=== PATIENT | male | born 1955 | race Caucasian/White ===

== ENCOUNTER 2019-05-10 12:55 | Inpatient (IN) | payer MEDICARE, OTHER ==
[2019-05-10] VITALS (39 sets, daily range): BP systolic 71–159; BP diastolic 37–136; PULSE 84–121; RESP 12–48; Ht 170.2 cm; Wt 70.9 kg
[~2019-05-10] VITALS: Ht 170.2 cm; Wt 70.9 kg
[2019-05-10] MEDS ORDERED: DEXTROSE 5%-0.45% NACL 1,000 ML IV SCH (14:12)
[2019-05-10] MEDS ORDERED: LIDOCAINE 1% (MPF) 5 ML VIAL SC ONE (14:30)
[2019-05-10] MEDS ORDERED: MAGNESIUM HYDROXIDE 30ML CUP PO PRN (14:30)
[2019-05-10] MEDS ORDERED: ACETAMINOPHEN 650MG/20.3ML CUP PO PRN (14:30)
[2019-05-10] MEDS ORDERED: ALBUTEROL 0.083% (NEB) 2.5 MG/3 ML AMP NEB PRN (14:30)
[2019-05-10] MEDS ORDERED: VANCOMYCIN IV PER PHARMACY XX SCH (14:30)
[2019-05-10] MEDS ORDERED: ONDANSETRON 4 MG INJ IV PRN (14:30)
[2019-05-10] MEDS ORDERED: LORAZEPAM 2 MG INJ IV PRN (14:30)
[2019-05-10] MEDS ORDERED: ACETAMINOPHEN 650 MG SUPP PR PRN (14:30)
[2019-05-10] MEDS ORDERED: DOCUSATE SODIUM 100 MG CAP PO PRN (14:30)
[2019-05-10] MEDS: NORepinephrine 8MG/250 ML (PMX 250 ML IV SCH (14:40)
[2019-05-10] MEDS ORDERED: NORepinephrine 8MG/250 ML (PMX 250 ML ONE (14:55)
--- NOTE | 2019-05-10 15:09 | CONS ---
Assessment/Plan Assessment/Plan Assessment/Plan (Daily) 1. acute kidney injury oN CKD III due to ATN From septic shock + Prerenal azotemia 2. Hypernatremia due to Free water deficiti 3. septich shock due to PNA 4. PNA concerned about HCAP 5. H/o HTN 6. Thrombocytopenia 7. h/o anoxic brain injury 8. Acute on Chronic systolic heart failure, EF 40% on ECHO Plan: seen in iCU< pt just came to ICU Hold off on diuretics for now due ot low BP and hypotension pt received only 250 cc Bolus due to CHF, will give albumin 25% 100ml Q 8 hr x 3 Continue iVF D5W at 60 cchr Uric acid, BNP in AM CXR in AM Thanks for consultation, I will conitnue to follow up Consultation Date/Type/Reason Admit Date/Time May 10, 2019 at 13:20 Date of Consultation: May 10, 2019 Type of Consult NEPHROLOGY Reason for Consultation Hypernatremia, acute kidney injury Requesting Provider: NIXON MILLER MD Date/Time of Note DATE: 05/10/19 TIME: 15:08 Hx of Present Illness 63 yo M with PMH Diabetes, hypertension, paroxysmal atrial fibrillation, sy stolic congestive heart failure with AICD in place, and CAD with mechanical aortic valve 2002, and anoxic brain injury was transferred to ICU from [place] due to hypotension and respiratory distress. He was found with SBP in the 70s this am and given 250cc fluid bolus given history of CHF. He was started on BIPAP given respiratory distress and weaned off prior to admission to ICU. .pt get admitted for septic shock to ICU due to PNA, on levophed, Required BIPAP On admisison he was noted to have Na 152, BUN/Cr 88/1.64- Renal has been consulted for hypernatremia, acute kidney injury. Subjective hx not possible: pt non-verbal, other (due to respiratory distress on BIPAP) Past Medical History Medical History: other (Diabetes, hypertension, paroxysmal atrial fibrillation, systolic congestive heart failure with AICD in place, and CAD with mechanical aortic valve 2002, and anoxic brain injury) Medications Current Medications Ondansetron HCl (Zofran Inj) 4 mg Q6H PRN IV NAUSEA AND/OR VOMITING; Start 05/10/19 at 14:30 Albuterol (Proventil 0.083% (Neb)) 2.5 mg Q4H RESP THERAPY NEB ; Start 05/10/19 at 17:00 Albuterol (Proventil 0.083% (Neb)) 2.5 mg Q2H RESP THERAPY PRN NEB SHORTNESS OF BREATH; Start 05/10/19 at 14:30 Acetaminophen (Tylenol Liquid) 650 mg Q6H PRN PO PAIN LEVEL 1-3 OR FEVER; Start 05/10/19 at 14:30 Acetaminophen (Tylenol Supp) 650 mg Q4H PRN HI PAIN LEVEL 1-3 OR FEVER; Start 05/10/19 at 14:30 Lorazepam (Ativan) 1 mg Q2H PRN IV ANXIETY; Start 05/10/19 at 14:30 Docusate Sodium (Colace) 100 mg Q12H PRN PO CONSTIPATION; Start 05/10/19 at 14:30 Magnesium Hydroxide (Milk Of Mag) 30 ml DAILY PRN PO CONSTIPATION; Start 05/10/19 at 14:30 Famotidine (Pepcid Iv) 20 mg Q24H IV ; Start 05/10/19 at 21:00 Vancomycin HCl (Vanco Iv Per Pharmacy) VANCOMYCIN PER PHARMACY PER PROTOCOL XX ; Start 05/10/19 at 14:30; Status UNV Meropenem/Sodium Chloride 50 ml @ 100 mls/hr Q12 IVPB ; Start 05/10/19 at 14:30 Citalopram Hydrobromide (Celexa) 40 mg DAILY PO ; Start 05/11/19 at 09:00 Digoxin (Digoxin) 125 mcg QHS IV ; Start 05/10/19 at 21:00 Insulin Aspart (Novolog Insulin Pen) NOVOLOG *MILD* ALGORI... Q4 SC ; Start 05/10/19 at 17:00 Miconazole Nitrate (Miconazole 2% Cr) 1 applic BID TOP ; Start 05/10/19 at 21:00 Midodrine (Proamatine) 5 mg TID@09,13,17 GTB ; Start 05/10/19 at 17:00 Quetiapine Fumarate (Seroquel) 25 mg BID PO ; Start 05/10/19 at 21:00 Dextrose 1,000 ml @ 60 mls/hr [id number] IV ; Start 05/10/19 at 15:00 Allergies: Coded Allergies: No Known Allergy (Unverified , 05/10/19) Past Surgical History Past Surgical Hx: other (aortic valve surgery ) Family History Significant Family History: no pertinent family hx Social History Alcohol Use: none Drug Use: none Exam/Review of Systems Exam Vitals Vital Signs Date Temp Pulse Resp B/P (MAP) Pulse Ox O2 O2 Flow FiO2 Time Delivery Rate 05/10/19 107 13:30 Exam General: awake, alert, on BIPAP HEENT: HANDY, BIPAP mask Neck: Supple , no JVD, no LAD Lungs: Diminished with coarse breath sounds. no wheezing appreciated Heart: Normal S1-S2, regular rate, irregular rhythm. no murmur appreciated Abdomen: Soft , nontender, nondistended BS+ Extremities: moving all extremities, no cyanosis, clubbing or edema Neurologic: non focal Results Result Diagram: 05/10/19 1440 Results 24hrs Laboratory Tests Test 05/10/19 14:32 05/10/19 14:40 Blood Gas Specimen Source Blood arterial Arterial Blood Date Drawn 05/10/2019 2:40:52 PM Arterial Blood pH (Temp corrected) 7.533 H Arterial Blood pCO2 (Temp correct) 27.6 L Arterial Blood pO2 (Temp corrected) 96.9 Arterial Blood HCO3 22.7 Arterial Blood Base Excess 0.3 Arterial Blood Oxygen Saturation 96.7 Barber Test ACCEPTAB Arterial Blood Gas Puncture Site Right Radial Arterial Blood Carboxyhemoglobin 0.8 Arterial Blood Methemoglobin 0.3 Blood Gas A-a O2 Differential 99.0 H Oxyhemoglobin Percent 95.6 Blood Gas Temperature 37.0 Blood Gas Modality NASAL CANNULA FiO2 32.0 Blood Gas Notified Whom TM Blood Gas Notified Time 05/10/2019 2:48:22 PM White Blood Count 11.0 #H Red Blood Count 2.43 L Hemoglobin 6.9 *L Hematocrit 23.0 L Mean Corpuscular Volume 94.7 Mean Corpuscular Hemoglobin 28.4 L Mean Corpuscular Hemoglobin Concent 30.0 L Red Cell Distribution Width 21.6 H Platelet Count 40 L Mean Platelet Volume Immature Granulocytes % 0.600 H Neutrophils % Lymphocytes % Monocytes % Eosinophils % Basophils % Nucleated Red Blood Cells % 0.4 H Immature Granulocytes # 0.070 H Neutrophils # Lymphocytes # Monocytes # Eosinophils # Basophils # Nucleated Red Blood Cells # Medications Medication Current Medications Ondansetron HCl (Zofran Inj) 4 mg Q6H PRN IV NAUSEA AND/OR VOMITING; Start 05/10/19 at 14:30 Albuterol (Proventil 0.083% (Neb)) 2.5 mg Q4H RESP THERAPY NEB ; Start 05/10/19 at 17:00 Albuterol (Proventil 0.083% (Neb)) 2.5 mg Q2H RESP THERAPY PRN NEB SHORTNESS OF BREATH; Start 05/10/19 at 14:30 Acetaminophen (Tylenol Liquid) 650 mg Q6H PRN PO PAIN LEVEL 1-3 OR FEVER; Start 05/10/19 at 14:30 Acetaminophen (Tylenol Supp) 650 mg Q4H PRN HI PAIN LEVEL 1-3 OR FEVER; Start 05/10/19 at 14:30 Lorazepam (Ativan) 1 mg Q2H PRN IV ANXIETY; Start 05/10/19 at 14:30 Docusate Sodium (Colace) 100 mg Q12H PRN PO CONSTIPATION; Start 05/10/19 at 14:30 Magnesium Hydroxide (Milk Of Mag) 30 ml DAILY PRN PO CONSTIPATION; Start 05/10/19 at 14:30 Famotidine (Pepcid Iv) 20 mg Q24H IV ; Start 05/10/19 at 21:00 Vancomycin HCl (Vanco Iv Per Pharmacy) VANCOMYCIN PER PHARMACY PER PROTOCOL XX ; Start 05/10/19 at 14:30; Status UNV Meropenem/Sodium Chloride 50 ml @ 100 mls/hr Q12 IVPB ; Start 05/10/19 at 14:30 Citalopram Hydrobromide (Celexa) 40 mg DAILY PO ; Start 05/11/19 at 09:00 Digoxin (Digoxin) 125 mcg QHS IV ; Start 05/10/19 at 21:00 Insulin Aspart (Novolog Insulin Pen) NOVOLOG *MILD* ALGORI... Q4 SC ; Start 05/10/19 at 17:00 Miconazole Nitrate (Miconazole 2% Cr) 1 applic BID TOP ; Start 05/10/19 at 21:00 Midodrine (Proamatine) 5 mg TID@09,13,17 GTB ; Start 05/10/19 at 17:00 Quetiapine Fumarate (Seroquel) 25 mg BID PO ; Start 05/10/19 at 21:00 Dextrose 1,000 ml @ 60 mls/hr [id number] IV ; Start 05/10/19 at 15:00 NEIDA RAMIREZ MD May 10, 2019 15:09
[2019-05-10] MEDS: DEXTROSE 5% 1,000 ML IV SCH (15:19)
[2019-05-10] MEDS: MEROPENEM 1 GM/50ML(PMX) 50 ML IVPB SCH ×2 (15:23→20:14)
--- NOTE | 2019-05-10 15:23 | HP ---
Date/Time of Note Date/Time of Note DATE: 05/10/19 TIME: 14:46 Assessment/Plan VTE Prophylaxis SCD applied (from Nsg): Yes Pharmacological prophylaxis: NA/contraindicated Pharm contraindication: thrombocytopenia Assessment/Plan Assessment/Plan 1. Septic shock, secondary to pneumonia - Patient started on pressor support after no response to fluid boluses - Goal MAP <65 - Broad spectrum antibiotics on board. ID consulted for antibiotic management - will continue gentle fluids in setting of CHF - lactic acid 3.0 this am and will repeat/trend 2. Acute respiratory failure, improving - weaned off BIPAP - will check ABG and repeat CXR in am - doing well on NC and maintaining 100% saturations. will wean as tolerated 3. Pneumonia, HCAP vs aspiration - seen on CXR this am - continue Neb tx - IV antibiotics on board. If no improvement will add steroids - ID consulted 4. WONG on CKD - Nephrology consulted for further recommendations - most likely secondary to ATN from septic shock and cardiorenal 5. Hypernatremia - currently on DW5 - will monitor na levels - Nephrology consulted for fluid management 6. Anemia - hgb 6.9. - Will order 1 unit PRBC - no manuel bleeding appreciated but will check FOBT given patient is on coumadin - Will hold for now 7. Diabetes Mellitus - A1c ordered - ISS and accuchecks 8. Atrial fibrillation - rate controlled - holding anticoagulation in setting of anemia and thrombocytopenia 9. Thrombocytopenia - will hold Warfarin - most likely secondary to sepsis - if worsens, will consult hematology 10. HTN - holding home meds in setting of hypotension 11. Acute on chronic systolic heart failure - will hold diuretics given low BP and resume when stable - ECHO noted with EF 40% 12. Anoxic encephalopathy - Per , capable of ADLs prior to admission with only some residual memory issues 13. Diet - Speech eval ordered 14. DVT ppx - SCD - hold Warfarin for now 15. Disposition - Admit to ICU for close monitoring and treatment of septic shock with pressor support. HPI/ROS Admit Date/Time Admit Date/Time May 10, 2019 at 13:20 Hx of Present Illness 63 yo M with PMH Diabetes, hypertension, paroxysmal atrial fibrillation, systolic congestive heart failure with AICD in place, and CAD with mechanical aortic valve 2002, and anoxic brain injury was transferred to ICU from [place] due to hypotension and respiratory distress. He was found with SBP in the 70s this am and given 250cc fluid bolus given history of CHF. He was started on BIPAP given respiratory distress and weaned off prior to admission to ICU. CXR was taken and showed pneumonia with improvement in pulmonary edema. Patient's at bedside proving history. Per , he was admitted to [facility] on 04/15/19 due to shortness of breath. He was treated for acute on chronic heart failure as well as atrial fibrillation with RVR. Patient was experiencing vomiting episodes and condition worsened, requiring transfer to ICU with intubation. Patient also underwent bronchoscopy and per , was doing well post intubation. He was treated for aspiration pneumonia and transferred to [place] for continued care. Of note, patient had AICD placed 6 years ago and per had a cardiac arrest with anoxic brain injury. Patient is capable of performing all ADLS and only has residual short term memory loss. ROS All 12 systems reviewed and pertinent positives as per HPI. All others negative. Constitutional: disoriented; No chills, No nausea Eyes: No discharge ENT: No congestion Respiratory: cough, shortness of breath; No sputum, No wheezing Cardiovascular: No chest pain, No lightheadedness, No palpitations Gastrointestinal: No pain, No diarrhea, No nausea, No vomiting Genitourinary: no complaints Musculoskeletal: no complaints Skin: No erythema, No rash Neurologic: confusion; No focal-weakness, No headache, No syncope Endocrine: no complaints Lymphatic: no complaints Immunologic: no complaints PMH/Family/Social Past Medical History Medical History: congestive heart failure, coronary artery disease, diabetes, high cholesterol, hypertension, renal disease, other (anoxic brain injury) Medications Current Medications Ondansetron HCl (Zofran Inj) 4 mg Q6H PRN IV NAUSEA AND/OR VOMITING; Start 05/10/19 at 14:30 Albuterol (Proventil 0.083% (Neb)) 2.5 mg Q4H RESP THERAPY NEB ; Start 05/10/19 at 17:00 Albuterol (Proventil 0.083% (Neb)) 2.5 mg Q2H RESP THERAPY PRN NEB SHORTNESS OF BREATH; Start 05/10/19 at 14:30 Acetaminophen (Tylenol Liquid) 650 mg Q6H PRN PO PAIN LEVEL 1-3 OR FEVER; Start 05/10/19 at 14:30 Acetaminophen (Tylenol Supp) 650 mg Q4H PRN MT PAIN LEVEL 1-3 OR FEVER; Start 05/10/19 at 14:30 Lorazepam (Ativan) 1 mg Q2H PRN IV ANXIETY; Start 05/10/19 at 14:30 Docusate Sodium (Colace) 100 mg Q12H PRN PO CONSTIPATION; Start 05/10/19 at 14:30 Magnesium Hydroxide (Milk Of Mag) 30 ml DAILY PRN PO CONSTIPATION; Start 05/10/19 at 14:30 Famotidine (Pepcid Iv) 20 mg Q12 IV ; Start 05/10/19 at 21:00; Status UNV Vancomycin HCl (Vanco Iv Per Pharmacy) VANCOMYCIN PER PHARMACY PER PROTOCOL XX ; Start 05/10/19 at 14:30; Status UNV Meropenem/Sodium Chloride 50 ml @ 100 mls/hr Q12 IVPB ; Start 05/10/19 at 14:30; Status UNV Citalopram Hydrobromide (Celexa) 40 mg DAILY PO ; Start 05/11/19 at 09:00 Digoxin (Digoxin) 125 mcg QHS IV ; Start 05/10/19 at 21:00 Miscellaneous Information (* Miscellaneous Pharmacy Order) Discontinue current oral sulfonylur... ONCE ONCE XX ; Start 05/10/19 at 15:00; Stop 05/10/19 at 15:01 Miscellaneous Information (* Miscellaneous Pharmacy Order) HYPOGLYCEMIA PROTOCOL w... ONCE ONCE XX ; Start 05/10/19 at 15:00; Stop 05/10/19 at 15:01 Insulin Aspart (Novolog Insulin Pen) NOVOLOG *MILD* ALGORI... Q4 SC ; Start 05/10/19 at 17:00 Miscellaneous Information (* Miscellaneous Pharmacy Order) Discontinue all previ... ONCE ONCE XX ; Start 05/10/19 at 15:00; Stop 05/10/19 at 15:01 Miconazole Nitrate (Miconazole 2% Cr) 1 applic BID TOP ; Start 05/10/19 at 21:00 Midodrine (Proamatine) 5 mg TID@09,13,17 GTB ; Start 05/10/19 at 17:00 Quetiapine Fumarate (Seroquel) 25 mg BID PO ; Start 05/10/19 at 21:00 Dextrose 1,000 ml @ 60 mls/hr [id number] IV ; Start 05/10/19 at 15:00 Coded Allergies: No Known Allergy (Unverified , 05/03/19) Past Surgical History Past Surgical Hx: other (AICD 2012, mechanical AV 2002) Family History Significant Family History: no pertinent family hx Social History Alcohol Use: none Smoking Status: Never smoker Drug Use: none Exam/Review of Systems Vital Signs Vitals Vital Signs Date Temp Pulse Resp B/P (MAP) Pulse Ox O2 O2 Flow FiO2 Time Delivery Rate 05/10/19 107 13:30 Exam Exam General: Patient is a pleasant male, moving around in bed and smiling. not responding to questions. no acute distress HEENT: Atraumatic, normocephalic. The pupils are equal, round and reactive. Extraocular motor are intact Neck: Supple with full range of motion. No rigidity or meningismus Chest: Nontender Lungs: Diminished with coarse breath sounds. no wheezing appreciated Heart: Normal S1-S2, regular rate, irregular rhythm. no murmur appreciated Abdomen: Soft , nontender, nondistended , bowel sounds are present. No guarding no rebound tenderness , No masses or organomegaly. No costovertebral temporal angle mass Extremities: moving all extremities, no cyanosis, clubbing or edema Neurologic: Cranial nerves II through XII are intact, motor and sensory are intact, Additional Comments Home medications reviewed PROCEDURE: XR Chest CLINICAL INDICATION: RESP FAIL . TECHNIQUE: Frontal view of the chest COMPARISON: DR GARCIA 05/05/2019 FINDINGS: The patient is rotated to the right. Stable left cardiac pacemaker / ICD. The cardiomediastinal silhouette remains enlarged. Median sternotomy wires are noted. Interval increased density of the consolidation in the mid to upper right lung. Slight decrease in opacities in the left lung. interval decreased size of small right pleural effusion. No radiographic evidence of significant pneumothorax. Osseous structures are unchanged. IMPRESSION: Interval increase in consolidation in the mid to upper right lung concerning for pneumonia. Slight decrease in interstitial opacities of the left lung suggestive of decr eased pulmonary edema. Interval decrease in small right pleural effusion. RPTAT: AATT Rao t Hayes, Physician Date Time Electronically viewed and signed by Rao Hayes, Physician on 05/10/2019 11:24 NIXON MILLER MD May 10, 2019 15:23
[2019-05-10] MEDS ORDERED: VANCOMYCIN HCL 1.5 GM in SOD CHLORIDE 0.9% 250 ML IVPB SCH (16:00)
[2019-05-10] MEDS: ALBUTEROL 0.083% (NEB) 2.5 MG/3 ML AMP NEB SCH ×2 (16:10→21:38)
[2019-05-10] MEDS ORDERED: PHENYLephrine 20MG IN 250 ML 250 ML ONE (16:28)
[2019-05-10] MEDS: MIDODRINE 5 MG TAB GTB SCH (17:00)
--- NOTE | 2019-05-10 17:47 | CONS ---
DATE OF ADMISSION: 05/10/2019 DATE OF CONSULTATION: 05/10/2019 TYPE OF CONSULT: Infectious disease. REASON FOR CONSULTATION: Antibiotic management. HISTORY OF PRESENT ILLNESS: Yue Villa is a 63-year-old unfortunate male who was transferred fr [facility] to the [facility] ICU with sepsis and possible aspiration pneumonia. His past problems include: 1. Adult-onset diabetes mellitus. 2. Hypertension. 3. Paroxysmal atrial fibrillation. 4. Systolic congestive heart failure. 5. AICD in place. 6. Coronary artery disease with a diesel mechanic helper aortic valve in 2002. 7. Anoxic brain injury. The patient was transferred from ICU from [place] with hypotension and respi ratory distress. He had a blood pressure in the 70s. He was given 250 mL of bolus of fluid, was sta rted on BiPAP given the respiratory distress and weaned off prior to admission to ICU. Chest x-ray w as taken and showed pneumonia with improvement in pulmonary edema. According to his , he was adm itted to [facility] [place] on 04/15/2019 with shortness of breath and treated for acute on chronic h eart failure as well as atrial fibrillation with rapid ventricular response. He was experiencing vom iting episodes and condition worsened requiring transfer to the ICU with intubation. The patient als o underwent bronchoscopy and per his was doing well post intubation. He was treated for aspirat ion pneumonia, transferred to [place] for continued care. Of note, patient had AICD placed 6 years ag o and per had a cardiac arrest with anoxic brain injury. He is capable of all of his ADLs and o nly has residual short-term memory loss. PAST MEDICAL HISTORY: Essentially as outlined. FAMILY HISTORY: Noncontributory. SOCIAL HISTORY: He does not smoke, drink, or abuse drugs. ALLERGIES: NONE TO PENICILLIN, SULFA, OR FOODS. MEDICATIONS: Per chart. REVIEW OF SYSTEMS: As per HPI. PHYSICAL EXAMINATION: GENERAL: The patient is lying in bed. His is by his bedside. He does not respond to questions . SKIN: Without generalized rash. HEENT: Within normal limits. NECK: Supple. LYMPH NODES: None palpable. CHEST: Decreased breath sounds at the bases. HEART: Without murmur or gallop. ABDOMEN: Soft, nontender, nondistended without organosplenomegaly or masses. EXTREMITIES: Without cyanosis, clubbing, or edema. RECTAL AND GENITAL: Deferred. NEUROLOGICAL: No focal neurological abnormalities. IMAGING: Chest x-ray shows left cardiac pacemaker, AICD. He has cardiomegaly, median sternotomy wir es are noted. Interval increased density of the consolidation in the mid to upper right lung, slight decrease in opacities in the left lung, interval decreased size of a small right pleural effusion, n o gradient radiographic evidence of significant pneumothorax, interval increase in consolidation conc erning for pneumonia, slight decrease in interstitial opacities suggestive of decreased pulmonary harjinder ma, interval decrease in right pleural effusion. IMPRESSION AND PLAN: The patient was begun on vancomycin and meropenem. Blood cultures have been or dered. Urine and respiratory cultures ordered. MRSA screen ordered. We will continue to observe on vancomycin and meropenem. I will dictate my findings to the hospitalist and to Dr. Frankie Tijerina in renal consultation. Dictated By: JONY BALDWIN MD, JD/NTS Conf#: [id number] DID#: [id number] CC: FLORINDA GONZALEZ MD;*End*
[2019-05-10] MEDS ORDERED: PHENTOLAMINE 5 MG INJ IV ONE (18:00)
[2019-05-10] MEDS ORDERED: PHENTOLAMINE 5 MG INJ SC ONE (18:00)
[2019-05-10] MEDS: INSULIN ASPART [NOVOLOG] 3 ML PEN SC SCH ×2 (18:40→20:19)
[2019-05-10] MEDS: MICONAZOLE 2% 30 GM CR TOP SCH (20:14)
[2019-05-10] MEDS: FAMOTIDINE 20 MG INJ IV SCH (20:14)
[2019-05-10] MEDS: DIGOXIN 500 MCG INJ IV SCH (20:14)
[2019-05-10] MEDS: QUETIAPINE 25 MG TAB PO SCH (20:15)
[2019-05-11] VITALS (86 sets, daily range): BP systolic 49–121; BP diastolic 28–93; PULSE 81–109; RESP 16–49
[2019-05-11] MEDS: ALBUTEROL 0.083% (NEB) 2.5 MG/3 ML AMP NEB SCH ×6 (01:21→20:08)
[2019-05-11] MEDS: INSULIN ASPART [NOVOLOG] 3 ML PEN SC SCH ×6 (01:37→20:19)
[2019-05-11] MEDS: DEXTROSE 5% 1,000 ML IV SCH ×2 (07:05→21:19)
[2019-05-11] MEDS: ALBUMIN HUMAN 25% 100 ML IV SCH ×3 (07:05→18:34)
--- NOTE | 2019-05-11 07:34 | CONS ---
Consultation Date/Type/Reason Admit Date/Time May 10, 2019 at 13:20 Initial Consult Date 05/10/19 Type of Consult NEPHROLOGY Requesting Provider: NIXON MILLER MD Date/Time of Note DATE: 05/11/19 TIME: 07:34 Exam/Review of Systems Exam Vitals Vital Signs Date Temp Pulse Resp B/P (MAP) Pulse Ox O2 O2 Flow FiO2 Time Delivery Rate 05/11/19 97 33 99/55 (70) 93 Nasal 3.0 07:00 Cannula 05/11/19 05:15 05/11/19 99.1 04:00 Intake and Output 05/10/19 05/10/19 05/11/19 1515:00 23:00 07:00 IntakeIntake Total 0 ml 1364.166 ml 840 ml OutputOutput Total 480 ml 645 ml 405 ml BalanceBalance -480 ml 719.166 ml 435 ml Results Result Diagram: 05/11/19 0449 05/11/19 0436 Results 24hrs Laboratory Tests Test 05/10/19 14:32 05/10/19 14:40 05/10/19 15:51 05/10/19 18:17 Blood Gas Blood arterial Specimen Source Arterial Blood 05/10/2019 2:40:5 Date Drawn 2 PM Arterial Blood pH 7.533 H (Temp corrected) Arterial Blood 27.6 L pCO2 (Temp correct) Arterial Blood 96.9 pO2 (Temp corrected) Arterial Blood 22.7 HCO3 Arterial Blood 0.3 Base Excess Arterial Blood 96.7 Oxygen Saturation Barber Test ACCEPTAB Arterial Blood Right Radial Gas Puncture Site Arterial 0.8 Blood Carboxyhemo globin Arterial Blood 0.3 Methemoglobin Blood Gas A-a O2 99.0 H Differential Oxyhemoglobin 95.6 Percent Blood Gas 37.0 Temperature Blood Gas NASAL CANNULA Modality FiO2 32.0 Blood Gas TM Notified Whom Blood Gas 05/10/2019 2:48:2 Notified Time 2 PM White Blood Count 11.0 #H Red Blood Count 2.43 L Hemoglobin 6.9 *L Hematocrit 23.0 L Mean Corpuscular 94.7 Volume Mean Corpuscular 28.4 L Hemoglobin Mean Corpuscular 30.0 L Hemoglobin Concen t Red Cell 21.6 H Distribution Width Platelet Count 40 L Mean Platelet Volume Immature 0.600 H Granulocytes % Neutrophils % Segmented 93 H Neutrophils % (Manual) Band Neutrophils 4 % (Manual) Lymphocytes % Lymphocytes % 3 L (Manual) Monocytes % Eosinophils % Basophils % Nucleated Red 0.4 H Blood Cells % Immature 0.070 H Granulocytes # Neutrophils # Neutrophils # 10.3 H (Manual) Band Neutrophils 0.4 # Lymphocytes 0.3 L (Manual) Lymphocytes # Monocytes # Eosinophils # Basophils # Nucleated Red Blood Cells # Platelet Estimate NORMAL Polychromasia 2+ Poikilocytosis 1+ Anisocytosis 1+ Macrocytosis 1+ Ovalocytes 2+ Sodium Level 152 H Potassium Level 4.1 Chloride Level 121 H Carbon Dioxide 24 Level Anion Gap 7 Blood Urea 88 H Nitrogen Creatinine 1.64 H Est Glomerular 42 L Filtrat Rate mL/min Glucose Level 178 Hemoglobin A1c 6.0 H Calcium Level 7.5 L Magnesium Level 2.8 H Iron Level < 10 L Total Iron 191 L Binding Capacity Percent Iron Saturation Total Bilirubin 1.7 H Direct Bilirubin 0.00 Indirect 1.7 H Bilirubin Aspartate Amino 29 Transf (AST/SGOT) Alanine 58 Aminotransferase (ALT/SGPT) Alkaline 43 Phosphatase Total Protein 5.4 L Albumin 2.4 L Globulin 3.00 Albumin/Globulin 0.80 Ratio Bedside Glucose 213 218 Test 05/10/19 18:38 05/10/19 20:18 05/11/19 00:51 05/11/19 01:33 Lactic Acid Level 3.0 *H 1.7 Bedside Glucose 184 142 Test 05/11/19 04:22 05/11/19 04:36 05/11/19 04:49 05/11/19 04:50 Bedside Glucose 127 Prothrombin Time 27.0 H Prothrombin Time 2.1 Ratio INR International 2.49 Normalized Ratio Sodium Level 151 H Potassium Level 4.5 Chloride Level 118 H Carbon Dioxide 25 Level Anion Gap 8 Blood Urea 94 H Nitrogen Creatinine 1.70 H Est Glomerular 41 L Filtrat Rate mL/min Glucose Level 132 # Calcium Level 7.4 L Magnesium Level 2.7 H Total Bilirubin 2.1 H Direct Bilirubin 0.00 Indirect 2.1 H Bilirubin Aspartate Amino 33 Transf (AST/SGOT) Alanine 55 Aminotransferase (ALT/SGPT) Alkaline 40 L Phosphatase Total Protein 5.4 L Albumin 2.5 L Globulin 2.90 Albumin/Globulin 0.86 Ratio White Blood Count 15.8 #H Red Blood Count 2.82 L Hemoglobin 8.2 L Hematocrit 26.8 L Mean Corpuscular 95.0 Volume Mean Corpuscular 29.1 Hemoglobin Mean Corpuscular 30.6 L Hemoglobin Concen t Red Cell 20.1 H Distribution Width Platelet Count 35 L Mean Platelet 11.9 H Volume Immature 0.700 H Granulocytes % Neutrophils % Lymphocytes % Monocytes % Eosinophils % Basophils % Nucleated Red 1.0 H Blood Cells % Immature 0.110 H Granulocytes # Neutrophils # Lymphocytes # Monocytes # Eosinophils # Basophils # Nucleated Red Blood Cells # Lactic Acid Level 1.9 Test 05/11/19 04:53 Lab Scanned BLOOD TRANSFUSIO Report N Medications Medication Current Medications Ondansetron HCl (Zofran Inj) 4 mg Q6H PRN IV NAUSEA AND/OR VOMITING; Start 05/10/19 at 14:30 Albuterol (Proventil 0.083% (Neb)) 2.5 mg Q4H RESP THERAPY NEB Last administered on 05/11/19at 06:39; Admin Dose 2.5 MG; Start 05/10/19 at 17:00 Albuterol (Proventil 0.083% (Neb)) 2.5 mg Q2H RESP THERAPY PRN NEB SHORTNESS OF BREATH; Start 05/10/19 at 14:30 Acetaminophen (Tylenol Liquid) 650 mg Q6H PRN PO PAIN LEVEL 1-3 OR FEVER; Start 05/10/19 at 14:30 Acetaminophen (Tylenol Supp) 650 mg Q4H PRN [place] PAIN LEVEL 1-3 OR FEVER; Start 05/10/19 at 14:30 Lorazepam (Ativan) 1 mg Q2H PRN IV ANXIETY; Start 05/10/19 at 14:30 Docusate Sodium (Colace) 100 mg Q12H PRN PO CONSTIPATION; Start 05/10/19 at 14:30 Magnesium Hydroxide (Milk Of Mag) 30 ml DAILY PRN PO CONSTIPATION; Start 05/10/19 at 14:30 Famotidine (Pepcid Iv) 20 mg Q24H IV Last administered on 05/10/19at 20:14; Admin Dose 20 MG; Start 05/10/19 at 21:00 Vancomycin HCl (Vanco Iv Per Pharmacy) VANCOMYCIN PER PHARMACY PER PROTOCOL XX ; Start 05/10/19 at 14:30 Meropenem/Sodium Chloride 50 ml @ 100 mls/hr Q12 IVPB Last administered on 05/10/19at 20:14; Admin Dose 100 MLS/HR; Start 05/10/19 at 14:30 Citalopram Hydrobromide (Celexa) 40 mg DAILY PO ; Start 05/11/19 at 09:00 Digoxin (Digoxin) 125 mcg QHS IV Last administered on 05/10/19at 20:14; Admin Dose 125 MCG; Start 05/10/19 at 21:00 Insulin Aspart (Novolog Insulin Pen) NOVOLOG *MILD* ALGORI... Q4 SC Last administered on 05/11/19at 01:37; Admin Dose 1 UNIT; Start 05/10/19 at 17:00 Miconazole Nitrate (Miconazole 2% Cr) 1 applic BID TOP Last administered on 05/10/19at 20:14; Admin Dose 1 APPLIC; Start 05/10/19 at 21:00 Midodrine (Proamatine) 5 mg TID@09,13,17 GTB ; Start 05/10/19 at 17:00 Quetiapine Fumarate (Seroquel) 25 mg BID PO ; Start 05/10/19 at 21:00 Dextrose 1,000 ml @ 60 mls/hr [id number] IV Last administered on 05/11/19at 07:05; Admin Dose 60 MLS/HR; Start 05/10/19 at 15:00 Vancomycin HCl 250 ml @ 125 mls/hr Q24H IVPB ; Start 05/11/19 at 16:00 Norepinephrine 250 ml @ 1.875 mls/ hr TITRATE IV Last administered on 05/10/19at 14:40; Admin Dose 1.875 MLS/HR; Start 05/10/19 at 16:30 Phenylephrine HCl 20 mg/Dextrose 250 ml @ 75 mls/hr PER PROTOCOL IV Last administered on 05/11/19at 04:32; Admin Dose 60 MLS/HR; Start 05/10/19 at 17:00 IV Flush (NS 10 ml) 10 ml PRN PRN IV FLUSH LINE; Start 05/10/19 at 19:00 Albumin Human 100 ml @ 100 mls/hr Q8H IV Last administered on 05/11/19 07:05; Admin Dose 100 MLS/HR; Start 05/11/19 at 07:00; Stop 05/11/19 at 23:59 NEIDA RAMIREZ MD May 11, 2019 07:34
[2019-05-11] MEDS: MEROPENEM 1 GM/50ML(PMX) 50 ML IVPB SCH ×2 (08:27→20:12)
--- NOTE | 2019-05-11 08:47 | CONS ---
Assessment/Plan Assessment/Plan Hospital Course (Demo Recall) 1. Septic shock 2. Intermittent ventricular tachycardia: Status post ICD placement 3. Congestive heart failure chronic secondary systolic and probably diastolic heart failure as well as valvular heart disease 4. Valvular heart disease status post mechanical aortic valve replacement and with severe mitral regurgitation 5. Severe cardiomyopathy ejection fracture 35% at the top of severe MR 6. Pulmonary hypertension 7. Encephalopathy and anoxic brain injury 8. Pneumonia most likely aspiration pneumonia 9. Acute renal failure 10. Hypernatremia 11. Respiratory failure hypoxemia 12. Diabetes 13. History of hypertension currently hypotensive and in shock 14. Reported history of endocarditis in the past 15. Severe anemia 16. Severe thrombocytopenia Recommendations: We will continue with a Lon-Synephrine drip to support the blood pressure. IV digoxin will be continued for now. We will check the digoxin level tomorrow morning and adjusted as needed. Patient is currently n.p.o. and unable to tolerate p.o. medications. Antibiotic management as per internal medicine and infectious disease consultation Aspiration precaution will be continued Coumadin to be resumed once patient able to tolerate p.o. medication. At this point INR is therapeutic and he has been having worsening thrombocytopenia. We will hold off on it for now and adjusted daily Diabetic management as per internal medicine. External management and hyponatremia management as per nephrology consultants. Patient has been followed up by Dr. Alcantara/Murray trotter at [place]. ID consultation has been requested already. Currently on multiple antibiotics. I will check a procalcitonin level tomorrow. Thyroid function test will be checked again tomorrow. Continue with ICU care More than 45 minutes of critical care time was for management treatment is critically ill patient excluding any procedures. Thank you for his referral. We will continue to follow along with you FLORINDA GONZALEZ MD [facility] Consultation Date/Type/Reason Admit Date/Time May 10, 2019 at 13:20 Date of Consultation: May 11, 2019 Type of Consult Cardiology Reason for Consultation Shock, ventricular tachycardia, atrial fibrillation, status post aortic valve replacement Requesting Provider: NIXON MILLER MD Date/Time of Note DATE: 05/11/19 TIME: 08:34 Hx of Present Illness Interventional cardiology consultation note/critical care note Chief complaint: Respiratory failure, hypotension Reason for consult: Shock, ventricular tachycardia, atrial fibrillation, status post aortic valve replacement History of present illness: Thank you for this referral. History was obtained from extensive review of the old chart discussion multiple physicians and staff discussion with the family. Patient himself is not able to provide any history to me. This is an unfortunate 63-year-old gentleman multiple complicated medical history who was transferred from [facility] to ICU because of increasing respiratory failure and hypotension and shock. Patient was admitted to [facility] for respiratory care. Multiple comorbidities including history of mechanical aortic valve replacement and encephalopathy and anoxic brain injury. Over the previous 2 days he was noted to be deteriorating more. His platelet has been dropping. He was also in respiratory distress yesterday and required to be placed on BiPAP. However he is Taking his BiPAP off. Was also hypotension. At which time it was decided to transfer the patient to ICU. Patient has remained hypotensive and has been placed on Lon-Synephrine drip. Heart rate overall is under fair control now with a combination of digoxin IV as well as Lon-Synephrine drip. He has remained in atrial fibrillation however has had multiple episodes of nonsustained V. tach. Patient also has a defibrillator which did not require to shock. Patient himself is altered and confused and is unable to provide any history to me. His chest x-ray has shown right-sided large infiltrate consistent with pneumonia and likely aspiration pneumonia. Patient has been placed on antibiotic in ICU Allergies: No known drug allergies Medications were reviewed as per medical reconciliation sheet Family history: No reported history of early coronary artery disease Social history: No active smoker. Unclear if the patient was an ex-smoker or not at this point Past medical history: Congestive heart failure, diabetes, hypertension, history of mechanical aortic valve replacement, status post ICD, history of cardiac arrest and anoxic brain injury according to the family when the ICD was placed a few years ago. History of chronic atrial fibrillation and mechanical aortic valve on Coumadin. History of recent sepsis and shock. Review of system: Patient denies all others except for above-mentioned Past Medical History Medications Current Medications Ondansetron HCl (Zofran Inj) 4 mg Q6H PRN IV NAUSEA AND/OR VOMITING; Start 05/10/19 at 14:30 Albuterol (Proventil 0.083% (Neb)) 2.5 mg Q4H RESP THERAPY NEB Last administer ed on 05/11/19at 06:39; Admin Dose 2.5 MG; Start 05/10/19 at 17:00 Albuterol (Proventil 0.083% (Neb)) 2.5 mg Q2H RESP THERAPY PRN NEB SHORTNESS OF BREATH; Start 05/10/19 at 14:30 Acetaminophen (Tylenol Liquid) 650 mg Q6H PRN PO PAIN LEVEL 1-3 OR FEVER; Start 05/10/19 at 14:30 Acetaminophen (Tylenol Supp) 650 mg Q4H PRN [place] PAIN LEVEL 1-3 OR FEVER; Start 05/10/19 at 14:30 Lorazepam (Ativan) 1 mg Q2H PRN IV ANXIETY; Start 05/10/19 at 14:30 Docusate Sodium (Colace) 100 mg Q12H PRN PO CONSTIPATION; Start 05/10/19 at 14:30 Magnesium Hydroxide (Milk Of Mag) 30 ml DAILY PRN PO CONSTIPATION; Start 05/10/19 at 14:30 Famotidine (Pepcid Iv) 20 mg Q24H IV Last administered on 05/10/19at 20:14; Admin Dose 20 MG; Start 05/10/19 at 21:00 Vancomycin HCl (Vanco Iv Per Pharmacy) VANCOMYCIN PER PHARMACY PER PROTOCOL XX ; Start 05/10/19 at 14:30 Meropenem/Sodium Chloride 50 ml @ 100 mls/hr Q12 IVPB Last administered on 05/10/19at 20:14; Admin Dose 100 MLS/HR; Start 05/10/19 at 14:30 Citalopram Hydrobromide (Celexa) 40 mg DAILY PO ; Start 05/11/19 at 09:00 Digoxin (Digoxin) 125 mcg QHS IV Last administered on 05/10/19at 20:14; Admin Dose 125 MCG; Start 05/10/19 at 21:00 Insulin Aspart (Novolog Insulin Pen) NOVOLOG *MILD* ALGORI... Q4 SC Last administered on 05/11/19at 01:37; Admin Dose 1 UNIT; Start 05/10/19 at 17:00 Miconazole Nitrate (Miconazole 2% Cr) 1 applic BID TOP Last administered on 05/10/19at 20:14; Admin Dose 1 APPLIC; Start 05/10/19 at 21:00 Midodrine (Proamatine) 5 mg TID@09,13,17 GTB ; Start 05/10/19 at 17:00 Quetiapine Fumarate (Seroquel) 25 mg BID PO ; Start 05/10/19 at 21:00 Dextrose 1,000 ml @ 60 mls/hr [id number] IV Last administered on 05/11/19at 07:05; Admin Dose 60 MLS/HR; Start 05/10/19 at 15:00 Vancomycin HCl 250 ml @ 125 mls/hr Q24H IVPB ; Start 05/11/19 at 16:00 Norepinephrine 250 ml @ 1.875 mls/ hr TITRATE IV Last administered on 05/10/19at 14:40; Admin Dose 1.875 MLS/HR; Start 05/10/19 at 16:30 Phenylephrine HCl 20 mg/Dextrose 250 ml @ 75 mls/hr PER PROTOCOL IV Last administered on 05/11/19at 07:52; Admin Dose 90 MLS/HR; Start 05/10/19 at 17:00 IV Flush (NS 10 ml) 10 ml PRN PRN IV FLUSH LINE; Start 05/10/19 at 19:00 Albumin Human 100 ml @ 100 mls/hr Q8H IV Last administered on 05/11/19at 07:05; Admin Dose 100 MLS/HR; Start 05/11/19 at 07:00; Stop 05/11/19 at 23:59 Allergies: Coded Allergies: No Known Allergy (Unverified , 05/10/19) Past Surgical History Past Surgical Hx: other (aortic valve surgery ) Social History Alcohol Use: none Smoking Status: Never smoker Drug Use: none Exam/Review of Systems Vital Signs Vitals Vital Signs Date Temp Pulse Resp B/P (MAP) Pulse Ox O2 O2 Flow FiO2 Time Delivery Rate 05/11/19 97 33 99/55 (70) 93 Nasal 3.0 07:00 Cannula 05/11/19 27 05:15 05/11/19 99.1 04:00 Intake and Output 05/10/19 05/10/19 05/11/19 1515:00 23:00 07:00 IntakeIntake Total 0 ml 1364.166 ml 975 ml OutputOutput Total 480 ml 645 ml 405 ml BalanceBalance -480 ml 719.166 ml 570 ml Exam Exam General: Elderly gentleman appears to be agitated and confused HEENT: NC/AT. pupils are equal. round. NECK: . no stridor. CV: Irregularly irregular. Mechanical click heard.. PULM: + Diffuse right-sided rhonchi. GI: SOFT, NT, ND, no rebound or guarding Extremity: trace B/L LE edema. no clubbing. neuro: awake but does not answer question. Psych: Agitated rectal: deferred : normal Review of the old chart showed echocardiogram done 05/03/2019 which was personally reviewed as shown: There is severe enlargement of left atrium. There is severe enlargement of right atrium. Mild enlargement of right ventricle. Severe right ventricular hypokinesis. Linear artifact in right ventricle suggestive of catheter, pacer lead, or ICD lead. Moderate concentric left ventricular hypertrophy. Mild enlargement of left ventricle cavity. Moderate global left ventricular systolic dysfunction. Ejection fraction is visually estimated at 35 %. Tissue Doppler/Mitral Doppler indices are indeterminate in this study due to the presence of mitral stenosis. Mild mitral leaflet calcification. Mild mitral annular calcification. Severe mitral valve regurgitation. The regurgitation jet is eccentrically directed which may underestimate the severity of mitral regurgitation. Mild to moderate mitral stenosis. Mitral valve Max Velocity 1.78 m/sec. MaxPG 13.00 mmHg. MeanPG 6.00 mmHg. Normal appearance of the tricuspid valve. The estimated Peak RVSP is 74 mmHg. There is moderate tricuspid regurgitation. Aortic Valve Mechanical Prosthesis. Gradients normal for valve type and size. Aortic valve Max velocity 1.58 m/sec. Max PG 9.96 mmHg. Mean PG 5.00 mmHg. Mild to moderate aortic valve regurgitation. The regurgitation jet is eccentrically directed. Normal pericardium with no significant pericardial effusion. Left pleural effusion seen. Normal size with poor respiratory collapse consistent with elevated right atrial pressure. Chest x-ray done 05/10/2019 which was personally reviewed as well shows: Interval increase in consolidation in the mid to upper right lung concerning for pneumonia. Slight decrease in interstitial opacities of the left lung suggestive of decreased pulmonary edema. Interval decrease in small right pleural effusion. Labs Result Diagram: 05/11/19 0449 05/11/19 0436 Results 24hrs Laboratory Tests Test 05/10/19 14:32 05/10/19 14:40 05/10/19 15:51 05/10/19 18:17 Blood Gas Blood arterial Specimen Source Arterial Blood 05/10/2019 2:40:5 Date Drawn 2 PM Arterial Blood pH 7.533 H (Temp corrected) Arterial Blood 27.6 L pCO2 (Temp correct) Arterial Blood 96.9 pO2 (Temp corrected) Arterial Blood 22.7 HCO3 Arterial Blood 0.3 Base Excess Arterial Blood 96.7 Oxygen Saturation Barber Test ACCEPTAB Arterial Blood Right Radial Gas Puncture Site Arterial 0.8 Blood Carboxyhemo globin Arterial Blood 0.3 Methemoglobin Blood Gas A-a O2 99.0 H Differential Oxyhemoglobin 95.6 Percent Blood Gas 37.0 Temperature Blood Gas NASAL CANNULA Modality FiO2 32.0 Blood Gas TM Notified Whom Blood Gas 05/10/2019 2:48:2 Notified Time 2 PM White Blood Count 11.0 #H Red Blood Count 2.43 L Hemoglobin 6.9 *L Hematocrit 23.0 L Mean Corpuscular 94.7 Volume Mean Corpuscular 28.4 L Hemoglobin Mean Corpuscular 30.0 L Hemoglobin Concen t Red Cell 21.6 H Distribution Width Platelet Count 40 L Mean Platelet Volume Immature 0.600 H Granulocytes % Neutrophils % Segmented 93 H Neutrophils % (Manual) Band Neutrophils 4 % (Manual) Lymphocytes % Lymphocytes % 3 L (Manual) Monocytes % Eosinophils % Basophils % Nucleated Red 0.4 H Blood Cells % Immature 0.070 H Granulocytes # Neutrophils # Neutrophils # 10.3 H (Manual) Band Neutrophils 0.4 # Lymphocytes 0.3 L (Manual) Lymphocytes # Monocytes # Eosinophils # Basophils # Nucleated Red Blood Cells # Platelet Estimate NORMAL Polychromasia 2+ Poikilocytosis 1+ Anisocytosis 1+ Macrocytosis 1+ Ovalocytes 2+ Sodium Level 152 H Potassium Level 4.1 Chloride Level 121 H Carbon Dioxide 24 Level Anion Gap 7 Blood Urea 88 H Nitrogen Creatinine 1.64 H Est Glomerular 42 L Filtrat Rate mL/min Glucose Level 178 Hemoglobin A1c 6.0 H Calcium Level 7.5 L Magnesium Level 2.8 H Iron Level < 10 L Total Iron 191 L Binding Capacity Percent Iron Saturation Total Bilirubin 1.7 H Direct Bilirubin 0.00 Indirect 1.7 H Bilirubin Aspartate Amino 29 Transf (AST/SGOT) Alanine 58 Aminotransferase (ALT/SGPT) Alkaline 43 Phosphatase Total Protein 5.4 L Albumin 2.4 L Globulin 3.00 Albumin/Globulin 0.80 Ratio Bedside Glucose 213 218 Test 05/10/19 18:38 05/10/19 20:18 05/11/19 00:51 05/11/19 01:33 Lactic Acid Level 3.0 *H 1.7 Bedside Glucose 184 142 Test 05/11/19 04:22 05/11/19 04:36 05/11/19 04:49 05/11/19 04:50 Bedside Glucose 127 Prothrombin Time 27.0 H Prothrombin Time 2.1 Ratio INR International 2.49 Normalized Ratio Sodium Level 151 H Potassium Level 4.5 Chloride Level 118 H Carbon Dioxide 25 Level Anion Gap 8 Blood Urea 94 H Nitrogen Creatinine 1.70 H Est Glomerular 41 L Filtrat Rate mL/min Glucose Level 132 # Calcium Level 7.4 L Magnesium Level 2.7 H Total Bilirubin 2.1 H Direct Bilirubin 0.00 Indirect 2.1 H Bilirubin Aspartate Amino 33 Transf (AST/SGOT) Alanine 55 Aminotransferase (ALT/SGPT) Alkaline 40 L Phosphatase Total Protein 5.4 L Albumin 2.5 L Globulin 2.90 Albumin/Globulin 0.86 Ratio White Blood Count 15.8 #H Red Blood Count 2.82 L Hemoglobin 8.2 L Hematocrit 26.8 L Mean Corpuscular 95.0 Volume Mean Corpuscular 29.1 Hemoglobin Mean Corpuscular 30.6 L Hemoglobin Concen t Red Cell 20.1 H Distribution Width Platelet Count 35 L Mean Platelet 11.9 H Volume Immature 0.700 H Granulocytes % Neutrophils % Lymphocytes % Monocytes % Eosinophils % Basophils % Nucleated Red 1.0 H Blood Cells % Immature 0.110 H Granulocytes # Neutrophils # Lymphocytes # Monocytes # Eosinophils # Basophils # Nucleated Red Blood Cells # Lactic Acid Level 1.9 Test 05/11/19 04:53 05/11/19 08:29 Lab Scanned BLOOD TRANSFUSIO Report N Bedside Glucose 149 Medications Medications Current Medications Ondansetron HCl (Zofran Inj) 4 mg Q6H PRN IV NAUSEA AND/OR VOMITING; Start 05/10/19 at 14:30 Albuterol (Proventil 0.083% (Neb)) 2.5 mg Q4H RESP THERAPY NEB Last administered on 05/11/19at 06:39; Admin Dose 2.5 MG; Start 05/10/19 at 17:00 Albuterol (Proventil 0.083% (Neb)) 2.5 mg Q2H RESP THERAPY PRN NEB SHORTNESS OF BREATH; Start 05/10/19 at 14:30 Acetaminophen (Tylenol Liquid) 650 mg Q6H PRN PO PAIN LEVEL 1-3 OR FEVER; Start 05/10/19 at 14:30 Acetaminophen (Tylenol Supp) 650 mg Q4H PRN [place] PAIN LEVEL 1-3 OR FEVER; Start 05/10/19 at 14:30 Lorazepam (Ativan) 1 mg Q2H PRN IV ANXIETY; Start 05/10/19 at 14:30 Docusate Sodium (Colace) 100 mg Q12H PRN PO CONSTIPATION; Start 05/10/19 at 14:30 Magnesium Hydroxide (Milk Of Mag) 30 ml DAILY PRN PO CONSTIPATION; Start 05/10/19 at 14:30 Famotidine (Pepcid Iv) 20 mg Q24H IV Last administered on 05/10/19at 20:14; Admin Dose 20 MG; Start 05/10/19 at 21:00 Vancomycin HCl (Vanco Iv Per Pharmacy) VANCOMYCIN PER PHARMACY PER PROTOCOL XX ; Start 05/10/19 at 14:30 Meropenem/Sodium Chloride 50 ml @ 100 mls/hr Q12 IVPB Last administered on 05/10/19at 20:14; Admin Dose 100 MLS/HR; Start 05/10/19 at 14:30 Citalopram Hydrobromide (Celexa) 40 mg DAILY PO ; Start 05/11/19 at 09:00 Digoxin (Digoxin) 125 mcg QHS IV Last administered on 05/10/19at 20:14; Admin Dose 125 MCG; Start 05/10/19 at 21:00 Insulin Aspart (Novolog Insulin Pen) NOVOLOG *MILD* ALGORI... Q4 SC Last administered on 05/11/19at 01:37; Admin Dose 1 UNIT; Start 05/10/19 at 17:00 Miconazole Nitrate (Miconazole 2% Cr) 1 applic BID TOP Last administered on 05/10/19at 20:14; Admin Dose 1 APPLIC; Start 05/10/19 at 21:00 Midodrine (Proamatine) 5 mg TID@09,13,17 GTB ; Start 05/10/19 at 17:00 Quetiapine Fumarate (Seroquel) 25 mg BID PO ; Start 05/10/19 at 21:00 Dextrose 1,000 ml @ 60 mls/hr [id number] IV Last administered on 05/11/19at 07:05; Admin Dose 60 MLS/HR; Start 05/10/19 at 15:00 Vancomycin HCl 250 ml @ 125 mls/hr Q24H IVPB ; Start 05/11/19 at 16:00 Norepinephrine 250 ml @ 1.875 mls/ hr TITRATE IV Last administered on 05/10/19at 14:40; Admin Dose 1.875 MLS/HR; Start 05/10/19 at 16:30 Phenylephrine HCl 20 mg/Dextrose 250 ml @ 75 mls/hr PER PROTOCOL IV Last administered on 05/11/19at 07:52; Admin Dose 90 MLS/HR; Start 05/10/19 at 17:00 IV Flush (NS 10 ml) 10 ml PRN PRN IV FLUSH LINE; Start 05/10/19 at 19:00 Albumin Human 100 ml @ 100 mls/hr Q8H IV Last administered on 05/11/19at 07:05; Admin Dose 100 MLS/HR; Start 05/11/19 at 07:00; Stop 05/11/19 at 23:59 FLORINDA GONZALEZ MD May 11, 2019 08:46
[2019-05-11] MEDS: CITALOPRAM 20 MG TAB PO SCH (09:00)
[2019-05-11] MEDS: MIDODRINE 5 MG TAB GTB SCH ×3 (09:00→15:50)
[2019-05-11] MEDS: QUETIAPINE 25 MG TAB PO SCH ×2 (09:00→20:03)
[2019-05-11] MEDS: ALBUMIN HUMAN 25% 50 ML IV SCH ×3 (10:28→20:11)
[2019-05-11] MEDS: MICONAZOLE 2% 30 GM CR TOP SCH ×2 (10:29→21:44)
--- NOTE | 2019-05-11 12:36 | PN ---
Date/Time of Note Date/Time of Note DATE: 05/11/19 TIME: 12:28 Assessment/Plan VTE Prophylaxis Risk score (from Ns)>0 risk: 8 SCD applied (from Ns): Yes Pharmacological prophylaxis: NA/contraindicated Pharm contraindication: anticoag not tolerated Lines/Catheters IV Catheter Type (from Nrsg): PICC Line Central line still needed: Yes Urinary Cath still in place: Yes Reason Cath still needed: urinary retention Assessment/Plan Assessment/Plan 1. Septic shock, secondary to pneumonia - will wean off pressor support as able with goal MAP >65 - Continue on IV antibiotics - lactic acid normalized 2. Acute respiratory failure, improving - stable on NC - secondary to PNA 3. Pneumonia, HCAP vs aspiration - CXR this am noted with multilobar PNA R lung - continue Neb tx - IV antibiotics on board - ID consultation appreciated 4. WONG on CKD - Nephrology consultation appreciated and will continue on IVF and started on albumin - most likely secondary to ATN from septic shock and cardiorenal 5. Hypernatremia - currently on DW5 - will monitor Na levels - Nephrology consulted for fluid management 6. Anemia - FOBT + and GI consulted for evaluation once stable . - hgb improved after 1 unit pRBC 7. Diabetes Mellitus - A1c noted - ISS and accuchecks 8. Atrial fibrillation - rate controlled - holding anticoagulation in setting of anemia and thrombocytopenia 9. Thrombocytopenia - will hold Warfarin - most likely secondary to sepsis - if worsens, will consult hematology 10. HTN - holding home meds in setting of hypotension 11. Acute on chronic systolic heart failure - will hold diuretics given low BP and resume when stable - ECHO noted with EF 40% 12. Anoxic encephalopathy 13. Disposition - Continue monitoring in ICU given need for pressor support - If condition continues to decline will need to discuss goals of care with family >35 minutes of critical care time spent with patient Result Diagram: 05/11/19 0449 05/11/19 0436 Results 24hrs Laboratory Tests Test 05/10/19 14:32 05/10/19 14:40 05/10/19 15:51 05/10/19 18:17 Blood Gas Blood arterial Specimen Source Arterial Blood 05/10/2019 2:40: Date Drawn 52 PM Arterial Blood 7.533 H pH (Temp corrected ) Arterial Blood 27.6 L pCO2 (Temp correct) Arterial Blood 96.9 pO2 (Temp corrected ) Arterial Blood 22.7 HCO3 Arterial Blood 0.3 Base Excess Arterial Blood 96.7 Oxygen Saturati on Barber Test ACCEPTAB Arterial Blood Right Radial Gas Puncture Site Arterial 0.8 Blood Carboxyhe moglobin Arterial Blood 0.3 Methemoglobin Blood Gas A-a 99.0 H O2 Differential Oxyhemoglobin 95.6 Percent Blood Gas 37.0 Temperature Blood Gas NASAL CANNULA Modality FiO2 32.0 Blood Gas TM Notified Whom Blood Gas 05/10/2019 2:48: Notified Time 22 PM White Blood 11.0 #H Count Red Blood Count 2.43 L Hemoglobin 6.9 *L Hematocrit 23.0 L Mean 94.7 Corpuscular Volume Mean 28.4 L Corpuscular Hemoglobin Mean 30.0 L Corpuscular Hemoglobin Conc ent Red Cell 21.6 H Distribution Width Platelet Count 40 L Mean Platelet Volume Immature 0.600 H Granulocytes % Neutrophils % Segmented 93 H Neutrophils % (Manual) Band 4 Neutrophils % (Manual) Lymphocytes % Lymphocytes % 3 L (Manual) Monocytes % Eosinophils % Basophils % Nucleated Red 0.4 H Blood Cells % Immature 0.070 H Granulocytes # Neutrophils # Neutrophils # 10.3 H (Manual) Band 0.4 Neutrophils # Lymphocytes 0.3 L (Manual) Lymphocytes # Monocytes # Eosinophils # Basophils # Nucleated Red Blood Cells # Platelet NORMAL Estimate Polychromasia 2+ Poikilocytosis 1+ Anisocytosis 1+ Macrocytosis 1+ Ovalocytes 2+ Sodium Level 152 H Potassium Level 4.1 Chloride Level 121 H Carbon Dioxide 24 Level Anion Gap 7 Blood Urea 88 H Nitrogen Creatinine 1.64 H Est Glomerular 42 L Filtrat Rate mL/min Glucose Level 178 Hemoglobin A1c 6.0 H Calcium Level 7.5 L Magnesium Level 2.8 H Iron Level < 10 L Total Iron 191 L Binding Capacity Percent Iron Saturation Total Bilirubin 1.7 H Direct 0.00 Bilirubin Indirect 1.7 H Bilirubin Aspartate Amino 29 Transf (AST/SGO T) Alanine 58 Aminotransferas e (ALT/SGPT) Alkaline 43 Phosphatase Total Protein 5.4 L Albumin 2.4 L Globulin 3.00 Albumin/Globuli 0.80 n Ratio Bedside Glucose 213 218 Test 05/10/19 18:38 05/10/19 20:18 05/11/19 00:51 05/11/19 01:33 Lactic Acid 3.0 *H 1.7 Level Bedside Glucose 184 142 Test 05/11/19 04:22 05/11/19 04:30 05/11/19 04:36 05/11/19 04:49 Bedside Glucose 127 Procalcitonin 2.23 H Prothrombin 27.0 H Time Prothrombin 2.1 Time Ratio INR 2.49 International Normalized Rati o Sodium Level 151 H Potassium Level 4.5 Chloride Level 118 H Carbon Dioxide 25 Level Anion Gap 8 Blood Urea 94 H Nitrogen Creatinine 1.70 H Est Glomerular 41 L Filtrat Rate mL/min Glucose Level 132 # Calcium Level 7.4 L Magnesium Level 2.7 H Total Bilirubin 2.1 H Direct 0.00 Bilirubin Indirect 2.1 H Bilirubin Aspartate Amino 33 Transf (AST/SGO T) Alanine 55 Aminotransferas e (ALT/SGPT) Alkaline 40 L Phosphatase Total Protein 5.4 L Albumin 2.5 L Globulin 2.90 Albumin/Globuli 0.86 n Ratio White Blood 15.8 #H Count Red Blood Count 2.82 L Hemoglobin 8.2 L Hematocrit 26.8 L Mean 95.0 Corpuscular Volume Mean 29.1 Corpuscular Hemoglobin Mean 30.6 L Corpuscular Hemoglobin Conc ent Red Cell 20.1 H Distribution Width Platelet Count 35 L Mean Platelet 11.9 H Volume Immature 0.700 H Granulocytes % Neutrophils % Segmented 65 Neutrophils % (Manual) Band 28 H Neutrophils % (Manual) Lymphocytes % Lymphocytes % 2 L (Manual) Reactive 1 H Lymphocytes % (Manual) Monocytes % Monocytes % 4 (Manual) Eosinophils % Basophils % Nucleated Red 3 H Blood Cells % Immature 0.110 H Granulocytes # Neutrophils # Neutrophils # 11.0 H (Manual) Band 4.4 H Neutrophils # Lymphocytes 0.3 L (Manual) Lymphocytes # Reactive 0.1 H Lymphocytes # Monocytes # Monocytes # 0.6 (Manual) Eosinophils # Basophils # Nucleated Red Blood Cells # Platelet SIG DECREASED Estimate Giant Platelets 1 H Polychromasia 3+ Poikilocytosis 3+ Anisocytosis 2+ Microcytosis 1+ Test 05/11/19 04:50 05/11/19 04:53 05/11/19 08:29 Lactic Acid 1.9 Level Lab Scanned BLOOD TRANSFUSI Report ON Bedside Glucose 149 Subjective 24 Hr Interval Summary Free Text/Dictation Patient has been more confused and per nursing has been biting people. Discussed with Dr. Doherty that patients baseline is different than what the explained. Still requiring pressor support. Exam/Review of Systems Exam Vitals Vital Signs Date Temp Pulse Resp B/P (MAP) Pulse Ox O2 O2 Flow FiO2 Time Delivery Rate 05/11/19 89 22 98 21 09:51 05/11/19 84/59 (67) 08:45 05/11/19 Nasal 3.0 07:00 Cannula 05/11/19 99.1 04:00 Intake and Output 05/10/19 05/10/19 05/11/19 1515:00 23:00 07:00 IntakeIntake Total 0 ml 1364.166 ml 975 ml OutputOutput Total 480 ml 645 ml 405 ml BalanceBalance -480 ml 719.166 ml 570 ml Exam General: confused and restless Neck: Supple Chest: Nontender Lungs: Diminished with coarse breath sounds. no wheezing appreciated Heart: Normal S1-S2, regular rate, irregular rhythm. no murmur appreciated Abdomen: Soft , nontender, nondistended , bowel sounds are present. No guarding no rebound tenderness Extremities: moving all extremities, no cyanosis, clubbing or edema Neurologic: Cranial nerves II through XII are intact, motor and sensory are intact, Results Results 24hrs Laboratory Tests Test 05/10/19 14:32 05/10/19 14:40 05/10/19 15:51 05/10/19 18:17 Blood Gas Blood arterial Specimen Source Arterial Blood 05/10/2019 2:40: Date Drawn 52 PM Arterial Blood 7.533 H pH (Temp corrected ) Arterial Blood 27.6 L pCO2 (Temp correct) Arterial Blood 96.9 pO2 (Temp corrected ) Arterial Blood 22.7 HCO3 Arterial Blood 0.3 Base Excess Arterial Blood 96.7 Oxygen Saturati on Barber Test ACCEPTAB Arterial Blood Right Radial Gas Puncture Site Arterial 0.8 Blood Carboxyhe moglobin Arterial Blood 0.3 Methemoglobin Blood Gas A-a 99.0 H O2 Differential Oxyhemoglobin 95.6 Percent Blood Gas 37.0 Temperature Blood Gas NASAL CANNULA Modality FiO2 32.0 Blood Gas TM Notified Whom Blood Gas 05/10/2019 2:48: Notified Time 22 PM White Blood 11.0 #H Count Red Blood Count 2.43 L Hemoglobin 6.9 *L Hematocrit 23.0 L Mean 94.7 Corpuscular Volume Mean 28.4 L Corpuscular Hemoglobin Mean 30.0 L Corpuscular Hemoglobin Conc ent Red Cell 21.6 H Distribution Width Platelet Count 40 L Mean Platelet Volume Immature 0.600 H Granulocytes % Neutrophils % Segmented 93 H Neutrophils % (Manual) Band 4 Neutrophils % (Manual) Lymphocytes % Lymphocytes % 3 L (Manual) Monocytes % Eosinophils % Basophils % Nucleated Red 0.4 H Blood Cells % Immature 0.070 H Granulocytes # Neutrophils # Neutrophils # 10.3 H (Manual) Band 0.4 Neutrophils # Lymphocytes 0.3 L (Manual) Lymphocytes # Monocytes # Eosinophils # Basophils # Nucleated Red Blood Cells # Platelet NORMAL Estimate Polychromasia 2+ Poikilocytosis 1+ Anisocytosis 1+ Macrocytosis 1+ Ovalocytes 2+ Sodium Level 152 H Potassium Level 4.1 Chloride Level 121 H Carbon Dioxide 24 Level Anion Gap 7 Blood Urea 88 H Nitrogen Creatinine 1.64 H Est Glomerular 42 L Filtrat Rate mL/min Glucose Level 178 Hemoglobin A1c 6.0 H Calcium Level 7.5 L Magnesium Level 2.8 H Iron Level < 10 L Total Iron 191 L Binding Capacity Percent Iron Saturation Total Bilirubin 1.7 H Direct 0.00 Bilirubin Indirect 1.7 H Bilirubin Aspartate Amino 29 Transf (AST/SGO T) Alanine 58 Aminotransferas e (ALT/SGPT) Alkaline 43 Phosphatase Total Protein 5.4 L Albumin 2.4 L Globulin 3.00 Albumin/Globuli 0.80 n Ratio Bedside Glucose 213 218 Test 05/10/19 18:38 05/10/19 20:18 05/11/19 00:51 05/11/19 01:33 Lactic Acid 3.0 *H 1.7 Level Bedside Glucose 184 142 Test 05/11/19 04:22 05/11/19 04:30 05/11/19 04:36 05/11/19 04:49 Bedside Glucose 127 Procalcitonin 2.23 H Prothrombin 27.0 H Time Prothrombin 2.1 Time Ratio INR 2.49 International Normalized Rati o Sodium Level 151 H Potassium Level 4.5 Chloride Level 118 H Carbon Dioxide 25 Level Anion Gap 8 Blood Urea 94 H Nitrogen Creatinine 1.70 H Est Glomerular 41 L Filtrat Rate mL/min Glucose Level 132 # Calcium Level 7.4 L Magnesium Level 2.7 H Total Bilirubin 2.1 H Direct 0.00 Bilirubin Indirect 2.1 H Bilirubin Aspartate Amino 33 Transf (AST/SGO T) Alanine 55 Aminotransferas e (ALT/SGPT) Alkaline 40 L Phosphatase Total Protein 5.4 L Albumin 2.5 L Globulin 2.90 Albumin/Globuli 0.86 n Ratio White Blood 15.8 #H Count Red Blood Count 2.82 L Hemoglobin 8.2 L Hematocrit 26.8 L Mean 95.0 Corpuscular Volume Mean 29.1 Corpuscular Hemoglobin Mean 30.6 L Corpuscular Hemoglobin Conc ent Red Cell 20.1 H Distribution Width Platelet Count 35 L Mean Platelet 11.9 H Volume Immature 0.700 H Granulocytes % Neutrophils % Segmented 65 Neutrophils % (Manual) Band 28 H Neutrophils % (Manual) Lymphocytes % Lymphocytes % 2 L (Manual) Reactive 1 H Lymphocytes % (Manual) Monocytes % Monocytes % 4 (Manual) Eosinophils % Basophils % Nucleated Red 3 H Blood Cells % Immature 0.110 H Granulocytes # Neutrophils # Neutrophils # 11.0 H (Manual) Band 4.4 H Neutrophils # Lymphocytes 0.3 L (Manual) Lymphocytes # Reactive 0.1 H Lymphocytes # Monocytes # Monocytes # 0.6 (Manual) Eosinophils # Basophils # Nucleated Red Blood Cells # Platelet SIG DECREASED Estimate Giant Platelets 1 H Polychromasia 3+ Poikilocytosis 3+ Anisocytosis 2+ Microcytosis 1+ Test 05/11/19 04:50 05/11/19 04:53 05/11/19 08:29 Lactic Acid 1.9 Level Lab Scanned BLOOD TRANSFUSI Report ON Bedside Glucose 149 Medications Medication Current Medications Ondansetron HCl (Zofran Inj) 4 mg Q6H PRN IV NAUSEA AND/OR VOMITING; Start 05/10/19 at 14:30 Albuterol (Proventil 0.083% (Neb)) 2.5 mg Q4H RESP THERAPY NEB Last administered on 05/11/19at 09:51; Admin Dose 2.5 MG; Start 05/10/19 at 17:00 Albuterol (Proventil 0.083% (Neb)) 2.5 mg Q2H RESP THERAPY PRN NEB SHORTNESS OF BREATH; Start 05/10/19 at 14:30 Acetaminophen (Tylenol Liquid) 650 mg Q6H PRN PO PAIN LEVEL 1-3 OR FEVER; Start 05/10/19 at 14:30 Acetaminophen (Tylenol Supp) 650 mg Q4H PRN ND PAIN LEVEL 1-3 OR FEVER; Start 05/10/19 at 14:30 Lorazepam (Ativan) 1 mg Q2H PRN IV ANXIETY; Start 05/10/19 at 14:30 Docusate Sodium (Colace) 100 mg Q12H PRN PO CONSTIPATION; Start 05/10/19 at 14:30 Magnesium Hydroxide (Milk Of Mag) 30 ml DAILY PRN PO CONSTIPATION; Start 05/10/19 at 14:30 Famotidine (Pepcid Iv) 20 mg Q24H IV Last administered on 05/10/19at 20:14; Admin Dose 20 MG; Start 05/10/19 at 21:00 Vancomycin HCl (Vanco Iv Per Pharmacy) VANCOMYCIN PER PHARMACY PER PROTOCOL XX ; Start 05/10/19 at 14:30 Meropenem/Sodium Chloride 50 ml @ 100 mls/hr Q12 IVPB Last administered on 05/11/19at 08:27; Admin Dose 100 MLS/HR; Start 05/10/19 at 14:30 Citalopram Hydrobromide (Celexa) 40 mg DAILY PO ; Start 05/11/19 at 09:00 Digoxin (Digoxin) 125 mcg QHS IV Last administered on 05/10/19at 20:14; Admin Dose 125 MCG; Start 05/10/19 at 21:00 Insulin Aspart (Novolog Insulin Pen) NOVOLOG *MILD* ALGORI... Q4 SC Last administered on 05/11/19at 08:35; Admin Dose 1 UNIT; Start 05/10/19 at 17:00 Miconazole Nitrate (Miconazole 2% Cr) 1 applic BID TOP Last administered on 05/11/19at 10:29; Admin Dose 1 APPLIC; Start 05/10/19 at 21:00 Midodrine (Proamatine) 5 mg TID@09,13,17 GTB ; Start 05/10/19 at 17:00 Quetiapine Fumarate (Seroquel) 25 mg BID PO ; Start 05/10/19 at 21:00 Dextrose 1,000 ml @ 75 mls/hr [id number] IV Last administered on 05/11/19at 07:05; Admin Dose 60 MLS/HR; Start 05/10/19 at 15:00 Vancomycin HCl 250 ml @ 125 mls/hr Q24H IVPB ; Start 05/11/19 at 16:00 Norepinephrine 250 ml @ 1.875 mls/ hr TITRATE IV Last administered on 05/10/19at 14:40; Admin Dose 1.875 MLS/HR; Start 05/10/19 at 16:30 Phenylephrine HCl 20 mg/Dextrose 250 ml @ 75 mls/hr PER PROTOCOL IV Last administered on 05/11/19at 10:27; Admin Dose 112.5 MLS/HR; Start 05/10/19 at 17:00 IV Flush (NS 10 ml) 10 ml PRN PRN IV FLUSH LINE; Start 05/10/19 at 19:00 Albumin Human 100 ml @ 100 mls/hr Q8H IV Last administered on 05/11/19at 07:05; Admin Dose 100 MLS/HR; Start 05/11/19 at 07:00; Stop 05/11/19 at 23:59 Albumin Human 50 ml @ 100 mls/hr Q8H IV Last administered on 05/11/19at 10:28; Admin Dose 100 MLS/HR; Start 05/11/19 at 09:30; Stop 05/12/19 at 09:59 NIXON MILLER MD May 11, 2019 12:36
--- NOTE | 2019-05-11 13:28 | PN ---
DATE: 05/11/2019 SUBJECTIVE: The patient remains critically ill on pressor support. Urinary output has been marginal . The patient remains confused, altered. No other events noted. OBJECTIVE: VITAL SIGNS: Blood pressure is 84/59, respiration 41, pulse 88, temperature 98.6. HEENT: Head is normocephalic. NECK: Supple. HEART: Tachycardic. LUNGS: Show diminished breath sounds at the base. ABDOMEN: Soft, nontender to palpation without rebound or guarding. EXTREMITIES: Negative for clubbing, cyanosis. Positive edema. DERMATOLOGIC: No rashes. MUSCULOSKELETAL: No joint effusions. NEUROLOGIC: Limited exam, but no obvious focal deficits. MEDICATIONS: Patient medications have been reviewed. LABORATORY DATA: Has been reviewed. IMAGING STUDIES: Have been reviewed. ASSESSMENT AND PLAN: This is a 63-year-old male who presents with: 1. Nonoliguric acute kidney injury on top of chronic kidney disease stage IIIB/IV with previous base line creatinines around 1.5 to 2.0 mg/dL. Etiology of current acute kidney injury is secondary to he modynamics. Possible septic acute kidney injury. Plan at this point check a UA with microanalysis, check urine electrolytes. We will check renal ultrasound to evaluate renal parenchyma. We would con tinue current medical management. Continue pressor support, maintain MAP of 65. Continue IV antibio tics, continue volume expansion with IV albumin, normal saline. Monitor closely. 2. Hyponatremia, etiology is likely secondary to insensible losses and decreased free water intake. Will continue hypertonic fluids, monitor sodium levels closely. 3. Anemia. Continue to monitor hemoglobin and hematocrit levels, transfuse PRBC as needed. Will gi ve Epogen as needed. Check of the patient's iron panel was reviewed. 4. Mineral bone disorder, monitor calcium and phosphorus level. 5. Lactic acidosis secondary to septic shock. Continue to monitor and trend. 6. Mixed acid base disorder. The patient has a respiratory alkalosis and metabolic alkalosis. Will continue to monitor. 7. Septic shock, etiology is likely due to pneumonia. Continue current antibiotic regimen. Continu e pressor support. 8. Acute hypoxemic respiratory failure secondary to pneumonia. Continue BiPAP. 9. Diabetes. Continue current insulin regimen. 10. Atrial fibrillation. Continue medical management. 11. History of hypertension. 12. Thrombocytopenia. Continue to monitor. 13. History of heart failure. The patient's ejection fraction is 20%. Monitor closely on IV fluids . Thank you, Dr. Ellsworth, for this interesting consult. It will be a pleasure to followup patient with you throughout the hospital course. Dictated By: KENIA ESTES/NTS Conf#: [id number] DID#: [id number] CC: FLORINDA GONZALEZ MD;*EndCC*
--- NOTE | 2019-05-11 13:59 | CONS ---
Assessment/Plan Assessment/Plan Assessment/Plan (Daily) Patient is on Levophed drip on and off restless and currently sleeping, comfortable on nasal cannula. No fevers. WBC 15.8 H&H 8.10 26.8 platelets 35 BUN 94 creatinine 1.7 Microbiology: Blood cultures growing gram-negative rods Chest x-ray yesterday revealed dense consolidation of the right lung suspicious for multilobar pneumonia Indwelling: Patino AICD, PICC line Antimicrobials: Vancomycin, meropenem Physical examination: Chronically ill-appearing elderly man who is in no distress. Head atraumatic normocephalic neck is supple chest rise symmetrical breath sounds diminished bases heart: S1-S2 abdomen soft bowel sounds present extremities with trace edema Assessment: 1. Sepsis with shock 2. Acute hypoxemic respiratory failure 3. Gram-negative bacteremia 3. Healthcare associated pneumonia possibly aspirated 4. Anemia 5. Thrombocytopenia 6. Diabetes 7. Atrial fibrillation Plan: Continue Levophed drip, continue antibiotics, follow final cultures, pulmonary cardiology recommendations Consultation Date/Type/Reason Admit Date/Time May 10, 2019 at 13:20 Initial Consult Date 05/11/19 Type of Consult id Requesting Provider: NIXON MILLER MD Date/Time of Note DATE: 05/11/19 TIME: 13:59 Exam/Review of Systems Exam Vitals Vital Signs Date Temp Pulse Resp B/P (MAP) Pulse Ox O2 O2 Flow FiO2 Time Delivery Rate 05/11/19 92 18 94/53 (67) Room Air 12:30 05/11/19 95 12:15 05/11/19 98.0 12:00 05/11/19 21 09:51 05/11/19 3.0 07:00 Intake and Output 05/10/19 05/10/19 05/11/19 1515:00 23:00 07:00 IntakeIntake Total 0 ml 1364.166 ml 975 ml OutputOutput Total 480 ml 645 ml 405 ml BalanceBalance -480 ml 719.166 ml 570 ml Results Result Diagram: 05/11/19 0449 05/11/19 0436 Results 24hrs Laboratory Tests Test 05/10/19 14:32 05/10/19 14:40 05/10/19 15:51 05/10/19 18:17 Blood Gas Blood arterial Specimen Source Arterial Blood 05/10/2019 2:40: Date Drawn 52 PM Arterial Blood 7.533 H pH (Temp corrected ) Arterial Blood 27.6 L pCO2 (Temp correct) Arterial Blood 96.9 pO2 (Temp corrected ) Arterial Blood 22.7 HCO3 Arterial Blood 0.3 Base Excess Arterial Blood 96.7 Oxygen Saturati on Barber Test ACCEPTAB Arterial Blood Right Radial Gas Puncture Site Arterial 0.8 Blood Carboxyhe moglobin Arterial Blood 0.3 Methemoglobin Blood Gas A-a 99.0 H O2 Differential Oxyhemoglobin 95.6 Percent Blood Gas 37.0 Temperature Blood Gas NASAL CANNULA Modality FiO2 32.0 Blood Gas TM Notified Whom Blood Gas 05/10/2019 2:48: Notified Time 22 PM White Blood 11.0 #H Count Red Blood Count 2.43 L Hemoglobin 6.9 *L Hematocrit 23.0 L Mean 94.7 Corpuscular Volume Mean 28.4 L Corpuscular Hemoglobin Mean 30.0 L Corpuscular Hemoglobin Conc ent Red Cell 21.6 H Distribution Width Platelet Count 40 L Mean Platelet Volume Immature 0.600 H Granulocytes % Neutrophils % Segmented 93 H Neutrophils % (Manual) Band 4 Neutrophils % (Manual) Lymphocytes % Lymphocytes % 3 L (Manual) Monocytes % Eosinophils % Basophils % Nucleated Red 0.4 H Blood Cells % Immature 0.070 H Granulocytes # Neutrophils # Neutrophils # 10.3 H (Manual) Band 0.4 Neutrophils # Lymphocytes 0.3 L (Manual) Lymphocytes # Monocytes # Eosinophils # Basophils # Nucleated Red Blood Cells # Platelet NORMAL Estimate Polychromasia 2+ Poikilocytosis 1+ Anisocytosis 1+ Macrocytosis 1+ Ovalocytes 2+ Sodium Level 152 H Potassium Level 4.1 Chloride Level 121 H Carbon Dioxide 24 Level Anion Gap 7 Blood Urea 88 H Nitrogen Creatinine 1.64 H Est Glomerular 42 L Filtrat Rate mL/min Glucose Level 178 Hemoglobin A1c 6.0 H Calcium Level 7.5 L Magnesium Level 2.8 H Iron Level < 10 L Total Iron 191 L Binding Capacity Percent Iron Saturation Total Bilirubin 1.7 H Direct 0.00 Bilirubin Indirect 1.7 H Bilirubin Aspartate Amino 29 Transf (AST/SGO T) Alanine 58 Aminotransferas e (ALT/SGPT) Alkaline 43 Phosphatase Total Protein 5.4 L Albumin 2.4 L Globulin 3.00 Albumin/Globuli 0.80 n Ratio Bedside Glucose 213 218 Test 05/10/19 18:38 05/10/19 20:18 05/11/19 00:51 05/11/19 01:33 Lactic Acid 3.0 *H 1.7 Level Bedside Glucose 184 142 Test 05/11/19 04:22 05/11/19 04:30 05/11/19 04:36 05/11/19 04:49 Bedside Glucose 127 Procalcitonin 2.23 H Prothrombin 27.0 H Time Prothrombin 2.1 Time Ratio INR 2.49 International Normalized Rati o Sodium Level 151 H Potassium Level 4.5 Chloride Level 118 H Carbon Dioxide 25 Level Anion Gap 8 Blood Urea 94 H Nitrogen Creatinine 1.70 H Est Glomerular 41 L Filtrat Rate mL/min Glucose Level 132 # Calcium Level 7.4 L Magnesium Level 2.7 H Total Bilirubin 2.1 H Direct 0.00 Bilirubin Indirect 2.1 H Bilirubin Aspartate Amino 33 Transf (AST/SGO T) Alanine 55 Aminotransferas e (ALT/SGPT) Alkaline 40 L Phosphatase Total Protein 5.4 L Albumin 2.5 L Globulin 2.90 Albumin/Globuli 0.86 n Ratio White Blood 15.8 #H Count Red Blood Count 2.82 L Hemoglobin 8.2 L Hematocrit 26.8 L Mean 95.0 Corpuscular Volume Mean 29.1 Corpuscular Hemoglobin Mean 30.6 L Corpuscular Hemoglobin Conc ent Red Cell 20.1 H Distribution Width Platelet Count 35 L Mean Platelet 11.9 H Volume Immature 0.700 H Granulocytes % Neutrophils % Segmented 65 Neutrophils % (Manual) Band 28 H Neutrophils % (Manual) Lymphocytes % Lymphocytes % 2 L (Manual) Reactive 1 H Lymphocytes % (Manual) Monocytes % Monocytes % 4 (Manual) Eosinophils % Basophils % Nucleated Red 3 H Blood Cells % Immature 0.110 H Granulocytes # Neutrophils # Neutrophils # 11.0 H (Manual) Band 4.4 H Neutrophils # Lymphocytes 0.3 L (Manual) Lymphocytes # Reactive 0.1 H Lymphocytes # Monocytes # Monocytes # 0.6 (Manual) Eosinophils # Basophils # Nucleated Red Blood Cells # Platelet SIG DECREASED Estimate Giant Platelets 1 H Polychromasia 3+ Poikilocytosis 3+ Anisocytosis 2+ Microcytosis 1+ Test 05/11/19 04:50 05/11/19 04:53 05/11/19 08:29 05/11/19 12:57 Lactic Acid 1.9 Level Lab Scanned BLOOD TRANSFUSI Report ON Bedside Glucose 149 168 Medications Medication Current Medications Ondansetron HCl (Zofran Inj) 4 mg Q6H PRN IV NAUSEA AND/OR VOMITING; Start 05/10/19 at 14:30 Albuterol (Proventil 0.083% (Neb)) 2.5 mg Q4H RESP THERAPY NEB Last administered on 05/11/19at 09:51; Admin Dose 2.5 MG; Start 05/10/19 at 17:00 Albuterol (Proventil 0.083% (Neb)) 2.5 mg Q2H RESP THERAPY PRN NEB SHORTNESS OF BREATH; Start 05/10/19 at 14:30 Acetaminophen (Tylenol Liquid) 650 mg Q6H PRN PO PAIN LEVEL 1-3 OR FEVER; Start 05/10/19 at 14:30 Acetaminophen (Tylenol Supp) 650 mg Q4H PRN [place] PAIN LEVEL 1-3 OR FEVER; Start 05/10/19 at 14:30 Lorazepam (Ativan) 1 mg Q2H PRN IV ANXIETY; Start 05/10/19 at 14:30 Docusate Sodium (Colace) 100 mg Q12H PRN PO CONSTIPATION; Start 05/10/19 at 14:30 Magnesium Hydroxide (Milk Of Mag) 30 ml DAILY PRN PO CONSTIPATION; Start 05/10/19 at 14:30 Famotidine (Pepcid Iv) 20 mg Q24H IV Last administered on 05/10/19at 20:14; Admin Dose 20 MG; Start 05/10/19 at 21:00 Vancomycin HCl (Vanco Iv Per Pharmacy) VANCOMYCIN PER PHARMACY PER PROTOCOL XX ; Start 05/10/19 at 14:30 Meropenem/Sodium Chloride 50 ml @ 100 mls/hr Q12 IVPB Last administered on 05/11/19at 08:27; Admin Dose 100 MLS/HR; Start 05/10/19 at 14:30 Citalopram Hydrobromide (Celexa) 40 mg DAILY PO ; Start 05/11/19 at 09:00 Digoxin (Digoxin) 125 mcg QHS IV Last administered on 05/10/19at 20:14; Admin Dose 125 MCG; Start 05/10/19 at 21:00 Insulin Aspart (Novolog Insulin Pen) NOVOLOG *MILD* ALGORI... Q4 SC Last administered on 05/11/19at 12:59; Admin Dose 1 UNIT; Start 05/10/19 at 17:00 Miconazole Nitrate (Miconazole 2% Cr) 1 applic BID TOP Last administered on 05/11/19at 10:29; Admin Dose 1 APPLIC; Start 05/10/19 at 21:00 Midodrine (Proamatine) 5 mg TID@09,13,17 GTB ; Start 05/10/19 at 17:00 Quetiapine Fumarate (Seroquel) 25 mg BID PO ; Start 05/10/19 at 21:00 Dextrose 1,000 ml @ 75 mls/hr [id number] IV Last administered on 05/11/19at 07:05; Admin Dose 60 MLS/HR; Start 05/10/19 at 15:00 Vancomycin HCl 250 ml @ 125 mls/hr Q24H IVPB ; Start 05/11/19 at 16:00 Norepinephrine 250 ml @ 1.875 mls/ hr TITRATE IV Last administered on at 14:40; Admin Dose 1.875 MLS/HR; Start 05/10/19 at 16:30 Phenylephrine HCl 20 mg/Dextrose 250 ml @ 75 mls/hr PER PROTOCOL IV Last administered on 05/11/19at 12:57; Admin Dose 112.5 MLS/HR; Start 05/10/19 at 17:00 IV Flush (NS 10 ml) 10 ml PRN PRN IV FLUSH LINE; Start 05/10/19 at 19:00 Albumin Human 100 ml @ 100 mls/hr Q8H IV Last administered on 05/11/19at 07:05; Admin Dose 100 MLS/HR; Start 05/11/19 at 07:00; Stop 05/11/19 at 23:59 Albumin Human 50 ml @ 100 mls/hr Q8H IV Last administered on 05/11/19at 10:28; Admin Dose 100 MLS/HR; Start 05/11/19 at 09:30; Stop 05/12/19 at 09:59 JOLENE ELIZABETH NP May 11, 2019 13:59
--- NOTE | 2019-05-11 14:15 | CONS ---
DATE OF ADMISSION: 05/10/2019 DATE OF CONSULTATION: REASON FOR CONSULTATION: Shortness of breath, pneumonia. Thank you, Dr. Ellsworth, for this consultation. 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 Prior to that, he has aortic mechanical aortic valve. He was transferred to [place] for continuing care and there he has been experiencing worsening shortness of breath, orthopnea, PND. Yesterday fo und to have an extensive right-sided infiltrate with possible evidence of aspiration. The patient tr ansferred to intensive care unit for further monitoring and placed on vasopressor support via PICC li ne. He has history of prior intubation and bronchoscopy in the past. PAST MEDICAL HISTORY: As above. MEDICATIONS: Per chart. ALLERGIES: NONE. SOCIAL HISTORY: He is a nonsmoker, no alcohol, no history of drug use. FAMILY HISTORY: Noncontributory. REVIEW OF SYSTEMS: A 12-point review of systems is currently unable to perform. PHYSICAL EXAMINATION: GENERAL: A chronically ill-appearing gentleman who appears comfortable at rest, no acute distress. VITAL SIGNS: Currently afebrile, pulse is 88, blood pressure 84/59, O2 saturation 96% on nasal cannu la. NECK: Supple. No JVD or lymphadenopathy. CARDIAC: S1, S2, no added sounds or murmurs. CHEST: Diminished air entry bilaterally. ABDOMEN: Soft, nontender. No guarding or rebound. EXTREMITIES: No cyanosis, clubbing, edema. NEUROLOGIC: Generalized weakness. LABORATORY DATA: White count 15.8, hemoglobin 8.2, platelets of 35. BUN 94, creatinine 1.7. INR wa s 2.49. ABG: pH 7.53, pCO2 of 27, PaO2 of 96. Chest x-ray shows extensive right-sided infiltrates. IMPRESSION AND PLAN: 1. Hypoxemic respiratory failure, likely secondary to aspiration pneumonia. 2. Septic shock secondary to above. 3. Thrombocytopenia, possibly secondary to underlying sepsis. 4. Encephalopathy, toxic metabolic with prior history of CVA. 5. History of mechanical aortic valve. 6. History of AICD placement with cardiopulmonary arrest. The patient will require: 1. Continued vasopressor support. 2. Broad-spectrum antibiotics. 3. Aspiration precautions. Speech therapy recommendations. 4. Anticoagulation as tolerated. 5. Consider hematology/oncology evaluation for thrombocytopenia. 6. DVT and GI prophylaxis. Overall prognosis is guarded. Dictated By: KAYLAN MIN MD SV/MELISSA Conf#: [id number] DID#: [id number] CC: FLORINDA GONZALEZ MD;*EndCC*
[2019-05-11] MEDS: NORepinephrine 8MG/250 ML (PMX 250 ML IV SCH (15:37)
[2019-05-11] MEDS: VANCOMYCIN 1 GM 250 ML IVPB SCH (15:41)
[2019-05-11] MEDS ORDERED: SOD CHLORIDE 0.9% 500 ML IV ONE ×2 (16:00→18:00)
[2019-05-11] MEDS: PHENYLephrine 80 MG in DEXTROSE 5% 242 ML IV SCH ×2 (16:22→20:30)
--- NOTE | 2019-05-11 16:35 | CONS ---
Assessment/Plan Assessment/Plan Assessment/Plan (Daily) Assessment: Septic shock -currently on pressors Pneumonia Anemia Positive occult blood test Diabetes mellitus Congestive heart failure AICD Plan: Monitor for signs of overt GI bleeding Continue IV Pepcid No endoscopic interventions at this time Monitor H&H Transfuse for hemoglobin less than 7.5 Patient seen in collaboration Dr. Freedman Consultation Date/Type/Reason Admit Date/Time May 10, 2019 at 13:20 Date of Consultation: May 11, 2019 Type of Consult GI Reason for Consultation Anemia/positive occult blood in the stool Date/Time of Note DATE: 05/11/19 TIME: 16:26 Hx of Present Illness This is a 63-year-old male with a history of CHF status post AICD placement, coronary artery disease, hypertension, diabetes mellitus, and A. fib who was admitted for pneumonia and sepsis. GI was consulted for anemia with a hemoglobin dropping to 6.9. Fecal occult blood test was positive. There is no evidence of overt GI bleeding. Patient is thrombocytopenic. There is no evidence of nausea, vomiting, fever, diarrhea, hematochezia or melena. The plan is to continue supportive treatment. No endoscopic interventions at this time. Continue supportive treatment, monitor H&H and transfuse for hemoglobin less than 7.5. Gastrointestinal: no complaints (See HPI) Past Medical History Medical History: congestive heart failure, diabetes, hypertension, other (Diabetes, hypertension, paroxysmal atrial fibrillation, systolic congestive heart failure with AICD in place, and CAD with mechanical aortic valve 2002, and anoxic brain injury) Medications Current Medications Ondansetron HCl (Zofran Inj) 4 mg Q6H PRN IV NAUSEA AND/OR VOMITING; Start 05/10/19 at 14:30 Albuterol (Proventil 0.083% (Neb)) 2.5 mg Q4H RESP THERAPY NEB Last administered on 05/11/19at 14:11; Admin Dose 2.5 MG; Start 05/10/19 at 17:00 Albuterol (Proventil 0.083% (Neb)) 2.5 mg Q2H RESP THERAPY PRN NEB SHORTNESS OF BREATH; Start 05/10/19 at 14:30 Acetaminophen (Tylenol Liquid) 650 mg Q6H PRN PO PAIN LEVEL 1-3 OR FEVER; Start 05/10/19 at 14:30 Acetaminophen (Tylenol Supp) 650 mg Q4H PRN [place] PAIN LEVEL 1-3 OR FEVER; Start 05/10/19 at 14:30 Lorazepam (Ativan) 1 mg Q2H PRN IV ANXIETY; Start 05/10/19 at 14:30 Docusate Sodium (Colace) 100 mg Q12H PRN PO CONSTIPATION; Start 05/10/19 at 14:30 Magnesium Hydroxide (Milk Of Mag) 30 ml DAILY PRN PO CONSTIPATION; Start 05/10/19 at 14:30 Famotidine (Pepcid Iv) 20 mg Q24H IV Last administered on 05/10/19at 20:14; Admin Dose 20 MG; Start 05/10/19 at 21:00 Vancomycin HCl (Vanco Iv Per Pharmacy) VANCOMYCIN PER PHARMACY PER PROTOCOL XX ; Start 05/10/19 at 14:30 Meropenem/Sodium Chloride 50 ml @ 100 mls/hr Q12 IVPB Last administered on 05/11/19at 08:27; Admin Dose 100 MLS/HR; Start 05/10/19 at 14:30 Citalopram Hydrobromide (Celexa) 40 mg DAILY PO ; Start 05/11/19 at 09:00 Digoxin (Digoxin) 125 mcg QHS IV Last administered on 05/10/19at 20:14; Admin Dose 125 MCG; Start 05/10/19 at 21:00 Insulin Aspart (Novolog Insulin Pen) NOVOLOG *MILD* ALGORI... Q4 SC Last administered on 05/11/19at 12:59; Admin Dose 1 UNIT; Start 05/10/19 at 17:00 Miconazole Nitrate (Miconazole 2% Cr) 1 applic BID TOP Last administered on at 10:29; Admin Dose 1 APPLIC; Start 05/10/19 at 21:00 Midodrine (Proamatine) 5 mg TID@09,13,17 GTB ; Start 05/10/19 at 17:00 Quetiapine Fumarate (Seroquel) 25 mg BID PO ; Start 05/10/19 at 21:00 Dextrose 1,000 ml @ 75 mls/hr [id number] IV Last administered on 05/11/19at 07:05; Admin Dose 60 MLS/HR; Start 05/10/19 at 15:00 Vancomycin HCl 250 ml @ 125 mls/hr Q24H IVPB Last administered on 05/11/19at 15:41; Admin Dose 125 MLS/HR; Start 05/11/19 at 16:00 Norepinephrine 250 ml @ 1.875 mls/ hr TITRATE IV Last administered on 05/11/19at 15:37; Admin Dose 1.875 MLS/HR; Start 05/10/19 at 16:30 IV Flush (NS 10 ml) 10 ml PRN PRN IV FLUSH LINE; Start 05/10/19 at 19:00 Albumin Human 100 ml @ 100 mls/hr Q8H IV Last administered on 05/11/19at 15:36; Admin Dose 100 MLS/HR; Start 05/11/19 at 07:00; Stop 05/11/19 at 23:59 Albumin Human 50 ml @ 100 mls/hr Q8H IV Last administered on 05/11/19at 10:28; Admin Dose 100 MLS/HR; Start 05/11/19 at 09:30; Stop 05/12/19 at 09:59 Phenylephrine HCl 80 mg/Dextrose 250 ml @ 18.75 mls/ hr TITRATE IV Last administered on 05/11/19at 16:22; Admin Dose 56.25 MLS/HR; Start 05/11/19 at 15:30 Sodium Chloride 500 ml @ 500 mls/hr Q1H ONCE IV Last administered on 05/11/19at 15:50; Admin Dose 500 MLS/HR; Start 05/11/19 at 16:00; Stop 05/11/19 at 16:59 Sodium Chloride 500 ml @ 500 mls/hr Q1H ONCE IV ; Start 05/11/19 at 18:00; Stop 05/11/19 at 18:59 Allergies: Coded Allergies: No Known Allergy (Unverified , 05/10/19) Past Surgical History Past Surgical Hx: other (aortic valve surgery ) Social History Alcohol Use: none Smoking Status: Never smoker Drug Use: none Exam/Review of Systems Exam Vitals Vital Signs Date Temp Pulse Resp B/P (MAP) Pulse Ox O2 O2 Flow FiO2 Time Delivery Rate 05/11/19 88 22 98 21 14:11 05/11/19 94/53 (67) Room Air 12:30 05/11/19 98.0 12:00 05/11/19 3.0 07:00 Intake and Output 05/10/19 05/10/19 05/11/19 1515:00 23:00 07:00 IntakeIntake Total 0 ml 1364.166 ml 975 ml OutputOutput Total 480 ml 645 ml 405 ml BalanceBalance -480 ml 719.166 ml 570 ml Exam PHYSICAL EXAMINATION: GENERAL: Well developed, well nourished, alert & confused, nonverbal, in no acute distress SKIN: No lesions, pallor, multiple areas of ecchymosis, no stigmata chronic li janet disease, no evidence of bleeding diathesis LYMPHATIC: No palpable lymphadenopathy. HEAD: Normocephalic, atraumatic, no tenderness. EYES: Pupils equal reactive to light and accommodation, full extraocular movements, sclera clear, non-icteric, no discharge. EARS/NOSE AND THROAT: Ears normal, nose normal, oropharynx normal, oral membranes well hydrated without lesions. NECK: Supple, no masses, thyroid normal, JVP within normal limits, carotids normal without bruits. CHEST: Inspection within normal limits. CARDIOVASCULAR: Heart: Regular rate and rhythm, no murmurs, gallops or rubs. Peripheral pulses present within normal limits, no cyanosis, clubbing or edemas. No pulsatile abdominal mass RESPIRATORY: Lungs clear to auscultation and percussion, no wheezing, no rubs GASTROINTESTINAL AND LIVER: Abdomen: Soft, questionable tenderness -patient screams with any stimuli, non-distended, no hernias, no masses, no organomegaly, no ascites, no guarding, no rebound tenderness, normoactive bowel sounds. Rectal: Deferred. GENITOURINARY: [Male genitalia within normal limits. Patino in place EXTREMITIES: No cyanosis, clubbing or edema. Results Result Diagram: 05/11/19 0449 05/11/19 0436 Results 24hrs Laboratory Tests Test 05/10/19 18:17 05/10/19 18:38 05/10/19 20:18 05/11/19 00:51 Bedside Glucose 218 184 Lactic Acid 3.0 *H 1.7 Level Test 05/11/19 01:33 05/11/19 04:22 05/11/19 04:30 05/11/19 04:36 Bedside Glucose 142 127 Procalcitonin 2.23 H Prothrombin Time 27.0 H Prothrombin Time 2.1 Ratio INR 2.49 International Normalized Ratio Sodium Level 151 H Potassium Level 4.5 Chloride Level 118 H Carbon Dioxide 25 Level Anion Gap 8 Blood Urea 94 H Nitrogen Creatinine 1.70 H Est Glomerular 41 L Filtrat Rate mL/min Glucose Level 132 # Calcium Level 7.4 L Magnesium Level 2.7 H Total Bilirubin 2.1 H Direct Bilirubin 0.00 Indirect 2.1 H Bilirubin Aspartate Amino 33 Transf (AST/SGOT ) Alanine 55 Aminotransferase (ALT/SGPT) Alkaline 40 L Phosphatase Total Protein 5.4 L Albumin 2.5 L Globulin 2.90 Albumin/Globulin 0.86 Ratio Test 05/11/19 04:49 05/11/19 04:50 05/11/19 04:53 05/11/19 08:29 White Blood 15.8 #H Count Red Blood Count 2.82 L Hemoglobin 8.2 L Hematocrit 26.8 L Mean Corpuscular 95.0 Volume Mean Corpuscular 29.1 Hemoglobin Mean Corpuscular 30.6 L Hemoglobin Annemarie nt Red Cell 20.1 H Distribution Width Platelet Count 35 L Mean Platelet 11.9 H Volume Immature 0.700 H Granulocytes % Neutrophils % Segmented 65 Neutrophils % (Manual) Band Neutrophils 28 H % (Manual) Lymphocytes % Lymphocytes % 2 L (Manual) Reactive 1 H Lymphocytes % (Manual) Monocytes % Monocytes % 4 (Manual) Eosinophils % Basophils % Nucleated Red 3 H Blood Cells % Immature 0.110 H Granulocytes # Neutrophils # Neutrophils # 11.0 H (Manual) Band Neutrophils 4.4 H # Lymphocytes 0.3 L (Manual) Lymphocytes # Reactive 0.1 H Lymphocytes # Monocytes # Monocytes # 0.6 (Manual) Eosinophils # Basophils # Nucleated Red Blood Cells # Platelet SIG DECREASED Estimate Giant Platelets 1 H Polychromasia 3+ Poikilocytosis 3+ Anisocytosis 2+ Microcytosis 1+ Lactic Acid 1.9 Level Lab Scanned BLOOD TRANSFUSI Report ON Bedside Glucose 149 Test 05/11/19 11:30 05/11/19 12:57 Stool Occult POSITIVE Blood Bedside Glucose 168 Medications Medication Current Medications Ondansetron HCl (Zofran Inj) 4 mg Q6H PRN IV NAUSEA AND/OR VOMITING; Start 05/10/19 at 14:30 Albuterol (Proventil 0.083% (Neb)) 2.5 mg Q4H RESP THERAPY NEB Last administered on 05/11/19at 14:11; Admin Dose 2.5 MG; Start 05/10/19 at 17:00 Albuterol (Proventil 0.083% (Neb)) 2.5 mg Q2H RESP THERAPY PRN NEB SHORTNESS OF BREATH; Start 05/10/19 at 14:30 Acetaminophen (Tylenol Liquid) 650 mg Q6H PRN PO PAIN LEVEL 1-3 OR FEVER; Start 05/10/19 at 14:30 Acetaminophen (Tylenol Supp) 650 mg Q4H PRN [place] PAIN LEVEL 1-3 OR FEVER; Start 05/10/19 at 14:30 Lorazepam (Ativan) 1 mg Q2H PRN IV ANXIETY; Start 05/10/19 at 14:30 Docusate Sodium (Colace) 100 mg Q12H PRN PO CONSTIPATION; Start 05/10/19 at 14:30 Magnesium Hydroxide (Milk Of Mag) 30 ml DAILY PRN PO CONSTIPATION; Start 05/10/19 at 14:30 Famotidine (Pepcid Iv) 20 mg Q24H IV Last administered on 05/10/19at 20:14; Admin Dose 20 MG; Start 05/10/19 at 21:00 Vancomycin HCl (Vanco Iv Per Pharmacy) VANCOMYCIN PER PHARMACY PER PROTOCOL XX ; Start 05/10/19 at 14:30 Meropenem/Sodium Chloride 50 ml @ 100 mls/hr Q12 IVPB Last administered on 05/11/19at 08:27; Admin Dose 100 MLS/HR; Start 05/10/19 at 14:30 Citalopram Hydrobromide (Celexa) 40 mg DAILY PO ; Start 05/11/19 at 09:00 Digoxin (Digoxin) 125 mcg QHS IV Last administered on 05/10/19at 20:14; Admin Dose 125 MCG; Start 05/10/19 at 21:00 Insulin Aspart (Novolog Insulin Pen) NOVOLOG *MILD* ALGORI... Q4 SC Last admini stered on 05/11/19at 12:59; Admin Dose 1 UNIT; Start 05/10/19 at 17:00 Miconazole Nitrate (Miconazole 2% Cr) 1 applic BID TOP Last administered on 05/11/19at 10:29; Admin Dose 1 APPLIC; Start 05/10/19 at 21:00 Midodrine (Proamatine) 5 mg TID@09,13,17 GTB ; Start 05/10/19 at 17:00 Quetiapine Fumarate (Seroquel) 25 mg BID PO ; Start 05/10/19 at 21:00 Dextrose 1,000 ml @ 75 mls/hr [id number] IV Last administered on 05/11/19at 07:05; Admin Dose 60 MLS/HR; Start 05/10/19 at 15:00 Vancomycin HCl 250 ml @ 125 mls/hr Q24H IVPB Last administered on 05/11/19at 15:41; Admin Dose 125 MLS/HR; Start 05/11/19 at 16:00 Norepinephrine 250 ml @ 1.875 mls/ hr TITRATE IV Last administered on 05/11/19at 15:37; Admin Dose 1.875 MLS/HR; Start 05/10/19 at 16:30 IV Flush (NS 10 ml) 10 ml PRN PRN IV FLUSH LINE; Start 05/10/19 at 19:00 Albumin Human 100 ml @ 100 mls/hr Q8H IV Last administered on 05/11/19at 15:36; Admin Dose 100 MLS/HR; Start 05/11/19 at 07:00; Stop 05/11/19 at 23:59 Albumin Human 50 ml @ 100 mls/hr Q8H IV Last administered on 05/11/19at 10:28; Admin Dose 100 MLS/HR; Start 05/11/19 at 09:30; Stop 05/12/19 at 09:59 Phenylephrine HCl 80 mg/Dextrose 250 ml @ 18.75 mls/ hr TITRATE IV Last ad ministered on 05/11/19at 16:22; Admin Dose 56.25 MLS/HR; Start 05/11/19 at 15:30 Sodium Chloride 500 ml @ 500 mls/hr Q1H ONCE IV Last administered on 05/11/19at 15:50; Admin Dose 500 MLS/HR; Start 05/11/19 at 16:00; Stop 05/11/19 at 16:59 Sodium Chloride 500 ml @ 500 mls/hr Q1H ONCE IV ; Start 05/11/19 at 18:00; Stop 05/11/19 at 18:59 JENNIFER SEGURA NP May 11, 2019 16:35
[2019-05-11] MEDS: DIGOXIN 500 MCG INJ IV SCH (20:12)
[2019-05-11] MEDS: FAMOTIDINE 20 MG INJ IV SCH (20:12)
[2019-05-11] MEDS: HALOPERIDOL 5 MG INJ IM PRN (22:02)
[2019-05-12] VITALS (95 sets, daily range): BP systolic 62–136; BP diastolic 23–112; PULSE 82–117; RESP 17–48
[2019-05-12] MEDS: INSULIN ASPART [NOVOLOG] 3 ML PEN SC SCH ×6 (01:00→21:00)
[2019-05-12] MEDS: ALBUTEROL 0.083% (NEB) 2.5 MG/3 ML AMP NEB SCH ×6 (01:14→21:03)
[2019-05-12] MEDS: PHENYLephrine 80 MG in DEXTROSE 5% 242 ML IV SCH ×4 (01:34→14:40)
[2019-05-12] MEDS: ALBUMIN HUMAN 25% 50 ML IV SCH ×2 (01:45→09:38)
[2019-05-12] MEDS: NORepinephrine 8MG/250 ML (PMX 250 ML IV SCH ×2 (03:57→20:19)
--- NOTE | 2019-05-12 08:10 | PN ---
DATE: 05/12/2019 SUBJECTIVE: The patient remains critically ill on pressor support, on IV fluids. The patient remain s confused, agitated. The patient is pending platelet transfusion. No other events noted. OBJECTIVE: VITAL SIGNS: Blood pressure 77/58, respirations 21, pulse 94, temperature 98.6. HEENT: Head is normocephalic. NECK: Supple. HEART: Regular rate. LUNGS: Show diminished breath sounds at the base. ABDOMEN: Soft, nontender to palpation without rebound or guarding. EXTREMITIES: Negative for clubbing, cyanosis, no edema. DERMATOLOGIC: No rashes. MUSCULOSKELETAL: No joint effusion. NEUROLOGIC: No change in exam. MEDICATIONS: Reviewed. LABORATORY DATA: Has been reviewed. IMAGING STUDIES: Have been reviewed. ASSESSMENT AND PLAN: 1. Nonoliguric acute kidney injury on top of chronic kidney disease stage IIIB/IV with previous base line creatinine of 1.5 to 2.0 mg/dL. Etiology of current acute kidney injury is secondary to hemodyn amics, septic acute kidney injury. Plan at this point is to continue current treatment plan. Contin ue IV fluids, antibiotic therapy and pressor support to maintain MAP of 65. We will continue renally dose all meds, avoid nephrotoxins. We will follow up a urinalysis. We will also check a renal ultr asound to evaluate renal parenchyma. Otherwise, continue to monitor closely. 2. Hypernatremia. Etiology is likely due to insensible losses, decreased free water intake. Contin ue hypertonic fluid and monitor sodium levels closely. 3. Anemia. Monitor hemoglobin and hematocrit levels, transfuse PRBCs as needed. We will give Epoge n as needed. 4. Mineral bone disorder, monitor calcium and phosphate levels. 5. Lactic acidosis secondary to septic shock. Continue to monitor. 6. Mixed acid base disorder. The patient was respiratory alkalosis, metabolic alkalosis. Continue to monitor. 7. Septic shock, likely secondary to pneumonia. Continue current medical management. Continue supp ort, IV fluids, antibiotic therapy. 8. Acute hypoxic respiratory failure secondary to pneumonia. Continue supplemental oxygen. Continu e antibiotic therapy. 9. Diabetes. Continue current insulin regimen. 10. Atrial fibrillation. Continue medical management. 11. Thrombocytopenia. The patient is pending platelet transfusion. 12. History of heart failure, ejection fraction approximately 40%. Monitor closely on IV fluids. Dictated By: KENIA ESTES/MELISSA Conf#: [id number] DID#: [id number]
[2019-05-12] MEDS: CITALOPRAM 20 MG TAB PO SCH (09:00)
[2019-05-12] MEDS: MIDODRINE 5 MG TAB GTB SCH ×3 (09:00→17:00)
[2019-05-12] MEDS: QUETIAPINE 25 MG TAB PO SCH ×2 (09:00→20:13)
--- NOTE | 2019-05-12 09:19 | CONS ---
Consult Date/Type/Reason Admit Date/Time May 10, 2019 at 13:20 Initial Consult Date 05/11/19 Type of Consult Pulmonary Requesting Provider: NIXON MILLER MD Date/Time of Note DATE: 05/12/19 TIME: 09:17 Subjective Remains confused and agitated. Still has moderate hypoxia requiring 2 vasopressors. CODE STATUS changed to DNR. Pending platelets and packed red b lood cells. INR remains elevated. Objective Vital Signs Date Temp Pulse Resp B/P (MAP) Pulse Ox O2 O2 Flow FiO2 Time Delivery Rate 05/12/19 32 95 28 08:20 05/12/19 93 08:00 05/12/19 77/58 (64) 06:30 05/12/19 99.0 04:00 05/11/19 Room Air 20:00 05/11/19 3.0 07:00 Intake and Output 05/11/19 05/11/19 05/12/19 1515:00 23:00 07:00 IntakeIntake Total 1345.0 ml 1661.875 ml 1031.250 ml OutputOutput Total 200 ml 375 ml 430 ml BalanceBalance 1145.0 ml 1286.875 ml 601.250 ml Exam PHYSICAL EXAMINATION: GENERAL: A chronically ill-appearing gentleman who appears comfortable at rest, no acute distress. VITAL SIGNS: NECK: Supple. No JVD or lymphadenopathy. CARDIAC: S1, S2, no added sounds or murmurs. CHEST: Diminished air entry bilaterally. ABDOMEN: Soft, nontender. No guarding or rebound. EXTREMITIES: No cyanosis, clubbing, edema. NEUROLOGIC: Generalized weakness. Vent Setting Fraction of Inspired Oxygen pe: 28 Results/Medications Result Diagram: 05/12/19 0535 05/12/19 0605 Results 24 hrs Laboratory Tests Test 05/11/19 11:30 05/11/19 12:57 05/11/19 18:35 05/11/19 20:07 Stool Occult Blood POSITIVE Bedside Glucose 168 153 127 Test 05/12/19 01:41 05/12/19 04:15 05/12/19 05:35 05/12/19 06:05 Bedside Glucose 114 Phosphorus Level 3.2 Thyroid Stimulating 0.128 L Hormone (TSH) Free Thyroxine 1.80 Digoxin Level 1.2 White Blood Count 16.9 H Red Blood Count 2.51 L Hemoglobin 7.4 L Hematocrit 23.4 L Mean Corpuscular 93.2 Volume Mean Corpuscular 29.5 Hemoglobin Mean Corpuscular 31.6 L Hemoglobin Concent Red Cell 19.8 H Distribution Width Platelet Count 29 *L Mean Platelet Volume Immature 1.000 H Granulocytes % Neutrophils % 91.9 H Lymphocytes % 3.5 L Monocytes % 3.5 Eosinophils % 0.0 Basophils % 0.1 Nucleated Red Blood 2.8 H Cells % Immature 0.170 H Granulocytes # Neutrophils # 15.6 H Lymphocytes # 0.6 L Monocytes # 0.6 Eosinophils # 0.0 Basophils # 0.0 Nucleated Red Blood 0.5 H Cells # Prothrombin Time 37.7 #H Prothrombin Time 2.9 Ratio INR International 3.83 Normalized Ratio Sodium Level 145 H Potassium Level 4.3 Chloride Level 112 H Carbon Dioxide Level 17 L Anion Gap 16 #H Blood Urea Nitrogen 80 H Creatinine 1.57 H Est Glomerular 45 L Filtrat Rate mL/min Glucose Level 124 Calcium Level 7.4 L Magnesium Level 2.6 H Total Bilirubin 3.8 H Direct Bilirubin 0.70 #H Indirect Bilirubin 3.1 H Aspartate Amino 27 Transf (AST/SGOT) Alanine 41 Aminotransferase (AL T/SGPT) Alkaline Phosphatase 39 L Total Protein 5.7 L Albumin 3.2 L Globulin 2.50 Albumin/Globulin 1.28 Ratio Test 05/12/19 06:09 Bedside Glucose 122 Medications Current Medications Ondansetron HCl (Zofran Inj) 4 mg Q6H PRN IV NAUSEA AND/OR VOMITING; Start 05/10/19 at 14:30 Albuterol (Proventil 0.083% (Neb)) 2.5 mg Q4H RESP THERAPY NEB Last admin istered on 05/12/19at 09:04; Admin Dose 2.5 MG; Start 05/10/19 at 17:00 Albuterol (Proventil 0.083% (Neb)) 2.5 mg Q2H RESP THERAPY PRN NEB SHORTNESS OF BREATH; Start 05/10/19 at 14:30 Acetaminophen (Tylenol Liquid) 650 mg Q6H PRN PO PAIN LEVEL 1-3 OR FEVER; Start 05/10/19 at 14:30 Acetaminophen (Tylenol Supp) 650 mg Q4H PRN [place] PAIN LEVEL 1-3 OR FEVER; Start 05/10/19 at 14:30 Lorazepam (Ativan) 1 mg Q2H PRN IV ANXIETY; Start 05/10/19 at 14:30 Docusate Sodium (Colace) 100 mg Q12H PRN PO CONSTIPATION; Start 05/10/19 at 14:30 Magnesium Hydroxide (Milk Of Mag) 30 ml DAILY PRN PO CONSTIPATION; Start 05/10/19 at 14:30 Famotidine (Pepcid Iv) 20 mg Q24H IV Last administered on 05/11/19at 20:12; Admin Dose 20 MG; Start 05/10/19 at 21:00 Vancomycin HCl (Vanco Iv Per Pharmacy) VANCOMYCIN PER PHARMACY PER PROTOCOL XX ; Start 05/10/19 at 14:30 Meropenem/Sodium Chloride 50 ml @ 100 mls/hr Q12 IVPB Last administered on 05/11/19at 20:12; Admin Dose 100 MLS/HR; Start 05/10/19 at 14:30 Citalopram Hydrobromide (Celexa) 40 mg DAILY PO ; Start 05/11/19 at 09:00 Digoxin (Digoxin) 125 mcg QHS IV Last administered on 05/11/19at 20:12; Admin Dose 125 MCG; Start 05/10/19 at 21:00 Insulin Aspart (Novolog Insulin Pen) NOVOLOG *MILD* ALGORI... Q4 SC Last administered on 05/11/19at 18:38; Admin Dose 1 UNIT; Start 05/10/19 at 17:00 Miconazole Nitrate (Miconazole 2% Cr) 1 applic BID TOP Last administered on 05/11/19at 21:44; Admin Dose 1 APPLIC; Start 05/10/19 at 21:00 Midodrine (Proamatine) 5 mg TID@09,13,17 GTB ; Start 05/10/19 at 17:00 Quetiapine Fumarate (Seroquel) 25 mg BID PO ; Start 05/10/19 at 21:00 Dextrose 1,000 ml @ 75 mls/hr [id number] IV Last administered on 05/11/19at 21:19; Admin Dose 75 MLS/HR; Start 05/10/19 at 15:00 Vancomycin HCl 250 ml @ 125 mls/hr Q24H IVPB Last administered on 05/11/19at 15:41; Admin Dose 125 MLS/HR; Start 05/11/19 at 16:00 Norepinephrine 250 ml @ 1.875 mls/ hr TITRATE IV Last administered on 05/12/19at 03:57; Admin Dose 9.375 MLS/HR; Start 05/10/19 at 16:30 IV Flush (NS 10 ml) 10 ml PRN PRN IV FLUSH LINE; Start 05/10/19 at 19:00 Albumin Human 50 ml @ 100 mls/hr Q8H IV Last administered on 05/12/19at 01:45; Admin Dose 100 MLS/HR; Start 05/11/19 at 09:30; Stop 05/12/19 at 09:59 Phenylephrine HCl 80 mg/Dextrose 250 ml @ 18.75 mls/ hr TITRATE IV Last administered on 05/12/19at 05:49; Admin Dose 56.25 MLS/HR; Start 05/11/19 at 15:30 Haloperidol (Haldol) 2 mg Q4H PRN IM agitation Last administered on 05/11/19at 22:02; Admin Dose 2 MG; Start 05/11/19 at 19:30 Assessment/Plan Hospital Course (Demo Recall) IMPRESSION AND PLAN: 1. Hypoxemic respiratory failure, likely secondary to aspiration pneumonia. Dense right sided pneumonia. 2. Septic shock secondary to above. 3. Thrombocytopenia, possibly secondary to underlying sepsis. 4. Encephalopathy, toxic metabolic with prior history of CVA. 5. History of mechanical aortic valve. 6. History of AICD placement with cardiopulmonary arrest. Plan 1. Continued vasopressor support. Check random cortisol 2. Broad-spectrum antibiotics. 3. Aspiration precautions. Speech therapy recommendations. 4. Anticoagulation as tolerated. Consider vitamin K given elevated INR and low platelets and significant bleeding risk. 5. Consider hematology/oncology evaluation for thrombocytopenia. 6. DVT and GI prophylaxis. Critical care time 40 minutes. KAYLAN MIN MD, [facility] May 12, 2019 09:19
[2019-05-12] MEDS: MICONAZOLE 2% 30 GM CR TOP SCH ×2 (09:42→20:13)
[2019-05-12] MEDS: MEROPENEM 1 GM/50ML(PMX) 50 ML IVPB SCH ×2 (09:44→20:13)
[2019-05-12] MEDS: DEXTROSE 5% 1,000 ML IV SCH ×2 (10:39→20:13)
[2019-05-12] MEDS ORDERED: ACETAMINOPHEN 1000MG/100ML IV 100 ML IVPB PRN (11:30)
[2019-05-12] MEDS ORDERED: PHYTONADIONE 10 MG in DEXTROSE 5% 50 ML IVPB ONE (12:00)
--- NOTE | 2019-05-12 13:37 | CONS ---
Assessment/Plan Assessment/Plan Hospital Course (Demo Recall) No acute events. Patient remains on Levophed drip no fevers overnight, he is getting blood transfusion. T-max this morning 100.3. WBC 16.9 H&H 7.4 and 23.4 platelets 29 neutrophils 91.9 BUN 80 creatinine 1.57 Microbiology: Blood cultures growing gram-negative rods urine culture negative MRSA swab negative Chest x-ray yesterday revealed dense consolidation of the right lung suspicious for multilobar pneumonia Indwelling: Patino AICD, PICC line Antimicrobials: Vancomycin, meropenem Physical examination: Chronically ill-appearing elderly man who is in no distress. Head atraumatic normocephalic neck is supple chest rise symmetrical breath sounds diminished bases heart: S1-S2 abdomen soft bowel sounds present extremities with trace edema Assessment: 1. Sepsis with shock 2. Acute hypoxemic respiratory failure 3. Gram-negative bacteremia 3. Healthcare associated pneumonia possibly aspirated 4. Anemia 5. Thrombocytopenia 6. Diabetes 7. Atrial fibrillation Plan: Clinically unchanged, continue antibiotics, follow final cultures, pulmonary cardiology recommendations, bld products prn Consultation Date/Type/Reason Admit Date/Time May 10, 2019 at 13:20 Initial Consult Date 05/11/19 Type of Consult id Requesting Provider: NIXON MILLER MD Date/Time of Note DATE: 05/12/19 TIME: 13:36 Exam/Review of Systems Exam Vitals Vital Signs Date Temp Pulse Resp B/P (MAP) Pulse Ox O2 O2 Flow FiO2 Time Delivery Rate 05/12/19 88 36 89/60 (70) 98 Nasal 2.0 13:00 Cannula 05/12/19 98.7 12:39 05/12/19 28 08:20 Intake and Output 05/11/19 05/11/19 05/12/19 1515:00 23:00 07:00 IntakeIntake Total 1345.0 ml 1661.875 ml 1171.875 ml OutputOutput Total 200 ml 375 ml 430 ml BalanceBalance 1145.0 ml 1286.875 ml 741.875 ml Results Result Diagram: 05/12/19 0535 05/12/19 0605 Results 24hrs Laboratory Tests Test 05/11/19 18:35 05/11/19 20:07 05/12/19 01:41 05/12/19 04:15 Bedside Glucose 153 127 114 Phosphorus Level 3.2 Thyroid Stimulating 0.128 L Hormone (TSH) Free Thyroxine 1.80 Digoxin Level 1.2 Test 05/12/19 05:35 05/12/19 06:05 05/12/19 06:09 05/12/19 09:56 White Blood Count 16.9 H Red Blood Count 2.51 L Hemoglobin 7.4 L Hematocrit 23.4 L Mean Corpuscular 93.2 Volume Mean Corpuscular 29.5 Hemoglobin Mean Corpuscular 31.6 L Hemoglobin Concent Red Cell 19.8 H Distribution Width Platelet Count 29 *L Mean Platelet Volume Immature 1.000 H Granulocytes % Neutrophils % 91.9 H Lymphocytes % 3.5 L Monocytes % 3.5 Eosinophils % 0.0 Basophils % 0.1 Nucleated Red Blood 2.8 H Cells % Immature 0.170 H Granulocytes # Neutrophils # 15.6 H Lymphocytes # 0.6 L Monocytes # 0.6 Eosinophils # 0.0 Basophils # 0.0 Nucleated Red Blood 0.5 H Cells # Prothrombin Time 37.7 #H Prothrombin Time 2.9 Ratio INR International 3.83 Normalized Ratio Sodium Level 145 H Potassium Level 4.3 Chloride Level 112 H Carbon Dioxide Level 17 L Anion Gap 16 #H Blood Urea Nitrogen 80 H Creatinine 1.57 H Est Glomerular 45 L Filtrat Rate mL/min Glucose Level 124 Calcium Level 7.4 L Magnesium Level 2.6 H Total Bilirubin 3.8 H Direct Bilirubin 0.70 #H Indirect Bilirubin 3.1 H Aspartate Amino 27 Transf (AST/SGOT) Alanine 41 Aminotransferase (AL T/SGPT) Alkaline Phosphatase 39 L Total Protein 5.7 L Albumin 3.2 L Globulin 2.50 Albumin/Globulin 1.28 Ratio Bedside Glucose 122 126 Medications Medication Current Medications Ondansetron HCl (Zofran Inj) 4 mg Q6H PRN IV NAUSEA AND/OR VOMITING; Start 05/10/19 at 14:30 Albuterol (Proventil 0.083% (Neb)) 2.5 mg Q4H RESP THERAPY NEB Last administe red on 05/12/19at 09:04; Admin Dose 2.5 MG; Start 05/10/19 at 17:00 Albuterol (Proventil 0.083% (Neb)) 2.5 mg Q2H RESP THERAPY PRN NEB SHORTNESS OF BREATH; Start 05/10/19 at 14:30 Acetaminophen (Tylenol Liquid) 650 mg Q6H PRN PO PAIN LEVEL 1-3 OR FEVER; Start 05/10/19 at 14:30 Acetaminophen (Tylenol Supp) 650 mg Q4H PRN [place] PAIN LEVEL 1-3 OR FEVER; Start 05/10/19 at 14:30 Lorazepam (Ativan) 1 mg Q2H PRN IV ANXIETY; Start 05/10/19 at 14:30 Docusate Sodium (Colace) 100 mg Q12H PRN PO CONSTIPATION; Start 05/10/19 at 14:30 Magnesium Hydroxide (Milk Of Mag) 30 ml DAILY PRN PO CONSTIPATION; Start 05/10/19 at 14:30 Famotidine (Pepcid Iv) 20 mg Q24H IV Last administered on 05/11/19at 20:12; Admi n Dose 20 MG; Start 05/10/19 at 21:00 Vancomycin HCl (Vanco Iv Per Pharmacy) VANCOMYCIN PER PHARMACY PER PROTOCOL XX ; Start 05/10/19 at 14:30 Meropenem/Sodium Chloride 50 ml @ 100 mls/hr Q12 IVPB Last administered on 05/12/19at 09:44; Admin Dose 100 MLS/HR; Start 05/10/19 at 14:30 Citalopram Hydrobromide (Celexa) 40 mg DAILY PO ; Start 05/11/19 at 09:00 Digoxin (Digoxin) 125 mcg QHS IV Last administered on 05/11/19at 20:12; Admin Dose 125 MCG; Start 05/10/19 at 21:00 Insulin Aspart (Novolog Insulin Pen) NOVOLOG *MILD* ALGORI... Q4 SC Last administered on 05/11/19at 18:38; Admin Dose 1 UNIT; Start 05/10/19 at 17:00 Miconazole Nitrate (Miconazole 2% Cr) 1 applic BID TOP Last administered on 05/12/19at 09:42; Admin Dose 1 APPLIC; Start 05/10/19 at 21:00 Midodrine (Proamatine) 5 mg TID@09,13,17 GTB ; Start 05/10/19 at 17:00 Quetiapine Fumarate (Seroquel) 25 mg BID PO ; Start 05/10/19 at 21:00 Dextrose 1,000 ml @ 75 mls/hr [id number] IV Last administered on 05/11/19at 21:19; Admin Dose 75 MLS/HR; Start 05/10/19 at 15:00 Vancomycin HCl 250 ml @ 125 mls/hr Q24H IVPB Last administered on 05/11/19at 15:41; Admin Dose 125 MLS/HR; Start 05/11/19 at 16:00 Norepinephrine 250 ml @ 1.875 mls/ hr TITRATE IV Last administered on 05/12/19at 03:57; Admin Dose 9.375 MLS/HR; Start 05/10/19 at 16:30 IV Flush (NS 10 ml) 10 ml PRN PRN IV FLUSH LINE; Start 05/10/19 at 19:00 Phenylephrine HCl 80 mg/Dextrose 250 ml @ 18.75 mls/ hr TITRATE IV Last administered on 05/12/19at 10:29; Admin Dose 18.75 MLS/HR; Start 05/11/19 at 15:30 Haloperidol (Haldol) 2 mg Q4H PRN IM agitation Last administered on 05/11/19at 22:02; Admin Dose 2 MG; Start 05/11/19 at 19:30 Acetaminophen 100 ml @ 400 mls/hr Q6H PRN IVPB fever Last administered on 05/12/19at 11:44; Admin Dose 400 MLS/HR; Start 05/12/19 at 11:30; Stop 05/13/19 at 11:29 Miscellaneous Information (*Rx Drug Level Order Reminder*) VANCOMYCIN TROUGH AT 1500 1500 ONCE XX ; Start 05/13/19 at 15:00; Stop 05/13/19 at 15:01 JOLENE ELIZABETH NP May 12, 2019 13:37
--- NOTE | 2019-05-12 14:21 | CONS ---
Consult Date/Type/Reason Admit Date/Time May 10, 2019 at 13:20 Initial Consult Date 05/11/19 Type of Consultation: cv Requesting Provider: NIXON MILLER MD Date/Time of Note DATE: 05/12/19 TIME: 14:16 Subjective Interventional cardiology follow-up progress note/critical care note Subjective: Discussed with the staff. Telemetry was reviewed. Patient made atrial fibrillation with short episode of nonsustained V. tach no ICD discharge noted Patient nonverbal does not answer questions. He continues to be hypotensive in shock requiring a Lon-Synephrine drip as well as Levophed drip His hypoxemia appears to be improving and requires less oxygen Discussed with his extensively and multiple questions answered General: Elderly gentleman appears to be agitated and confused HEENT: NC/AT. pupils are equal. round. NECK: . no stridor. CV: Irregularly irregular. Mechanical click heard.. PULM: + Diffuse right-sided rhonchi. GI: SOFT, NT, ND, no rebound or guarding Extremity: trace B/L LE edema. no clubbing. neuro: awake but does not answer question. Psych: Agitated rectal: deferred : normal Review of the old chart showed echocardiogram done 05/03/2019 which was personally reviewed as shown: There is severe enlargement of left atrium. There is severe enlargement of right atrium. Mild enlargement of right ventricle. Severe right ventricular hypokinesis. Linear artifact in right ventricle suggestive of catheter, pacer lead, or ICD lead. Moderate concentric left ventricular hypertrophy. Mild enlargement of left robe tricle cavity. Moderate global left ventricular systolic dysfunction. Ejection fraction is visually estimated at 35 %. Tissue Doppler/Mitral Doppler indices are indeterminate in this study due to the presence of mitral stenosis. Mild mitral leaflet calcification. Mild mitral annular calcification. Severe mitral valve regurgitation. The regurgitation jet is eccentrically directed which may underestimate the severity of mitral regurgitation. Mild to moderate mitral stenosis. Mitral valve Max Velocity 1.78 m/sec. MaxPG 13.00 mmHg. MeanPG 6.00 mmHg. Normal appearance of the tricuspid valve. The estimated Peak RVSP is 74 mmHg. There is moderate tricuspid regurgitation. Aortic Valve Mechanical Prosthesis. Gradients normal for valve type and size. Aortic valve Max velocity 1.58 m/sec. Max PG 9.96 mmHg. Mean PG 5.00 mmHg. Mild to moderate aortic valve regurgitation. The regurgitation jet is eccentrically directed. Normal pericardium with no significant pericardial effusion. Left pleural effusion seen. Normal size with poor respiratory collapse consistent with elevated right atrial pressure. Chest x-ray done 05/10/2019 which was personally reviewed as well shows: Interval increase in consolidation in the mid to upper right lung concerning for pneumonia. Slight decrease in interstitial opacities of the left lung suggestive of decreased pulmonary edema. Interval decrease in small right pleural effusion. General: Elderly gentleman appears to be agitated and confused HEENT: NC/AT. pupils are equal. round. NECK: . no stridor. CV: Irregularly irregular. Mechanical click heard.. PULM: + Diffuse right-sided rhonchi. GI: SOFT, NT, ND, no rebound or guarding Extremity: trace B/L LE edema. no clubbing. neuro: awake but does not answer question. Psych: Agitated rectal: deferred : normal Review of the old chart showed echocardiogram done 05/03/2019 which was personally reviewed as shown: There is severe enlargement of left atrium. There is severe enlargement of right atrium. Mild enlargement of right ventricle. Severe right ventricular hypokinesis. Linear artifact in right ventricle suggestive of catheter, pacer lead, or ICD lead. Moderate concentric left ventricular hypertrophy. Mild enlargement of left ventricle cavity. Moderate global left ventricular systolic dysfunction. Ejection fraction is visually estimated at 35 %. Tissue Doppler/Mitral Doppler indices are indeterminate in this study due to the presence of mitral stenosis. Mild mitral leaflet calcification. Mild mitral annular calcification. Severe mitral valve regurgitation. The regurgitation jet is eccentrically directed which may underestimate the severity of mitral regurgitation. Mild to moderate mitral stenosis. Mitral valve Max Velocity 1.78 m/sec. MaxPG 13.00 mmHg. MeanPG 6.00 mmHg. Normal appearance of the tricuspid valve. The estimated Peak RVSP is 74 mmHg. There is moderate tricuspid regurgitation. Aortic Valve Mechanical Prosthesis. Gradients normal for valve type and size. Aortic valve Max velocity 1.58 m/sec. Max PG 9.96 mmHg. Mean PG 5.00 mmHg. Mild to moderate aortic valve regurgitation. The regurgitation jet is eccentrically directed. Normal pericardium with no significant pericardial effusion. Left pleural effusion seen. Normal size with poor respiratory collapse consistent with elevated right atrial pressure. Chest x-ray done 05/10/2019 which was personally reviewed as well shows: Interval increase in consolidation in the mid to upper right lung concerning for pneumonia. Slight decrease in interstitial opacities of the left lung suggestive of decreased pulmonary edema. Interval decrease in small right pleural effusion. Objective Vitals Vital Signs Date Temp Pulse Resp B/P (MAP) Pulse Ox O2 O2 Flow FiO2 Time Delivery Rate 05/12/19 88 36 89/60 (70) 98 Nasal 2.0 13:00 Cannula 05/12/19 98.7 12:39 05/12/19 28 08:20 Intake and Output 05/11/19 05/11/19 05/12/19 1515:00 23:00 07:00 IntakeIntake Total 1345.0 ml 1661.875 ml 1171.875 ml OutputOutput Total 200 ml 375 ml 430 ml BalanceBalance 1145.0 ml 1286.875 ml 741.875 ml Results/Medications Result Diagram: 05/12/19 0535 05/12/19 0605 Results 24 hrs Laboratory Tests Test 05/11/19 18:35 05/11/19 20:07 05/12/19 01:41 05/12/19 04:15 Bedside Glucose 153 127 114 Phosphorus Level 3.2 Thyroid Stimulating 0.128 L Hormone (TSH) Free Thyroxine 1.80 Digoxin Level 1.2 Test 05/12/19 05:35 05/12/19 06:05 05/12/19 06:09 05/12/19 09:56 White Blood Count 16.9 H Red Blood Count 2.51 L Hemoglobin 7.4 L Hematocrit 23.4 L Mean Corpuscular 93.2 Volume Mean Corpuscular 29.5 Hemoglobin Mean Corpuscular 31.6 L Hemoglobin Concent Red Cell 19.8 H Distribution Width Platelet Count 29 *L Mean Platelet Volume Immature 1.000 H Granulocytes % Neutrophils % 91.9 H Lymphocytes % 3.5 L Monocytes % 3.5 Eosinophils % 0.0 Basophils % 0.1 Nucleated Red Blood 2.8 H Cells % Immature 0.170 H Granulocytes # Neutrophils # 15.6 H Lymphocytes # 0.6 L Monocytes # 0.6 Eosinophils # 0.0 Basophils # 0.0 Nucleated Red Blood 0.5 H Cells # Prothrombin Time 37.7 #H Prothrombin Time 2.9 Ratio INR International 3.83 Normalized Ratio Sodium Level 145 H Potassium Level 4.3 Chloride Level 112 H Carbon Dioxide Level 17 L Anion Gap 16 #H Blood Urea Nitrogen 80 H Creatinine 1.57 H Est Glomerular 45 L Filtrat Rate mL/min Glucose Level 124 Calcium Level 7.4 L Magnesium Level 2.6 H Total Bilirubin 3.8 H Direct Bilirubin 0.70 #H Indirect Bilirubin 3.1 H Aspartate Amino 27 Transf (AST/SGOT) Alanine 41 Aminotransferase (AL T/SGPT) Alkaline Phosphatase 39 L Total Protein 5.7 L Albumin 3.2 L Globulin 2.50 Albumin/Globulin 1.28 Ratio Bedside Glucose 122 126 Medications Current Medications Ondansetron HCl (Zofran Inj) 4 mg Q6H PRN IV NAUSEA AND/OR VOMITING; Start 05/10/19 at 14:30 Albuterol (Proventil 0.083% (Neb)) 2.5 mg Q4H RESP THERAPY NEB Last administered on 05/12/19at 09:04; Admin Dose 2.5 MG; Start 05/10/19 at 17:00 Albuterol (Proventil 0.083% (Neb)) 2.5 mg Q2H RESP THERAPY PRN NEB SHORTNESS OF BREATH; Start 05/10/19 at 14:30 Acetaminophen (Tylenol Liquid) 650 mg Q6H PRN PO PAIN LEVEL 1-3 OR FEVER; Sta rt 05/10/19 at 14:30 Acetaminophen (Tylenol Supp) 650 mg Q4H PRN PA PAIN LEVEL 1-3 OR FEVER; Start 05/10/19 at 14:30 Lorazepam (Ativan) 1 mg Q2H PRN IV ANXIETY; Start 05/10/19 at 14:30 Docusate Sodium (Colace) 100 mg Q12H PRN PO CONSTIPATION; Start 05/10/19 at 14:30 Magnesium Hydroxide (Milk Of Mag) 30 ml DAILY PRN PO CONSTIPATION; Start 05/10/19 at 14:30 Famotidine (Pepcid Iv) 20 mg Q24H IV Last administered on 05/11/19at 20:12; Admin Dose 20 MG; Start 05/10/19 at 21:00 Vancomycin HCl (Vanco Iv Per Pharmacy) VANCOMYCIN PER PHARMACY PER PROTOCOL XX ; Start 05/10/19 at 14:30 Meropenem/Sodium Chloride 50 ml @ 100 mls/hr Q12 IVPB Last administered on 05/12/19at 09:44; Admin Dose 100 MLS/HR; Start 05/10/19 at 14:30 Citalopram Hydrobromide (Celexa) 40 mg DAILY PO ; Start 05/11/19 at 09:00 Insulin Aspart (Novolog Insulin Pen) NOVOLOG *MILD* ALGORI... Q4 SC Last administered on 05/11/19at 18:38; Admin Dose 1 UNIT; Start 05/10/19 at 17:00 Miconazole Nitrate (Miconazole 2% Cr) 1 applic BID TOP Last administered on 05/12/19 09:42; Admin Dose 1 APPLIC; Start 05/10/19 at 21:00 Midodrine (Proamatine) 5 mg TID@09,13,17 GTB ; Start 05/10/19 at 17:00 Quetiapine Fumarate (Seroquel) 25 mg BID PO ; Start 05/10/19 at 21:00 Dextrose 1,000 ml @ 75 mls/hr [id number] IV Last administered on 05/11/19at 21:19; Admin Dose 75 MLS/HR; Start 05/10/19 at 15:00 Vancomycin HCl 250 ml @ 125 mls/hr Q24H IVPB Last administered on 05/11/19at 15:41; Admin Dose 125 MLS/HR; Start 05/11/19 at 16:00 Norepinephrine 250 ml @ 1.875 mls/ hr TITRATE IV Last administered on 05/12/19 03:57; Admin Dose 9.375 MLS/HR; Start 05/10/19 at 16:30 IV Flush (NS 10 ml) 10 ml PRN PRN IV FLUSH LINE; Start 05/10/19 at 19:00 Phenylephrine HCl 80 mg/Dextrose 250 ml @ 18.75 mls/ hr TITRATE IV Last administered on 05/12/19at 10:29; Admin Dose 18.75 MLS/HR; Start 05/11/19 at 15:30 Haloperidol (Haldol) 2 mg Q4H PRN IM agitation Last administered on 05/11/19 22:02; Admin Dose 2 MG; Start 05/11/19 at 19:30 Acetaminophen 100 ml @ 400 mls/hr Q6H PRN IVPB fever Last administered on 05/12/19at 11:44; Admin Dose 400 MLS/HR; Start 05/12/19 at 11:30; Stop 05/13/19 at 11:29 Miscellaneous Information (*Rx Drug Level Order Reminder*) VANCOMYCIN TROUGH AT 1500 1500 ONCE XX ; Start 05/13/19 at 15:00; Stop 05/13/19 at 15:01 Assessment/Plan Hospital Course (Demo Recall) 1. Septic shock/gram-negative lambert bacteremia 2. hx of ventricular tachycardia: Status post ICD placement 3. Congestive heart failure chronic secondary systolic and probably diastolic heart failure as well as valvular heart disease 4. Valvular heart disease status post mechanical aortic valve replacement and with severe mitral regurgitation 5. Severe cardiomyopathy ejection fracture 35% at the top of severe MR 6. Pulmonary hypertension 7. Encephalopathy and anoxic brain injury 8. Pneumonia most likely aspiration pneumonia 9. Acute renal failure 10. Hypernatremia 11. Respiratory failure hypoxemia 12. Diabetes 13. History of hypertension currently hypotensive and in shock 14. Reported history of endocarditis in the past 15. Severe anemia 16. Severe thrombocytopenia Recommendations: We will continue with a Lon-Synephrine drip to support the blood pressure. levophed drip was added as well IV digoxin will be discontinued for now to avoid dig toxicity. Patient is currently n.p.o. and unable to tolerate p.o. medications. Antibiotic management as per internal medicine and infectious disease co nsultation Aspiration precaution will be continued Coumadin to be resumed once patient able to tolerate p.o. medication. At this point INR is therapeutic and he has been having worsening thrombocytopenia. We will hold off on it for now and adjusted daily Diabetic management as per internal medicine. External management and hyponatremia management as per nephrology consultants. Patient has been followed up by Dr. Alcantara/Murray trotter at [place]. ID consultation has been requested already. Currently on multiple antibiotics. Thyroid function test will be checked again tomorrow. code DNR now Continue with ICU care More than 35 minutes of critical care time was for management treatment is critically ill patient excluding any procedures. Thank you for his referral. We will continue to follow along with you FLORINDA GONZALEZ MD [facility] FLORINDA GONZALEZ MD May 12, 2019 14:21
--- NOTE | 2019-05-12 15:44 | PN ---
Date/Time of Note Date/Time of Note DATE: 05/12/19 TIME: 15:37 Assessment/Plan VTE Prophylaxis Risk score (from Ns)>0 risk: 10 SCD applied (from Ns): Yes Pharmacological prophylaxis: NA/contraindicated Pharm contraindication: thrombocytopenia Lines/Catheters IV Catheter Type (from Nrsg): PICC Line Central line still needed: Yes Urinary Cath still in place: Yes Reason Cath still needed: urinary retention Assessment/Plan Assessment/Plan 1. Septic shock, secondary to pneumonia and bacteremia - continue to require 2 pressors to maintain goal MAP >65 - continue IV antibiotics 2. Acute respiratory failure secondary to pneumonia - continue neb tx and monitoring saturations. tolerating NC 3. Pneumonia, aspiration - Pulm on board and appreciate recommendations - will start on steroids and continue on nebs and current antibiotics - ID consulted and appreciate recommendations 4. WONG on CKD - slight improvement this am - Nephrology consultation appreciated - most likely secondary to ATN from septic shock and cardiorenal 5. Hypernatremia- improving - currently on DW5 - will monitor Na levels - Nephrology on board and continue fluids 6. Anemia - GI on board and appreciate consultation - 1 unit PRBC ordered this am - holding coumadin 7. Diabetes Mellitus - A1c noted - ISS and accuchecks 8. Atrial fibrillation - rate controlled - holding anticoagulation in setting of anemia and thrombocytopenia 9. Thrombocytopenia - 1 unit of platelets ordered - will give Vit K given elevated INR - hold warfarin 10. HTN - holding home meds in setting of hypotension 11. Acute on chronic systolic heart failure - will hold diuretics given low BP and resume when stable - ECHO noted with EF 40% 12. Anoxic encephalopathy 13. Disposition - Continue monitoring in ICU given need for pressor support . - Patient now DNR/DNI following discussion with - will add steroids give diffuse PNA on R >35 minutes of critical care time spent with patient Result Diagram: 05/12/19 0535 05/12/19 0605 Results 24hrs Laboratory Tests Test 05/11/19 18:35 05/11/19 20:07 05/12/19 01:41 05/12/19 04:15 Bedside Glucose 153 127 114 Phosphorus Level 3.2 Thyroid Stimulating 0.128 L Hormone (TSH) Free Thyroxine 1.80 Digoxin Level 1.2 Test 05/12/19 05:35 05/12/19 06:05 05/12/19 06:09 05/12/19 09:56 White Blood Count 16.9 H Red Blood Count 2.51 L Hemoglobin 7.4 L Hematocrit 23.4 L Mean Corpuscular 93.2 Volume Mean Corpuscular 29.5 Hemoglobin Mean Corpuscular 31.6 L Hemoglobin Concent Red Cell 19.8 H Distribution Width Platelet Count 29 *L Mean Platelet Volume Immature 1.000 H Granulocytes % Neutrophils % 91.9 H Lymphocytes % 3.5 L Monocytes % 3.5 Eosinophils % 0.0 Basophils % 0.1 Nucleated Red Blood 2.8 H Cells % Immature 0.170 H Granulocytes # Neutrophils # 15.6 H Lymphocytes # 0.6 L Monocytes # 0.6 Eosinophils # 0.0 Basophils # 0.0 Nucleated Red Blood 0.5 H Cells # Prothrombin Time 37.7 #H Prothrombin Time 2.9 Ratio INR International 3.83 Normalized Ratio Sodium Level 145 H Potassium Level 4.3 Chloride Level 112 H Carbon Dioxide Level 17 L Anion Gap 16 #H Blood Urea Nitrogen 80 H Creatinine 1.57 H Est Glomerular 45 L Filtrat Rate mL/min Glucose Level 124 Calcium Level 7.4 L Magnesium Level 2.6 H Total Bilirubin 3.8 H Direct Bilirubin 0.70 #H Indirect Bilirubin 3.1 H Aspartate Amino 27 Transf (AST/SGOT) Alanine 41 Aminotransferase (AL T/SGPT) Alkaline Phosphatase 39 L Total Protein 5.7 L Albumin 3.2 L Globulin 2.50 Albumin/Globulin 1.28 Ratio Bedside Glucose 122 126 Test 05/12/19 14:13 Bedside Glucose 143 Subjective 24 Hr Interval Summary Free Text/Dictation Patient still has moments of agitation and continues to favor his right side while sleeping. Continues on 2 pressors. Exam/Review of Systems Exam Vitals Vital Signs Date Temp Pulse Resp B/P (MAP) Pulse Ox O2 O2 Flow FiO2 Time Delivery Rate 05/12/19 96 38 107/62 97 Nasal 2.0 15:00 (77) Cannula 05/12/19 28 14:50 05/12/19 98.7 12:39 Intake and Output 05/11/19 05/11/19 05/12/19 1515:00 23:00 07:00 IntakeIntake Total 1345.0 ml 1661.875 ml 1171.875 ml OutputOutput Total 200 ml 375 ml 430 ml BalanceBalance 1145.0 ml 1286.875 ml 741.875 ml Exam General: confused and restless. screaming when moved Neck: Supple Chest: Nontender Lungs: Diminished with coarse breath sounds right side. no wheezing appreciated Heart: Normal S1-S2, regular rate, irregular rhythm. no murmur appreciated Abdomen: Soft , nontender, nondistended , bowel sounds are present. No guarding no rebound tenderness Extremities: moving all extremities, no cyanosis, clubbing or edema Results Results 24hrs Laboratory Tests Test 05/11/19 18:35 05/11/19 20:07 05/12/19 01:41 05/12/19 04:15 Bedside Glucose 153 127 114 Phosphorus Level 3.2 Thyroid Stimulating 0.128 L Hormone (TSH) Free Thyroxine 1.80 Digoxin Level 1.2 Test 05/12/19 05:35 05/12/19 06:05 05/12/19 06:09 05/12/19 09:56 White Blood Count 16.9 H Red Blood Count 2.51 L Hemoglobin 7.4 L Hematocrit 23.4 L Mean Corpuscular 93.2 Volume Mean Corpuscular 29.5 Hemoglobin Mean Corpuscular 31.6 L Hemoglobin Concent Red Cell 19.8 H Distribution Width Platelet Count 29 *L Mean Platelet Volume Immature 1.000 H Granulocytes % Neutrophils % 91.9 H Lymphocytes % 3.5 L Monocytes % 3.5 Eosinophils % 0.0 Basophils % 0.1 Nucleated Red Blood 2.8 H Cells % Immature 0.170 H Granulocytes # Neutrophils # 15.6 H Lymphocytes # 0.6 L Monocytes # 0.6 Eosinophils # 0.0 Basophils # 0.0 Nucleated Red Blood 0.5 H Cells # Prothrombin Time 37.7 #H Prothrombin Time 2.9 Ratio INR International 3.83 Normalized Ratio Sodium Level 145 H Potassium Level 4.3 Chloride Level 112 H Carbon Dioxide Level 17 L Anion Gap 16 #H Blood Urea Nitrogen 80 H Creatinine 1.57 H Est Glomerular 45 L Filtrat Rate mL/min Glucose Level 124 Calcium Level 7.4 L Magnesium Level 2.6 H Total Bilirubin 3.8 H Direct Bilirubin 0.70 #H Indirect Bilirubin 3.1 H Aspartate Amino 27 Transf (AST/SGOT) Alanine 41 Aminotransferase (AL T/SGPT) Alkaline Phosphatase 39 L Total Protein 5.7 L Albumin 3.2 L Globulin 2.50 Albumin/Globulin 1.28 Ratio Bedside Glucose 122 126 Test 05/12/19 14:13 Bedside Glucose 143 Medications Medication Current Medications Ondansetron HCl (Zofran Inj) 4 mg Q6H PRN IV NAUSEA AND/OR VOMITING; Start 05/10/19 at 14:30 Albuterol (Proventil 0.083% (Neb)) 2.5 mg Q4H RESP THERAPY NEB Last administered on 05/12/19at 14:50; Admin Dose 2.5 MG; Start 05/10/19 at 17:00 Albuterol (Proventil 0.083% (Neb)) 2.5 mg Q2H RESP THERAPY PRN NEB SHORTNESS OF BREATH; Start 05/10/19 at 14:30 Acetaminophen (Tylenol Liquid) 650 mg Q6H PRN PO PAIN LEVEL 1-3 OR FEVER; Start 05/10/19 at 14:30 Acetaminophen (Tylenol Supp) 650 mg Q4H PRN CA PAIN LEVEL 1-3 OR FEVER; Start 05/10/19 at 14:30 Lorazepam (Ativan) 1 mg Q2H PRN IV ANXIETY; Start 05/10/19 at 14:30 Docusate Sodium (Colace) 100 mg Q12H PRN PO CONSTIPATION; Start 05/10/19 at 14:30 Magnesium Hydroxide (Milk Of Mag) 30 ml DAILY PRN PO CONSTIPATION; Start 05/10/19 at 14:30 Famotidine (Pepcid Iv) 20 mg Q24H IV Last administered on 05/11/19at 20:12; Admin Dose 20 MG; Start 05/10/19 at 21:00 Vancomycin HCl (Vanco Iv Per Pharmacy) VANCOMYCIN PER PHARMACY PER PROTOCOL XX ; Start 05/10/19 at 14:30 Meropenem/Sodium Chloride 50 ml @ 100 mls/hr Q12 IVPB Last administered on 05/12/19at 09:44; Admin Dose 100 MLS/HR; Start 05/10/19 at 14:30 Citalopram Hydrobromide (Celexa) 40 mg DAILY PO ; Start 05/11/19 at 09:00 Insulin Aspart (Novolog Insulin Pen) NOVOLOG *MILD* ALGORI... Q4 SC Last administered on 05/12/19at 14:18; Admin Dose 1 UNIT; Start 05/10/19 at 17:00 Miconazole Nitrate (Miconazole 2% Cr) 1 applic BID TOP Last administered on 05/12/19 09:42; Admin Dose 1 APPLIC; Start 05/10/19 at 21:00 Midodrine (Proamatine) 5 mg TID@09,13,17 GTB ; Start 05/10/19 at 17:00 Quetiapine Fumarate (Seroquel) 25 mg BID PO ; Start 05/10/19 at 21:00 Dextrose 1,000 ml @ 75 mls/hr [id number] IV Last administered on 05/11/19at 21:19; Admin Dose 75 MLS/HR; Start 05/10/19 at 15:00 Vancomycin HCl 250 ml @ 125 mls/hr Q24H IVPB Last administered on 05/11/19at 15:41; Admin Dose 125 MLS/HR; Start 05/11/19 at 16:00 Norepinephrine 250 ml @ 1.875 mls/ hr TITRATE IV Last administered on 05/12/19 03:57; Admin Dose 9.375 MLS/HR; Start 05/10/19 at 16:30 IV Flush (NS 10 ml) 10 ml PRN PRN IV FLUSH LINE; Start 05/10/19 at 19:00 Phenylephrine HCl 80 mg/Dextrose 250 ml @ 18.75 mls/ hr TITRATE IV Last administered on 05/12/19at 14:40; Admin Dose 56.25 MLS/HR; Start 05/11/19 at 15:30 Haloperidol (Haldol) 2 mg Q4H PRN IM agitation Last administered on 05/11/19at 22:02; Admin Dose 2 MG; Start 05/11/19 at 19:30 Acetaminophen 100 ml @ 400 mls/hr Q6H PRN IVPB fever Last administered on 05/12/19at 11:44; Admin Dose 400 MLS/HR; Start 05/12/19 at 11:30; Stop 05/13/19 at 11:29 Miscellaneous Information (*Rx Drug Level Order Reminder*) VANCOMYCIN TROUGH AT 1500 1500 ONCE XX ; Start 05/13/19 at 15:00; Stop 05/13/19 at 15:01 NIXON MILLER MD May 12, 2019 15:44
--- NOTE | 2019-05-12 16:26 | PN ---
Date/Time of Note Date/Time of Note DATE: 05/12/19 TIME: 16:21 Assessment/Plan VTE Prophylaxis Risk score (from Ns)>0 risk: 10 SCD applied (from Ns): Yes SCD contraindicated: low risk/ambulating Pharmacological prophylaxis: NA/contraindicated Pharm contraindication: bleeding Lines/Catheters IV C[facility] Type [facility]from [facility] PICC Line Central line still needed: Yes Urinary Cath still in place: Yes Reason Cath still needed: skin wounds contaminated by urine Assessment/Plan Assessment/Plan Assessment: Septic shock -currently on multiple pressors Pneumonia Anemia Positive occult blood test Diabetes mellitus Congestive heart failure AICD Plan: Monitor for signs of overt GI bleeding, so far Hgb stable after transfusion Continue IV Pepcid No endoscopic interventions at this time Monitor H&H Transfuse for hemoglobin less than 7.5 Patient seen in collaboration Dr. Freedman Subjective: Patient is resting in bed, discussion with family and RN regarding patient status. Continues to be on multiple pressors. No evidence of overt GI bleeding and H/H relatively stable status post PRBC transfusion yesterday. Critically ill and not stable for any endoscopic procedures at this time. Will continue to follow. PHYSICAL EXAMINATION: GENERAL: Well developed, well nourished, alert & confused, nonverbal, in no acute distress SKIN: No lesions, pallor, multiple areas of ecchymosis, no stigmata chronic l iver disease, no evidence of bleeding diathesis LYMPHATIC: No palpable lymphadenopathy. HEAD: Normocephalic, atraumatic, no tenderness. EYES: Pupils equal reactive to light and accommodation, full extraocular movements, sclera clear, non-icteric, no discharge. EARS/NOSE AND THROAT: Ears normal, nose normal, oropharynx normal, oral membranes well hydrated without lesions. NECK: Supple, no masses, thyroid normal, JVP within normal limits, carotids normal without bruits. CHEST: Inspection within normal limits. CARDIOVASCULAR: Heart: Regular rate and rhythm, no murmurs, gallops or rubs. Peripheral pulses present within normal limits, no cyanosis, clubbing or edemas. No pulsatile abdominal mass RESPIRATORY: Lungs clear to auscultation and percussion, no wheezing, no rubs GASTROINTESTINAL AND LIVER: Abdomen: Soft, questionable tenderness -patient screams with any stimuli, non-distended, no hernias, no masses, no organomegaly, no ascites, no guarding, no rebound tenderness, normoactive bowel sounds. Rectal: Deferred. GENITOURINARY: [Male genitalia within normal limits. Patino in place EXTREMITIES: No cyanosis, clubbing or edema. Result Diagram: 05/12/19 0535 05/12/19 0605 Results 24hrs Laboratory Tests Test 05/11/19 18:35 05/11/19 20:07 05/12/19 01:41 05/12/19 04:15 Bedside Glucose 153 127 114 Phosphorus Level 3.2 Thyroid Stimulating 0.128 L Hormone (TSH) Free Thyroxine 1.80 Digoxin Level 1.2 Test 05/12/19 05:35 05/12/19 06:05 05/12/19 06:09 05/12/19 09:56 White Blood Count 16.9 H Red Blood Count 2.51 L Hemoglobin 7.4 L Hematocrit 23.4 L Mean Corpuscular 93.2 Volume Mean Corpuscular 29.5 Hemoglobin Mean Corpuscular 31.6 L Hemoglobin Concent Red Cell 19.8 H Distribution Width Platelet Count 29 *L Mean Platelet Volume Immature 1.000 H Granulocytes % Neutrophils % 91.9 H Lymphocytes % 3.5 L Monocytes % 3.5 Eosinophils % 0.0 Basophils % 0.1 Nucleated Red Blood 2.8 H Cells % Immature 0.170 H Granulocytes # Neutrophils # 15.6 H Lymphocytes # 0.6 L Monocytes # 0.6 Eosinophils # 0.0 Basophils # 0.0 Nucleated Red Blood 0.5 H Cells # Prothrombin Time 37.7 #H Prothrombin Time 2.9 Ratio INR International 3.83 Normalized Ratio Sodium Level 145 H Potassium Level 4.3 Chloride Level 112 H Carbon Dioxide Level 17 L Anion Gap 16 #H Blood Urea Nitrogen 80 H Creatinine 1.57 H Est Glomerular 45 L Filtrat Rate mL/min Glucose Level 124 Calcium Level 7.4 L Magnesium Level 2.6 H Total Bilirubin 3.8 H Direct Bilirubin 0.70 #H Indirect Bilirubin 3.1 H Aspartate Amino 27 Transf (AST/SGOT) Alanine 41 Aminotransferase (AL T/SGPT) Alkaline Phosphatase 39 L Total Protein 5.7 L Albumin 3.2 L Globulin 2.50 Albumin/Globulin 1.28 Ratio Bedside Glucose 122 126 Test 05/12/19 14:13 Bedside Glucose 143 CC: ERIN FREEDMAN MD ; Subjective 24 Hr Interval Summary Subjective hx not possible: pt critical status Exam/Review of Systems Exam Vitals Vital Signs Date Temp Pulse Resp B/P (MAP) Pulse Ox O2 O2 Flow FiO2 Time Delivery Rate 05/12/19 96 38 107/62 97 Nasal 2.0 15:00 (77) Cannula 05/12/19 28 14:50 05/12/19 98.7 12:39 Intake and Output 05/11/19 05/11/19 05/12/19 1414:59 22:59 06:59 IntakeIntake Total 1292.5 ml 1699.375 ml 1181.250 ml OutputOutput Total 250 ml 375 ml 430 ml BalanceBalance 1042.5 ml 1324.375 ml 751.250 ml Results Results 24hrs Laboratory Tests Test 05/11/19 18:35 05/11/19 20:07 05/12/19 01:41 05/12/19 04:15 Bedside Glucose 153 127 114 Phosphorus Level 3.2 Thyroid Stimulating 0.128 L Hormone (TSH) Free Thyroxine 1.80 Digoxin Level 1.2 Test 05/12/19 05:35 05/12/19 06:05 05/12/19 06:09 05/12/19 09:56 White Blood Count 16.9 H Red Blood Count 2.51 L Hemoglobin 7.4 L Hematocrit 23.4 L Mean Corpuscular 93.2 Volume Mean Corpuscular 29.5 Hemoglobin Mean Corpuscular 31.6 L Hemoglobin Concent Red Cell 19.8 H Distribution Width Platelet Count 29 *L Mean Platelet Volume Immature 1.000 H Granulocytes % Neutrophils % 91.9 H Lymphocytes % 3.5 L Monocytes % 3.5 Eosinophils % 0.0 Basophils % 0.1 Nucleated Red Blood 2.8 H Cells % Immature 0.170 H Granulocytes # Neutrophils # 15.6 H Lymphocytes # 0.6 L Monocytes # 0.6 Eosinophils # 0.0 Basophils # 0.0 Nucleated Red Blood 0.5 H Cells # Prothrombin Time 37.7 #H Prothrombin Time 2.9 Ratio INR International 3.83 Normalized Ratio Sodium Level 145 H Potassium Level 4.3 Chloride Level 112 H Carbon Dioxide Level 17 L Anion Gap 16 #H Blood Urea Nitrogen 80 H Creatinine 1.57 H Est Glomerular 45 L Filtrat Rate mL/min Glucose Level 124 Calcium Level 7.4 L Magnesium Level 2.6 H Total Bilirubin 3.8 H Direct Bilirubin 0.70 #H Indirect Bilirubin 3.1 H Aspartate Amino 27 Transf (AST/SGOT) Alanine 41 Aminotransferase (AL T/SGPT) Alkaline Phosphatase 39 L Total Protein 5.7 L Albumin 3.2 L Globulin 2.50 Albumin/Globulin 1.28 Ratio Bedside Glucose 122 126 Test 05/12/19 14:13 Bedside Glucose 143 Medications Medication Current Medications Ondansetron HCl (Zofran Inj) 4 mg Q6H PRN IV NAUSEA AND/OR VOMITING; Start 05/10/19 at 14:30 Albuterol (Proventil 0.083% (Neb)) 2.5 mg Q4H RESP THERAPY NEB Last administered on 05/12/19at 14:50; Admin Dose 2.5 MG; Start 05/10/19 at 17:00 Albuterol (Proventil 0.083% (Neb)) 2.5 mg Q2H RESP THERAPY PRN NEB SHORTNESS OF BREATH; Start 05/10/19 at 14:30 Acetaminophen (Tylenol Liquid) 650 mg Q6H PRN PO PAIN LEVEL 1-3 OR FEVER; Start 05/10/19 at 14:30 Acetaminophen (Tylenol Supp) 650 mg Q4H PRN [place] PAIN LEVEL 1-3 OR FEVER; Start 05/10/19 at 14:30 Lorazepam (Ativan) 1 mg Q2H PRN IV ANXIETY; Start 05/10/19 at 14:30 Docusate Sodium (Colace) 100 mg Q12H PRN PO CONSTIPATION; Start 05/10/19 at 14:30 Magnesium Hydroxide (Milk Of Mag) 30 ml DAILY PRN PO CONSTIPATION; Start 05/10/19 at 14:30 Famotidine (Pepcid Iv) 20 mg Q24H IV Last administered on 05/11/19at 20:12; Admin Dose 20 MG; Start 05/10/19 at 21:00 Vancomycin HCl (Vanco Iv Per Pharmacy) VANCOMYCIN PER PHARMACY PER PROTOCOL XX ; Start 05/10/19 at 14:30 Meropenem/Sodium Chloride 50 ml @ 100 mls/hr Q12 IVPB Last administered on 05/12/19at 09:44; Admin Dose 100 MLS/HR; Start 05/10/19 at 14:30 Citalopram Hydrobromide (Celexa) 40 mg DAILY PO ; Start 05/11/19 at 09:00 Insulin Aspart (Novolog Insulin Pen) NOVOLOG *MILD* ALGORI... Q4 SC Last administered on 05/12/19 14:18; Admin Dose 1 UNIT; Start 05/10/19 at 17:00 Miconazole Nitrate (Miconazole 2% Cr) 1 applic BID TOP Last administered on 05/12/19at 09:42; Admin Dose 1 APPLIC; Start 05/10/19 at 21:00 Midodrine (Proamatine) 5 mg TID@09,13,17 GTB ; Start 05/10/19 at 17:00 Quetiapine Fumarate (Seroquel) 25 mg BID PO ; Start 05/10/19 at 21:00 Dextrose 1,000 ml @ 75 mls/hr [id number] IV Last administered on 05/11/19at 21:19; Admin Dose 75 MLS/HR; Start 05/10/19 at 15:00 Vancomycin HCl 250 ml @ 125 mls/hr Q24H IVPB Last administered on 05/11/19at 15:41; Admin Dose 125 MLS/HR; Start 05/11/19 at 16:00 Norepinephrine 250 ml @ 1.875 mls/ hr TITRATE IV Last administered on 05/12/19 03:57; Admin Dose 9.375 MLS/HR; Start 05/10/19 at 16:30 IV Flush (NS 10 ml) 10 ml PRN PRN IV FLUSH LINE; Start 05/10/19 at 19:00 Phenylephrine HCl 80 mg/Dextrose 250 ml @ 18.75 mls/ hr TITRATE IV Last administered on 05/12/19at 14:40; Admin Dose 56.25 MLS/HR; Start 05/11/19 at 15 :30 Haloperidol (Haldol) 2 mg Q4H PRN IM agitation Last administered on 05/11/19at 22:02; Admin Dose 2 MG; Start 05/11/19 at 19:30 Acetaminophen 100 ml @ 400 mls/hr Q6H PRN IVPB fever Last administered on 05/12/19at 11:44; Admin Dose 400 MLS/HR; Start 05/12/19 at 11:30; Stop 05/13/19 at 11:29 Miscellaneous Information (*Rx Drug Level Order Reminder*) VANCOMYCIN TROUGH AT 1500 1500 ONCE XX ; Start 05/13/19 at 15:00; Stop 05/13/19 at 15:01 CORTEZ SALGUERO [employer] May 12, 2019 16:26
[2019-05-12] MEDS: VANCOMYCIN 1 GM 250 ML IVPB SCH (16:59)
[2019-05-12] MEDS: FAMOTIDINE 20 MG INJ IV SCH (20:13)
[2019-05-13] VITALS (90 sets, daily range): BP systolic 60–189; BP diastolic 38–156; PULSE 77–106; RESP 11–47
[2019-05-13] MEDS: ALBUTEROL 0.083% (NEB) 2.5 MG/3 ML AMP NEB SCH ×6 (01:36→20:42)
[2019-05-13] MEDS: PHENYLephrine 80 MG in DEXTROSE 5% 242 ML IV SCH ×6 (01:51→23:58)
[2019-05-13] MEDS: INSULIN ASPART [NOVOLOG] 3 ML PEN SC SCH ×6 (01:52→20:40)
[2019-05-13] MEDS: MEROPENEM 1 GM/50ML(PMX) 50 ML IVPB SCH ×2 (08:20→20:31)
[2019-05-13] MEDS: DEXTROSE 5%-0.9% NACL 1,000 ML IV SCH ×2 (08:22→20:38)
[2019-05-13] MEDS: MICONAZOLE 2% 30 GM CR TOP SCH ×2 (08:31→20:31)
[2019-05-13] MEDS: MIDODRINE 5 MG TAB GTB SCH ×3 (08:31→17:00)
[2019-05-13] MEDS: CITALOPRAM 20 MG TAB PO SCH (08:31)
[2019-05-13] MEDS: QUETIAPINE 25 MG TAB PO SCH ×2 (08:36→20:26)
[2019-05-13] MEDS: NORepinephrine 8MG/250 ML (PMX 250 ML IV SCH (09:49)
--- NOTE | 2019-05-13 09:55 | PN ---
Date/Time of Note Date/Time of Note DATE: 05/13/19 TIME: 09:46 Assessment/Plan VTE Prophylaxis Risk score (from Ns)>0 risk: 12 SCD applied (from Ns): Yes Pharmacological prophylaxis: NA/contraindicated Pharm contraindication: bleeding Lines/Catheters IV Catheter Type (from Nrsg): PICC Line Central line still needed: Yes Urinary Cath still in place: Yes Reason Cath still needed: urinary retention Assessment/Plan Assessment/Plan 1. Septic shock, secondary to pneumonia and bacteremia - Will wean off pressors as tolerated. - continue IV antibiotics 2. Acute respiratory failure secondary to pneumonia - CXR this am show no change - Speech on board for evaluation of aspiration risk - continue neb tx and monitoring saturations. tolerating NC 3. Pneumonia, aspiration - Pulm on board and appreciate recommendations - continue on steroids and antibiotics - ID consulted and appreciate recommendations 4. WONG on CKD- improving - Cr continues to trend down - Nephrology consultation appreciated - most likely secondary to ATN from septic shock and cardiorenal 5. Hypernatremia- resolved - IVF changed - Nephrology on board and assisting with fluid management 6. Anemia - GI consultation appreciated - hgb stable follow 1PRBC yesterday. Has received 2 units during hospitalization - holding coumadin 7. K. Pneumonia ESBL Bacteremia - ID on board and appreciate recommendations - Repeat blood cx performed yesterday - Currently on Meropenem. D/c Vanc 8. Atrial fibrillation - rate controlled - holding anticoagulation in setting of anemia and thrombocytopenia 9. Thrombocytopenia - stable - s/p 1 unit of plt on 05/12 - hold warfarin 10. HTN - holding home meds in setting of hypotension 11. Acute on chronic systolic heart failure - will hold diuretics given low BP and resume when stable - ECHO noted with EF 40% 12. Chronic Anoxic encephalopathy 13. Diabetes Mellitus - A1c noted - ISS and accuchecks 14. Disposition - Continue monitoring in ICU and wean off pressors as tolerated. Continue treatment for ESBL bacteremia and aspiration PNA >40 minutes of critical care time spent with patient Result Diagram: 05/13/19 0440 05/13/19 0440 Results 24hrs Laboratory Tests Test 05/12/19 09:56 05/12/19 14:13 05/12/19 15:10 05/12/19 17:19 Bedside Glucose 126 143 153 Urine Color LORIE Urine Clarity CLOUDY A Urine pH 5.0 Urine Specific 1.017 [place] Urine Ketones NEGATIVE Urine Nitrite NEGATIVE Urine Bilirubin NEGATIVE Urine 1+ H Urobilinogen Urine Leukocyte TRACE A Esterase Urine Microscopic 20 H RBC Urine Microscopic 10 H WBC Urine Bacteria FEW A Urine Hyaline FEW A Casts Urine Granular FEW A Casts Urine Mucus FEW A Urine Hemoglobin 2+ H Urine Random 69.92 Creatinine Urine Random < 13 L Sodium Urine Glucose NEGATIVE Urine Total 1+ H Protein Test 05/12/19 22:17 05/13/19 01:14 05/13/19 04:40 05/13/19 06:06 Bedside Glucose 204 202 187 White Blood Count 16.9 H Red Blood Count 2.97 L Hemoglobin 8.7 L Hematocrit 26.3 L Mean Corpuscular 88.6 Volume Mean Corpuscular 29.3 Hemoglobin Mean Corpuscular 33.1 Hemoglobin Concen t Red Cell 20.4 H Distribution Width Platelet Count 40 #L Mean Platelet Volume Immature 1.000 H Granulocytes % Neutrophils % 91.0 H Lymphocytes % 4.2 L Monocytes % 3.6 Eosinophils % 0.0 Basophils % 0.2 Nucleated Red 2.6 H Blood Cells % Immature 0.170 H Granulocytes # Neutrophils # 15.4 H Lymphocytes # 0.7 L Monocytes # 0.6 Eosinophils # 0.0 Basophils # 0.0 Nucleated Red 0.4 H Blood Cells # Prothrombin Time 25.2 #H Prothrombin Time 2.0 Ratio INR International 2.28 Normalized Ratio Sodium Level 142 Potassium Level 4.1 Chloride Level 111 H Carbon Dioxide 20 L Level Anion Gap 11 Blood Urea 70 H Nitrogen Creatinine 1.33 H Est Glomerular 54 L Filtrat Rate mL/min Glucose Level 191 Calcium Level 7.3 L Phosphorus Level 3.2 Magnesium Level 2.5 Total Bilirubin 5.8 #H Direct Bilirubin 1.40 #H Indirect 4.4 H Bilirubin Aspartate Amino 27 Transf (AST/SGOT) Alanine 38 Aminotransferase (ALT/SGPT) Alkaline 49 Phosphatase Total Protein 5.2 L Albumin 2.7 L Globulin 2.50 Albumin/Globulin 1.08 Ratio Random Cortisol 95.2 Test 05/13/19 07:00 05/13/19 08:31 Blood Gas Blood arterial Specimen Source Arterial Blood 05/13/2019 8:20:0 Date Drawn 2 AM Arterial Blood pH 7.509 H (Temp corrected) Arterial Blood 21.5 L pCO2 (Temp correct) Arterial Blood 60.0 L pO2 (Temp corrected) Arterial Blood 16.7 L HCO3 Arterial Blood -4.8 L Base Excess Arterial Blood 91.0 L Oxygen Saturation Barber Test ACCEPTAB Arterial Blood Right Radial Gas Puncture Site Arterial 1.0 Blood Carboxyhemo globin Arterial Blood 0.2 Methemoglobin Blood Gas A-a O2 64.0 H Differential Oxyhemoglobin 89.9 L Percent Blood Gas 37.0 Temperature Blood Gas ROOM AIR Modality FiO2 21.0 Blood Gas DT Notified Whom Blood Gas 05/13/2019 8:40:1 Notified Time 9 AM Bedside Glucose 156 Subjective 24 Hr Interval Summary Free Text/Dictation Patient still remains confused and on pressor support. No acute overnight events. Exam/Review of Systems Exam Vitals Vital Signs Date Temp Pulse Resp B/P (MAP) Pulse Ox O2 O2 Flow FiO2 Time Delivery Rate 05/13/19 99 08:00 05/13/19 40 97/79 (85) 100 06:45 05/13/19 21 04:03 05/13/19 98.9 04:00 05/13/19 3.0 01:56 05/13/19 Nasal 01:56 Cannula Intake and Output 05/12/19 05/12/19 05/13/19 1515:00 23:00 07:00 IntakeIntake Total 776.255 ml 1201.875 ml 1010.625 ml OutputOutput Total 515 ml 480 ml 845 ml BalanceBalance 261.255 ml 721.875 ml 165.625 ml Exam General: confused. making noises sporadically, tachypneic Neck: Supple Chest: Nontender Lungs: Diminished with coarse breath sounds right side. no wheezing appreciated Heart: Normal S1-S2, regular rate, irregular rhythm. no murmur appreciated Abdomen: Soft , nontender, nondistended , bowel sounds are present. No guarding no rebound tenderness Extremities: moving all extremities, no cyanosis, clubbing or edema Results Results 24hrs Laboratory Tests Test 05/12/19 09:56 05/12/19 14:13 05/12/19 15:10 05/12/19 17:19 Bedside Glucose 126 143 153 Urine Color LORIE Urine Clarity CLOUDY A Urine pH 5.0 Urine Specific 1.017 [place] Urine Ketones NEGATIVE Urine Nitrite NEGATIVE Urine Bilirubin NEGATIVE Urine 1+ H Urobilinogen Urine Leukocyte TRACE A Esterase Urine Microscopic 20 H RBC Urine Microscopic 10 H WBC Urine Bacteria FEW A Urine Hyaline FEW A Casts Urine Granular FEW A Casts Urine Mucus FEW A Urine Hemoglobin 2+ H Urine Random 69.92 Creatinine Urine Random < 13 L Sodium Urine Glucose NEGATIVE Urine Total 1+ H Protein Test 05/12/19 22:17 05/13/19 01:14 05/13/19 04:40 05/13/19 06:06 Bedside Glucose 204 202 187 White Blood Count 16.9 H Red Blood Count 2.97 L Hemoglobin 8.7 L Hematocrit 26.3 L Mean Corpuscular 88.6 Volume Mean Corpuscular 29.3 Hemoglobin Mean Corpuscular 33.1 Hemoglobin Concen t Red Cell 20.4 H Distribution Width Platelet Count 40 #L Mean Platelet Volume Immature 1.000 H Granulocytes % Neutrophils % 91.0 H Lymphocytes % 4.2 L Monocytes % 3.6 Eosinophils % 0.0 Basophils % 0.2 Nucleated Red 2.6 H Blood Cells % Immature 0.170 H Granulocytes # Neutrophils # 15.4 H Lymphocytes # 0.7 L Monocytes # 0.6 Eosinophils # 0.0 Basophils # 0.0 Nucleated Red 0.4 H Blood Cells # Prothrombin Time 25.2 #H Prothrombin Time 2.0 Ratio INR International 2.28 Normalized Ratio Sodium Level 142 Potassium Level 4.1 Chloride Level 111 H Carbon Dioxide 20 L Level Anion Gap 11 Blood Urea 70 H Nitrogen Creatinine 1.33 H Est Glomerular 54 L Filtrat Rate mL/min Glucose Level 191 Calcium Level 7.3 L Phosphorus Level 3.2 Magnesium Level 2.5 Total Bilirubin 5.8 #H Direct Bilirubin 1.40 #H Indirect 4.4 H Bilirubin Aspartate Amino 27 Transf (AST/SGOT) Alanine 38 Aminotransferase (ALT/SGPT) Alkaline 49 Phosphatase Total Protein 5.2 L Albumin 2.7 L Globulin 2.50 Albumin/Globulin 1.08 Ratio Random Cortisol 95.2 Test 05/13/19 07:00 05/13/19 08:31 Blood Gas Blood arterial Specimen Source Arterial Blood 05/13/2019 8:20:0 Date Drawn 2 AM Arterial Blood pH 7.509 H (Temp corrected) Arterial Blood 21.5 L pCO2 (Temp correct) Arterial Blood 60.0 L pO2 (Temp corrected) Arterial Blood 16.7 L HCO3 Arterial Blood -4.8 L Base Excess Arterial Blood 91.0 L Oxygen Saturation Barber Test ACCEPTAB Arterial Blood Right Radial Gas Puncture Site Arterial 1.0 Blood Carboxyhemo globin Arterial Blood 0.2 Methemoglobin Blood Gas A-a O2 64.0 H Differential Oxyhemoglobin 89.9 L Percent Blood Gas 37.0 Temperature Blood Gas ROOM AIR Modality FiO2 21.0 Blood Gas DT Notified Whom Blood Gas 05/13/2019 8:40:1 Notified Time 9 AM Bedside Glucose 156 Medications Medication Current Medications Ondansetron HCl (Zofran Inj) 4 mg Q6H PRN IV NAUSEA AND/OR VOMITING; Start 05/10/19 at 14:30 Albuterol (Proventil 0.083% (Neb)) 2.5 mg Q4H RESP THERAPY NEB Last administered on 05/13/19at 04:03; Admin Dose 2.5 MG; Start 05/10/19 at 17:00 Albuterol (Proventil 0.083% (Neb)) 2.5 mg Q2H RESP THERAPY PRN NEB SHORTNESS OF BREATH; Start 05/10/19 at 14:30 Acetaminophen (Tylenol Liquid) 650 mg Q6H PRN PO PAIN LEVEL 1-3 OR FEVER; Start 05/10/19 at 14:30 Acetaminophen (Tylenol Supp) 650 mg Q4H PRN [place] PAIN LEVEL 1-3 OR FEVER; Start 05/10/19 at 14:30 Lorazepam (Ativan) 1 mg Q2H PRN IV ANXIETY; Start 05/10/19 at 14:30 Docusate Sodium (Colace) 100 mg Q12H PRN PO CONSTIPATION; Start 05/10/19 at 14:30 Magnesium Hydroxide (Milk Of Mag) 30 ml DAILY PRN PO CONSTIPATION; Start 05/10/19 at 14:30 Famotidine (Pepcid Iv) 20 mg Q24H IV Last administered on 05/12/19at 20:13; Admin Dose 20 MG; Start 05/10/19 at 21:00 Vancomycin HCl (Vanco Iv Per Pharmacy) VANCOMYCIN PER PHARMACY PER PROTOCOL XX ; Start 05/10/19 at 14:30 Meropenem/Sodium Chloride 50 ml @ 100 mls/hr Q12 IVPB Last administered on 05/13/19at 08:20; Admin Dose 100 MLS/HR; Start 05/10/19 at 14:30 Citalopram Hydrobromide (Celexa) 40 mg DAILY PO ; Start 05/11/19 at 09:00 Insulin Aspart (Novolog Insulin Pen) NOVOLOG *MILD* ALGORI... Q4 SC Last administered on 05/13/19 08:35; Admin Dose 1 UNIT; Start 05/10/19 at 17:00 Miconazole Nitrate (Miconazole 2% Cr) 1 applic BID TOP Last administered on 05/13/19 08:31; Admin Dose 1 APPLIC; Start 05/10/19 at 21:00 Midodrine (Proamatine) 5 mg TID@09,13,17 GTB ; Start 05/10/19 at 17:00 Quetiapine Fumarate (Seroquel) 25 mg BID PO ; Start 05/10/19 at 21:00 Vancomycin HCl 250 ml @ 125 mls/hr Q24H IVPB Last administered on 05/12/19at 16:59; Admin Dose 125 MLS/HR; Start 05/11/19 at 16:00 Norepinephrine 250 ml @ 1.875 mls/ hr TITRATE IV Last administered on 05/12/19at 20:19; Admin Dose 22.5 MLS/HR; Start 05/10/19 at 16:30 IV Flush (NS 10 ml) 10 ml PRN PRN IV FLUSH LINE; Start 05/10/19 at 19:00 Phenylephrine HCl 80 mg/Dextrose 250 ml @ 18.75 mls/ hr TITRATE IV Last administered on 05/13/19 05:46; Admin Dose 56.25 MLS/HR; Start 05/11/19 at 15:30 Haloperidol (Haldol) 2 mg Q4H PRN IM agitation Last administered on 05/11/19at 22:02; Admin Dose 2 MG; Start 05/11/19 at 19:30 Acetaminophen 100 ml @ 400 mls/hr Q6H PRN IVPB fever Last administered on 05/12/19at 11:44; Admin Dose 400 MLS/HR; Start 05/12/19 at 11:30; Stop 05/13/19 at 11:29 Miscellaneous Information (*Rx Drug Level Order Reminder*) VANCOMYCIN TROUGH AT 1500 1500 ONCE XX ; Start 05/13/19 at 15:00; Stop 05/13/19 at 15:01 Dextrose/Sodium Chloride 1,000 ml @ 75 mls/hr [id number] IV Last administered on 05/13/19 08:22; Admin Dose 75 MLS/HR; Start 05/13/19 at 08:00 NIXON MILLER MD May 13, 2019 09:54
--- NOTE | 2019-05-13 10:12 | CONS ---
Consult Date/Type/Reason Admit Date/Time May 10, 2019 at 13:20 Initial Consult Date 05/11/19 Type of Consult Pulmonary Requesting Provider: NIXON MILLER MD Date/Time of Note DATE: 05/13/19 TIME: 10:12 Subjective No significant changes to remains vasopressor dependent. Chest x-ray shows progressive right-sided infiltrate. Objective Vital Signs Date Temp Pulse Resp B/P (MAP) Pulse Ox O2 O2 Flow FiO2 Time Delivery Rate 05/13/19 99 08:00 05/13/19 40 97/79 (85) 100 06:45 05/13/19 21 04:03 05/13/19 98.9 04:00 05/13/19 3.0 01:56 05/13/19 Nasal 01:56 Cannula Intake and Output 05/12/19 05/12/19 05/13/19 1515:00 23:00 07:00 IntakeIntake Total 776.255 ml 1201.875 ml 1010.625 ml OutputOutput Total 515 ml 480 ml 845 ml BalanceBalance 261.255 ml 721.875 ml 165.625 ml Exam PHYSICAL EXAMINATION: GENERAL: A chronically ill-appearing gentleman who appears comfortable at rest, no acute distress. VITAL SIGNS: NECK: Supple. No JVD or lymphadenopathy. CARDIAC: S1, S2, no added sounds or murmurs. CHEST: Diminished air entry bilaterally. ABDOMEN: Soft, nontender. No guarding or rebound. EXTREMITIES: No cyanosis, clubbing, edema. NEUROLOGIC: Generalized weakness. Vent Setting Fraction of Inspired Oxygen pe: 21 Results/Medications Result Diagram: 05/13/19 0440 05/13/19 0440 Results 24 hrs Laboratory Tests Test 05/12/19 14:13 05/12/19 15:10 05/12/19 17:19 05/12/19 22:17 Bedside Glucose 143 153 204 Urine Color LORIE Urine Clarity CLOUDY A Urine pH 5.0 Urine Specific 1.017 [place] Urine Ketones NEGATIVE Urine Nitrite NEGATIVE Urine Bilirubin NEGATIVE Urine 1+ H Urobilinogen Urine Leukocyte TRACE A Esterase Urine Microscopic 20 H RBC Urine Microscopic 10 H WBC Urine Bacteria FEW A Urine Hyaline FEW A Casts Urine Granular FEW A Casts Urine Mucus FEW A Urine Hemoglobin 2+ H Urine Random 69.92 Creatinine Urine Random < 13 L Sodium Urine Glucose NEGATIVE Urine Total 1+ H Protein Test 05/13/19 01:14 05/13/19 04:40 05/13/19 06:06 05/13/19 07:00 Bedside Glucose 202 187 White Blood Count 16.9 H Red Blood Count 2.97 L Hemoglobin 8.7 L Hematocrit 26.3 L Mean Corpuscular 88.6 Volume Mean Corpuscular 29.3 Hemoglobin Mean Corpuscular 33.1 Hemoglobin Concen t Red Cell 20.4 H Distribution Width Platelet Count 40 #L Mean Platelet Volume Immature 1.000 H Granulocytes % Neutrophils % 91.0 H Lymphocytes % 4.2 L Monocytes % 3.6 Eosinophils % 0.0 Basophils % 0.2 Nucleated Red 2.6 H Blood Cells % Immature 0.170 H Granulocytes # Neutrophils # 15.4 H Lymphocytes # 0.7 L Monocytes # 0.6 Eosinophils # 0.0 Basophils # 0.0 Nucleated Red 0.4 H Blood Cells # Prothrombin Time 25.2 #H Prothrombin Time 2.0 Ratio INR International 2.28 Normalized Ratio Sodium Level 142 Potassium Level 4.1 Chloride Level 111 H Carbon Dioxide 20 L Level Anion Gap 11 Blood Urea 70 H Nitrogen Creatinine 1.33 H Est Glomerular 54 L Filtrat Rate mL/min Glucose Level 191 Calcium Level 7.3 L Phosphorus Level 3.2 Magnesium Level 2.5 Total Bilirubin 5.8 #H Direct Bilirubin 1.40 #H Indirect 4.4 H Bilirubin Aspartate Amino 27 Transf (AST/SGOT) Alanine 38 Aminotransferase (ALT/SGPT) Alkaline 49 Phosphatase Total Protein 5.2 L Albumin 2.7 L Globulin 2.50 Albumin/Globulin 1.08 Ratio Random Cortisol 95.2 Blood Gas Blood arterial Specimen Source Arterial Blood 05/13/2019 8:20:0 Date Drawn 2 AM Arterial Blood pH 7.509 H (Temp corrected) Arterial Blood 21.5 L pCO2 (Temp correct) Arterial Blood 60.0 L pO2 (Temp corrected) Arterial Blood 16.7 L HCO3 Arterial Blood -4.8 L Base Excess Arterial Blood 91.0 L Oxygen Saturation Barber Test ACCEPTAB Arterial Blood Right Radial Gas Puncture Site Arterial 1.0 Blood Carboxyhemo globin Arterial Blood 0.2 Methemoglobin Blood Gas A-a O2 64.0 H Differential Oxyhemoglobin 89.9 L Percent Blood Gas 37.0 Temperature Blood Gas ROOM AIR Modality FiO2 21.0 Blood Gas DT Notified Whom Blood Gas 05/13/2019 8:40:1 Notified Time 9 AM Test 6/30/19 08:31 Bedside Glucose 156 Medications Current Medications Ondansetron HCl (Zofran Inj) 4 mg Q6H PRN IV NAUSEA AND/OR VOMITING; Start 05/10/19 at 14:30 Albuterol (Proventil 0.083% (Neb)) 2.5 mg Q4H RESP THERAPY NEB Last administered on 05/13/19at 04:03; Admin Dose 2.5 MG; Start 05/10/19 at 17:00 Albuterol (Proventil 0.083% (Neb)) 2.5 mg Q2H RESP THERAPY PRN NEB SHORTNESS OF BREATH; Start 05/10/19 at 14:30 Acetaminophen (Tylenol Liquid) 650 mg Q6H PRN PO PAIN LEVEL 1-3 OR FEVER; Start 05/10/19 at 14:30 Acetaminophen (Tylenol Supp) 650 mg Q4H PRN [place] PAIN LEVEL 1-3 OR FEVER; Start 05/10/19 at 14:30 Lorazepam (Ativan) 1 mg Q2H PRN IV ANXIETY; Start 05/10/19 at 14:30 Docusate Sodium (Colace) 100 mg Q12H PRN PO CONSTIPATION; Start 05/10/19 at 14:30 Magnesium Hydroxide (Milk Of Mag) 30 ml DAILY PRN PO CONSTIPATION; Start 05/10/19 at 14:30 Famotidine (Pepcid Iv) 20 mg Q24H IV Last administered on 05/12/19at 20:13; Admin Dose 20 MG; Start 05/10/19 at 21:00 Meropenem/Sodium Chloride 50 ml @ 100 mls/hr Q12 IVPB Last administered on 05/13/19at 08:20; Admin Dose 100 MLS/HR; Start 05/10/19 at 14:30 Citalopram Hydrobromide (Celexa) 40 mg DAILY PO ; Start 05/11/19 at 09:00 Insulin Aspart (Novolog Insulin Pen) NOVOLOG *MILD* ALGORI... Q4 SC Last administered on 05/13/19at 08:35; Admin Dose 1 UNIT; Start 05/10/19 at 17:00 Miconazole Nitrate (Miconazole 2% Cr) 1 applic BID TOP Last administered on 05/13/19at 08:31; Admin Dose 1 APPLIC; Start 05/10/19 at 21:00 Midodrine (Proamatine) 5 mg TID@09,13,17 GTB ; Start 05/10/19 at 17:00 Quetiapine Fumarate (Seroquel) 25 mg BID PO ; Start 05/10/19 at 21:00 Norepinephrine 250 ml @ 1.875 mls/ hr TITRATE IV Last administered on 05/13/19at 09:49; Admin Dose 7.5 MLS/HR; Start 05/10/19 at 16:30 IV Flush (NS 10 ml) 10 ml PRN PRN IV FLUSH LINE; Start 05/10/19 at 19:00 Phenylephrine HCl 80 mg/Dextrose 250 ml @ 18.75 mls/ hr TITRATE IV Last administered on 05/13/19at 09:53; Admin Dose 18.75 MLS/HR; Start 05/11/19 at 15:30 Haloperidol (Haldol) 2 mg Q4H PRN IM agitation Last administered on 05/11/19at 22:02; Admin Dose 2 MG; Start 05/11/19 at 19:30 Acetaminophen 100 ml @ 400 mls/hr Q6H PRN IVPB fever Last administered on 05/12/19at 11:44; Admin Dose 400 MLS/HR; Start 05/12/19 at 11:30; Stop 05/13/19 at 11:29 Dextrose/Sodium Chloride 1,000 ml @ 75 mls/hr [id number] IV Last administered on 05/13/19at 08:22; Admin Dose 75 MLS/HR; Start 05/13/19 at 08:00 Assessment/Plan Hospital Course (Demo Recall) IMPRESSION AND PLAN: 1. Hypoxemic respiratory failure, likely secondary to aspiration pneumonia. Dense right sided pneumonia. 2. Septic shock secondary to above. 3. Thrombocytopenia, possibly secondary to underlying sepsis. 4. Encephalopathy, toxic metabolic with prior history of CVA. 5. History of mechanical aortic valve. 6. History of AICD placement with cardiopulmonary arrest. Plan 1. Continued vasopressor support. Check random cortisol 2. Broad-spectrum antibiotics. 3. Aspiration precautions. Speech therapy recommendations. 4. Anticoagulation as tolerated. Consider vitamin K given elevated INR and low platelets and significant bleeding risk. 5. Consider hematology/oncology evaluation for thrombocytopenia. 6. DVT and GI prophylaxis. Critical care time 40 minutes. Palliative care consult regarding goals of care. KAYLAN MIN MD, [facility] May 13, 2019 10:12
--- NOTE | 2019-05-13 10:19 | PN ---
DATE: 05/13/2019 SUBJECTIVE: The patient remains critically ill, remains on pressor support, IV fluids. No other acu te events noted. No hemoptysis, hematemesis or hematochezia. OBJECTIVE: VITAL SIGNS: Blood pressure is 97/79, respirations 40, pulse 93, temperature 98.6. HEENT: Head is normocephalic. NECK: Supple. HEART: Regular rate. LUNGS: Show diminished breath sounds at the base. ABDOMEN: Soft, nontender to palpation without rebound or guarding. EXTREMITIES: Negative for clubbing, cyanosis. Trace edema. DERMATOLOGIC: No rashes. MUSCULOSKELETAL: No joint effusion. NEUROLOGIC: No change in exam. MEDICATIONS: Reviewed. LABORATORY DATA: Reviewed. IMAGING STUDIES: Reviewed. Chest x-ray, renal ultrasound was reviewed. ASSESSMENT AND PLAN: 1. Nonoliguric acute kidney injury on top of chronic kidney disease stage IIIB/IV with previous base line creatinine of 1.5 to 2.0 mg/dL. Etiology of acute kidney injury is secondary to hemodynamics, s eptic acute kidney injury. The patient's renal function has slowly been improving with IV fluids, pr essor support, antibiotic therapy. At this point, continue current treatment plan, continue supporti ve care, renally dose all medications. 2. Hypernatremia. Etiology is secondary to insensible losses, decreased free water intake. Sodium levels are improved. Continue to monitor. 3. Anemia. Monitor hemoglobin and hematocrit levels. We will give Epogen as needed, transfuse as n eeded. 4. Mineral bone disorder. Monitor calcium and phosphorus levels. 5. Lactic acidosis secondary to septic shock. Continue to trend. 6. Mixed acid base disorder. The patient's ABG was reviewed. We will continue to monitor. 7. Septic shock secondary to pneumonia. Continue medical management. Continue antibiotics, pressor support. We will adjust IV fluids. 8. Acute hypoxemic respiratory failure secondary to pneumonia. Continue supplemental oxygen. 9. Diabetes. Continue current insulin regimen. 10. Thrombocytopenia. The patient is status post platelet transfusion. 11. History of heart failure. Monitor closely on IV fluids. Please note I spent over 30 minutes of critical care time with this patient. Dictated By: KENIA ESTES/MELISSA Conf#: [id number] DID#: [id number] CC: NIXON MILLER MD; FLORINDA GONZALEZ MD; JONY BALDWIN MD;*[facility]*
--- NOTE | 2019-05-13 12:01 | CONS ---
Consult Date/Type/Reason Admit Date/Time May 10, 2019 at 13:20 Initial Consult Date 05/11/19 Type of Consultation: cv Requesting Provider: NIXON MILLER MD Date/Time of Note DATE: 05/13/19 TIME: 12:00 Subjective Interventional cardiology follow-up progress note/ Subjective: Discussed with the staff. Telemetry was reviewed. Patient made atrial fibrillation with short episode of nonsustained V. tach no ICD discharge noted Patient nonverbal does not answer questions. He continues to be hypotensive in shock requiring a Lon-Synephrine drip as well as Levophed drip His hypoxemia appears to be improving and requires less oxygen O: General: Elderly gentleman appears to be agitated and confused HEENT: NC/AT. pupils are equal. round. NECK: . no stridor. CV: Irregularly irregular. Mechanical click heard.. PULM: + Diffuse right-sided rhonchi. GI: SOFT, NT, ND, no rebound or guarding Extremity: trace B/L LE edema. no clubbing. neuro: awake but does not answer question. Psych: Agitated rectal: deferred : normal Review of the old chart showed echocardiogram done 05/03/2019 which was personally reviewed as shown: There is severe enlargement of left atrium. There is severe enlargement of right atrium. Mild enlargement of right ventricle. Severe right ventricular hypokinesis. Linear artifact in right ventricle suggestive of catheter, pacer lead, or ICD lead. Moderate concentric left ventricular hypertrophy. Mild enlargement of left ventricle cavity. Moderate global left ventricular systolic dysfunction. Ejection fraction is visually estimated at 35 %. Tissue Doppler/Mitral Doppler indices are indeterminate in this study due to the presence of mitral stenosis. Mild mitral leaflet calcification. Mild mitral annular calcification. Severe mitral valve regurgitation. The regurgitation jet is eccentrically directed which may underestimate the severity of mitral regurgitation. Mild to moderate mitral stenosis. Mitral valve Max Velocity 1.78 m/sec. MaxPG 13.00 mmHg. MeanPG 6.00 mmHg. Normal appearance of the tricuspid valve. The estimated Peak RVSP is 74 mmHg. There is moderate tricuspid regurgitation. Aortic Valve Mechanical Prosthesis. Gradients normal for valve type and size. Aortic valve Max velocity 1.58 m/sec. Max PG 9.96 mmHg. Mean PG 5.00 mmHg. Mild to moderate aortic valve regurgitation. The regurgitation jet is eccentrically directed. Normal pericardium with no significant pericardial effusion. Left pleural effusion seen. Normal size with poor respiratory collapse consistent with elevated right atrial pressure. Chest x-ray done 05/10/2019 which was personally reviewed as well shows: Interval increase in consolidation in the mid to upper right lung concerning for pneumonia. Slight decrease in interstitial opacities of the left lung suggestive of decreased pulmonary edema. Interval decrease in small right pleural effusion. General: Elderly gentleman appears to be agitated and confused HEENT: NC/AT. pupils are equal. round. NECK: . no stridor. CV: Irregularly irregular. Mechanical click heard.. PULM: + Diffuse right-sided rhonchi. GI: SOFT, NT, ND, no rebound or guarding Extremity: trace B/L LE edema. no clubbing. neuro: awake but does not answer question. Psych: Agitated rectal: deferred : normal Review of the old chart showed echocardiogram done 05/03/2019 which was personally reviewed as shown: There is severe enlargement of left atrium. There is severe enlargement of right atrium. Mild enlargement of right ventricle. Severe right ventricular hypokinesis. Linear artifact in right ventricle suggestive of catheter, pacer lead, or ICD lead. Moderate concentric left ventricular hypertrophy. Mild enlargement of left ventricle cavity. Moderate global left ventricular systolic dysfunction. Ejection fraction is visually estimated at 35 %. Tissue Doppler/Mitral Doppler indices are indeterminate in this study due to the presence of mitral stenosis. Mild mitral leaflet calcification. Mild mitral annular calcification. Severe mitral valve regurgitation. The regurgitation jet is eccentrically directed which may underestimate the severity of mitral regurgitation. Mild to moderate mitral stenosis. Mitral valve Max Velocity 1.78 m/sec. MaxPG 13.00 mmHg. MeanPG 6.00 mmHg. Normal appearance of the tricuspid valve. The estimated Peak RVSP is 74 mmHg. There is moderate tricuspid regurgitation. Aortic Valve Mechanical Prosthesis. Gradients normal for valve type and size. Aortic valve Max velocity 1.58 m/sec. Max PG 9.96 mmHg. Mean PG 5.00 mmHg. Mild to moderate aortic valve regurgitation. The regurgitation jet is eccentrically directed. Normal pericardium with no significant pericardial effusion. Left pleural effusion seen. Normal size with poor respiratory collapse consistent with elevated right atrial pressure. Chest x-ray done 05/10/2019 which was personally reviewed as well shows: Interval increase in consolidation in the mid to upper right lung concerning for pneumonia. Slight decrease in interstitial opacities of the left lung suggestive of decreased pulmonary edema. Interval decrease in small right pleural effusion. Objective Vitals Vital Signs Date Temp Pulse Resp B/P (MAP) Pulse Ox O2 O2 Flow FiO2 Time Delivery Rate 05/13/19 100 41 101/60 92 Room Air 10:00 (74) 05/13/19 98.8 08:00 05/13/19 21 04:03 05/13/19 3.0 01:56 Intake and Output 05/12/19 05/12/19 05/13/19 1515:00 23:00 07:00 IntakeIntake Total 776.255 ml 1201.875 ml 1077.875 ml OutputOutput Total 515 ml 480 ml 845 ml BalanceBalance 261.255 ml 721.875 ml 232.875 ml Results/Medications Result Diagram: 05/13/19 0440 05/13/19 0440 Results 24 hrs Laboratory Tests Test 05/12/19 14:13 05/12/19 15:10 05/12/19 17:19 05/12/19 22:17 Bedside Glucose 143 153 204 Urine Color LORIE Urine Clarity CLOUDY A Urine pH 5.0 Urine Specific 1.017 [place] Urine Ketones NEGATIVE Urine Nitrite NEGATIVE Urine Bilirubin NEGATIVE Urine 1+ H Urobilinogen Urine Leukocyte TRACE A Esterase Urine Microscopic 20 H RBC Urine Microscopic 10 H WBC Urine Bacteria FEW A Urine Hyaline FEW A Casts Urine Granular FEW A Casts Urine Mucus FEW A Urine Hemoglobin 2+ H Urine Random 69.92 Creatinine Urine Random < 13 L Sodium Urine Glucose NEGATIVE Urine Total 1+ H Protein Test 05/13/19 01:14 05/13/19 04:40 05/13/19 06:06 05/13/19 07:00 Bedside Glucose 202 187 White Blood Count 16.9 H Red Blood Count 2.97 L Hemoglobin 8.7 L Hematocrit 26.3 L Mean Corpuscular 88.6 Volume Mean Corpuscular 29.3 Hemoglobin Mean Corpuscular 33.1 Hemoglobin Concen t Red Cell 20.4 H Distribution Width Platelet Count 40 #L Mean Platelet Volume Immature 1.000 H Granulocytes % Neutrophils % 91.0 H Lymphocytes % 4.2 L Monocytes % 3.6 Eosinophils % 0.0 Basophils % 0.2 Nucleated Red 2.6 H Blood Cells % Immature 0.170 H Granulocytes # Neutrophils # 15.4 H Lymphocytes # 0.7 L Monocytes # 0.6 Eosinophils # 0.0 Basophils # 0.0 Nucleated Red 0.4 H Blood Cells # Prothrombin Time 25.2 #H Prothrombin Time 2.0 Ratio INR International 2.28 Normalized Ratio Sodium Level 142 Potassium Level 4.1 Chloride Level 111 H Carbon Dioxide 20 L Level Anion Gap 11 Blood Urea 70 H Nitrogen Creatinine 1.33 H Est Glomerular 54 L Filtrat Rate mL/min Glucose Level 191 Calcium Level 7.3 L Phosphorus Level 3.2 Magnesium Level 2.5 Total Bilirubin 5.8 #H Direct Bilirubin 1.40 #H Indirect 4.4 H Bilirubin Aspartate Amino 27 Transf (AST/SGOT) Alanine 38 Aminotransferase (ALT/SGPT) Alkaline 49 Phosphatase Total Protein 5.2 L Albumin 2.7 L Globulin 2.50 Albumin/Globulin 1.08 Ratio Random Cortisol 95.2 Blood Gas Blood arterial Specimen Source Arterial Blood 05/13/2019 8:20:0 Date Drawn 2 AM Arterial Blood pH 7.509 H (Temp corrected) Arterial Blood 21.5 L pCO2 (Temp correct) Arterial Blood 60.0 L pO2 (Temp corrected) Arterial Blood 16.7 L HCO3 Arterial Blood -4.8 L Base Excess Arterial Blood 91.0 L Oxygen Saturation Barber Test ACCEPTAB Arterial Blood Right Radial Gas Puncture Site Arterial 1.0 Blood Carboxyhemo globin Arterial Blood 0.2 Methemoglobin Blood Gas A-a O2 64.0 H Differential Oxyhemoglobin 89.9 L Percent Blood Gas 37.0 Temperature Blood Gas ROOM AIR Modality FiO2 21.0 Blood Gas DT Notified Whom Blood Gas 05/13/2019 8:40:1 Notified Time 9 AM Test 05/13/19 08:31 Bedside Glucose 156 Medications Current Medications Ondansetron HCl (Zofran Inj) 4 mg Q6H PRN IV NAUSEA AND/OR VOMITING; Start 05/10/19 at 14:30 Albuterol (Proventil 0.083% (Neb)) 2.5 mg Q4H RESP THERAPY NEB Last administered on 05/13/19at 04:03; Admin Dose 2.5 MG; Start 05/10/19 at 17:00 Albuterol (Proventil 0.083% (Neb)) 2.5 mg Q2H RESP THERAPY PRN NEB SHORTNESS OF BREATH; Start 05/10/19 at 14:30 Acetaminophen (Tylenol Liquid) 650 mg Q6H PRN PO PAIN LEVEL 1-3 OR FEVER; Start 05/10/19 at 14:30 Acetaminophen (Tylenol Supp) 650 mg Q4H PRN [place] PAIN LEVEL 1-3 OR FEVER; Start 05/10/19 at 14:30 Lorazepam (Ativan) 1 mg Q2H PRN IV ANXIETY; Start 05/10/19 at 14:30 Docusate Sodium (Colace) 100 mg Q12H PRN PO CONSTIPATION; Start 05/10/19 at 1 4:30 Magnesium Hydroxide (Milk Of Mag) 30 ml DAILY PRN PO CONSTIPATION; Start 05/10/19 at 14:30 Famotidine (Pepcid Iv) 20 mg Q24H IV Last administered on 05/12/19at 20:13; Admin Dose 20 MG; Start 05/10/19 at 21:00 Meropenem/Sodium Chloride 50 ml @ 100 mls/hr Q12 IVPB Last administered on 05/13/19at 08:20; Admin Dose 100 MLS/HR; Start 05/10/19 at 14:30 Citalopram Hydrobromide (Celexa) 40 mg DAILY PO ; Start 05/11/19 at 09:00 Insulin Aspart (Novolog Insulin Pen) NOVOLOG *MILD* ALGORI... Q4 SC Last administered on 05/13/19at 08:35; Admin Dose 1 UNIT; Start 05/10/19 at 17:00 Miconazole Nitrate (Miconazole 2% Cr) 1 applic BID TOP Last administered on 05/13/19at 08:31; Admin Dose 1 APPLIC; Start 05/10/19 at 21:00 Midodrine (Proamatine) 5 mg TID@09,13,17 GTB ; Start 05/10/19 at 17:00 Quetiapine Fumarate (Seroquel) 25 mg BID PO ; Start 05/10/19 at 21:00 Norepinephrine 250 ml @ 1.875 mls/ hr TITRATE IV Last administered on 05/13/19at 09:49; Admin Dose 7.5 MLS/HR; Start 05/10/19 at 16:30 IV Flush (NS 10 ml) 10 ml PRN PRN IV FLUSH LINE; Start 05/10/19 at 19:00 Phenylephrine HCl 80 mg/Dextrose 250 ml @ 18.75 mls/ hr TITRATE IV Last administered on 6/30/19at 09:53; Admin Dose 18.75 MLS/HR; Start 05/11/19 at 15:30 Haloperidol (Haldol) 2 mg Q4H PRN IM agitation Last administered on 05/11/19 22:02; Admin Dose 2 MG; Start 05/11/19 at 19:30 Dextrose/Sodium Chloride 1,000 ml @ 75 mls/hr [id number] IV Last administered on 05/13/19 08:22; Admin Dose 75 MLS/HR; Start 05/13/19 at 08:00 Assessment/Plan Hospital Course (Demo Recall) 1. Septic shock/ESBL K pneumonia bacteremia 2. hx of ventricular tachycardia: Status post ICD placement 3. Congestive heart failure chronic secondary systolic and probably diastolic heart failure as well as valvular heart disease 4. Valvular heart disease status post mechanical aortic valve replacement and with severe mitral regurgitation 5. Severe cardiomyopathy ejection fracture 35% at the top of severe MR 6. Pulmonary hypertension 7. Encephalopathy and anoxic brain injury 8. Pneumonia most likely aspiration pneumonia 9. Acute renal failure 10. Hypernatremia 11. Respiratory failure hypoxemia 12. Diabetes 13. History of hypertension currently hypotensive and in shock 14. Reported history of endocarditis in the past 15. Severe anemia 16. Severe thrombocytopenia Recommendations: We will continue with a Lon-Synephrine drip to support the blood pressure. levophed drip was added as well IV digoxin will be discontinued for now to avoid dig toxicity. Patient is currently n.p.o. and unable to tolerate p.o. medications. Antibiotic management as per internal medicine and infectious disease consultat ion Aspiration precaution will be continued Coumadin to be resumed once patient able to tolerate p.o. medication. At this point INR is therapeutic and he has been having worsening thrombocytopenia. We will hold off on it for now and adjusted daily Diabetic management as per internal medicine. External management and hyponatremia management as per nephrology consultants. Patient has been followed up by Dr. Alcantara/Murray trotter at [place]. ID consultation has been requested already. Currently on multiple antibiotics. abx as per ID rec Thyroid function test will be checked again tomorrow. code DNR now Continue with ICU care Thank you for his referral. We will continue to follow along with you FLORINDA GONZALEZ MD [facility] FLORINDA GONZALEZ MD May 13, 2019 12:01
--- NOTE | 2019-05-13 14:09 | CONS ---
Assessment/Plan Assessment/Plan Hospital Course (Demo Recall) Remains on pressors minimally communicative confused in no distress comfortable on room air WBC 16.9 platelets 40 BUN 70 creatinine 1.33 microbiology blood culture growing Klebsiella ESBL susceptible to meropenem and amikacin Chest x-ray this morning revealed no change ultrasound of the abdomen showed liver cirrhosis with small to moderate amount of ascites no evidence of hydronephrosis Indwelling: Patino AICD, PICC line Antimicrobials: Vancomycin, meropenem Physical examination: Chronically ill-appearing elderly man who is in no distress. Head atraumatic normocephalic neck is supple chest rise symmetrical breath sounds diminished bases heart: S1-S2 abdomen soft bowel sounds present extremities with trace edema Assessment: 1. Sepsis with shock 2. Acute hypoxemic respiratory failure 3. Gram-negative bacteremia 3. Healthcare associated pneumonia possibly aspirated 4. Anemia 5. Thrombocytopenia 6. Diabetes 7. Atrial fibrillation 8. Liver cirrhosis with ascites, rule out SBP Plan: Clinically unchanged, continue antibiotics, repeat blood cultures, consider diagnostic paracentesis Consultation Date/Type/Reason Admit Date/Time May 10, 2019 at 13:20 Initial Consult Date 05/11/19 Type of Consult id Requesting Provider: NIXON MILLER MD Date/Time of Note DATE: 05/13/19 TIME: 14:08 Exam/Review of Systems Exam Vitals Vital Signs Date Temp Pulse Resp B/P (MAP) Pulse Ox O2 O2 Flow FiO2 Time Delivery Rate 05/13/19 84 12:00 05/13/19 41 101/60 92 Room Air 10:00 (74) 05/13/19 98.8 08:00 05/13/19 21 04:03 05/13/19 3.0 01:56 Intake and Output 05/12/19 05/12/19 05/13/19 1515:00 23:00 07:00 IntakeIntake Total 776.255 ml 1201.875 ml 1077.875 ml OutputOutput Total 515 ml 480 ml 845 ml BalanceBalance 261.255 ml 721.875 ml 232.875 ml Results Result Diagram: 05/13/19 0440 05/13/19 0440 Results 24hrs Laboratory Tests Test 05/12/19 14:13 05/12/19 15:10 05/12/19 17:19 05/12/19 22:17 Bedside Glucose 143 153 204 Urine Color LORIE Urine Clarity CLOUDY A Urine pH 5.0 Urine Specific 1.017 Crum Urine Ketones NEGATIVE Urine Nitrite NEGATIVE Urine Bilirubin NEGATIVE Urine 1+ H Urobilinogen Urine Leukocyte TRACE A Esterase Urine Microscopic 20 H RBC Urine Microscopic 10 H WBC Urine Bacteria FEW A Urine Hyaline FEW A Casts Urine Granular FEW A Casts Urine Mucus FEW A Urine Hemoglobin 2+ H Urine Random 69.92 Creatinine Urine Random < 13 L Sodium Urine Glucose NEGATIVE Urine Total 1+ H Protein Test 05/13/19 01:14 05/13/19 04:40 05/13/19 06:06 05/13/19 07:00 Bedside Glucose 202 187 White Blood Count 16.9 H Red Blood Count 2.97 L Hemoglobin 8.7 L Hematocrit 26.3 L Mean Corpuscular 88.6 Volume Mean Corpuscular 29.3 Hemoglobin Mean Corpuscular 33.1 Hemoglobin Concen t Red Cell 20.4 H Distribution Width Platelet Count 40 #L Mean Platelet Volume Immature 1.000 H Granulocytes % Neutrophils % 91.0 H Lymphocytes % 4.2 L Monocytes % 3.6 Eosinophils % 0.0 Basophils % 0.2 Nucleated Red 2.6 H Blood Cells % Immature 0.170 H Granulocytes # Neutrophils # 15.4 H Lymphocytes # 0.7 L Monocytes # 0.6 Eosinophils # 0.0 Basophils # 0.0 Nucleated Red 0.4 H Blood Cells # Prothrombin Time 25.2 #H Prothrombin Time 2.0 Ratio INR International 2.28 Normalized Ratio Sodium Level 142 Potassium Level 4.1 Chloride Level 111 H Carbon Dioxide 20 L Level Anion Gap 11 Blood Urea 70 H Nitrogen Creatinine 1.33 H Est Glomerular 54 L Filtrat Rate mL/min Glucose Level 191 Calcium Level 7.3 L Phosphorus Level 3.2 Magnesium Level 2.5 Total Bilirubin 5.8 #H Direct Bilirubin 1.40 #H Indirect 4.4 H Bilirubin Aspartate Amino 27 Transf (AST/SGOT) Alanine 38 Aminotransferase (ALT/SGPT) Alkaline 49 Phosphatase Total Protein 5.2 L Albumin 2.7 L Globulin 2.50 Albumin/Globulin 1.08 Ratio Random Cortisol 95.2 Blood Gas Blood arterial Specimen Source Arterial Blood 05/13/2019 8:20:0 Date Drawn 2 AM Arterial Blood pH 7.509 H (Temp corrected) Arterial Blood 21.5 L pCO2 (Temp correct) Arterial Blood 60.0 L pO2 (Temp corrected) Arterial Blood 16.7 L HCO3 Arterial Blood -4.8 L Base Excess Arterial Blood 91.0 L Oxygen Saturation Barber Test ACCEPTAB Arterial Blood Right Radial Gas Puncture Site Arterial 1.0 Blood Carboxyhemo globin Arterial Blood 0.2 Methemoglobin Blood Gas A-a O2 64.0 H Differential Oxyhemoglobin 89.9 L Percent Blood Gas 37.0 Temperature Blood Gas ROOM AIR Modality FiO2 21.0 Blood Gas DT Notified Whom Blood Gas 05/13/2019 8:40:1 Notified Time 9 AM Test 05/13/19 08:31 05/13/19 13:15 Bedside Glucose 156 151 Medications Medication Current Medications Ondansetron HCl (Zofran Inj) 4 mg Q6H PRN IV NAUSEA AND/OR VOMITING; Start 05/10/19 at 14:30 Albuterol (Proventil 0.083% (Neb)) 2.5 mg Q4H RESP THERAPY NEB Last administered on 05/13/19at 04:03; Admin Dose 2.5 MG; Start 05/10/19 at 17:00 Albuterol (Proventil 0.083% (Neb)) 2.5 mg Q2H RESP THERAPY PRN NEB SHORTNESS OF BREATH; Start 05/10/19 at 14:30 Acetaminophen (Tylenol Liquid) 650 mg Q6H PRN PO PAIN LEVEL 1-3 OR FEVER; Start 05/10/19 at 14:30 Acetaminophen (Tylenol Supp) 650 mg Q4H PRN [place] PAIN LEVEL 1-3 OR FEVER; Start 05/10/19 at 14:30 Lorazepam (Ativan) 1 mg Q2H PRN IV ANXIETY; Start 05/10/19 at 14:30 Docusate Sodium (Colace) 100 mg Q12H PRN PO CONSTIPATION; Start 05/10/19 at 14:30 Magnesium Hydroxide (Milk Of Mag) 30 ml DAILY PRN PO CONSTIPATION; Start 05/10/19 at 14:30 Famotidine (Pepcid Iv) 20 mg Q24H IV Last administered on 05/12/19at 20:13; Admin Dose 20 MG; Start 05/10/19 at 21:00 Meropenem/Sodium Chloride 50 ml @ 100 mls/hr Q12 IVPB Last administered on 05/13/19at 08:20; Admin Dose 100 MLS/HR; Start 05/10/19 at 14:30 Citalopram Hydrobromide (Celexa) 40 mg DAILY PO ; Start 05/11/19 at 09:00 Insulin Aspart (Novolog Insulin Pen) NOVOLOG *MILD* ALGORI... Q4 SC Last administered on 05/13/19 13:18; Admin Dose 1 UNIT; Start 05/10/19 at 17:00 Miconazole Nitrate (Miconazole 2% Cr) 1 applic BID TOP Last administered on 05/13/19 08:31; Admin Dose 1 APPLIC; Start 05/10/19 at 21:00 Midodrine (Proamatine) 5 mg TID@09,13,17 GTB ; Start 05/10/19 at 17:00 Quetiapine Fumarate (Seroquel) 25 mg BID PO ; Start 05/10/19 at 21:00 Norepinephrine 250 ml @ 1.875 mls/ hr TITRATE IV Last administered on 05/13/19 09:49; Admin Dose 7.5 MLS/HR; Start 05/10/19 at 16:30 IV Flush (NS 10 ml) 10 ml PRN PRN IV FLUSH LINE; Start 05/10/19 at 19:00 Phenylephrine HCl 80 mg/Dextrose 250 ml @ 18.75 mls/ hr TITRATE IV Last administered on 05/13/19 09:53; Admin Dose 18.75 MLS/HR; Start 05/11/19 at 15:30 Haloperidol (Haldol) 2 mg Q4H PRN IM agitation Last administered on 05/11/19 22:02; Admin Dose 2 MG; Start 05/11/19 at 19:30 Dextrose/Sodium Chloride 1,000 ml @ 75 mls/hr [id number] IV Last administered on 05/13/19 08:22; Admin Dose 75 MLS/HR; Start 05/13/19 at 08:00 JOLENE ELIZABETH NP May 13, 2019 14:09
--- NOTE | 2019-05-13 16:06 | PN ---
Date/Time of Note Date/Time of Note DATE: 05/13/19 TIME: 16:01 Assessment/Plan VTE Prophylaxis Risk score (from Ns)>0 risk: 9 SCD applied (from [facility] [place] [facility]): Yes Pharmacological prophylaxis: NA/contraindicated Pharm contraindication: bleeding Lines/Catheters IV C[facility]ter Type (from [facility] PICC Line Central line still needed: Yes Urinary Cath still in place: Yes Reason Cath still needed: urinary retention Assessment/Plan Assessment/Plan Assessment: Septic shock -currently on multiple pressors Pneumonia Anemia Positive occult blood test Diabetes mellitus Congestive heart failure AICD Cholelithiasis Hyperbilirubinemia Plan: Monitor LFT's Monitor for signs of overt GI bleeding, so far Hgb stable, did not require transfusion today Continue IV Pepcid No endoscopic interventions at this time Monitor H&H Transfuse for hemoglobin less than 7.5 Patient seen in collaboration Dr. Freedman Subjective: Patient is resting in bed, appears comfortable. Continues to be on multiple pressors. No evidence of overt GI bleeding and yesterday. Critically ill and not stable for any endoscopic procedures at this time. Will continue to follow. PHYSICAL EXAMINATION: GENERAL: Well developed, well nourished, alert & confused, nonverbal, in no acute distress SKIN: No lesions, pallor, multiple areas of ecchymosis, no stigmata chronic li janet disease, no evidence of bleeding diathesis LYMPHATIC: No palpable lymphadenopathy. HEAD: Normocephalic, atraumatic, no tenderness. EYES: Pupils equal reactive to light and accommodation, full extraocular movements, sclera clear, non-icteric, no discharge. EARS/NOSE AND THROAT: Ears normal, nose normal, oropharynx normal, oral membranes well hydrated without lesions. NECK: Supple, no masses, thyroid normal, JVP within normal limits, carotids normal without bruits. CHEST: Inspection within normal limits. CARDIOVASCULAR: Heart: Regular rate and rhythm, no murmurs, gallops or rubs. Peripheral pulses present within normal limits, no cyanosis, clubbing or edemas. No pulsatile abdominal mass RESPIRATORY: Lungs clear to auscultation and percussion, no wheezing, no rubs GASTROINTESTINAL AND LIVER: Abdomen: Soft, questionable tenderness -patient screams with any stimuli, non-distended, no hernias, no masses, no organomegaly, no ascites, no guarding, no rebound tenderness, normoactive bowel sounds. Rectal: Deferred. GENITOURINARY: Patino in place EXTREMITIES: No cyanosis, clubbing or edema. Result Diagram: 05/13/19 0440 05/13/19 0440 Results 24hrs Laboratory Tests Test 05/12/19 17:19 05/12/19 22:17 05/13/19 01:14 05/13/19 04:40 Bedside Glucose 153 204 202 White Blood Count 16.9 H Red Blood Count 2.97 L Hemoglobin 8.7 L Hematocrit 26.3 L Mean Corpuscular 88.6 Volume Mean Corpuscular 29.3 Hemoglobin Mean Corpuscular 33.1 Hemoglobin Concen t Red Cell 20.4 H Distribution Width Platelet Count 40 #L Mean Platelet Volume Immature 1.000 H Granulocytes % Neutrophils % 91.0 H Lymphocytes % 4.2 L Monocytes % 3.6 Eosinophils % 0.0 Basophils % 0.2 Nucleated Red 2.6 H Blood Cells % Immature 0.170 H Granulocytes # Neutrophils # 15.4 H Lymphocytes # 0.7 L Monocytes # 0.6 Eosinophils # 0.0 Basophils # 0.0 Nucleated Red 0.4 H Blood Cells # Prothrombin Time 25.2 #H Prothrombin Time 2.0 Ratio INR International 2.28 Normalized Ratio Sodium Level 142 Potassium Level 4.1 Chloride Level 111 H Carbon Dioxide 20 L Level Anion Gap 11 Blood Urea 70 H Nitrogen Creatinine 1.33 H Est Glomerular 54 L Filtrat Rate mL/min Glucose Level 191 Calcium Level 7.3 L Phosphorus Level 3.2 Magnesium Level 2.5 Total Bilirubin 5.8 #H Direct Bilirubin 1.40 #H Indirect 4.4 H Bilirubin Aspartate Amino 27 Transf (AST/SGOT) Alanine 38 Aminotransferase (ALT/SGPT) Alkaline 49 Phosphatase Total Protein 5.2 L Albumin 2.7 L Globulin 2.50 Albumin/Globulin 1.08 Ratio Random Cortisol 95.2 Test 05/13/19 06:06 05/13/19 07:00 05/13/19 08:31 05/13/19 13:15 Bedside Glucose 187 156 151 Blood Gas Blood arterial Specimen Source Arterial Blood 05/13/2019 8:20:0 Date Drawn 2 AM Arterial Blood pH 7.509 H (Temp corrected) Arterial Blood 21.5 L pCO2 (Temp correct) Arterial Blood 60.0 L pO2 (Temp corrected) Arterial Blood 16.7 L HCO3 Arterial Blood -4.8 L Base Excess Arterial Blood 91.0 L Oxygen Saturation Barber Test ACCEPTAB Arterial Blood Right Radial Gas Puncture Site Arterial 1.0 Blood Carboxyhemo globin Arterial Blood 0.2 Methemoglobin Blood Gas A-a O2 64.0 H Differential Oxyhemoglobin 89.9 L Percent Blood Gas 37.0 Temperature Blood Gas ROOM AIR Modality FiO2 21.0 Blood Gas DT Notified Whom Blood Gas 05/13/2019 8:40:1 Notified Time 9 AM CC: ERIN FREEDMAN MD ; Exam/Review of Systems Exam Vitals Vital Signs Date Temp Pulse Resp B/P (MAP) Pulse Ox O2 O2 Flow FiO2 Time Delivery Rate 05/13/19 80 22 96 21 14:49 05/13/19 101/60 Room Air 10:00 (74) 05/13/19 98.8 08:00 05/13/19 3.0 01:56 Intake and Output 05/12/19 05/12/19 05/13/19 1515:00 23:00 07:00 IntakeIntake Total 776.255 ml 1201.875 ml 1077.875 ml OutputOutput Total 515 ml 480 ml 845 ml BalanceBalance 261.255 ml 721.875 ml 232.875 ml Results Results 24hrs Laboratory Tests Test 05/12/19 17:19 05/12/19 22:17 05/13/19 01:14 05/13/19 04:40 Bedside Glucose 153 204 202 White Blood Count 16.9 H Red Blood Count 2.97 L Hemoglobin 8.7 L Hematocrit 26.3 L Mean Corpuscular 88.6 Volume Mean Corpuscular 29.3 Hemoglobin Mean Corpuscular 33.1 Hemoglobin Concen t Red Cell 20.4 H Distribution Width Platelet Count 40 #L Mean Platelet Volume Immature 1.000 H Granulocytes % Neutrophils % 91.0 H Lymphocytes % 4.2 L Monocytes % 3.6 Eosinophils % 0.0 Basophils % 0.2 Nucleated Red 2.6 H Blood Cells % Immature 0.170 H Granulocytes # Neutrophils # 15.4 H Lymphocytes # 0.7 L Monocytes # 0.6 Eosinophils # 0.0 Basophils # 0.0 Nucleated Red 0.4 H Blood Cells # Prothrombin Time 25.2 #H Prothrombin Time 2.0 Ratio INR International 2.28 Normalized Ratio Sodium Level 142 Potassium Level 4.1 Chloride Level 111 H Carbon Dioxide 20 L Level Anion Gap 11 Blood Urea 70 H Nitrogen Creatinine 1.33 H Est Glomerular 54 L Filtrat Rate mL/min Glucose Level 191 Calcium Level 7.3 L Phosphorus Level 3.2 Magnesium Level 2.5 Total Bilirubin 5.8 #H Direct Bilirubin 1.40 #H Indirect 4.4 H Bilirubin Aspartate Amino 27 Transf (AST/SGOT) Alanine 38 Aminotransferase (ALT/SGPT) Alkaline 49 Phosphatase Total Protein 5.2 L Albumin 2.7 L Globulin 2.50 Albumin/Globulin 1.08 Ratio Random Cortisol 95.2 Test 05/13/19 06:06 05/13/19 07:00 05/13/19 08:31 05/13/19 13:15 Bedside Glucose 187 156 151 Blood Gas Blood arterial Specimen Source Arterial Blood 05/13/2019 8:20:0 Date Drawn 2 AM Arterial Blood pH 7.509 H (Temp corrected) Arterial Blood 21.5 L pCO2 (Temp correct) Arterial Blood 60.0 L pO2 (Temp corrected) Arterial Blood 16.7 L HCO3 Arterial Blood -4.8 L Base Excess Arterial Blood 91.0 L Oxygen Saturation Barber Test ACCEPTAB Arterial Blood Right Radial Gas Puncture Site Arterial 1.0 Blood Carboxyhemo globin Arterial Blood 0.2 Methemoglobin Blood Gas A-a O2 64.0 H Differential Oxyhemoglobin 89.9 L Percent Blood Gas 37.0 Temperature Blood Gas ROOM AIR Modality FiO2 21.0 Blood Gas DT Notified Whom Blood Gas 05/13/2019 8:40:1 Notified Time 9 AM Medications Medication Current Medications Ondansetron HCl (Zofran Inj) 4 mg Q6H PRN IV NAUSEA AND/OR VOMITING; Start 05/10/19 at 14:30 Albuterol (Proventil 0.083% (Neb)) 2.5 mg Q4H RESP THERAPY NEB Last admi nistered on 05/13/19at 14:48; Admin Dose 2.5 MG; Start 05/10/19 at 17:00 Albuterol (Proventil 0.083% (Neb)) 2.5 mg Q2H RESP THERAPY PRN NEB SHORTNESS OF BREATH; Start 05/10/19 at 14:30 Acetaminophen (Tylenol Liquid) 650 mg Q6H PRN PO PAIN LEVEL 1-3 OR FEVER; Start 05/10/19 at 14:30 Acetaminophen (Tylenol Supp) 650 mg Q4H PRN [place] PAIN LEVEL 1-3 OR FEVER; Start 05/10/19 at 14:30 Lorazepam (Ativan) 1 mg Q2H PRN IV ANXIETY; Start 05/10/19 at 14:30 Docusate Sodium (Colace) 100 mg Q12H PRN PO CONSTIPATION; Start 05/10/19 at 14:30 Magnesium Hydroxide (Milk Of Mag) 30 ml DAILY PRN PO CONSTIPATION; Start 05/10/19 at 14:30 Famotidine (Pepcid Iv) 20 mg Q24H IV Last administered on 05/12/19at 20:13; Admin Dose 20 MG; Start 05/10/19 at 21:00 Meropenem/Sodium Chloride 50 ml @ 100 mls/hr Q12 IVPB Last administered on 05/13/19 08:20; Admin Dose 100 MLS/HR; Start 05/10/19 at 14:30 Citalopram Hydrobromide (Celexa) 40 mg DAILY PO ; Start 05/11/19 at 09:00 Insulin Aspart (Novolog Insulin Pen) NOVOLOG *MILD* ALGORI... Q4 SC Last administered on 05/13/19at 13:18; Admin Dose 1 UNIT; Start 05/10/19 at 17:00 Miconazole Nitrate (Miconazole 2% Cr) 1 applic BID TOP Last administered on 05/13/19at 08:31; Admin Dose 1 APPLIC; Start 05/10/19 at 21:00 Midodrine (Proamatine) 5 mg TID@09,13,17 GTB ; Start 05/10/19 at 17:00 Quetiapine Fumarate (Seroquel) 25 mg BID PO ; Start 05/10/19 at 21:00 Norepinephrine 250 ml @ 1.875 mls/ hr TITRATE IV Last administered on 05/13/19 09:49; Admin Dose 7.5 MLS/HR; Start 05/10/19 at 16:30 IV Flush (NS 10 ml) 10 ml PRN PRN IV FLUSH LINE; Start 05/10/19 at 19:00 Phenylephrine HCl 80 mg/Dextrose 250 ml @ 18.75 mls/ hr TITRATE IV Last administered on 05/13/19at 14:09; Admin Dose 56.25 MLS/HR; Start 05/11/19 at 15:30 Haloperidol (Haldol) 2 mg Q4H PRN IM agitation Last administered on 05/11/19at 22:02; Admin Dose 2 MG; Start 05/11/19 at 19:30 Dextrose/Sodium Chloride 1,000 ml @ 75 mls/hr [id number] IV Last administered on 05/13/19at 08:22; Admin Dose 75 MLS/HR; Start 05/13/19 at 08:00 CORTEZ SALGUERO NP May 13, 2019 16:06
[2019-05-13] MEDS: FAMOTIDINE 20 MG INJ IV SCH (20:31)
[2019-05-14] VITALS (91 sets, daily range): BP systolic 69–134; BP diastolic 43–106; PULSE 73–180; RESP 10–47
[2019-05-14] MEDS: ALBUTEROL 0.083% (NEB) 2.5 MG/3 ML AMP NEB SCH ×6 (00:42→20:50)
[2019-05-14] MEDS: INSULIN ASPART [NOVOLOG] 3 ML PEN SC SCH ×6 (01:10→21:00)
[2019-05-14] MEDS: PHENYLephrine 80 MG in DEXTROSE 5% 242 ML IV SCH ×4 (04:24→22:15)
--- NOTE | 2019-05-14 08:09 | PN ---
DATE: 05/14/2019 SUBJECTIVE: The patient is critically ill on pressor support. The patient is being weaned off press ors. The patient remains confused. Pending platelet transfusion this morning. No gross evidence of bleeding. OBJECTIVE: VITAL SIGNS: Blood pressure 97/68, respirations 28, pulse 80, temperature is 100.6. HEENT: Head is normocephalic. NECK: Supple. HEART: Regular rate. LUNGS: Show diminished breath sounds at the base. ABDOMEN: Soft, nontender to palpation without rebound or guarding. EXTREMITIES: Negative for clubbing, cyanosis. Trace edema. DERMATOLOGIC: No rashes. MUSCULOSKELETAL: No joint effusion. NEUROLOGIC: No change in exam. MEDICATIONS: Have been reviewed. LABORATORY DATA: Has been reviewed. IMAGING STUDIES: Have been reviewed. ASSESSMENT AND PLAN: 1. Nonoliguric acute kidney injury on top of chronic kidney disease stage IIIB/IV. Previous baselin e creatinine of 1.5 to 2.0 mg/dL. Etiology of acute kidney injury is secondary to sepsis, hemodynami cs. The patient's renal function has been fluctuating but slowly improving. We will continue curren t treatment plan. Continue pressor support and IV fluids, antibiotic therapy. Continue supportive c are, renally dose all meds, avoid nephrotoxins. 2. Hyponatremia, etiology secondary insensible losses, decreased free water intake. Sodium levels h ave slowly improved. Continue to monitor closely. 3. Anemia. Continue to monitor hemoglobin and hematocrit levels, transfuse PRBCs as needed. The pa tient is noted to be markedly iron deficient, we will start the patient on IV Ferrlecit. 4. Lactic acidosis secondary to septic shock. Continue to monitor and trend. 5. Septic shock secondary to pneumonia. Continue medical management. Continue to wean off pressor support, continue antibiotic therapy, continue IV fluids. 6. Acute hypoxemic respiratory failure, pneumonia. Continue supplemental oxygen. 7. Diabetes. Continue current insulin regimen. 8. Thrombocytopenia, likely due to underlying cirrhosis. Patient pending platelet transfusion. 9. History of heart failure. Monitor closely on IV fluids. 10. Acute encephalopathy. Etiology is toxic metabolic. Check an ammonia level to rule out componen t of hepatic encephalopathy. 11. Cirrhosis. Abdominal ultrasound shows evidence of cirrhosis with moderate ascites. We will con tinue to monitor. Dictated By: KENIA ESTES/NTS Conf#: [id number] DID#: [id number] CC: FLORINDA GONZALEZ MD;*[facility]*
[2019-05-14] MEDS: MIDODRINE 5 MG TAB GTB SCH ×3 (08:10→16:31)
[2019-05-14] MEDS: QUETIAPINE 25 MG TAB PO SCH ×2 (08:10→21:00)
[2019-05-14] MEDS: CITALOPRAM 20 MG TAB PO SCH (08:10)
[2019-05-14] MEDS: DEXTROSE 5%-0.9% NACL 1,000 ML IV SCH (08:15)
[2019-05-14] MEDS: MEROPENEM 1 GM/50ML(PMX) 50 ML IVPB SCH ×2 (08:16→22:39)
[2019-05-14] MEDS: MICONAZOLE 2% 30 GM CR TOP SCH ×2 (08:17→21:00)
--- NOTE | 2019-05-14 09:25 | CONS ---
Consult Date/Type/Reason Admit Date/Time May 10, 2019 at 13:20 Initial Consult Date 05/11/19 Type of Consult Pulmonary Requesting Provider: NIXON MILLER MD Date/Time of Note DATE: 05/14/19 TIME: 09:22 Subjective Continue supplemental O2 no p.o. intake. Dense right lower lobe pneumonia with persistent septic shock requiring vasopressors. Abdominal ultrasound shows ongoing cirrhosis. Status post platelet transfusion. Objective Vital Signs Date Temp Pulse Resp B/P (MAP) Pulse Ox O2 O2 Flow FiO2 Time Delivery Rate 05/14/19 80 29 69/53 (58) 100 Nasal 2.0 09:00 Cannula 05/14/19 99.2 07:00 05/13/19 21 17:16 Intake and Output 05/13/19 05/13/19 05/14/19 1515:00 23:00 07:00 IntakeIntake Total 1096.725 ml 940.61 ml 909.36 ml OutputOutput Total 450 ml 530 ml 1245 ml BalanceBalance 646.725 ml 410.61 ml -335.64 ml Exam PHYSICAL EXAMINATION: GENERAL: A chronically ill-appearing gentleman who appears comfortable at rest, no acute distress. VITAL SIGNS: NECK: Supple. No JVD or lymphadenopathy. CARDIAC: S1, S2, no added sounds or murmurs. CHEST: Diminished air entry bilaterally. ABDOMEN: Soft, nontender. No guarding or rebound. EXTREMITIES: No cyanosis, clubbing, edema. NEUROLOGIC: Generalized weakness. Vent Setting Fraction of Inspired Oxygen pe: 21 Results/Medications Result Diagram: 05/14/19 0603 05/14/19 0644 Results 24 hrs Laboratory Tests Test 05/13/19 13:15 05/13/19 17:45 05/13/19 20:32 05/14/19 01:06 Bedside Glucose 151 161 155 151 Test 05/14/19 04:00 05/14/19 04:17 05/14/19 06:03 05/14/19 06:44 White Blood Count 10.4 # 11.4 H Red Blood Count 2.41 L 2.86 L Hemoglobin 6.9 #*L 8.2 L Hematocrit 21.5 L 25.5 L Mean Corpuscular 89.2 89.2 Volume Mean Corpuscular 28.6 L 28.7 L Hemoglobin Mean Corpuscular 32.1 32.2 Hemoglobin Concent Red Cell Distribution 20.7 H 20.5 H Width Platelet Count 19 #*L 16 *L Mean Platelet Volume Immature Granulocytes 0.800 H 1.000 H % Neutrophils % 89.4 H 89.0 H Lymphocytes % 4.5 L 4.4 L Monocytes % 5.3 5.5 Eosinophils % 0.0 0.0 Basophils % 0.0 0.1 Nucleated Red Blood 1.8 H 2.0 H Cells % Immature Granulocytes 0.080 H 0.110 H # Neutrophils # 9.3 H 10.2 H Lymphocytes # 0.5 L 0.5 L Monocytes # 0.6 0.6 Eosinophils # 0.0 0.0 Basophils # 0.0 0.0 Nucleated Red Blood 0.2 H 0.2 H Cells # Pathologist YES Review (Hematology) Bedside Glucose 114 Prothrombin Time 19.0 #H Prothrombin Time 1.5 Ratio INR International 1.58 Normalized Ratio Sodium Level 143 Potassium Level 3.3 L Chloride Level 116 H Carbon Dioxide Level 21 Anion Gap 6 Blood Urea Nitrogen 43 #H Creatinine 0.86 Est Glomerular > 60 Filtrat Rate mL/min Glucose Level 112 # Calcium Level 7.3 L Phosphorus Level 2.3 L Magnesium Level 2.3 Test 05/14/19 08:14 Bedside Glucose 127 Medications Current Medications Ondansetron HCl (Zofran Inj) 4 mg Q6H PRN IV NAUSEA AND/OR VOMITING; Start 05/10/19 at 14:30 Albuterol (Proventil 0.083% (Neb)) 2.5 mg Q4H RESP THERAPY NEB Last administered on 05/14/19at 08:34; Admin Dose 2.5 MG; Start 05/10/19 at 17:00 Albuterol (Proventil 0.083% (Neb)) 2.5 mg Q2H RESP THERAPY PRN NEB SHORTNESS OF BREATH; Start 05/10/19 at 14:30 Acetaminophen (Tylenol Liquid) 650 mg Q6H PRN [place] PAIN LEVEL 1-3 OR FEVER; Start 05/10/19 at 14:30 Acetaminophen (Tylenol Supp) 650 mg Q4H PRN [place] PAIN LEVEL 1-3 OR FEVER; Start 05/10/19 at 14:30 Lorazepam (Ativan) 1 mg Q2H PRN IV ANXIETY; Start 05/10/19 at 14:30 Docusate Sodium (Colace) 100 mg Q12H PRN PO CONSTIPATION; Start 05/10/19 at 14:30 Magnesium Hydroxide (Milk Of Mag) 30 ml DAILY PRN PO CONSTIPATION; Start 05/10/19 at 14:30 Famotidine (Pepcid Iv) 20 mg Q24H IV Last administered on 05/13/19at 20:31; Admin Dose 20 MG; Start 05/10/19 at 21:00 Meropenem/Sodium Chloride 50 ml @ 100 mls/hr Q12 IVPB Last administered on 05/14/19at 08:16; Admin Dose 100 MLS/HR; Start 05/10/19 at 14:30 Citalopram Hydrobromide (Celexa) 40 mg DAILY PO ; Start 05/11/19 at 09:00 Insulin Aspart (Novolog Insulin Pen) NOVOLOG *MILD* ALGORI... Q4 SC Last administered on 05/14/19at 01:10; Admin Dose 1 UNIT; Start 05/10/19 at 17:00 Miconazole Nitrate (Miconazole 2% Cr) 1 applic BID TOP Last administered on 05/14/19at 08:17; Admin Dose 1 APPLIC; Start 05/10/19 at 21:00 Midodrine (Proamatine) 5 mg TID@09,13,17 GTB ; Start 05/10/19 at 17:00 Quetiapine Fumarate (Seroquel) 25 mg BID PO ; Start 05/10/19 at 21:00 Norepinephrine 250 ml @ 1.875 mls/ hr TITRATE IV Last administered on 05/13/19at 09:49; Admin Dose 7.5 MLS/HR; Start 05/10/19 at 16:30 IV Flush (NS 10 ml) 10 ml PRN PRN IV FLUSH LINE; Start 05/10/19 at 19:00 Phenylephrine HCl 80 mg/Dextrose 250 ml @ 18.75 mls/ hr TITRATE IV Last administered on 05/14/19at 08:48; Admin Dose 51.56 MLS/HR; Start 05/11/19 at 15:30 Haloperidol (Haldol) 2 mg Q4H PRN IM agitation Last administered on 05/11/19at 22:02; Admin Dose 2 MG; Start 05/11/19 at 19:30 Dextrose/Sodium Chloride 1,000 ml @ 75 mls/hr [id number] IV Last administered on 05/14/19at 08:15; Admin Dose 75 MLS/HR; Start 05/13/19 at 08:00 Ferric Sodium Gluconate Complex 125 mg/Sodium Chloride 110 ml @ 110 mls/hr DAILY@1300 IVPB ; Start 05/14/19 at 13:00; Stop 05/18/19 at 13:59 Potassium Chloride 100 ml @ 50 mls/hr Q2H IVPB ; Start 05/14/19 at 09:30; Stop 05/14/19 at 15:29; Status UNV Assessment/Plan Hospital Course (Demo Recall) IMPRESSION AND PLAN: 1. Hypoxemic respiratory failure, likely secondary to aspiration pneumonia. Dense right sided pneumonia. 2. Septic shock secondary to above. 3. Thrombocytopenia, possibly secondary to underlying sepsis. 4. Encephalopathy, toxic metabolic with prior history of CVA. 5. History of mechanical aortic valve. 6. History of AICD placement with cardiopulmonary arrest. Plan 1. Continued vasopressor support. 2. Broad-spectrum antibiotics. 3. Aspiration precautions. Speech therapy recommendations. 4. Anticoagulation as tolerated. 5. Consider hematology/oncology evaluation for thrombocytopenia. Status post platelet transfusion. 6. DVT and GI prophylaxis. Critical care time 40 minutes. Palliative care consult regarding goals of care. KAYLAN MIN MD, [facility] May 14, 2019 09:25
[2019-05-14] MEDS: POTASSIUM CHLORIDE 100 ML IVPB SCH ×3 (09:40→13:57)
--- NOTE | 2019-05-14 10:09 | PN ---
Date/Time of Note Date/Time of Note DATE: 05/14/19 TIME: 10:09 Objective Vitals Vital Signs Date Temp Pulse Resp B/P (MAP) Pulse Ox O2 O2 Flow FiO2 Time Delivery Rate 05/14/19 80 29 69/53 (58) 100 Nasal 2.0 09:00 Cannula 05/14/19 99.2 07:00 05/13/19 21 17:16 Intake and Output 05/13/19 05/13/19 05/14/19 1414:59 22:59 06:59 IntakeIntake Total 1032.725 ml 996.86 ml 984.36 ml OutputOutput Total 485 ml 520 ml 1305 ml BalanceBalance 547.725 ml 476.86 ml -320.64 ml Results Result Diagram: 05/14/19 0603 05/14/19 0644 Medications Medications Current Medications Ondansetron HCl (Zofran Inj) 4 mg Q6H PRN IV NAUSEA AND/OR VOMITING; Start 05/10/19 at 14:30 Albuterol (Proventil 0.083% (Neb)) 2.5 mg Q4H RESP THERAPY NEB Last administered on 05/14/19at 08:34; Admin Dose 2.5 MG; Start 05/10/19 at 17:00 Albuterol (Proventil 0.083% (Neb)) 2.5 mg Q2H RESP THERAPY PRN NEB SHORTNESS OF BREATH; Start 05/10/19 at 14:30 Acetaminophen (Tylenol Liquid) 650 mg Q6H PRN PO PAIN LEVEL 1-3 OR FEVER; Start 05/10/19 at 14:30 Acetaminophen (Tylenol Supp) 650 mg Q4H PRN [place] PAIN LEVEL 1-3 OR FEVER; Start 05/10/19 at 14:30 Lorazepam (Ativan) 1 mg Q2H PRN IV ANXIETY; Start 05/10/19 at 14:30 Docusate Sodium (Colace) 100 mg Q12H PRN PO CONSTIPATION; Start 05/10/19 at 14:30 Magnesium Hydroxide (Milk Of Mag) 30 ml DAILY PRN PO CONSTIPATION; Start 05/10/19 at 14:30 Famotidine (Pepcid Iv) 20 mg Q24H IV Last administered on 05/13/19at 20:31; Admin Dose 20 MG; Start 05/10/19 at 21:00 Meropenem/Sodium Chloride 50 ml @ 100 mls/hr Q12 IVPB Last administered on 05/14/19at 08:16; Admin Dose 100 MLS/HR; Start 05/10/19 at 14:30 Citalopram Hydrobromide (Celexa) 40 mg DAILY PO ; Start 05/11/19 at 09:00 Insulin Aspart (Novolog Insulin Pen) NOVOLOG *MILD* ALGORI... Q4 SC Last administered on 05/14/19at 01:10; Admin Dose 1 UNIT; Start 05/10/19 at 17:00 Miconazole Nitrate (Miconazole 2% Cr) 1 applic BID TOP Last administered on 05/14/19at 08:17; Admin Dose 1 APPLIC; Start 05/10/19 at 21:00 Midodrine (Proamatine) 5 mg TID@09,13,17 GTB ; Start 05/10/19 at 17:00 Quetiapine Fumarate (Seroquel) 25 mg BID PO ; Start 05/10/19 at 21:00 Norepinephrine 250 ml @ 1.875 mls/ hr TITRATE IV Last administered on 05/13/19at 09:49; Admin Dose 7.5 MLS/HR; Start 05/10/19 at 16:30 IV Flush (NS 10 ml) 10 ml PRN PRN IV FLUSH LINE; Start 05/10/19 at 19:00 Phenylephrine HCl 80 mg/Dextrose 250 ml @ 18.75 mls/ hr TITRATE IV Last admi nistered on 05/14/19at 08:48; Admin Dose 51.56 MLS/HR; Start 05/11/19 at 15:30 Haloperidol (Haldol) 2 mg Q4H PRN IM agitation Last administered on 05/11/19at 22:02; Admin Dose 2 MG; Start 05/11/19 at 19:30 Dextrose/Sodium Chloride 1,000 ml @ 75 mls/hr [id number] IV Last administered on 05/14/19at 08:15; Admin Dose 75 MLS/HR; Start 05/13/19 at 08:00 Ferric Sodium Gluconate Complex 125 mg/Sodium Chloride 110 ml @ 110 mls/hr DAILY@1300 IVPB ; Start 05/14/19 at 13:00; Stop 05/18/19 at 13:59 Potassium Chloride 100 ml @ 50 mls/hr Q2H IVPB Last administered on 05/14/19at 09:40; Admin Dose 50 MLS/HR; Start 05/14/19 at 09:30; Stop 05/14/19 at 15:29 VTE Prophylaxis Risk score (from Ns)>0 risk: 9 SCD applied (from [facility]): Yes SCD contraindication: other Lines/Catheters IV Catheter Type: Sutton in Place: Yes Cont'd sutton catheter reason: terminal illness/intractable pain Assessment/Plan Hospital Course Subjective No acute changes, patient still on pressors, antibiotics, still encephalopathic at baseline Objective Physical exam General: Patient is laying in bed laying down, not responsive except for not purposeful movements and agitation mentation: Patient is occasionally arousable however is not oriented, Head: Normocephalic atraumatic Eyes: EOMI, pupils reactive to light Neck: Supple, nontender, midline Respiratory: Coarse to auscultation bilaterally Cardiovascular: Regular rate, no obvious murmurs Gastrointestinal: non-tender to palpation, bowel sounds heard. Neurological: Moves all extremities spontaneously Skin: No new skin lesions Assessment/Plan 1. Septic shock, secondary to pneumonia and bacteremia - Will wean off pressors as tolerated. - continue IV antibiotics 2. Acute respiratory failure secondary to pneumonia - Speech on board for evaluation of aspiration risk - continue neb tx and monitoring saturations. tolerating NC 3. Pneumonia, aspiration - Pulm on board and appreciate recommendations - continue on steroids and antibiotics - ID consulted and appreciate recommendations 4. WONG on CKD-resolved - Nephrology consultation appreciated - most likely secondary to ATN from septic shock and cardiorenal 5. Hypernatremia- resolved - IVF changed - Nephrology on board and assisting with fluid management 6. Anemia - GI consultation appreciated -Transfuse as needed per GI recommendations - holding coumadin 7. K. Pneumonia ESBL Bacteremia - ID on board and appreciate recommendations - Repeat blood cx performed - Currently on Meropenem. 8. Atrial fibrillation - rate controlled - holding anticoagulation in setting of anemia and thrombocytopenia 9. Thrombocytopenia - stable - s/p 1 unit of plt on 05/12, additional platelet ordered today - hold warfarin 10. HTN - holding home meds in setting of hypotension 11. Acute on chronic systolic heart failure - will hold diuretics given low BP and resume when stable - ECHO noted with EF 40% 12. Chronic Anoxic encephalopathy 13. Diabetes Mellitus - A1c noted - ISS and accuchecks 14. Disposition - Continue monitoring in ICU and wean off pressors as tolerated. Continue treatment for ESBL bacteremia and aspiration PNA -Overall patient has a very poor prognosis given his overall story, palliative care physician on board. >40 minutes of critical care time spent with patient FELICIANO DE LUNA May 14, 2019 10:09
[2019-05-14] MEDS: SOD FERRIC GLUC COMPLX 125 MG in SOD CHLORIDE 0.9% 100 ML IVPB SCH (13:49)
--- NOTE | 2019-05-14 14:01 | CONS ---
Assessment/Plan Assessment/Plan Hospital Course (Demo Recall) No acute events patient remains on Lon-Synephrine drip he is confused in no distress WBC today 11.4 H&H 8.2 and 25.5 platelet count 16 neutrophils 89 Microbiology: Blood culture on admission grew Klebsiella pneumoniae ESBL repeat blood culture growing yeast 1 out of 2 bottles Indwelling: [place] AICD, PICC line Antimicrobials: Vancomycin, meropenem Physical examination: Chronically ill-appearing elderly man who is in no distress. Head atraumatic normocephalic neck is supple chest rise symmetrical breath sounds diminished bases heart: S1-S2 abdomen soft bowel sounds present extremities with trace edema Assessment: 1. Sepsis with shock 2. Acute hypoxemic respiratory failure 3. Gram-negative bacteremia and fungemia ?etiology 3. Healthcare associated pneumonia possibly aspirated 4. Anemia 5. Thrombocytopenia 6. Diabetes 7. Atrial fibrillation 8. Liver cirrhosis with ascites, rule out SBP Plan: Clinically unchanged, remains on pressors, failed swallow evaluation, at [place], continue antibiotics, consider diagnostic paracentesis Consultation Date/Type/Reason Admit Date/Time May 10, 2019 at 13:20 Initial Consult Date 05/11/19 Type of Consult id Requesting Provider: NIXON MILLER MD Date/Time of Note DATE: 05/14/19 TIME: 14:00 Exam/Review of Systems Exam Vitals Vital Signs Date Temp Pulse Resp B/P (MAP) Pulse Ox O2 O2 Flow FiO2 Time Delivery Rate 05/14/19 94 20 99/60 (73) 98 12:30 05/14/19 21 12:15 05/14/19 98.8 Nasal 2.0 12:00 Cannula Intake and Output 05/13/19 05/13/19 05/14/19 1515:00 23:00 07:00 IntakeIntake Total 1096.725 ml 940.61 ml 1035.86 ml OutputOutput Total 450 ml 530 ml 1245 ml BalanceBalance 646.725 ml 410.61 ml -209.14 ml Results Result Diagram: 05/14/19 0603 05/14/19 0644 Results 24hrs Laboratory Tests Test 05/13/19 17:45 05/13/19 20:32 05/14/19 01:06 05/14/19 04:00 Bedside Glucose 161 155 151 White Blood Count 10.4 # Red Blood Count 2.41 L Hemoglobin 6.9 #*L Hematocrit 21.5 L Mean Corpuscular 89.2 Volume Mean Corpuscular 28.6 L Hemoglobin Mean Corpuscular 32.1 Hemoglobin Concent Red Cell 20.7 H Distribution Width Platelet Count 19 #*L Mean Platelet Volume Immature 0.800 H Granulocytes % Neutrophils % 89.4 H Segmented 94 H Neutrophils % (Manual) Band Neutrophils % 3 (Manual) Lymphocytes % 4.5 L Lymphocytes % 3 L (Manual) Monocytes % 5.3 Eosinophils % 0.0 Basophils % 0.0 Nucleated Red Blood 2 H Cells % Immature 0.080 H Granulocytes # Neutrophils # 9.3 H Neutrophils # 9.8 H (Manual) Band Neutrophils # 0.3 Lymphocytes 0.3 L (Manual) Lymphocytes # 0.5 L Monocytes # 0.6 Eosinophils # 0.0 Basophils # 0.0 Nucleated Red Blood 0.2 H Cells # Pathologist YES Review (Hematology) Platelet Estimate SIG DECREASED Polychromasia 2+ Poikilocytosis 3+ Anisocytosis 2+ Macrocytosis 1+ Ovalocytes 1+ Test 05/14/19 04:17 05/14/19 06:03 05/14/19 06:44 05/14/19 08:14 Bedside Glucose 114 127 White Blood Count 11.4 H Red Blood Count 2.86 L Hemoglobin 8.2 L Hematocrit 25.5 L Mean Corpuscular 89.2 Volume Mean Corpuscular 28.7 L Hemoglobin Mean Corpuscular 32.2 Hemoglobin Concent Red Cell 20.5 H Distribution Width Platelet Count 16 *L Mean Platelet Volume Immature 1.000 H Granulocytes % Neutrophils % 89.0 H Lymphocytes % 4.4 L Monocytes % 5.5 Eosinophils % 0.0 Basophils % 0.1 Nucleated Red Blood 2.0 H Cells % Immature 0.110 H Granulocytes # Neutrophils # 10.2 H Lymphocytes # 0.5 L Monocytes # 0.6 Eosinophils # 0.0 Basophils # 0.0 Nucleated Red Blood 0.2 H Cells # Prothrombin Time 19.0 #H Prothrombin Time 1.5 Ratio INR International 1.58 Normalized Ratio Sodium Level 143 Potassium Level 3.3 L Chloride Level 116 H Carbon Dioxide 21 Level Anion Gap 6 Blood Urea Nitrogen 43 #H Creatinine 0.86 Est Glomerular > 60 Filtrat Rate mL/min Glucose Level 112 # Calcium Level 7.3 L Phosphorus Level 2.3 L Magnesium Level 2.3 Test 05/14/19 08:39 05/14/19 13:48 Ammonia < 9 L Bedside Glucose 139 Medications Medication Current Medications Ondansetron HCl (Zofran Inj) 4 mg Q6H PRN IV NAUSEA AND/OR VOMITING; Start 05/10/19 at 14:30 Albuterol (Proventil 0.083% (Neb)) 2.5 mg Q4H RESP THERAPY NEB Last administered on 05/14/19at 12:14; Admin Dose 2.5 MG; Start 05/10/19 at 17:00 Albuterol (Proventil 0.083% (Neb)) 2.5 mg Q2H RESP THERAPY PRN NEB SHORTNESS OF BREATH; Start 05/10/19 at 14:30 Acetaminophen (Tylenol Liquid) 650 mg Q6H PRN PO PAIN LEVEL 1-3 OR FEVER; Start 05/10/19 at 14:30 Acetaminophen (Tylenol Supp) 650 mg Q4H PRN [place] PAIN LEVEL 1-3 OR FEVER; Start 05/10/19 at 14:30 Lorazepam (Ativan) 1 mg Q2H PRN IV ANXIETY; Start 05/10/19 at 14:30 Docusate Sodium (Colace) 100 mg Q12H PRN PO CONSTIPATION; Start 05/10/19 at 14:30 Magnesium Hydroxide (Milk Of Mag) 30 ml DAILY PRN PO CONSTIPATION; Start 05/10/19 at 14:30 Famotidine (Pepcid Iv) 20 mg Q24H IV Last administered on 05/13/19at 20:31; Admin Dose 20 MG; Start 05/10/19 at 21:00 Meropenem/Sodium Chloride 50 ml @ 100 mls/hr Q12 IVPB Last administered on 05/14/19at 08:16; Admin Dose 100 MLS/HR; Start 05/10/19 at 14:30 Citalopram Hydrobromide (Celexa) 40 mg DAILY PO ; Start 05/11/19 at 09:00 Insulin Aspart (Novolog Insulin Pen) NOVOLOG *MILD* ALGORI... Q4 SC Last administered on 05/14/19at 01:10; Admin Dose 1 UNIT; Start 05/10/19 at 17:00 Miconazole Nitrate (Miconazole 2% Cr) 1 applic BID TOP Last administered on 05/14/19at 08:17; Admin Dose 1 APPLIC; Start 05/10/19 at 21:00 Midodrine (Proamatine) 5 mg TID@09,13,17 GTB ; Start 05/10/19 at 17:00 Quetiapine Fumarate (Seroquel) 25 mg BID PO ; Start 05/10/19 at 21:00 Norepinephrine 250 ml @ 1.875 mls/ hr TITRATE IV Last administered on 05/13at 09:49; Admin Dose 7.5 MLS/HR; Start 05/10/19 at 16:30 IV Flush (NS 10 ml) 10 ml PRN PRN IV FLUSH LINE; Start 05/10/19 at 19:00 Phenylephrine HCl 80 mg/Dextrose 250 ml @ 18.75 mls/ hr TITRATE IV Last administered on 05/14/19at 13:58; Admin Dose 32.81 MLS/HR; Start 05/11/19 at 15:30 Haloperidol (Haldol) 2 mg Q4H PRN IM agitation Last administered on 05/11/19at 22:02; Admin Dose 2 MG; Start 05/11/19 at 19:30 Dextrose/Sodium Chloride 1,000 ml @ 75 mls/hr [id number] IV Last administered on 05/14/19at 08:15; Admin Dose 75 MLS/HR; Start 05/13/19 at 08:00 Ferric Sodium Gluconate Complex 125 mg/Sodium Chloride 110 ml @ 110 mls/hr DAILY@1300 IVPB Last administered on 05/14/19at 13:49; Admin Dose 110 MLS/HR; Start 05/14/19 at 13:00; Stop 05/18/19 at 13:59 Potassium Chloride 100 ml @ 50 mls/hr Q2H IVPB Last administered on 05/14/19at 13:57; Admin Dose 50 MLS/HR; Start 05/14/19 at 09:30; Stop 05/14/19 at 15:29 JOLENE ELIZABETH NP May 14, 2019 14:01
--- NOTE | 2019-05-14 14:56 | CONS ---
Consult Date/Type/Reason Admit Date/Time May 10, 2019 at 13:20 Initial Consult Date 05/11/19 Type of Consultation: cv Requesting Provider: NIXON MILLER MD Date/Time of Note DATE: 05/14/19 TIME: 14:54 Subjective Interventional cardiology follow-up progress note/ Subjective: Discussed with the staff. Telemetry was reviewed. Patient made atrial fibrillation with short episode of nonsustained V. tach no ICD discharge noted Patient nonverbal does not answer questions. He continues to be hypotensive in shock requiring a Lon-Synephrine drip BUT OFF Levophed drip His hypoxemia appears to be improving and requires less oxygen D/W physicians O: General: Elderly gentleman appears to be agitated and confused HEENT: NC/AT. pupils are equal. round. NECK: . no stridor. CV: Irregularly irregular. Mechanical click heard.. PULM: + Diffuse right-sided rhonchi. GI: SOFT, NT, ND, no rebound or guarding Extremity: trace B/L LE edema. no clubbing. neuro: awake but does not answer question. Psych: Agitated rectal: deferred : normal Review of the old chart showed echocardiogram done 05/03/2019 which was personally reviewed as shown: There is severe enlargement of left atrium. There is severe enlargement of right atrium. Mild enlargement of right ventricle. Severe right ventricular hypokinesis. Linear artifact in right ventricle suggestive of catheter, pacer lead, or ICD lead. Moderate concentric left ventricular hypertrophy. Mild enlargement of left ventricle cavity. Moderate global left ventricular systolic dysfunction. Ejection fraction is visually estimated at 35 %. Tissue Doppler/Mitral Doppler indices are indeterminate in this study due to the presence of mitral stenosis. Mild mitral leaflet calcification. Mild mitral annular calcification. Severe mitral valve regurgitation. The regurgitation jet is eccentrically directed which may underestimate the severity of mitral regurgitation. Mild to moderate mitral stenosis. Mitral valve Max Velocity 1.78 m/sec. MaxPG 13.00 mmHg. MeanPG 6.00 mmHg. Normal appearance of the tricuspid valve. The estimated Peak RVSP is 74 mmHg. There is moderate tricuspid regurgitation. Aortic Valve Mechanical Prosthesis. Gradients normal for valve type and size. Aortic valve Max velocity 1.58 m/sec. Max PG 9.96 mmHg. Mean PG 5.00 mmHg. Mild to moderate aortic valve regurgitation. The regurgitation jet is eccentrically directed. Normal pericardium with no significant pericardial effusion. Left pleural effusion seen. Normal size with poor respiratory collapse consistent with elevated right atrial pressure. Chest x-ray done 05/10/2019 which was personally reviewed as well shows: Interval increase in consolidation in the mid to upper right lung concerning for pneumonia. Slight decrease in interstitial opacities of the left lung suggestive of decreased pulmonary edema. Interval decrease in small right pleural effusion. General: Elderly gentleman appears to be agitated and confused HEENT: NC/AT. pupils are equal. round. NECK: . no stridor. CV: Irregularly irregular. Mechanical click heard.. PULM: + Diffuse right-sided rhonchi. GI: SOFT, NT, ND, no rebound or guarding Extremity: trace B/L LE edema. no clubbing. neuro: awake but does not answer question. Psych: Agitated rectal: deferred : normal Review of the old chart showed echocardiogram done 05/03/2019 which was personally reviewed as shown: There is severe enlargement of left atrium. There is severe enlargement of right atrium. Mild enlargement of right ventricle. Severe right ventricular hypokinesis. Linear artifact in right ventricle suggestive of catheter, pacer lead, or ICD lead. Moderate concentric left ventricular hypertrophy. Mild enlargement of left v entricle cavity. Moderate global left ventricular systolic dysfunction. Ejection fraction is visually estimated at 35 %. Tissue Doppler/Mitral Doppler indices are indeterminate in this study due to the presence of mitral stenosis. Mild mitral leaflet calcification. Mild mitral annular calcification. Severe mitral valve regurgitation. The regurgitation jet is eccentrically directed which may underestimate the severity of mitral regurgitation. Mild to moderate mitral stenosis. Mitral valve Max Velocity 1.78 m/sec. MaxPG 13.00 mmHg. MeanPG 6.00 mmHg. Normal appearance of the tricuspid valve. The estimated Peak RVSP is 74 mmHg. There is moderate tricuspid regurgitation. Aortic Valve Mechanical Prosthesis. Gradients normal for valve type and size. Aortic valve Max velocity 1.58 m/sec. Max PG 9.96 mmHg. Mean PG 5.00 mmHg. Mild to moderate aortic valve regurgitation. The regurgitation jet is eccentrically directed. Normal pericardium with no significant pericardial effusion. Left pleural effusion seen. Normal size with poor respiratory collapse consistent with elevated right atria l pressure. Chest x-ray done 05/10/2019 which was personally reviewed as well shows: Interval increase in consolidation in the mid to upper right lung concerning for pneumonia. Slight decrease in interstitial opacities of the left lung suggestive of decreased pulmonary edema. Interval decrease in small right pleural effusion. Objective Vitals Vital Signs Date Temp Pulse Resp B/P (MAP) Pulse Ox O2 O2 Flow FiO2 Time Delivery Rate 05/14/19 94 20 99/60 (73) 98 12:30 05/14/19 21 12:15 05/14/19 98.8 Nasal 2.0 12:00 Cannula Intake and Output 05/13/19 05/13/19 05/14/19 1515:00 23:00 07:00 IntakeIntake Total 1096.725 ml 940.61 ml 1035.86 ml OutputOutput Total 450 ml 530 ml 1245 ml BalanceBalance 646.725 ml 410.61 ml -209.14 ml Results/Medications Result Diagram: 05/14/19 0603 05/14/19 0644 Results 24 hrs Laboratory Tests Test 05/13/19 17:45 05/13/19 20:32 05/14/19 01:06 05/14/19 04:00 Bedside Glucose 161 155 151 White Blood Count 10.4 # Red Blood Count 2.41 L Hemoglobin 6.9 #*L Hematocrit 21.5 L Mean Corpuscular 89.2 Volume Mean Corpuscular 28.6 L Hemoglobin Mean Corpuscular 32.1 Hemoglobin Concent Red Cell 20.7 H Distribution Width Platelet Count 19 #*L Mean Platelet Volume Immature 0.800 H Granulocytes % Neutrophils % 89.4 H Segmented 94 H Neutrophils % (Manual) Band Neutrophils % 3 (Manual) Lymphocytes % 4.5 L Lymphocytes % 3 L (Manual) Monocytes % 5.3 Eosinophils % 0.0 Basophils % 0.0 Nucleated Red Blood 2 H Cells % Immature 0.080 H Granulocytes # Neutrophils # 9.3 H Neutrophils # 9.8 H (Manual) Band Neutrophils # 0.3 Lymphocytes 0.3 L (Manual) Lymphocytes # 0.5 L Monocytes # 0.6 Eosinophils # 0.0 Basophils # 0.0 Nucleated Red Blood 0.2 H Cells # Pathologist YES Review (Hematology) Platelet Estimate SIG DECREASED Polychromasia 2+ Poikilocytosis 3+ Anisocytosis 2+ Macrocytosis 1+ Ovalocytes 1+ Test 05/14/19 04:17 05/14/19 06:03 05/14/19 06:44 05/14/19 08:14 Bedside Glucose 114 127 White Blood Count 11.4 H Red Blood Count 2.86 L Hemoglobin 8.2 L Hematocrit 25.5 L Mean Corpuscular 89.2 Volume Mean Corpuscular 28.7 L Hemoglobin Mean Corpuscular 32.2 Hemoglobin Concent Red Cell 20.5 H Distribution Width Platelet Count 16 *L Mean Platelet Volume Immature 1.000 H Granulocytes % Neutrophils % 89.0 H Lymphocytes % 4.4 L Monocytes % 5.5 Eosinophils % 0.0 Basophils % 0.1 Nucleated Red Blood 2.0 H Cells % Immature 0.110 H Granulocytes # Neutrophils # 10.2 H Lymphocytes # 0.5 L Monocytes # 0.6 Eosinophils # 0.0 Basophils # 0.0 Nucleated Red Blood 0.2 H Cells # Prothrombin Time 19.0 #H Prothrombin Time 1.5 Ratio INR International 1.58 Normalized Ratio Sodium Level 143 Potassium Level 3.3 L Chloride Level 116 H Carbon Dioxide 21 Level Anion Gap 6 Blood Urea Nitrogen 43 #H Creatinine 0.86 Est Glomerular > 60 Filtrat Rate mL/min Glucose Level 112 # Calcium Level 7.3 L Phosphorus Level 2.3 L Magnesium Level 2.3 Test 05/14/19 08:39 05/14/19 13:48 Ammonia < 9 L Bedside Glucose 139 Medications Current Medications Ondansetron HCl (Zofran Inj) 4 mg Q6H PRN IV NAUSEA AND/OR VOMITING; Start 05/10/19 at 14:30 Albuterol (Proventil 0.083% (Neb)) 2.5 mg Q4H RESP THERAPY NEB Last administered on 05/14/19at 12:14; Admin Dose 2.5 MG; Start 05/10/19 at 17:00 Albuterol (Proventil 0.083% (Neb)) 2.5 mg Q2H RESP THERAPY PRN NEB SHORTNESS OF BREATH; Start 05/10/19 at 14:30 Acetaminophen (Tylenol Liquid) 650 mg Q6H PRN PO PAIN LEVEL 1-3 OR FEVER; Start 05/10/19 at 14:30 Acetaminophen (Tylenol Supp) 650 mg Q4H PRN [place] PAIN LEVEL 1-3 OR FEVER; Start 05/10/19 at 14:30 Lorazepam (Ativan) 1 mg Q2H PRN IV ANXIETY; Start 05/10/19 at 14:30 Docusate Sodium (Colace) 100 mg Q12H PRN PO CONSTIPATION; Start 05/10/19 at 14:30 Magnesium Hydroxide (Milk Of Mag) 30 ml DAILY PRN PO CONSTIPATION; Start 05/10/19 at 14:30 Famotidine (Pepcid Iv) 20 mg Q24H IV Last administered on 05/13/19at 20:31; Admin Dose 20 MG; Start 05/10/19 at 21:00 Meropenem/Sodium Chloride 50 ml @ 100 mls/hr Q12 IVPB Last administered on 05/14/19at 08:16; Admin Dose 100 MLS/HR; Start 05/10/19 at 14:30 Citalopram Hydrobromide (Celexa) 40 mg DAILY PO ; Start 05/11/19 at 09:00 Insulin Aspart (Novolog Insulin Pen) NOVOLOG *MILD* ALGORI... Q4 SC Last administered on 05/14/19at 01:10; Admin Dose 1 UNIT; Start 05/10/19 at 17:00 Miconazole Nitrate (Miconazole 2% Cr) 1 applic BID TOP Last administered on 05/14/19at 08:17; Admin Dose 1 APPLIC; Start 05/10/19 at 21:00 Midodrine (Proamatine) 5 mg TID@09,13,17 GTB ; Start 05/10/19 at 17:00 Quetiapine Fumarate (Seroquel) 25 mg BID PO ; Start 05/10/19 at 21:00 Norepinephrine 250 ml @ 1.875 mls/ hr TITRATE IV Last administered on 05/13/19at 09:49; Admin Dose 7.5 MLS/HR; Start 05/10/19 at 16:30 IV Flush (NS 10 ml) 10 ml PRN PRN IV FLUSH LINE; Start 05/10/19 at 19:00 Phenylephrine HCl 80 mg/Dextrose 250 ml @ 18.75 mls/ hr TITRATE IV Last administered on 05/14/19at 13:58; Admin Dose 32.81 MLS/HR; Start 05/11/19 at 15:30 Haloperidol (Haldol) 2 mg Q4H PRN IM agitation Last administered on 05/11/19at 22:02; Admin Dose 2 MG; Start 05/11/19 at 19:30 Dextrose/Sodium Chloride 1,000 ml @ 75 mls/hr [id number] IV Last administered on 05/14/19at 08:15; Admin Dose 75 MLS/HR; Start 05/13/19 at 08:00 Ferric Sodium Gluconate Complex 125 mg/Sodium Chloride 110 ml @ 110 mls/hr DAILY@1300 IVPB Last administered on 05/14/19at 13:49; Admin Dose 110 MLS/HR; Start 05/14/19 at 13:00; Stop 05/18/19 at 13:59 Potassium Chloride 100 ml @ 50 mls/hr Q2H IVPB Last administered on 05/14/19at 13:57; Admin Dose 50 MLS/HR; Start 05/14/19 at 09:30; Stop 05/14/19 at 15:29 Caspofungin 50 mg/ Sodium Chloride 250 ml @ 250 mls/hr Q24H IVPB ; Start 05/15/19 at 16:00 Caspofungin 70 mg/ Sodium Chloride 250 ml @ 250 mls/hr ONCE ONCE IVPB ; Start 05/14/19 at 16:00; Stop 05/14/19 at 16:59 Assessment/Plan Hospital Course (Demo Recall) 1. Septic shock/ESBL K pneumonia bacteremia 2. hx of ventricular tachycardia: Status post ICD placement 3. Congestive heart failure chronic secondary systolic and probably diastolic heart failure as well as valvular heart disease 4. Valvular heart disease status post mechanical aortic valve replacement and with severe mitral regurgitation 5. Severe cardiomyopathy ejection fracture 35% at the top of severe MR 6. Pulmonary hypertension 7. Encephalopathy and anoxic brain injury 8. Pneumonia most likely aspiration pneumonia 9. Acute renal failure 10. Hypernatremia 11. Respiratory failure hypoxemia 12. Diabetes 13. History of hypertension currently hypotensive and in shock 14. Reported history of endocarditis in the past 15. Severe anemia 16. Severe thrombocytopenia 17. FUNGEMIA Recommendations: We will continue with a Lon-Synephrine drip to support the blood pressure. levophed drip as needed. IV digoxin will be discontinued for now to avoid dig toxicity. Patient is currently n.p.o. and unable to tolerate p.o. medications. Antibiotic management as per internal medicine and infectious disease consultation Aspiration precaution will be continued Coumadin to be resumed once patient able to tolerate p.o. medication. At this point INR is therapeutic and he has been having worsening thrombocytopenia. We will hold off on it for now and adjusted daily Diabetic management as per internal medicine. External management and hyponatremia management as per nephrology consultants. Patient has been followed up by Dr. Alcantara/Murray rtotter at [place]. ID consultation has been requested already. Currently on multiple antibiotics. abx as per ID rec code [id number] now coumadin 0.5 mg x 1 now if able totake po med Continue with ICU care Thank you for his referral. We will continue to follow along with you FLORINDA GONZALEZ MD [facility] FLORINDA GONZALEZ MD May 14, 2019 14:56
--- NOTE | 2019-05-14 15:26 | PN ---
Date/Time of Note Date/Time of Note DATE: 05/14/19 TIME: 14:58 Assessment/Plan VTE Prophylaxis Risk score (from Ns)>0 risk: 9 SCD applied (from Ns): Yes Pharmacological prophylaxis: other (scds) Lines/Catheters IV Catheter Type (from [facility] Urinary Cath still in place: Yes Reason Cath still needed: other (indicate) (monitor output) Assessment/Plan Hospital Course Assessment/Plan Assessment: Septic shock -Remains in ICU on pressors Pneumonia Liver cirrhosis with a small to moderate amount of ascites. Acute on chronic anemia -Positive occult blood test Thrombocytopenia Hyperbilirubinemia Coagulopathy- improved Diabetes mellitus Congestive heart failure AICD Cholelithiasis Plan: Pt s/p blood transfusion this am- with good response Will continue to monitor for overt signs of GI bleed Continue IV Pepcid No endoscopic interventions at this time- pt would not be able to tolerate prep or procedure- no overt signs of Gi bleed - risks currently out-weight benefits- will maintain close observation. Patient seen in collaboration Dr. Freedman Subjective: Patient remains in ICU, confused hypotensive on one pressor. Drop in Hgb without overt signs of GI bleed X1 brown stool noted. PHYSICAL EXAMINATION: GENERAL: Alert & confused, nonverbal, in no acute distress SKIN: No lesions, pallor, multiple areas of ecchymosis, no stigmata chronic liver disease, no evidence of bleeding diathesis HEAD: Normocephalic, atraumatic, no tenderness. EYES: Pupils equal reactive to light and accommodation, no discharge. EARS/NOSE AND THROAT: Ears normal, nose normal. NECK: Supple, no masses. CHEST: Inspection within normal limits. CARDIOVASCULAR: Heart: Regular rate and rhythm, RESPIRATORY: Coarse lung sounds GASTROINTESTINAL AND LIVER: Abdomen: Soft, questionable tenderness -patient screams with any stimuli, non-distended, no hernias, no masses, no organomegaly, no ascites, no guarding, no rebound tenderness, normoactive bowel sounds. Rectal: Deferred. GENITOURINARY: Patino in place Result Diagram: 05/14/19 0603 05/14/19 0644 Results 24hrs Laboratory Tests Test 05/13/19 17:45 05/13/19 20:32 05/14/19 01:06 05/14/19 04:00 Bedside Glucose 161 155 151 White Blood Count 10.4 # Red Blood Count 2.41 L Hemoglobin 6.9 #*L Hematocrit 21.5 L Mean Corpuscular 89.2 Volume Mean Corpuscular 28.6 L Hemoglobin Mean Corpuscular 32.1 Hemoglobin Concent Red Cell 20.7 H Distribution Width Platelet Count 19 #*L Mean Platelet Volume Immature 0.800 H Granulocytes % Neutrophils % 89.4 H Segmented 94 H Neutrophils % (Manual) Band Neutrophils % 3 (Manual) Lymphocytes % 4.5 L Lymphocytes % 3 L (Manual) Monocytes % 5.3 Eosinophils % 0.0 Basophils % 0.0 Nucleated Red Blood 2 H Cells % Immature 0.080 H Granulocytes # Neutrophils # 9.3 H Neutrophils # 9.8 H (Manual) Band Neutrophils # 0.3 Lymphocytes 0.3 L (Manual) Lymphocytes # 0.5 L Monocytes # 0.6 Eosinophils # 0.0 Basophils # 0.0 Nucleated Red Blood 0.2 H Cells # Pathologist YES Review (Hematology) Platelet Estimate SIG DECREASED Polychromasia 2+ Poikilocytosis 3+ Anisocytosis 2+ Macrocytosis 1+ Ovalocytes 1+ Test 05/14/19 04:17 05/14/19 06:03 05/14/19 06:44 05/14/19 08:14 Bedside Glucose 114 127 White Blood Count 11.4 H Red Blood Count 2.86 L Hemoglobin 8.2 L Hematocrit 25.5 L Mean Corpuscular 89.2 Volume Mean Corpuscular 28.7 L Hemoglobin Mean Corpuscular 32.2 Hemoglobin Concent Red Cell 20.5 H Distribution Width Platelet Count 16 *L Mean Platelet Volume Immature 1.000 H Granulocytes % Neutrophils % 89.0 H Lymphocytes % 4.4 L Monocytes % 5.5 Eosinophils % 0.0 Basophils % 0.1 Nucleated Red Blood 2.0 H Cells % Immature 0.110 H Granulocytes # Neutrophils # 10.2 H Lymphocytes # 0.5 L Monocytes # 0.6 Eosinophils # 0.0 Basophils # 0.0 Nucleated Red Blood 0.2 H Cells # Prothrombin Time 19.0 #H Prothrombin Time 1.5 Ratio INR International 1.58 Normalized Ratio Sodium Level 143 Potassium Level 3.3 L Chloride Level 116 H Carbon Dioxide 21 Level Anion Gap 6 Blood Urea Nitrogen 43 #H Creatinine 0.86 Est Glomerular > 60 Filtrat Rate mL/min Glucose Level 112 # Calcium Level 7.3 L Phosphorus Level 2.3 L Magnesium Level 2.3 Test 05/14/19 08:39 05/14/19 13:48 Ammonia < 9 L Bedside Glucose 139 Exam/Review of Systems Exam Vitals Vital Signs Date Temp Pulse Resp B/P (MAP) Pulse Ox O2 O2 Flow FiO2 Time Delivery Rate 05/14/19 94 20 99/60 (73) 98 12:30 05/14/19 21 12:15 05/14/19 98.8 Nasal 2.0 12:00 Cannula Intake and Output 05/13/19 05/13/19 05/14/19 1515:00 23:00 07:00 IntakeIntake Total 1096.725 ml 940.61 ml 1035.86 ml OutputOutput Total 450 ml 530 ml 1245 ml BalanceBalance 646.725 ml 410.61 ml -209.14 ml Results Results 24hrs Laboratory Tests Test 05/13/19 17:45 05/13/19 20:32 05/14/19 01:06 05/14/19 04:00 Bedside Glucose 161 155 151 White Blood Count 10.4 # Red Blood Count 2.41 L Hemoglobin 6.9 #*L Hematocrit 21.5 L Mean Corpuscular 89.2 Volume Mean Corpuscular 28.6 L Hemoglobin Mean Corpuscular 32.1 Hemoglobin Concent Red Cell 20.7 H Distribution Width Platelet Count 19 #*L Mean Platelet Volume Immature 0.800 H Granulocytes % Neutrophils % 89.4 H Segmented 94 H Neutrophils % (Manual) Band Neutrophils % 3 (Manual) Lymphocytes % 4.5 L Lymphocytes % 3 L (Manual) Monocytes % 5.3 Eosinophils % 0.0 Basophils % 0.0 Nucleated Red Blood 2 H Cells % Immature 0.080 H Granulocytes # Neutrophils # 9.3 H Neutrophils # 9.8 H (Manual) Band Neutrophils # 0.3 Lymphocytes 0.3 L (Manual) Lymphocytes # 0.5 L Monocytes # 0.6 Eosinophils # 0.0 Basophils # 0.0 Nucleated Red Blood 0.2 H Cells # Pathologist YES Review (Hematology) Platelet Estimate SIG DECREASED Polychromasia 2+ Poikilocytosis 3+ Anisocytosis 2+ Macrocytosis 1+ Ovalocytes 1+ Test 05/14/19 04:17 05/14/19 06:03 05/14/19 06:44 05/14/19 08:14 Bedside Glucose 114 127 White Blood Count 11.4 H Red Blood Count 2.86 L Hemoglobin 8.2 L Hematocrit 25.5 L Mean Corpuscular 89.2 Volume Mean Corpuscular 28.7 L Hemoglobin Mean Corpuscular 32.2 Hemoglobin Concent Red Cell 20.5 H Distribution Width Platelet Count 16 *L Mean Platelet Volume Immature 1.000 H Granulocytes % Neutrophils % 89.0 H Lymphocytes % 4.4 L Monocytes % 5.5 Eosinophils % 0.0 Basophils % 0.1 Nucleated Red Blood 2.0 H Cells % Immature 0.110 H Granulocytes # Neutrophils # 10.2 H Lymphocytes # 0.5 L Monocytes # 0.6 Eosinophils # 0.0 Basophils # 0.0 Nucleated Red Blood 0.2 H Cells # Prothrombin Time 19.0 #H Prothrombin Time 1.5 Ratio INR International 1.58 Normalized Ratio Sodium Level 143 Potassium Level 3.3 L Chloride Level 116 H Carbon Dioxide 21 Level Anion Gap 6 Blood Urea Nitrogen 43 #H Creatinine 0.86 Est Glomerular > 60 Filtrat Rate mL/min Glucose Level 112 # Calcium Level 7.3 L Phosphorus Level 2.3 L Magnesium Level 2.3 Test 05/14/19 08:39 05/14/19 13:48 Ammonia < 9 L Bedside Glucose 139 Medications Medication Current Medications Ondansetron HCl (Zofran Inj) 4 mg Q6H PRN IV NAUSEA AND/OR VOMITING; Start 05/10/19 at 14:30 Albuterol (Proventil 0.083% (Neb)) 2.5 mg Q4H RESP THERAPY NEB Last administered on 05/14/19at 12:14; Admin Dose 2.5 MG; Start 05/10/19 at 17:00 Albuterol (Proventil 0.083% (Neb)) 2.5 mg Q2H RESP THERAPY PRN NEB SHORTNESS OF BREATH; Start 05/10/19 at 14:30 Acetaminophen (Tylenol Liquid) 650 mg Q6H PRN PO PAIN LEVEL 1-3 OR FEVER; Start 05/10/19 at 14:30 Acetaminophen (Tylenol Supp) 650 mg Q4H PRN [place] PAIN LEVEL 1-3 OR FEVER; Start 05/10/19 at 14:30 Lorazepam (Ativan) 1 mg Q2H PRN IV ANXIETY; Start 05/10/19 at 14:30 Docusate Sodium (Colace) 100 mg Q12H PRN PO CONSTIPATION; Start 05/10/19 at 14:30 Magnesium Hydroxide (Milk Of Mag) 30 ml DAILY PRN PO CONSTIPATION; Start 05/10/19 at 14:30 Famotidine (Pepcid Iv) 20 mg Q24H IV Last administered on 05/13/19at 20:31; Admin Dose 20 MG; Start 05/10/19 at 21:00 Meropenem/Sodium Chloride 50 ml @ 100 mls/hr Q12 IVPB Last administered on 05/14/19 08:16; Admin Dose 100 MLS/HR; Start 05/10/19 at 14:30 Citalopram Hydrobromide (Celexa) 40 mg DAILY PO ; Start 05/11/19 at 09:00 Insulin Aspart (Novolog Insulin Pen) NOVOLOG *MILD* ALGORI... Q4 SC Last administered on 05/14/19 01:10; Admin Dose 1 UNIT; Start 05/10/19 at 17:00 Miconazole Nitrate (Miconazole 2% Cr) 1 applic BID TOP Last administered on 05/14/19 08:17; Admin Dose 1 APPLIC; Start 05/10/19 at 21:00 Midodrine (Proamatine) 5 mg TID@09,13,17 GTB ; Start 05/10/19 at 17:00 Quetiapine Fumarate (Seroquel) 25 mg BID PO ; Start 05/10/19 at 21:00 Norepinephrine 250 ml @ 1.875 mls/ hr TITRATE IV Last administered on 05/13/19 09:49; Admin Dose 7.5 MLS/HR; Start 05/10/19 at 16:30 IV Flush (NS 10 ml) 10 ml PRN PRN IV FLUSH LINE; Start 05/10/19 at 19:00 Phenylephrine HCl 80 mg/Dextrose 250 ml @ 18.75 mls/ hr TITRATE IV Last administered on 05/14/19 13:58; Admin Dose 32.81 MLS/HR; Start 05/11/19 at 15:30 Haloperidol (Haldol) 2 mg Q4H PRN IM agitation Last administered on 05/11/19 22:02; Admin Dose 2 MG; Start 05/11/19 at 19:30 Dextrose/Sodium Chloride 1,000 ml @ 75 mls/hr [id number] IV Last administered on 7/1/19at 08:15; Admin Dose 75 MLS/HR; Start 05/13/19 at 08:00 Ferric Sodium Gluconate Complex 125 mg/Sodium Chloride 110 ml @ 110 mls/hr DAILY@1300 IVPB Last administered on 05/14/19at 13:49; Admin Dose 110 MLS/HR; Start 05/14/19 at 13:00; Stop 05/18/19 at 13:59 Potassium Chloride 100 ml @ 50 mls/hr Q2H IVPB Last administered on 05/14/19at 13:57; Admin Dose 50 MLS/HR; Start 05/14/19 at 09:30; Stop 05/14/19 at 15:29 Caspofungin 50 mg/ Sodium Chloride 250 ml @ 250 mls/hr Q24H IVPB ; Start 05/15/19 at 16:00 Caspofungin 70 mg/ Sodium Chloride 250 ml @ 250 mls/hr ONCE ONCE IVPB ; Start 05/14/19 at 16:00; Stop 05/14/19 at 16:59 Warfarin Sodium (Coumadin) 0.5 mg NOW ONCE PO ; Start 05/14/19 at 15:00; Stop 05/14/19 at 15:01; Status GAY MARRERO May 14, 2019 15:08
[2019-05-14] MEDS ORDERED: CASPOFUNGIN 70 MG in SOD CHLORIDE 0.9% 250 ML IVPB ONE (16:00)
[2019-05-14] MEDS ORDERED: WARFARIN 1 MG TAB PO ONE (16:30)
[2019-05-14] MEDS: HALOPERIDOL 5 MG INJ IM PRN (22:40)
[2019-05-14] MEDS: FAMOTIDINE 20 MG INJ IV SCH (22:45)
[2019-05-15] VITALS (87 sets, daily range): BP systolic 65–139; BP diastolic 17–103; PULSE 84–133; RESP 7–51
[2019-05-15] MEDS ORDERED: DILTIAZEM 25 MG INJ IV ONE
[2019-05-15] MEDS: DEXTROSE 5%-0.9% NACL 1,000 ML IV SCH (00:31)
[2019-05-15] MEDS: INSULIN ASPART [NOVOLOG] 3 ML PEN SC SCH ×6 (01:00→20:28)
[2019-05-15] MEDS: ALBUTEROL 0.083% (NEB) 2.5 MG/3 ML AMP NEB SCH ×6 (01:08→20:21)
--- NOTE | 2019-05-15 07:18 | CONS ---
Consult Date/Type/Reason Admit Date/Time May 10, 2019 at 13:20 Initial Consult Date 05/11/19 Type of Consultation: cv Requesting Provider: NIXON MILLER MD Date/Time of Note DATE: 05/15/19 TIME: 07:15 Subjective Interventional cardiology follow-up progress note/ Subjective: Discussed with the staff. Telemetry was reviewed. Patient made atrial fibrillation with long episode of nonsustained V. tach no ICD discharge noted Patient nonverbal does not answer questions. He continues to be hypotensive in shock requiring a Lon-Synephrine drip His hypoxemia appears to be improving and requires less oxygen D/W physicians pt is agitated and confused and does not follow commands O: General: Elderly gentleman appears to be agitated and confused HEENT: NC/AT. pupils are equal. round. NECK: . no stridor. CV: Irregularly irregular. Mechanical click heard.. PULM: + Diffuse right-sided rhonchi. GI: SOFT, NT, ND, no rebound or guarding Extremity: trace B/L LE edema. no clubbing. neuro: awake but does not answer question. Psych: Agitated rectal: deferred : normal Review of the old chart showed echocardiogram done 05/03/2019 which was personally reviewed as shown: There is severe enlargement of left atrium. There is severe enlargement of right atrium. Mild enlargement of right ventricle. Severe right ventricular hypokinesis. Li near artifact in right ventricle suggestive of catheter, pacer lead, or ICD lead. Moderate concentric left ventricular hypertrophy. Mild enlargement of left ventricle cavity. Moderate global left ventricular systolic dysfunction. Ejection fraction is visually estimated at 35 %. Tissue Doppler/[place] ral Doppler indices are indeterminate in this study due to the presence of mitral stenosis. Mild mitral leaflet calcification. Mild mitral annular calcification. Severe mitral valve regurgitation. The regurgitation jet is eccentrically directed which may underestimate the severity of mitral regur gitation. Mild to moderate mitral stenosis. Mitral valve Max Velocity 1.78 m/sec. MaxPG 13.00 mmHg. MeanPG 6.00 mmHg. Normal appearance of the tricuspid valve. The estimated Peak RVSP is 74 mmHg. Th ere is moderate tricuspid regurgitation. Aortic Valve Mechanical Prosthesis. Gradients normal for valve type and size. Aortic valve Max velocity 1.58 m/sec. Max PG 9.96 mmHg. Mean PG 5.00 mmHg. Mild to moderate aortic valve regurgitation. The regurgitation jet is eccentrically directed. Normal pericardium with no significant pericardial effusion. Left pleural effusion seen. Normal size with poor respiratory collapse consistent with elevated right atrial pressure. Chest x-ray done 05/10/2019 which was personally reviewed as well shows: Interval increase in consolidation in the mid to upper right lung concerning for pneumonia. Slight decrease in interstitial opacities of the left lung suggestive of decreased pulmonary edema. Interval decrease in small right pleural effusion. General: Elderly gentleman appears to be agitated and confused HEENT: NC/AT. pupils are equal. round. NECK: . no stridor. CV: Irregularly irregular. Mechanical click heard.. PULM: + Diffuse right-sided rhonchi. GI: SOFT, NT, ND, no rebound or guarding Extremity: trace B/L LE edema. no clubbing. neuro: awake but does not answer question. Psych: Agitated rectal: deferred : normal Review of the old chart showed echocardiogram done 05/03/2019 which was personally reviewed as shown: There is severe enlargement of left atrium. There is severe enlargement of right atrium. Mild enlargement of right ventricle. Severe right ventricular hypokinesis. Linear artifact in right ventricle suggestive of catheter, pacer lead, or ICD lead. Moderate concentric left ventricular hypertrophy. Mild enlargement of left ventricle cavity. Moderate global left ventricular systolic dysfunction. Ejection fraction is visually estimated at 35 %. Tissue Doppler/Mitral Doppler indices are indeterminate in this study due to the presence of mitral stenosis. Mild mitral leaflet calcification. Mild mitral annular calcification. Severe mitral valve regurgitation. The regurgitation jet is eccentrically directed which may underestimate the severity of mitral regurgitation. Mild to moderate mitral stenosis. Mitral valve Max Velocity 1.78 m/sec. MaxPG 13.00 mmHg. MeanPG 6.00 mmHg. Normal appearance of the tricuspid valve. The estimated Peak RVSP is 74 mmHg. There is moderate tricuspid regurgitation. Aortic Valve Mechanical Prosthesis. Gradients normal for valve type and size. Aortic valve Max velocity 1.58 m/sec. Max PG 9.96 mmHg. Mean PG 5.00 mmHg. Mild to moderate aortic valve regurgitation. The regurgitation jet is eccentrically directed. Normal pericardium with no significant pericardial effusion. Left pleural effusion seen. Normal size with poor respiratory collapse consistent with elevated right atrial pressure. Chest x-ray done 05/10/2019 which was personally reviewed as well shows: Interval increase in consolidation in the mid to upper right lung concerning for pneumonia. Slight decrease in interstitial opacities of the left lung suggestive of decr eased pulmonary edema. Interval decrease in small right pleural effusion. Objective Vitals Vital Signs Date Temp Pulse Resp B/P (MAP) Pulse Ox O2 O2 Flow FiO2 Time Delivery Rate 05/15/19 103 27 112/76 100 05:15 (88) 05/15/19 6.0 05:06 05/15/19 99.3 04:00 05/15/19 21 01:08 05/14/19 Room Air 20:00 Intake and Output 05/14/19 05/14/19 05/15/19 1515:00 23:00 07:00 IntakeIntake Total 1370.1 ml 732.84 ml 675.00 ml OutputOutput Total 800 ml 210 ml BalanceBalance 570.1 ml 522.84 ml 675.00 ml Results/Medications Result Diagram: 05/15/19 0423 05/15/19 0442 Results 24 hrs Laboratory Tests Test 05/14/19 08:14 05/14/19 08:39 05/14/19 13:48 05/14/19 16:30 Bedside Glucose 127 139 134 Ammonia < 9 L Test 05/14/19 22:35 05/15/19 04:23 05/15/19 04:25 05/15/19 04:42 Bedside Glucose 132 White Blood Count 6.2 # Red Blood Count 2.70 L Hemoglobin 7.7 L Hematocrit 24.5 L Mean Corpuscular 90.7 Volume Mean Corpuscular 28.5 L Hemoglobin Mean Corpuscular 31.4 L Hemoglobin Concent Red Cell 21.1 H Distribution Width Platelet Count 21 #*L Mean Platelet Volume Immature 2.300 H Granulocytes % Neutrophils % 83.4 H Lymphocytes % 7.3 L Monocytes % 6.6 Eosinophils % 0.2 Basophils % 0.2 Nucleated Red Blood 2.8 H Cells % Immature 0.140 H Granulocytes # Neutrophils # 5.2 Lymphocytes # 0.5 L Monocytes # 0.4 Eosinophils # 0.0 Basophils # 0.0 Nucleated Red Blood 0.2 H Cells # Prothrombin Time 18.6 H Prothrombin Time 1.5 Ratio INR International 1.54 Normalized Ratio Total Bilirubin 6.9 H Direct Bilirubin 3.10 #H Indirect Bilirubin 3.8 H Aspartate Amino 30 Transf (AST/SGOT) Alanine 36 Aminotransferase (A LT/SGPT) Alkaline 45 Phosphatase Total Protein 5.0 L Albumin 2.3 L Sodium Level 147 H Potassium Level 3.9 Chloride Level 119 H Carbon Dioxide 21 Level Anion Gap 7 Blood Urea Nitrogen 34 H Creatinine 0.89 Est Glomerular > 60 Filtrat Rate mL/min Glucose Level 130 Calcium Level 7.3 L Phosphorus Level 2.1 L Magnesium Level 2.3 Test 05/15/19 04:55 05/15/19 05:41 Lab Scanned Report BLOOD TRANSFUSION Bedside Glucose 167 Medications Current Medications Ondansetron HCl (Zofran Inj) 4 mg Q6H PRN IV NAUSEA AND/OR VOMITING; Start 05/10/19 at 14:30 Albuterol (Proventil 0.083% (Neb)) 2.5 mg Q4H RESP THERAPY NEB Last administered on 05/15/19at 05:06; Admin Dose 2.5 MG; Start 05/10/19 at 17:00 Albuterol (Proventil 0.083% (Neb)) 2.5 mg Q2H RESP THERAPY PRN NEB SHORTNESS OF BREATH; Start 05/10/19 at 14:30 Acetaminophen (Tylenol Liquid) 650 mg Q6H PRN PO PAIN LEVEL 1-3 OR FEVER; Start 05/10/19 at 14:30 Acetaminophen (Tylenol Supp) 650 mg Q4H PRN MD PAIN LEVEL 1-3 OR FEVER; Start 05/10/19 at 14:30 Lorazepam (Ativan) 1 mg Q2H PRN IV ANXIETY Last administered on 05/14/19at 23:48; Admin Dose 1 MG; Start 05/10/19 at 14:30 Docusate Sodium (Colace) 100 mg Q12H PRN PO CONSTIPATION; Start 05/10/19 at 14:30 Magnesium Hydroxide (Milk Of Mag) 30 ml DAILY PRN PO CONSTIPATION; Start 05/10/19 at 14:30 Famotidine (Pepcid Iv) 20 mg Q24H IV Last administered on 05/14/19at 22:45; Admin Dose 20 MG; Start 05/10/19 at 21:00 Meropenem/Sodium Chloride 50 ml @ 100 mls/hr Q12 IVPB Last administered on 05/14/19at 22:39; Admin Dose 100 MLS/HR; Start 05/10/19 at 14:30 Citalopram Hydrobromide (Celexa) 40 mg DAILY PO ; Start 05/11/19 at 09:00 Insulin Aspart (Novolog Insulin Pen) NOVOLOG *MILD* ALGORI... Q4 SC Last administered on 05/15/19at 05:49; Admin Dose 1 UNIT; Start 05/10/19 at 17:00 Miconazole Nitrate (Miconazole 2% Cr) 1 applic BID TOP Last administered on 05/14/19at 21:00; Admin Dose 1 APPLIC; Start 05/10/19 at 21:00 Midodrine (Proamatine) 5 mg TID@09,13,17 GTB ; Start 05/10/19 at 17:00 Quetiapine Fumarate (Seroquel) 25 mg BID PO ; Start 05/10/19 at 21:00 Norepinephrine 250 ml @ 1.875 mls/ hr TITRATE IV Last administered on 05/13/19at 09:49; Admin Dose 7.5 MLS/HR; Start 05/10/19 at 16:30 IV Flush (NS 10 ml) 10 ml PRN PRN IV FLUSH LINE; Start 05/10/19 at 19:00 Phenylephrine HCl 80 mg/Dextrose 250 ml @ 18.75 mls/ hr TITRATE IV Last administered on 05/14/19at 22:15; Admin Dose 23.44 MLS/HR; Start 05/11/19 at 15:30 Haloperidol (Haldol) 2 mg Q4H PRN IM agitation Last administered on 05/14/19at 22:40; Admin Dose 2 MG; Start 05/11/19 at 19:30 Dextrose/Sodium Chloride 1,000 ml @ 75 mls/hr [id number] IV Last administered on 05/15/19at 00:31; Admin Dose 75 MLS/HR; Start 05/13/19 at 08:00 Ferric Sodium Gluconate Complex 125 mg/Sodium Chloride 110 ml @ 110 mls/hr DAILY@1300 IVPB Last administered on 05/14/19at 13:49; Admin Dose 110 MLS/HR; Start 05/14/19 at 13:00; Stop 05/18/19 at 13:59 Caspofungin 50 mg/ Sodium Chloride 250 ml @ 250 mls/hr Q24H IVPB ; Start 05/15/19 at 16:00 Assessment/Plan Hospital Course (Demo Recall) 1. Septic shock/ESBL K pneumonia bacteremia 2. hx of ventricular tachycardia: Status post ICD placement 3. Congestive heart failure chronic secondary systolic and probably diastolic heart failure as well as valvular heart disease 4. Valvular heart disease status post mechanical aortic valve replacement and with severe mitral regurgitation 5. Severe cardiomyopathy ejection fracture 35% at the top of severe MR 6. Pulmonary hypertension 7. Encephalopathy and anoxic brain injury 8. Pneumonia most likely aspiration pneumonia 9. Acute renal failure 10. Hypernatremia 11. Respiratory failure hypoxemia 12. Diabetes 13. History of hypertension currently hypotensive and in shock 14. Reported history of endocarditis in the past 15. Severe anemia 16. Severe thrombocytopenia 17. FUNGEMIA Recommendations: We will continue with a Lon-Synephrine drip to support the blood pressure. IV dig prn Patient is currently n.p.o. and unable to tolerate p.o. medications,including coumadin unfortunately Antibiotic management as per internal medicine and infectious disease consultation Aspiration precaution will be continued Coumadin to be resumed once patient able to tolerate p.o. medication. At this point INR is subtherapeutic now but will hold off on lovenox dueto severe throm bocytopenia Diabetic management as per internal medicine. abx as per ID rec code DNR now . consider palliative care consult as well. will try to get information on ICD to have it interrogated Continue with ICU care Thank you for his referral. We will continue to follow along with you FLORINDA GONZALEZ MD [facility] FLORINDA GONZALEZ MD May 15, 2019 07:18
[2019-05-15] MEDS: CITALOPRAM 20 MG TAB PO SCH (08:03)
[2019-05-15] MEDS: QUETIAPINE 25 MG TAB PO SCH ×2 (08:04→20:29)
--- NOTE | 2019-05-15 08:24 | PN ---
DATE: 05/15/2019 SUBJECTIVE: The patient remains critically ill, on pressor support. Urinary output has been adequat e. The patient remains tachypneic. No other acute events noted. OBJECTIVE: VITAL SIGNS: Blood pressure is 112/76, respirations 26, pulse 103, temperature 98.6. HEENT: Head is normocephalic. NECK: Supple. HEART: Regular rate. LUNGS: Show diminished breath sounds at the base. ABDOMEN: Soft, nontender to palpation without rebound or guarding. EXTREMITIES: Negative for clubbing, cyanosis. Trace edema. DERMATOLOGIC: No rashes. MUSCULOSKELETAL: No joint effusion. NEUROLOGIC: No change in exam. MEDICATIONS: Reviewed. LABORATORY DATA: Reviewed. IMAGING STUDIES: Reviewed. MICROBIOLOGY: Cultures have been reviewed. ASSESSMENT AND PLAN: 1. Nonoliguric acute kidney injury on top of chronic kidney disease stage IIIB/IV with previous base line creatinine of 1.5 to 2.0 mg/dL. Etiology of acute kidney injury is secondary to acute tubular n ecrosis due to septic acute kidney injury, shock. The patient's urinalysis does show evidence of gra nular casts consistent with tubular injury. The patient's renal function has stabilized. At this po int, continue current pressor support, maintain MAP of 65. Continue IV fluids, antimicrobial, antifu ngal therapy, monitor renal function closely. 2. Hypernatremia. The patient has a free water deficit of approximately 2 liters. We will adjust I V fluids to half NS, monitor sodium levels closely. 3. Anemia. Continue to monitor hemoglobin and hematocrit levels, transfuse PRBCs as needed. 4. Lactic acidosis secondary to septic shock. Continue to monitor and trend. 5. Septic shock secondary to pneumonia, bacteremia and fungemia. Continue broad spectrum antibiotic s, antifungal therapy, continue pressor support, IV fluids. 6. Acute hypoxemic respiratory failure secondary to pneumonia. Continue supplemental oxygen. 7. Diabetes. Continue current insulin regimen. 8. Thrombocytopenia due to underlying cirrhosis. Continue to monitor and transfuse as needed. 9. History of heart failure. Monitor closely on IV fluids. 10. Acute encephalopathy, etiology is toxic metabolic. 11. Cirrhosis. Continue to monitor, continue supportive care. 12. Mineral bone disorder. Continue to monitor calcium and phosphorus levels. Please note I spent over 30 minutes of critical care time with this patient. Dictated By: KENIA ESTES/MELISSA Conf#: [id number] DID#: [id number] CC: JONY BALDWIN MD; FELICIANO DE LUNA MD; FLORINDA GONZALEZ MD;*EndCC*
[2019-05-15] MEDS ORDERED: POTASSIUM PHOSPHATE 20 MEQ in SOD CHLORIDE 0.9% 250 ML IVPB ONE (09:00)
[2019-05-15] MEDS: MIDODRINE 5 MG TAB GTB SCH ×3 (09:00→17:00)
[2019-05-15] MEDS: MICONAZOLE 2% 30 GM CR TOP SCH ×2 (09:13→20:30)
[2019-05-15] MEDS: MEROPENEM 1 GM/50ML(PMX) 50 ML IVPB SCH ×2 (09:14→20:25)
[2019-05-15] MEDS ORDERED: SOD CHLORIDE 0.9% 250 ML IV* ONE (09:25)
--- NOTE | 2019-05-15 09:27 | CONS ---
Consult Date/Type/Reason Admit Date/Time May 10, 2019 at 13:20 Initial Consult Date 05/11/19 Type of Consult Pulmonary Requesting Provider: NIXON MILLER MD Date/Time of Note DATE: 05/15/19 TIME: 09:26 Subjective Patient less alert, breathing more labored. Objective Vital Signs Date Temp Pulse Resp B/P (MAP) Pulse Ox O2 O2 Flow FiO2 Time Delivery Rate 05/15/19 100 4.0 09:01 05/15/19 90 33 36 09:00 05/15/19 80/51 (61) 07:15 05/15/19 99.3 04:00 05/14/19 Room Air 20:00 Intake and Output 05/14/19 05/14/19 05/15/19 1515:00 23:00 07:00 IntakeIntake Total 1370.1 ml 732.84 ml 675.00 ml OutputOutput Total 800 ml 310 ml 245 ml BalanceBalance 570.1 ml 422.84 ml 430.00 ml Exam PHYSICAL EXAMINATION: GENERAL: A chronically ill-appearing gentleman who appears comfortable at rest, VITAL SIGNS: NECK: Supple. No JVD or lymphadenopathy. CARDIAC: S1, S2, no added sounds or murmurs. CHEST: Diminished air entry bilaterally. ABDOMEN: Soft, nontender. No guarding or rebound. EXTREMITIES: No cyanosis, clubbing, edema. NEUROLOGIC: Generalized weakness. Vent Setting Fraction of Inspired Oxygen pe: 36 Results/Medications Result Diagram: 05/15/19 0423 05/15/19 0442 Results 24 hrs Laboratory Tests Test 05/14/19 13:48 05/14/19 16:30 05/14/19 22:35 05/15/19 04:23 Bedside Glucose 139 134 132 White Blood Count 6.2 # Red Blood Count 2.70 L Hemoglobin 7.7 L Hematocrit 24.5 L Mean Corpuscular 90.7 Volume Mean Corpuscular 28.5 L Hemoglobin Mean Corpuscular 31.4 L Hemoglobin Concent Red Cell 21.1 H Distribution Width Platelet Count 21 #*L Mean Platelet Volume Immature 2.300 H Granulocytes % Neutrophils % 83.4 H Lymphocytes % 7.3 L Monocytes % 6.6 Eosinophils % 0.2 Basophils % 0.2 Nucleated Red Blood 2.8 H Cells % Immature 0.140 H Granulocytes # Neutrophils # 5.2 Lymphocytes # 0.5 L Monocytes # 0.4 Eosinophils # 0.0 Basophils # 0.0 Nucleated Red Blood 0.2 H Cells # Test 05/15/19 04:25 05/15/19 04:42 05/15/19 04:55 05/15/19 05:41 Prothrombin Time 18.6 H Prothrombin Time 1.5 Ratio INR International 1.54 Normalized Ratio Total Bilirubin 6.9 H Direct Bilirubin 3.10 #H Indirect Bilirubin 3.8 H Aspartate Amino 30 Transf (AST/SGOT) Alanine 36 Aminotransferase (A LT/SGPT) Alkaline 45 Phosphatase Total Protein 5.0 L Albumin 2.3 L Sodium Level 147 H Potassium Level 3.9 Chloride Level 119 H Carbon Dioxide 21 Level Anion Gap 7 Blood Urea Nitrogen 34 H Creatinine 0.89 Est Glomerular > 60 Filtrat Rate mL/min Glucose Level 130 Calcium Level 7.3 L Phosphorus Level 2.1 L Magnesium Level 2.3 Lab Scanned Report BLOOD TRANSFUSION Bedside Glucose 167 Test 05/15/19 08:58 Bedside Glucose 159 Medications Current Medications Ondansetron HCl (Zofran Inj) 4 mg Q6H PRN IV NAUSEA AND/OR VOMITING; Start 05/10/19 at 14:30 Albuterol (Proventil 0.083% (Neb)) 2.5 mg Q4H RESP THERAPY NEB Last administered on 05/15/19at 08:59; Admin Dose 2.5 MG; Start 05/10/19 at 17:00 Albuterol (Proventil 0.083% (Neb)) 2.5 mg Q2H RESP THERAPY PRN NEB SHORTNESS OF BREATH; Start 05/10/19 at 14:30 Acetaminophen (Tylenol Liquid) 650 mg Q6H PRN PO PAIN LEVEL 1-3 OR FEVER; Start 05/10/19 at 14:30 Acetaminophen (Tylenol Supp) 650 mg Q4H PRN OR PAIN LEVEL 1-3 OR FEVER; Start 05/10/19 at 14:30 Lorazepam (Ativan) 1 mg Q2H PRN IV ANXIETY Last administered on 05/14/19at 23:48; Admin Dose 1 MG; Start 05/10/19 at 14:30 Docusate Sodium (Colace) 100 mg Q12H PRN PO CONSTIPATION; Start 05/10/19 at 14:30 Magnesium Hydroxide (Milk Of Mag) 30 ml DAILY PRN PO CONSTIPATION; Start 05/10/19 at 14:30 Meropenem/Sodium Chloride 50 ml @ 100 mls/hr Q12 IVPB Last administered on 05/15/19 09:14; Admin Dose 100 MLS/HR; Start 05/10/19 at 14:30 Citalopram Hydrobromide (Celexa) 40 mg DAILY PO ; Start 05/11/19 at 09:00 Insulin Aspart (Novolog Insulin Pen) NOVOLOG *MILD* ALGORI... Q4 SC Last ad ministered on 05/15/19 09:16; Admin Dose 1 UNIT; Start 05/10/19 at 17:00 Miconazole Nitrate (Miconazole 2% Cr) 1 applic BID TOP Last administered on 05/15/19 09:13; Admin Dose 1 APPLIC; Start 05/10/19 at 21:00 Midodrine (Proamatine) 5 mg TID@09,13,17 GTB ; Start 05/10/19 at 17:00 Quetiapine Fumarate (Seroquel) 25 mg BID PO ; Start 05/10/19 at 21:00 Norepinephrine 250 ml @ 1.875 mls/ hr TITRATE IV Last administered on 05/13/19 09:49; Admin Dose 7.5 MLS/HR; Start 05/10/19 at 16:30 IV Flush (NS 10 ml) 10 ml PRN PRN IV FLUSH LINE; Start 05/10/19 at 19:00 Phenylephrine HCl 80 mg/Dextrose 250 ml @ 18.75 mls/ hr TITRATE IV Last administered on 05/14/19at 22:15; Admin Dose 23.44 MLS/HR; Start 05/11/19 at 15:30 Haloperidol (Haldol) 2 mg Q4H PRN IM agitation Last administered on 05/14/19at 22:40; Admin Dose 2 MG; Start 05/11/19 at 19:30 Ferric Sodium Gluconate Complex 125 mg/Sodium Chloride 110 ml @ 110 mls/hr DAILY@1300 IVPB Last administered on 05/14/19 13:49; Admin Dose 110 MLS/HR; Start 05/14/19 at 13:00; Stop 05/18/19 at 13:59 Caspofungin 50 mg/ Sodium Chloride 250 ml @ 250 mls/hr Q24H IVPB ; Start 05/15/19 at 16:00 Dextrose/Sodium Chloride 1,000 ml @ 100 mls/hr Q10H IV ; Start 05/15/19 at 08:00 Potassium Phosphate 20 meq/ Sodium Chloride 254.5455 ml @ 63.636 m... ONCE ONCE IVPB Last administered on 05/15/19at 09:18; Admin Dose 63.636 MLS/HR; Start 05/15/19 at 09:00; Stop 05/15/19 at 12:59 Famotidine (Pepcid Iv) 20 mg BID IV ; Start 05/15/19 at 21:00; Status UNV Assessment/Plan Hospital Course (Demo Recall) IMPRESSION AND PLAN: 1. Hypoxemic respiratory failure, likely secondary to aspiration pneumonia. Dense right sided pneumonia. 2. Septic shock secondary to above. 3. Thrombocytopenia, possibly secondary to underlying sepsis. 4. Encephalopathy, toxic metabolic with prior history of CVA. 5. History of mechanical aortic valve. 6. History of AICD placement with cardiopulmonary arrest. Plan 1. Continued vasopressor support. 2. Broad-spectrum antibiotics. 3. Aspiration precautions. Speech therapy recommendations. 4. Anticoagulation as tolerated. 5. Consider hematology/oncology evaluation for thrombocytopenia. Status post platelet transfusion. 6. DVT and GI prophylaxis. Critical care time 40 minutes. Palliative care consult regarding goals of care. Patient appears to be in the terminal phase of his life would recommend transition to inpatient hospice. KAYLAN MIN MD, [facility] May 15, 2019 09:27
[2019-05-15] MEDS ORDERED: PANTOPRAZOLE 40 MG INJ IV SCH (09:30)
[2019-05-15] MEDS: DEXTROSE 5%-0.45% NACL 1,000 ML IV SCH ×2 (09:37→19:37)
--- NOTE | 2019-05-15 11:05 | PN ---
Date/Time of Note Date/Time of Note DATE: 05/15/19 TIME: 10:40 Assessment/Plan VTE Prophylaxis Risk score (from Ns)>0 risk: 11 SCD applied (from Ns): Yes Pharmacological prophylaxis: other (scds) Lines/Catheters IV Catheter Type (from Nrsg): PICC Line Central line still needed: Yes (meds) Urinary Cath still in place: Yes Reason Cath still needed: other (indicate) (monitor output) Assessment/Plan Hospital Course Assessment/Plan Assessment: Septic shock -2/2 to PNA/bacteremia -Remains in ICU on pressors Pneumonia Bacteremia Acute on chronic anemia -Positive occult blood test Liver cirrhosis with a small to moderate amount of ascites. Thrombocytopenia Hyperbilirubinemia- likely 2/2 to hepatocellular disease -US- The common bile duct measures 3 mm in maximal dimension. Coagulopathy- improved Diabetes mellitus Congestive heart failure AICD Cholelithiasis Plan: Continue Pepcid BID No endoscopic interventions at this time- pt would not be able to tolerate prep or procedure- no overt signs of GI bleed - risks currently out-weight benefits- will maintain close observation. Unable to obtain MRCP as patient has a PM- abd US shows CBD WNL- Patient seen in collaboration Dr. Freedman Subjective: Patient remains in ICU, confused does not follow commands currently No overt signs of GI bleed. PHYSICAL EXAMINATION: GENERAL: Alert & confused, nonverbal, in no acute distress SKIN: No lesions, pallor, multiple areas of ecchymosis, no stigmata chronic liver disease, no evidence of bleeding diathesis HEAD: Normocephalic, atraumatic, no tenderness. EYES: Pupils equal reactive to light and accommodation, no discharge. EARS/NOSE AND THROAT: Ears normal, nose normal. NECK: Supple, no masses. CHEST: Inspection within normal limits. CARDIOVASCULAR: Heart: Regular rate and rhythm, RESPIRATORY: Coarse lung sounds GASTROINTESTINAL AND LIVER: Abdomen: Soft, questionable tenderness -patient screams with any stimuli, non-distended, no hernias, no masses, no organomegaly, no ascites, no guarding, no rebound tenderness, normoactive bowel sounds. Rectal: Deferred. GENITOURINARY: Patino in place Result Diagram: 05/15/19 0423 05/15/19 0442 Results 24hrs Laboratory Tests Test 05/14/19 13:48 05/14/19 16:30 05/14/19 22:35 05/15/19 04:23 Bedside Glucose 139 134 132 White Blood Count 6.2 # Red Blood Count 2.70 L Hemoglobin 7.7 L Hematocrit 24.5 L Mean Corpuscular 90.7 Volume Mean Corpuscular 28.5 L Hemoglobin Mean Corpuscular 31.4 L Hemoglobin Concent Red Cell 21.1 H Distribution Width Platelet Count 21 #*L Mean Platelet Volume Immature 2.300 H Granulocytes % Neutrophils % 83.4 H Lymphocytes % 7.3 L Monocytes % 6.6 Eosinophils % 0.2 Basophils % 0.2 Nucleated Red Blood 2.8 H Cells % Immature 0.140 H Granulocytes # Neutrophils # 5.2 Lymphocytes # 0.5 L Monocytes # 0.4 Eosinophils # 0.0 Basophils # 0.0 Nucleated Red Blood 0.2 H Cells # Test 05/15/19 04:25 05/15/19 04:42 05/15/19 04:55 05/15/19 05:41 Prothrombin Time 18.6 H Prothrombin Time 1.5 Ratio INR International 1.54 Normalized Ratio Total Bilirubin 6.9 H Direct Bilirubin 3.10 #H Indirect Bilirubin 3.8 H Aspartate Amino 30 Transf (AST/SGOT) Alanine 36 Aminotransferase (A LT/SGPT) Alkaline 45 Phosphatase Total Protein 5.0 L Albumin 2.3 L Sodium Level 147 H Potassium Level 3.9 Chloride Level 119 H Carbon Dioxide 21 Level Anion Gap 7 Blood Urea Nitrogen 34 H Creatinine 0.89 Est Glomerular > 60 Filtrat Rate mL/min Glucose Level 130 Calcium Level 7.3 L Phosphorus Level 2.1 L Magnesium Level 2.3 Lab Scanned Report BLOOD TRANSFUSION Bedside Glucose 167 Test 05/15/19 08:58 Bedside Glucose 159 Exam/Review of Systems Exam Vitals Vital Signs Date Temp Pulse Resp B/P (MAP) Pulse Ox O2 O2 Flow FiO2 Time Delivery Rate 05/15/19 102 33 91/61 (71) 97 09:45 05/15/19 Nasal 09:30 Cannula 05/15/19 4.0 09:01 05/15/19 36 09:00 05/15/19 98.2 08:00 Intake and Output 05/14/19 05/14/19 05/15/19 1515:00 23:00 07:00 IntakeIntake Total 1370.1 ml 732.84 ml 675.00 ml OutputOutput Total 800 ml 310 ml 245 ml BalanceBalance 570.1 ml 422.84 ml 430.00 ml Results Results 24hrs Laboratory Tests Test 05/14/19 13:48 05/14/19 16:30 05/14/19 22:35 05/15/19 04:23 Bedside Glucose 139 134 132 White Blood Count 6.2 # Red Blood Count 2.70 L Hemoglobin 7.7 L Hematocrit 24.5 L Mean Corpuscular 90.7 Volume Mean Corpuscular 28.5 L Hemoglobin Mean Corpuscular 31.4 L Hemoglobin Concent Red Cell 21.1 H Distribution Width Platelet Count 21 #*L Mean Platelet Volume Immature 2.300 H Granulocytes % Neutrophils % 83.4 H Lymphocytes % 7.3 L Monocytes % 6.6 Eosinophils % 0.2 Basophils % 0.2 Nucleated Red Blood 2.8 H Cells % Immature 0.140 H Granulocytes # Neutrophils # 5.2 Lymphocytes # 0.5 L Monocytes # 0.4 Eosinophils # 0.0 Basophils # 0.0 Nucleated Red Blood 0.2 H Cells # Test 05/15/19 04:25 05/15/19 04:42 05/15/19 04:55 05/15/19 05:41 Prothrombin Time 18.6 H Prothrombin Time 1.5 Ratio INR International 1.54 Normalized Ratio Total Bilirubin 6.9 H Direct Bilirubin 3.10 #H Indirect Bilirubin 3.8 H Aspartate Amino 30 Transf (AST/SGOT) Alanine 36 Aminotransferase (A LT/SGPT) Alkaline 45 Phosphatase Total Protein 5.0 L Albumin 2.3 L Sodium Level 147 H Potassium Level 3.9 Chloride Level 119 H Carbon Dioxide 21 Level Anion Gap 7 Blood Urea Nitrogen 34 H Creatinine 0.89 Est Glomerular > 60 Filtrat Rate mL/min Glucose Level 130 Calcium Level 7.3 L Phosphorus Level 2.1 L Magnesium Level 2.3 Lab Scanned Report BLOOD TRANSFUSION Bedside Glucose 167 Test 05/15/19 08:58 Bedside Glucose 159 Medications Medication Current Medications Ondansetron HCl (Zofran Inj) 4 mg Q6H PRN IV NAUSEA AND/OR VOMITING; Start 05/10/19 at 14:30 Albuterol (Proventil 0.083% (Neb)) 2.5 mg Q4H RESP THERAPY NEB Last administered on 05/15/19at 08:59; Admin Dose 2.5 MG; Start 05/10/19 at 17:00 Albuterol (Proventil 0.083% (Neb)) 2.5 mg Q2H RESP THERAPY PRN NEB SHORTNESS OF BREATH; Start 05/10/19 at 14:30 Acetaminophen (Tylenol Liquid) 650 mg Q6H PRN PO PAIN LEVEL 1-3 OR FEVER; Start 05/10/19 at 14:30 Acetaminophen (Tylenol Supp) 650 mg Q4H PRN [place] PAIN LEVEL 1-3 OR FEVER; Start 05/10/19 at 14:30 Lorazepam (Ativan) 1 mg Q2H PRN IV ANXIETY Last administered on 05/14/19at 23:48; Admin Dose 1 MG; Start 05/10/19 at 14:30 Docusate Sodium (Colace) 100 mg Q12H PRN PO CONSTIPATION; Start 05/10/19 at 14:30 Magnesium Hydroxide (Milk Of Mag) 30 ml DAILY PRN PO CONSTIPATION; Start 05/10/19 at 14:30 Meropenem/Sodium Chloride 50 ml @ 100 mls/hr Q12 IVPB Last administered on 05/15/19at 09:14; Admin Dose 100 MLS/HR; Start 05/10/19 at 14:30 Citalopram Hydrobromide (Celexa) 40 mg DAILY PO ; Start 05/11/19 at 09:00 Insulin Aspart (Novolog Insulin Pen) NOVOLOG *MILD* ALGORI... Q4 SC Last administered on 05/15/19at 09:16; Admin Dose 1 UNIT; Start 05/10/19 at 17:00 Miconazole Nitrate (Miconazole 2% Cr) 1 applic BID TOP Last administered on 05/15/19at 09:13; Admin Dose 1 APPLIC; Start 05/10/19 at 21:00 Midodrine (Proamatine) 5 mg TID@09,13,17 GTB ; Start 05/10/19 at 17:00 Quetiapine Fumarate (Seroquel) 25 mg BID PO ; Start 05/10/19 at 21:00 Norepinephrine 250 ml @ 1.875 mls/ hr TITRATE IV Last administered on at 09:49; Admin Dose 7.5 MLS/HR; Start 05/10/19 at 16:30 IV Flush (NS 10 ml) 10 ml PRN PRN IV FLUSH LINE; Start 05/10/19 at 19:00 Phenylephrine HCl 80 mg/Dextrose 250 ml @ 18.75 mls/ hr TITRATE IV Last administered on 05/14/19at 22:15; Admin Dose 23.44 MLS/HR; Start 05/11/19 at 15:30 Haloperidol (Haldol) 2 mg Q4H PRN IM agitation Last administered on 05/14/19at 22:40; Admin Dose 2 MG; Start 05/11/19 at 19:30 Ferric Sodium Gluconate Complex 125 mg/Sodium Chloride 110 ml @ 110 mls/hr DAILY@1300 IVPB Last administered on 05/14/19at 13:49; Admin Dose 110 MLS/HR; Start 05/14/19 at 13:00; Stop 05/18/19 at 13:59 Caspofungin 50 mg/ Sodium Chloride 250 ml @ 250 mls/hr Q24H IVPB ; Start 05/15/19 at 16:00 Dextrose/Sodium Chloride 1,000 ml @ 100 mls/hr Q10H IV Last administered on 05/15/19at 09:37; Admin Dose 100 MLS/HR; Start 05/15/19 at 08:00 Potassium Phosphate 20 meq/ Sodium Chloride 254.5455 ml @ 63.636 m... ONCE ONCE IVPB Last administered on 05/15/19at 09:18; Admin Dose 63.636 MLS/HR; Start 05/15/19 at 09:00; Stop 05/15/19 at 12:59 Famotidine (Pepcid Iv) 20 mg BID IV ; Start 05/15/19 at 10:00 GAY BUTT May 15, 2019 10:52
[2019-05-15] MEDS: FAMOTIDINE 20 MG INJ IV SCH ×2 (11:16→20:25)
--- NOTE | 2019-05-15 12:46 | CONS ---
Assessment/Plan Assessment/Plan Hospital Course (Demo Recall) Patient is confused and restless is in no distress, afebrile at bedside. WBC 6.2 H&H 7.7 and 24.5 platelets 21 BUN 34 creatinine 0.89 Antimicrobials: Cancidas meropenem Microbiology: Blood culture on admission grew Klebsiella pneumoniae ESBL repeat blood culture growing yeast 1 out of 2 bottles Indwelling: Patino AICD, PICC line Physical examination: Chronically ill-appearing elderly man who is in no distress. Head atraumatic normocephalic neck is supple chest rise symmetrical breath sounds diminished bases heart: S1-S2 abdomen soft bowel sounds present extremities with trace edema Assessment: 1. Sepsis with shock 2. Acute hypoxemic respiratory failure 3. Gram-negative bacteremia and fungemia ?etiology 3. Healthcare associated pneumonia possibly aspirated 4. Anemia 5. Thrombocytopenia 6. Diabetes 7. Atrial fibrillation 8. Liver cirrhosis with ascites, rule out SBP 9. Coronary artery disease, status post AVR Plan: Clinically unchanged, on Lon-Synephrine drip, continue antibiotics, await for final cultures, consider CHRISTIANO Consultation Date/Type/Reason Admit Date/Time May 10, 2019 at 13:20 Initial Consult Date 05/11/19 Type of Consult id Requesting Provider: NIXON MILLER MD Date/Time of Note DATE: 05/15/19 TIME: 12:41 Exam/Review of Systems Exam Vitals Vital Signs Date Temp Pulse Resp B/P (MAP) Pulse Ox O2 O2 Flow FiO2 Time Delivery Rate 05/15/19 107 12:00 05/15/19 33 91/61 (71) 97 09:45 05/15/19 Nasal 09:30 Cannula 05/15/19 4.0 09:01 05/15/19 36 09:00 05/15/19 98.2 08:00 Intake and Output 05/14/19 05/14/19 05/15/19 1515:00 23:00 07:00 IntakeIntake Total 1370.1 ml 732.84 ml 675.00 ml OutputOutput Total 800 ml 310 ml 245 ml BalanceBalance 570.1 ml 422.84 ml 430.00 ml Results Result Diagram: 05/15/19 0423 05/15/19 0442 Results 24hrs Laboratory Tests Test 05/14/19 13:48 05/14/19 16:30 05/14/19 22:35 05/15/19 04:23 Bedside Glucose 139 134 132 White Blood Count 6.2 # Red Blood Count 2.70 L Hemoglobin 7.7 L Hematocrit 24.5 L Mean Corpuscular 90.7 Volume Mean Corpuscular 28.5 L Hemoglobin Mean Corpuscular 31.4 L Hemoglobin Concent Red Cell 21.1 H Distribution Width Platelet Count 21 #*L Mean Platelet Volume Immature 2.300 H Granulocytes % Neutrophils % 83.4 H Lymphocytes % 7.3 L Monocytes % 6.6 Eosinophils % 0.2 Basophils % 0.2 Nucleated Red Blood 2.8 H Cells % Immature 0.140 H Granulocytes # Neutrophils # 5.2 Lymphocytes # 0.5 L Monocytes # 0.4 Eosinophils # 0.0 Basophils # 0.0 Nucleated Red Blood 0.2 H Cells # Test 05/15/19 04:25 05/15/19 04:42 05/15/19 04:55 05/15/19 05:41 Prothrombin Time 18.6 H Prothrombin Time 1.5 Ratio INR International 1.54 Normalized Ratio Total Bilirubin 6.9 H Direct Bilirubin 3.10 #H Indirect Bilirubin 3.8 H Aspartate Amino 30 Transf (AST/SGOT) Alanine 36 Aminotransferase (A LT/SGPT) Alkaline 45 Phosphatase Total Protein 5.0 L Albumin 2.3 L Sodium Level 147 H Potassium Level 3.9 Chloride Level 119 H Carbon Dioxide 21 Level Anion Gap 7 Blood Urea Nitrogen 34 H Creatinine 0.89 Est Glomerular > 60 Filtrat Rate mL/min Glucose Level 130 Calcium Level 7.3 L Phosphorus Level 2.1 L Magnesium Level 2.3 Lab Scanned Report BLOOD TRANSFUSION Bedside Glucose 167 Test 05/15/19 08:58 Bedside Glucose 159 Medications Medication Current Medications Ondansetron HCl (Zofran Inj) 4 mg Q6H PRN IV NAUSEA AND/OR VOMITING; Start 05/10/19 at 14:30 Albuterol (Proventil 0.083% (Neb)) 2.5 mg Q4H RESP THERAPY NEB Last administered on 05/15/19at 08:59; Admin Dose 2.5 MG; Start 05/10/19 at 17:00 Albuterol (Proventil 0.083% (Neb)) 2.5 mg Q2H RESP THERAPY PRN NEB SHORTNESS OF BREATH; Start 05/10/19 at 14:30 Acetaminophen (Tylenol Liquid) 650 mg Q6H PRN PO PAIN LEVEL 1-3 OR FEVER; Start 05/10/19 at 14:30 Acetaminophen (Tylenol Supp) 650 mg Q4H PRN [place] PAIN LEVEL 1-3 OR FEVER; Start 05/10/19 at 14:30 Lorazepam (Ativan) 1 mg Q2H PRN IV ANXIETY Last administered on 05/14/19at 23:48; Admin Dose 1 MG; Start 05/10/19 at 14:30 Docusate Sodium (Colace) 100 mg Q12H PRN PO CONSTIPATION; Start 05/10/19 at 14:30 Magnesium Hydroxide (Milk Of Mag) 30 ml DAILY PRN PO CONSTIPATION; Start 05/10/19 at 14:30 Meropenem/Sodium Chloride 50 ml @ 100 mls/hr Q12 IVPB Last administered on 05/15/19 09:14; Admin Dose 100 MLS/HR; Start 05/10/19 at 14:30 Citalopram Hydrobromide (Celexa) 40 mg DAILY PO ; Start 05/11/19 at 09:00 Insulin Aspart (Novolog Insulin Pen) NOVOLOG *MILD* ALGORI... Q4 SC Last administered on 05/15/19 09:16; Admin Dose 1 UNIT; Start 05/10/19 at 17:00 Miconazole Nitrate (Miconazole 2% Cr) 1 applic BID TOP Last administered on 05/15/19 09:13; Admin Dose 1 APPLIC; Start 05/10/19 at 21:00 Midodrine (Proamatine) 5 mg TID@09,13,17 GTB ; Start 05/10/19 at 17:00 Quetiapine Fumarate (Seroquel) 25 mg BID PO ; Start 05/10/19 at 21:00 Norepinephrine 250 ml @ 1.875 mls/ hr TITRATE IV Last administered on 05/13/19at 09:49; Admin Dose 7.5 MLS/HR; Start 05/10/19 at 16:30 IV Flush (NS 10 ml) 10 ml PRN PRN IV FLUSH LINE; Start 05/10/19 at 19:00 Phenylephrine HCl 80 mg/Dextrose 250 ml @ 18.75 mls/ hr TITRATE IV Last administered on 05/14/19at 22:15; Admin Dose 23.44 MLS/HR; Start 05/11/19 at 15:30 Haloperidol (Haldol) 2 mg Q4H PRN IM agitation Last administered on 05/14/19at 22:40; Admin Dose 2 MG; Start 05/11/19 at 19:30 Ferric Sodium Gluconate Complex 125 mg/Sodium Chloride 110 ml @ 110 mls/hr DAILY@1300 IVPB Last administered on 05/14/19at 13:49; Admin Dose 110 MLS/HR; Start 05/14/19 at 13:00; Stop 05/18/19 at 13:59 Caspofungin 50 mg/ Sodium Chloride 250 ml @ 250 mls/hr Q24H IVPB ; Start 05/15/19 at 16:00 Dextrose/Sodium Chloride 1,000 ml @ 100 mls/hr Q10H IV Last administered on 05/15/19at 09:37; Admin Dose 100 MLS/HR; Start 05/15/19 at 08:00 Potassium Phosphate 20 meq/ Sodium Chloride 254.5455 ml @ 63.636 m... ONCE ONCE IVPB Last administered on 05/15/19at 09:18; Admin Dose 63.636 MLS/HR; Start 05/15/19 at 09:00; Stop 05/15/19 at 12:59 Famotidine (Pepcid Iv) 20 mg BID IV Last administered on 05/15/19at 11:16; Admin Dose 20 MG; Start 05/15/19 at 10:00 JOLENE ELIZABETH NP May 15, 2019 12:46
[2019-05-15] MEDS: SOD FERRIC GLUC COMPLX 125 MG in SOD CHLORIDE 0.9% 100 ML IVPB SCH (13:44)
[2019-05-15] MEDS ORDERED: morphine 2 MG INJ IV STA (14:19)
--- NOTE | 2019-05-15 15:07 | PN ---
Date/Time of Note Date/Time of Note DATE: 05/15/19 TIME: 14:56 Objective Vitals Vital Signs Date Temp Pulse Resp B/P (MAP) Pulse Ox O2 O2 Flow FiO2 Time Delivery Rate 05/15/19 124 44 96 4.0 36 13:51 05/15/19 91/61 (71) 09:45 05/15/19 Nasal 09:30 Cannula 05/15/19 98.2 08:00 Intake and Output 05/14/19 05/14/19 05/15/19 1515:00 23:00 07:00 IntakeIntake Total 1370.1 ml 732.84 ml 675.00 ml OutputOutput Total 800 ml 310 ml 245 ml BalanceBalance 570.1 ml 422.84 ml 430.00 ml Results Result Diagram: 05/15/19 0423 05/15/19 0442 Medications Medications Current Medications Ondansetron HCl (Zofran Inj) 4 mg Q6H PRN IV NAUSEA AND/OR VOMITING; Start 05/10/19 at 14:30 Albuterol (Proventil 0.083% (Neb)) 2.5 mg Q4H RESP THERAPY NEB Last administered on 05/15/19at 13:51; Admin Dose 2.5 MG; Start 05/10/19 at 17:00 Albuterol (Proventil 0.083% (Neb)) 2.5 mg Q2H RESP THERAPY PRN NEB SHORTNESS OF BREATH; Start 05/10/19 at 14:30 Acetaminophen (Tylenol Liquid) 650 mg Q6H PRN PO PAIN LEVEL 1-3 OR FEVER; Start 05/10/19 at 14:30 Acetaminophen (Tylenol Supp) 650 mg Q4H PRN [place] PAIN LEVEL 1-3 OR FEVER; Start 05/10/19 at 14:30 Lorazepam (Ativan) 1 mg Q2H PRN IV ANXIETY Last administered on 05/14/19at 23:48; Admin Dose 1 MG; Start 05/10/19 at 14:30 Docusate Sodium (Colace) 100 mg Q12H PRN PO CONSTIPATION; Start 05/10/19 at 14:30 Magnesium Hydroxide (Milk Of Mag) 30 ml DAILY PRN PO CONSTIPATION; Start 05/10/19 at 14:30 Meropenem/Sodium Chloride 50 ml @ 100 mls/hr Q12 IVPB Last administered on 05/15/19 09:14; Admin Dose 100 MLS/HR; Start 05/10/19 at 14:30 Citalopram Hydrobromide (Celexa) 40 mg DAILY PO ; Start 05/11/19 at 09:00 Insulin Aspart (Novolog Insulin Pen) NOVOLOG *MILD* ALGORI... Q4 SC Last administered on 05/15/19 13:30; Admin Dose 1 UNIT; Start 05/10/19 at 17:00 Miconazole Nitrate (Miconazole 2% Cr) 1 applic BID TOP Last administered on 05/15/19 09:13; Admin Dose 1 APPLIC; Start 05/10/19 at 21:00 Midodrine (Proamatine) 5 mg TID@09,13,17 GTB ; Start 05/10/19 at 17:00 Quetiapine Fumarate (Seroquel) 25 mg BID PO ; Start 05/10/19 at 21:00 Norepinephrine 250 ml @ 1.875 mls/ hr TITRATE IV Last administered on 05/13/19 09:49; Admin Dose 7.5 MLS/HR; Start 05/10/19 at 16:30 IV Flush (NS 10 ml) 10 ml PRN PRN IV FLUSH LINE; Start 05/10/19 at 19:00 Phenylephrine HCl 80 mg/Dextrose 250 ml @ 18.75 mls/ hr TITRATE IV Last administered on 05/14/19 22:15; Admin Dose 23.44 MLS/HR; Start 05/11/19 at 15:30 Haloperidol (Haldol) 2 mg Q4H PRN IM agitation Last administered on 05/14/19 22:40; Admin Dose 2 MG; Start 05/11/19 at 19:30 Ferric Sodium Gluconate Complex 125 mg/Sodium Chloride 110 ml @ 110 mls/hr DAILY@1300 IVPB Last administered on 05/15/19 13:44; Admin Dose 110 MLS/HR; Start 05/14/19 at 13:00; Stop 05/18/19 at 13:59 Caspofungin 50 mg/ Sodium Chloride 250 ml @ 250 mls/hr Q24H IVPB ; Start 05/15/19 at 16:00 Dextrose/Sodium Chloride 1,000 ml @ 100 mls/hr Q10H IV Last administered on 7/2/19at 09:37; Admin Dose 100 MLS/HR; Start 05/15/19 at 08:00 Famotidine (Pepcid Iv) 20 mg BID IV Last administered on 05/15/19at 11:16; Admin Dose 20 MG; Start 05/15/19 at 10:00 VTE Prophylaxis Risk score (from Ns)>0 risk: 11 SCD applied (from Ns): Yes Lines/Catheters IV Catheter Type: Patino in Place: No Assessment/Plan Hospital Course Subjective No acute changes, patient still on pressors, antibiotics, antifungals, still encephalopathic, however patient is now on his back instead of his side. Objective Physical exam General: Patient is laying in bed laying down, not responsive except for not purposeful movements and agitation mentation: Patient is occasionally arousable however is not oriented, Head: Normocephalic atraumatic Eyes: EOMI, pupils reactive to light Neck: Supple, nontender, midline Respiratory: Coarse to auscultation bilaterally Cardiovascular: Regular rate, no obvious murmurs Gastrointestinal: non-tender to palpation, bowel sounds heard. Neurological: Moves all extremities spontaneously Skin: No new skin lesions Assessment/Plan Septic shock, secondary to pneumonia, bacteremia, and fungemia - Will wean off pressors as tolerated. - continue IV antibiotics, iv antifungals Acute respiratory failure secondary to pneumonia - Speech on board for evaluation of aspiration risk - continue neb tx and monitoring saturations. tolerating NC Acute on chronic toxic metabolic encephalopathy -Patient's baseline on admission was not being able to converse however was able to eat if being spoon fed -We will not be able to fully evaluate patient's mental status until bacteremia and fungemia and pneumonia has resolved -monitor closely -Patient extremely agitated at times causing to be tachycardic, tested a low dose of morphine and patient responded well with reduction in heart rate and moaning, patient's understands the risks of using morphine as needed with respiratory depression, patient's accepts these risks and wants patient to be comfortable. Unsustained V. tach -Cardiology on board -AICD interrogation -Monitor closely, cardiology recognitions appreciated Pneumonia, likely aspiration - Pulm on board and appreciate recommendations - continue on steroids and antibiotics - ID consulted and appreciate recommendations WONG on CKD-resolved - Nephrology consultation appreciated - most likely secondary to ATN from septic shock and cardiorenal Hypernatremia - IVF changed - Nephrology on board and assisting with fluid management Anemia - GI consultation appreciated -Transfuse as needed per GI recommendations - holding coumadin K. Pneumonia ESBL Bacteremia - ID on board and appreciate recommendations - Repeat blood cx noted - iv abx Atrial fibrillation - rate controlled - holding anticoagulation in setting of anemia and thrombocytopenia Thrombocytopenia -Persistently low -Patient at high risk of bleed, transfuse platelets as needed - hold warfarin HTN - holding home meds in setting of hypotension Acute on chronic systolic heart failure - will hold diuretics given low BP and resume when stable - ECHO noted with EF 40% Diabetes Mellitus - A1c noted - ISS and accuchecks Disposition - Continue monitoring in ICU and wean off pressors as tolerated. Continue treatment for ESBL bacteremia and aspiration PNA -Overall patient has a very poor prognosis given his overall story, palliative care physician on board. >40 minutes of critical care time spent with patient FELICIANO DE LUNA May 15, 2019 15:06
[2019-05-15] MEDS: CASPOFUNGIN 50 MG in SOD CHLORIDE 0.9% 250 ML IVPB SCH (18:06)
[2019-05-15] MEDS: PHENYLephrine 80 MG in DEXTROSE 5% 242 ML IV SCH (18:39)
[2019-05-16] VITALS (58 sets, daily range): BP systolic 64–127; BP diastolic 33–106; PULSE 70–141; RESP 12–45
[2019-05-16] MEDS: INSULIN ASPART [NOVOLOG] 3 ML PEN SC SCH ×6 (01:00→21:00)
[2019-05-16] MEDS: ALBUTEROL 0.083% (NEB) 2.5 MG/3 ML AMP NEB SCH ×6 (01:04→20:01)
[2019-05-16] MEDS: PHENYLephrine 80 MG in DEXTROSE 5% 242 ML IV SCH ×2 (01:36→14:32)
[2019-05-16] MEDS: DEXTROSE 5%-0.45% NACL 1,000 ML IV SCH ×2 (04:14→17:07)
[2019-05-16] MEDS: morphine 2 MG INJ IV PRN ×3 (04:18→17:14)
--- NOTE | 2019-05-16 08:03 | CONS ---
Consult Date/Type/Reason Admit Date/Time May 10, 2019 at 13:20 Initial Consult Date 05/11/19 Type of Consultation: cv Requesting Provider: NIXON MILLER MD Date/Time of Note DATE: 05/16/19 TIME: 08:00 Subjective Interventional cardiology follow-up progress note/ Subjective: Discussed with the staff. Telemetry was reviewed. Patient remains in atrial fibrillation with episodes of nonsustained V. tach. no ICD discharge noted Patient nonverbal does not answer questions. He continues to be hypotensive in shock requiring a Lon-Synephrine drip His hypoxemia appears to be improving and requires less oxygen D/W physicians pt is agitated and confused and does not follow commands O: General: Elderly gentleman appears to be agitated and confused HEENT: NC/AT. pupils are equal. round. NECK: . no stridor. CV: Irregularly irregular. Mechanical click heard.. PULM: + Diffuse right-sided rhonchi. GI: SOFT, NT, ND, no rebound or guarding Extremity: trace B/L LE edema. no clubbing. neuro: awake but does not answer question. Psych: Agitated rectal: deferred : normal Review of the old chart showed echocardiogram done 05/03/2019 which was per sonally reviewed as shown: There is severe enlargement of left atrium. There is severe enlargement of right atrium. Mild enlargement of right ventricle. Severe right ventricular hypokinesis. Linear artifact in right ventricle suggestive of catheter, pacer lead, or ICD lead. Moderate concentric left ventricular hypertrophy. Mild enlargement of left ventricle cavity. Moderate global left ventricular systolic dysfunction. Ejection fraction is visually estimated at 35 %. Tissue Dopp ler/Mitral Doppler indices are indeterminate in this study due to the presence of mitral stenosis. Mild mitral leaflet calcification. Mild mitral annular calcification. Severe mitral valve regurgitation. The regurgitation jet is eccentrically directed which may underestimate the severity of mitral regurgitation. Mild to moderate mitral stenosis. Mitral valve Max Velocity 1.78 m/sec. MaxPG 13.00 mmHg. MeanPG 6.00 mmHg. Normal appearance of the tricuspid valve. The estimated Peak RVSP is 74 mmHg. There is moderate tricuspid regurgitation. Aortic Valve Mechanical Prosthesis. Gradients normal for valve type and size. Aortic valve Max velocity 1.58 m/sec. Max PG 9.96 mmHg. Mean PG 5.00 mmHg. Mild to moderate aortic valve regurgitation. The regurgitation jet is eccentrically directed. Normal pericardium with no significant pericardial effusion. Left pleural effusion seen. Normal size with poor respiratory collapse consistent with elevated right atrial pressure. Chest x-ray done 05/10/2019 which was personally reviewed as well shows: Interval increase in consolidation in the mid to upper right lung concerning for pneumonia. Slight decrease in interstitial opacities of the left lung suggestive of decreased pulmonary edema. Interval decrease in small right pleural effusion. General: Elderly gentleman appears to be agitated and confused HEENT: NC/AT. pupils are equal. round. NECK: . no stridor. CV: Irregularly irregular. Mechanical click heard.. PULM: + Diffuse right-sided rhonchi. GI: SOFT, NT, ND, no rebound or guarding Extremity: trace B/L LE edema. no clubbing. neuro: awake but does not answer question. Psych: Agitated rectal: deferred : normal Review of the old chart showed echocardiogram done 05/03/2019 which was personally reviewed as shown: There is severe enlargement of left atrium. There is severe enlargement of right atrium. Mild enlargement of right ventricle. Severe right ventricular hypokinesis. Linear artifact in right ventricle suggestive of catheter, pacer lead, or ICD lead. Moderate concentric left ventricular hypertrophy. Mild enlargement of left ventricle cavity. Moderate global left ventricular systolic dysfunction. Ejection fraction is visually estimated at 35 %. Tissue Doppler/Mitral Doppler indices are indeterminate in this study due to the presence of mitral stenosis. Mild mitral leaflet calcification. Mild mitral annular calcification. Severe mitral valve regurgitation. The regurgitation jet is eccentrically directed which may underestimate the severity of mitral regurgitation. Mild to moderate mitral stenosis. Mitral valve Max Velocity 1.78 m/sec. MaxPG 13.00 mmHg. MeanPG 6.00 mmHg. Normal appearance of the tricuspid valve. The estimated Peak RVSP is 74 mmHg. There is moderate tricuspid regurgitation. Aortic Valve Mechanical Prosthesis. Gradients normal for valve type and size. Aortic valve Max velocity 1.58 m/sec. Max PG 9.96 mmHg. Mean PG 5.00 mmHg. Mild to moderate aortic valve regurgitation. The regurgitation jet is eccentrically directed. Normal pericardium with no significant pericardial effusion. Left pleural effusion seen. Normal size with poor respiratory collapse consistent with elevated right atrial pressure. Chest x-ray done 05/10/2019 which was personally reviewed as well shows: Interval increase in consolidation in the mid to upper right lung concerning for pneumonia. Slight decrease in interstitial opacities of the left lung suggestive of decreased pulmonary edema. Interval decrease in small right pleural effusion. Objective Vitals Vital Signs Date Temp Pulse Resp B/P (MAP) Pulse Ox O2 O2 Flow FiO2 Time Delivery Rate 05/16/19 92 33 87/57 (67) 96 Nasal 07:00 Cannula 05/16/19 2.0 04:34 05/16/19 98.5 04:00 05/15/19 36 16:55 Intake and Output 05/15/19 05/15/19 05/16/19 1515:00 23:00 07:00 IntakeIntake Total 948.00 ml 1323.46 ml 996.90 ml OutputOutput Total 240 ml 270 ml 140 ml BalanceBalance 708.00 ml 1053.46 ml 856.90 ml Results/Medications Result Diagram: 05/16/19 0444 05/16/19 0444 Results 24 hrs Laboratory Tests Test 05/15/19 08:58 05/15/19 13:15 05/15/19 18:10 05/15/19 20:23 Bedside Glucose 159 143 82 93 Test 05/16/19 01:28 05/16/19 04:44 05/16/19 04:54 05/16/19 05:09 Bedside Glucose 120 118 White Blood Count 7.3 Red Blood Count 2.49 L Hemoglobin 7.3 L Hematocrit 23.1 L Mean Corpuscular 92.8 Volume Mean Corpuscular 29.3 Hemoglobin Mean Corpuscular 31.6 L Hemoglobin Concent Red Cell 23.4 H Distribution Width Platelet Count 31 #L Mean Platelet Volume Immature 1.100 H Granulocytes % Neutrophils % Lymphocytes % Monocytes % Eosinophils % Basophils % Nucleated Red Blood 4.0 H Cells % Immature 0.080 H Granulocytes # Neutrophils # Lymphocytes # Monocytes # Eosinophils # Basophils # Nucleated Red Blood Cells # Sodium Level 141 Potassium Level 4.1 Chloride Level 115 H Carbon Dioxide 16 L Level Anion Gap 10 Blood Urea Nitrogen 33 H Creatinine 0.92 Est Glomerular > 60 Filtrat Rate mL/min Glucose Level 308 #H Calcium Level 7.3 L Phosphorus Level 3.2 Magnesium Level 2.0 Lab Scanned Report BLOOD TRANSFUSION Medications Current Medications Ondansetron HCl (Zofran Inj) 4 mg Q6H PRN IV NAUSEA AND/OR VOMITING; Start 05/10/19 at 14:30 Albuterol (Proventil 0.083% (Neb)) 2.5 mg Q4H RESP THERAPY NEB Last administered on 05/16/19 04:34; Admin Dose 2.5 MG; Start 05/10/19 at 17:00 Albuterol (Proventil 0.083% (Neb)) 2.5 mg Q2H RESP THERAPY PRN NEB SHORTNESS OF BREATH; Start 05/10/19 at 14:30 Acetaminophen (Tylenol Liquid) 650 mg Q6H PRN PO PAIN LEVEL 1-3 OR FEVER; Start 05/10/19 at 14:30 Acetaminophen (Tylenol Supp) 650 mg Q4H PRN [place] PAIN LEVEL 1-3 OR FEVER; Start 05/10/19 at 14:30 Lorazepam (Ativan) 1 mg Q2H PRN IV ANXIETY Last administered on 05/14/19at 23:48; Admin Dose 1 MG; Start 05/10/19 at 14:30 Docusate Sodium (Colace) 100 mg Q12H PRN PO CONSTIPATION; Start 05/10/19 at 14:30 Magnesium Hydroxide (Milk Of Mag) 30 ml DAILY PRN PO CONSTIPATION; Start 05/10/19 at 14:30 Meropenem/Sodium Chloride 50 ml @ 100 mls/hr Q12 IVPB Last administered on 05/15/19at 20:25; Admin Dose 100 MLS/HR; Start 05/10/19 at 14:30 Citalopram Hydrobromide (Celexa) 40 mg DAILY PO ; Start 05/11/19 at 09:00 Insulin Aspart (Novolog Insulin Pen) NOVOLOG *MILD* ALGORI... Q4 SC Last administered on 05/15/19 13:30; Admin Dose 1 UNIT; Start 05/10/19 at 17:00 Miconazole Nitrate (Miconazole 2% Cr) 1 applic BID TOP Last administered on 05/15/19 20:30; Admin Dose 1 APPLIC; Start 05/10/19 at 21:00 Midodrine (Proamatine) 5 mg TID@09,13,17 GTB ; Start 05/10/19 at 17:00 Quetiapine Fumarate (Seroquel) 25 mg BID PO ; Start 05/10/19 at 21:00 Norepinephrine 250 ml @ 1.875 mls/ hr TITRATE IV Last administered on 05/13/19 09:49; Admin Dose 7.5 MLS/HR; Start 05/10/19 at 16:30 IV Flush (NS 10 ml) 10 ml PRN PRN IV FLUSH LINE; Start 05/10/19 at 19:00 Phenylephrine HCl 80 mg/Dextrose 250 ml @ 18.75 mls/ hr TITRATE IV Last administered on 05/16/19 01:36; Admin Dose 24.38 MLS/HR; Start 05/11/19 at 15:30 Haloperidol (Haldol) 2 mg Q4H PRN IM agitation Last administered on 05/14/19 22:40; Admin Dose 2 MG; Start 05/11/19 at 19:30 Ferric Sodium Gluconate Complex 125 mg/Sodium Chloride 110 ml @ 110 mls/hr DAILY@1300 IVPB Last administered on 05/15/19 13:44; Admin Dose 110 MLS/HR; Start 05/14/19 at 13:00; Stop 05/18/19 at 13:59 Caspofungin 50 mg/ Sodium Chloride 250 ml @ 250 mls/hr Q24H IVPB Last administered on 05/15/19 18:06; Admin Dose 250 MLS/HR; Start 05/15/19 at 16:00 Dextrose/Sodium Chloride 1,000 ml @ 100 mls/hr Q10H IV Last administered on 05/16/19 04:14; Admin Dose 100 MLS/HR; Start 05/15/19 at 08:00 Famotidine (Pepcid Iv) 20 mg BID IV Last administered on 05/15/19 20:25; Admin Dose 20 MG; Start 05/15/19 at 10:00 Morphine Sulfate (morphine) 1 mg Q2H PRN IV SEVERE PAIN LEVEL 7-10 Last administered on 05/16/19 04:18; Admin Dose 1 MG; Start 05/15/19 at 14:30 Assessment/Plan Hospital Course (Demo Recall) 1. Septic shock/ESBL K pneumonia bacteremia 2. hx of ventricular tachycardia: Status post ICD placement ( [employer] ICD per family report ) 3. Congestive heart failure chronic secondary systolic and probably diastolic heart failure as well as valvular heart disease 4. Valvular heart disease status post mechanical aortic valve replacement and with severe mitral regurgitation 5. Severe cardiomyopathy ejection fracture 35% at the top of severe MR 6. Pulmonary hypertension 7. Encephalopathy and anoxic brain injury 8. Pneumonia most likely aspiration pneumonia 9. Acute renal failure 10. Hypernatremia 11. Respiratory failure hypoxemia 12. Diabetes 13. History of hypertension currently hypotensive and in shock 14. Reported history of endocarditis in the past 15. Severe anemia 16. Severe thrombocytopenia 17. FUNGEMIA Recommendations: We will continue with a Lon-Synephrine drip to support the blood pressure. IV dig prn Patient is currently n.p.o. and unable to tolerate p.o. medications,including coumadin unfortunately . unable to advance NG tube and pt is agitated and will take it out likely. Antibiotic management as per internal medicine and infectious disease consultation Aspiration precaution will be continued Coumadin to be resumed once patient able to tolerate p.o. medication. At this point INR is subtherapeutic now but will hold off on lovenox due to severe thrombocytopenia and concerns about bleeding Diabetic management as per internal medicine. abx as per ID rec code DNR now . consider palliative care consult as well. IF FAMILY DOES NOT WANT PT TO GET SHOCK WILL TURN OFF THE ICD. Awaiting their decision .. I do not see any benefit from doing a CHRISTIANO in this patient since patient is not a surgical candidate and regardless of the finding, antibiotic at this point is only choice. Continue with ICU care Thank you for his referral. We will continue to follow along with you FLORINDA GONZALEZ MD LOCATED WITHIN [facility] FLORINDA GONZALEZ MD May 16, 2019 08:03
--- NOTE | 2019-05-16 08:40 | PN ---
DATE: 05/16/2019 SUBJECTIVE: The patient remains critically ill on pressor support. The patient remains confused, al tered. No other acute events noted. OBJECTIVE: VITAL SIGNS: Blood pressure is 87/57, respirations 33, pulse 92, temperature 98.6. HEENT: Head is normocephalic. NECK: Supple. HEART: Regular rate. LUNGS: Show diminished breath sounds at the base. ABDOMEN: Soft, nontender to palpation without rebound or guarding. EXTREMITIES: Negative for clubbing, cyanosis. Trace edema. DERMATOLOGIC: No rashes. MUSCULOSKELETAL: No joint effusion. NEUROLOGIC: No change in exam. MEDICATIONS: The patient's medication have been reviewed. LABORATORY DATA: Has been reviewed. IMAGING STUDIES: Have been reviewed. ASSESSMENT AND PLAN: 1. Nonoliguric acute kidney injury on top of chronic kidney disease stage IIIB/IV with a baseline cr eatinine of 1.5 to 2.0 mg/dL. Etiology of acute kidney injury is secondary to acute tubular necrosis due to sepsis, shock. The patient's renal function is improving. The patient appears to be in robert very phase of acute tubular necrosis. At this point, would continue current treatment plan, supporti ve care, renally dose all meds. 2. Hypernatremia, improved. Continue hypotonic fluids. Monitor serum sodium levels closely. 3. Anemia. Monitor hemoglobin and hematocrit levels, transfuse PRBCs as needed. 4. Lactic acidosis secondary to septic shock, improved. 5. Septic shock secondary to pneumonia bacteremia and fungemia. Continue broad spectrum antibiotics , antifungal therapy, continue pressor support, IV fluids. 6. Mixed acid base disorder. The patient had a respiratory alkalosis with metabolic compensation. Continue to monitor. 7. Acute hypoxic respiratory failure. Continue current treatment plan. Continue nebulizer, supplem ental oxygen. 8. Diabetes. Continue current insulin regimen. 9. Thrombocytopenia, likely due to cirrhosis. Continue to monitor. 10. History of heart failure. Monitor closely on IV fluids. 11. Acute encephalopathy, etiology is toxic metabolic. 12. Cirrhosis. Continue current treatment plan. 13. Mineral bone disorder. Monitor calcium and phosphorus levels. Dictated By: KENIA ESTES/NTS Conf#: [id number] DID#: [id number] CC: FLORINDA GONZALEZ MD; JONY BALDWIN MD; FELICIANO DE LUNA MD;*End*
[2019-05-16] MEDS: QUETIAPINE 25 MG TAB PO SCH ×2 (09:00→21:00)
[2019-05-16] MEDS: MIDODRINE 5 MG TAB GTB SCH ×3 (09:00→17:00)
[2019-05-16] MEDS: CITALOPRAM 20 MG TAB PO SCH (09:00)
[2019-05-16] MEDS: MICONAZOLE 2% 30 GM CR TOP SCH ×2 (09:44→21:03)
[2019-05-16] MEDS: MEROPENEM 1 GM/50ML(PMX) 50 ML IVPB SCH ×2 (09:44→21:01)
[2019-05-16] MEDS: FAMOTIDINE 20 MG INJ IV SCH ×2 (09:44→21:01)
--- NOTE | 2019-05-16 11:51 | CONS ---
Consult Date/Type/Reason Admit Date/Time May 10, 2019 at 13:20 Initial Consult Date 05/11/19 Type of Consult Pulmonary Requesting Provider: NIXON MILLER MD Date/Time of Note DATE: 05/16/19 TIME: 11:50 Subjective Patient still has significant respiratory distress. Continue his vasopressors with increased work of breathing. CODE STATUS changed to DNR. Family aware of very poor prognosis but currently not ready to transition to hospice. Objective Vital Signs Date Temp Pulse Resp B/P (MAP) Pulse Ox O2 O2 Flow FiO2 Time Delivery Rate 05/16/19 2.0 09:52 05/16/19 115 08:00 05/16/19 33 87/57 (67) 96 Nasal 07:00 Cannula 05/16/19 98.5 04:00 05/15/19 36 16:55 Intake and Output 05/15/19 05/15/19 05/16/19 1515:00 23:00 07:00 IntakeIntake Total 948.00 ml 1323.46 ml 996.90 ml OutputOutput Total 240 ml 270 ml 140 ml BalanceBalance 708.00 ml 1053.46 ml 856.90 ml Exam PHYSICAL EXAMINATION: GENERAL: A chronically ill-appearing gentleman who appears comfortable at rest, VITAL SIGNS: NECK: Supple. No JVD or lymphadenopathy. CARDIAC: S1, S2, no added sounds or murmurs. CHEST: Diminished air entry bilaterally. ABDOMEN: Soft, nontender. No guarding or rebound. EXTREMITIES: No cyanosis, clubbing, edema. NEUROLOGIC: Generalized weakness. Vent Setting Fraction of Inspired Oxygen pe: 36 Results/Medications Result Diagram: 05/16/19 0444 05/16/19 0444 Results 24 hrs Laboratory Tests Test 05/15/19 13:15 05/15/19 18:10 05/15/19 20:23 05/16/19 01:28 Bedside Glucose 143 82 93 120 Test 05/16/19 04:44 05/16/19 04:54 05/16/19 05:09 05/16/19 09:44 White Blood Count 7.3 Red Blood Count 2.49 L Hemoglobin 7.3 L Hematocrit 23.1 L Mean Corpuscular 92.8 Volume Mean Corpuscular 29.3 Hemoglobin Mean Corpuscular 31.6 L Hemoglobin Concent Red Cell 23.4 H Distribution Width Platelet Count 31 #L Mean Platelet Volume Immature 1.100 H Granulocytes % Neutrophils % Lymphocytes % Monocytes % Eosinophils % Basophils % Nucleated Red Blood 4.0 H Cells % Immature 0.080 H Granulocytes # Neutrophils # Lymphocytes # Monocytes # Eosinophils # Basophils # Nucleated Red Blood Cells # Sodium Level 141 Potassium Level 4.1 Chloride Level 115 H Carbon Dioxide 16 L Level Anion Gap 10 Blood Urea Nitrogen 33 H Creatinine 0.92 Est Glomerular > 60 Filtrat Rate mL/min Glucose Level 308 #H Calcium Level 7.3 L Phosphorus Level 3.2 Magnesium Level 2.0 Lab Scanned Report BLOOD TRANSFUSION Bedside Glucose 118 143 Medications Current Medications Ondansetron HCl (Zofran Inj) 4 mg Q6H PRN IV NAUSEA AND/OR VOMITING; Start 05/10/19 at 14:30 Albuterol (Proventil 0.083% (Neb)) 2.5 mg Q4H RESP THERAPY NEB Last administered on 05/16/19at 04:34; Admin Dose 2.5 MG; Start 05/10/19 at 17:00 Albuterol (Proventil 0.083% (Neb)) 2.5 mg Q2H RESP THERAPY PRN NEB SHORTNESS OF BREATH; Start 05/10/19 at 14:30 Acetaminophen (Tylenol Liquid) 650 mg Q6H PRN PO PAIN LEVEL 1-3 OR FEVER; Start 05/10/19 at 14:30 Acetaminophen (Tylenol Supp) 650 mg Q4H PRN [place] PAIN LEVEL 1-3 OR FEVER; Start 05/10/19 at 14:30 Lorazepam (Ativan) 1 mg Q2H PRN IV ANXIETY Last administered on 05/14/19at 23:48; Admin Dose 1 MG; Start 05/10/19 at 14:30 Docusate Sodium (Colace) 100 mg Q12H PRN PO CONSTIPATION; Start 05/10/19 at 14:30 Magnesium Hydroxide (Milk Of Mag) 30 ml DAILY PRN PO CONSTIPATION; Start 05/10/19 at 14:30 Meropenem/Sodium Chloride 50 ml @ 100 mls/hr Q12 IVPB Last administered on 05/16/19at 09:44; Admin Dose 100 MLS/HR; Start 05/10/19 at 14:30 Citalopram Hydrobromide (Celexa) 40 mg DAILY PO ; Start 05/11/19 at 09:00 Insulin Aspart (Novolog Insulin Pen) NOVOLOG *MILD* ALGORI... Q4 SC Last administered on 05/16/19 09:47; Admin Dose 1 UNIT; Start 05/10/19 at 17:00 Miconazole Nitrate (Miconazole 2% Cr) 1 applic BID TOP Last administered on 05/16/19 09:44; Admin Dose 1 APPLIC; Start 05/10/19 at 21:00 Midodrine (Proamatine) 5 mg TID@09,13,17 GTB ; Start 05/10/19 at 17:00 Quetiapine Fumarate (Seroquel) 25 mg BID PO ; Start 05/10/19 at 21:00 Norepinephrine 250 ml @ 1.875 mls/ hr TITRATE IV Last administered on 05/13/19 09:49; Admin Dose 7.5 MLS/HR; Start 05/10/19 at 16:30 IV Flush (NS 10 ml) 10 ml PRN PRN IV FLUSH LINE; Start 05/10/19 at 19:00 Phenylephrine HCl 80 mg/Dextrose 250 ml @ 18.75 mls/ hr TITRATE IV Last administered on 05/16/19 01:36; Admin Dose 24.38 MLS/HR; Start 05/11/19 at 15:30 Haloperidol (Haldol) 2 mg Q4H PRN IM agitation Last administered on 05/14/19 22:40; Admin Dose 2 MG; Start 05/11/19 at 19:30 Ferric Sodium Gluconate Complex 125 mg/Sodium Chloride 110 ml @ 110 mls/hr DAILY@1300 IVPB Last administered on 05/15/19 13:44; Admin Dose 110 MLS/HR; Start 05/14/19 at 13:00; Stop 05/18/19 at 13:59 Caspofungin 50 mg/ Sodium Chloride 250 ml @ 250 mls/hr Q24H IVPB Last administered on 05/15/19 18:06; Admin Dose 250 MLS/HR; Start 05/15/19 at 16:00 Dextrose/Sodium Chloride 1,000 ml @ 100 mls/hr Q10H IV Last administered on 04:14; Admin Dose 100 MLS/HR; Start 05/15/19 at 08:00 Famotidine (Pepcid Iv) 20 mg BID IV Last administered on 7/3/19at 09:44; Admin Dose 20 MG; Start 05/15/19 at 10:00 Morphine Sulfate (morphine) 1 mg Q2H PRN IV SEVERE PAIN LEVEL 7-10 Last administered on 05/16/19at 09:51; Admin Dose 1 MG; Start 05/15/19 at 14:30 Assessment/Plan Hospital Course (Demo Recall) IMPRESSION AND PLAN: 1. Hypoxemic respiratory failure, likely secondary to aspiration pneumonia. Dense right sided pneumonia. 2. Septic shock secondary to above. 3. Thrombocytopenia, possibly secondary to underlying sepsis. 4. Encephalopathy, toxic metabolic with prior history of CVA. 5. History of mechanical aortic valve. 6. History of AICD placement with cardiopulmonary arrest. Plan 1. Continued vasopressor support. 2. Broad-spectrum antibiotics. 3. Aspiration precautions. Speech therapy recommendations. 4. Anticoagulation as tolerated. 5. Consider hematology/oncology evaluation for thrombocytopenia. Status post platelet transfusion. 6. DVT and GI prophylaxis. Critical care time 40 minutes. Palliative care consult regarding goals of care. Continue supportive care. DNR noted. KAYLAN MIN MD, [facility] May 16, 2019 11:51
--- NOTE | 2019-05-16 11:51 | CONS ---
Assessment/Plan Assessment/Plan Hospital Course (Demo Recall) No acute changes overnight patient is on noncommunicative sleeping in no distress afebrile still on pressors WBC 7.3 platelets 31 BUN 33 creatinine 0.92 Antimicrobials: Cancidas meropenem Microbiology: Blood culture on admission grew Klebsiella pneumoniae ESBL repeat blood culture growing yeast 1 out of 2 bottles Indwelling: Patino AICD, PICC line Physical examination: Chronically ill-appearing elderly man who is in no distress. Head atraumatic normocephalic neck is supple chest rise symmetrical breath sounds diminished bases heart: S1-S2 abdomen soft bowel sounds present extremities with trace edema Assessment: 1. Sepsis with shock 2. Acute hypoxemic respiratory failure 3. Gram-negative bacteremia and fungemia ?SBE ?SBP vs pulmonary 3. Healthcare associated pneumonia possibly aspirated 4. Anemia 5. Thrombocytopenia 6. Diabetes 7. Atrial fibrillation 8. Liver cirrhosis with ascites, rule out SBP 9. Coronary artery disease, status post AVR Plan: Clinically unchanged, continue antibiotics, await for final and repeat bld cultures, consider CHRISTIANO and diagnostic paracentesis Consultation Date/Type/Reason Admit Date/Time May 10, 2019 at 13:20 Initial Consult Date 05/11/19 Type of Consult id Requesting Provider: NIXON MILLER MD Date/Time of Note DATE: 05/16/19 TIME: 11:49 Exam/Review of Systems Exam Vitals Vital Signs Date Temp Pulse Resp B/P (MAP) Pulse Ox O2 O2 Flow FiO2 Time Delivery Rate 05/16/19 2.0 09:52 05/16/19 115 08:00 05/16/19 33 87/57 (67) 96 Nasal 07:00 Cannula 05/16/19 98.5 04:00 05/15/19 36 16:55 Intake and Output 05/15/19 05/15/19 05/16/19 1515:00 23:00 07:00 IntakeIntake Total 948.00 ml 1323.46 ml 996.90 ml OutputOutput Total 240 ml 270 ml 140 ml BalanceBalance 708.00 ml 1053.46 ml 856.90 ml Results Result Diagram: 05/16/19 0444 05/16/19 0444 Results 24hrs Laboratory Tests Test 05/15/19 13:15 05/15/19 18:10 05/15/19 20:23 05/16/19 01:28 Bedside Glucose 143 82 93 120 Test 05/16/19 04:44 05/16/19 04:54 05/16/19 05:09 05/16/19 09:44 White Blood Count 7.3 Red Blood Count 2.49 L Hemoglobin 7.3 L Hematocrit 23.1 L Mean Corpuscular 92.8 Volume Mean Corpuscular 29.3 Hemoglobin Mean Corpuscular 31.6 L Hemoglobin Concent Red Cell 23.4 H Distribution Width Platelet Count 31 #L Mean Platelet Volume Immature 1.100 H Granulocytes % Neutrophils % Lymphocytes % Monocytes % Eosinophils % Basophils % Nucleated Red Blood 4.0 H Cells % Immature 0.080 H Granulocytes # Neutrophils # Lymphocytes # Monocytes # Eosinophils # Basophils # Nucleated Red Blood Cells # Sodium Level 141 Potassium Level 4.1 Chloride Level 115 H Carbon Dioxide 16 L Level Anion Gap 10 Blood Urea Nitrogen 33 H Creatinine 0.92 Est Glomerular > 60 Filtrat Rate mL/min Glucose Level 308 #H Calcium Level 7.3 L Phosphorus Level 3.2 Magnesium Level 2.0 Lab Scanned Report BLOOD TRANSFUSION Bedside Glucose 118 143 Medications Medication Current Medications Ondansetron HCl (Zofran Inj) 4 mg Q6H PRN IV NAUSEA AND/OR VOMITING; Start 05/10/19 at 14:30 Albuterol (Proventil 0.083% (Neb)) 2.5 mg Q4H RESP THERAPY NEB Last administered on 05/16/19at 04:34; Admin Dose 2.5 MG; Start 05/10/19 at 17:00 Albuterol (Proventil 0.083% (Neb)) 2.5 mg Q2H RESP THERAPY PRN NEB SHORTNESS OF BREATH; Start 05/10/19 at 14:30 Acetaminophen (Tylenol Liquid) 650 mg Q6H PRN PO PAIN LEVEL 1-3 OR FEVER; Start 05/10/19 at 14:30 Acetaminophen (Tylenol Supp) 650 mg Q4H PRN [place] PAIN LEVEL 1-3 OR FEVER; Start 05/10/19 at 14:30 Lorazepam (Ativan) 1 mg Q2H PRN IV ANXIETY Last administered on 05/14/19at 23:48; Admin Dose 1 MG; Start 05/10/19 at 14:30 Docusate Sodium (Colace) 100 mg Q12H PRN PO CONSTIPATION; Start 05/10/19 at 14:30 Magnesium Hydroxide (Milk Of Mag) 30 ml DAILY PRN PO CONSTIPATION; Start 05/10/19 at 14:30 Meropenem/Sodium Chloride 50 ml @ 100 mls/hr Q12 IVPB Last administered on 05/16/19 09:44; Admin Dose 100 MLS/HR; Start 05/10/19 at 14:30 Citalopram Hydrobromide (Celexa) 40 mg DAILY PO ; Start 05/11/19 at 09:00 Insulin Aspart (Novolog Insulin Pen) NOVOLOG *MILD* ALGORI... Q4 SC Last administered on 05/16/19 09:47; Admin Dose 1 UNIT; Start 05/10/19 at 17:00 Miconazole Nitrate (Miconazole 2% Cr) 1 applic BID TOP Last administered on 05/16/19 09:44; Admin Dose 1 APPLIC; Start 05/10/19 at 21:00 Midodrine (Proamatine) 5 mg TID@09,13,17 GTB ; Start 05/10/19 at 17:00 Quetiapine Fumarate (Seroquel) 25 mg BID PO ; Start 05/10/19 at 21:00 Norepinephrine 250 ml @ 1.875 mls/ hr TITRATE IV Last administered on 05/13/19 09:49; Admin Dose 7.5 MLS/HR; Start 05/10/19 at 16:30 IV Flush (NS 10 ml) 10 ml PRN PRN IV FLUSH LINE; Start 05/10/19 at 19:00 Phenylephrine HCl 80 mg/Dextrose 250 ml @ 18.75 mls/ hr TITRATE IV Last administered on 05/16/19 01:36; Admin Dose 24.38 MLS/HR; Start 05/11/19 at 15:30 Haloperidol (Haldol) 2 mg Q4H PRN IM agitation Last administered on 05/14/19at 22:40; Admin Dose 2 MG; Start 05/11/19 at 19:30 Ferric Sodium Gluconate Complex 125 mg/Sodium Chloride 110 ml @ 110 mls/hr DAILY@1300 IVPB Last administered on 05/15/19 13:44; Admin Dose 110 MLS/HR; Start 05/14/19 at 13:00; Stop 05/18/19 at 13:59 Caspofungin 50 mg/ Sodium Chloride 250 ml @ 250 mls/hr Q24H IVPB Last administered on 05/15/19 18:06; Admin Dose 250 MLS/HR; Start 05/15/19 at 16:00 Dextrose/Sodium Chloride 1,000 ml @ 100 mls/hr Q10H IV Last administered on 05/16/19 04:14; Admin Dose 100 MLS/HR; Start 05/15/19 at 08:00 Famotidine (Pepcid Iv) 20 mg BID IV Last administered on 05/16/19 09:44; Admin Dose 20 MG; Start 05/15/19 at 10:00 Morphine Sulfate (morphine) 1 mg Q2H PRN IV SEVERE PAIN LEVEL 7-10 Last administered on 05/16/19 09:51; Admin Dose 1 MG; Start 05/15/19 at 14:30 JOLENE ELIZABETH NP May 16, 2019 11:50
--- NOTE | 2019-05-16 12:57 | PN ---
Date/Time of Note Date/Time of Note DATE: 05/16/19 TIME: 12:56 Objective Vitals Vital Signs Date Temp Pulse Resp B/P (MAP) Pulse Ox O2 O2 Flow FiO2 Time Delivery Rate 05/16/19 88 30 98 Nasal 3.0 12:25 Cannula 05/16/19 87/57 (67) 07:00 05/16/19 98.5 04:00 05/15/19 36 16:55 Intake and Output 05/15/19 05/15/19 05/16/19 1414:59 22:59 06:59 IntakeIntake Total 941.75 ml 1299.08 ml 1002.53 ml OutputOutput Total 240 ml 260 ml 180 ml BalanceBalance 701.75 ml 1039.08 ml 822.53 ml Results Result Diagram: 05/16/1944305/16/194 Medications Medications Current Medications Ondansetron HCl (Zofran Inj) 4 mg Q6H PRN IV NAUSEA AND/OR VOMITING; Start 05/10/19 at 14:30 Albuterol (Proventil 0.083% (Neb)) 2.5 mg Q4H RESP THERAPY NEB Last administered on 05/16/19at 12:25; Admin Dose 2.5 MG; Start 05/10/19 at 17:00 Albuterol (Proventil 0.083% (Neb)) 2.5 mg Q2H RESP THERAPY PRN NEB SHORTNESS OF BREATH; Start 05/10/19 at 14:30 Acetaminophen (Tylenol Liquid) 650 mg Q6H PRN PO PAIN LEVEL 1-3 OR FEVER; Start 05/10/19 at 14:30 Acetaminophen (Tylenol Supp) 650 mg Q4H PRN [place] PAIN LEVEL 1-3 OR FEVER; Start 05/10/19 at 14:30 Lorazepam (Ativan) 1 mg Q2H PRN IV ANXIETY Last administered on 05/14/19at 23:48; Admin Dose 1 MG; Start 05/10/19 at 14:30 Docusate Sodium (Colace) 100 mg Q12H PRN PO CONSTIPATION; Start 05/10/19 at 14:30 Magnesium Hydroxide (Milk Of Mag) 30 ml DAILY PRN PO CONSTIPATION; Start 05/10/19 at 14:30 Meropenem/Sodium Chloride 50 ml @ 100 mls/hr Q12 IVPB Last administered on 09:44; Admin Dose 100 MLS/HR; Start 05/10/19 at 14:30 Citalopram Hydrobromide (Celexa) 40 mg DAILY PO ; Start 05/11/19 at 09:00 Insulin Aspart (Novolog Insulin Pen) NOVOLOG *MILD* ALGORI... Q4 SC Last administered on 05/16/19 09:47; Admin Dose 1 UNIT; Start 05/10/19 at 17:00 Miconazole Nitrate (Miconazole 2% Cr) 1 applic BID TOP Last administered on 05/16/19 09:44; Admin Dose 1 APPLIC; Start 05/10/19 at 21:00 Midodrine (Proamatine) 5 mg TID@09,13,17 GTB ; Start 05/10/19 at 17:00 Quetiapine Fumarate (Seroquel) 25 mg BID PO ; Start 05/10/19 at 21:00 Norepinephrine 250 ml @ 1.875 mls/ hr TITRATE IV Last administered on 05/13/19 09:49; Admin Dose 7.5 MLS/HR; Start 05/10/19 at 16:30 IV Flush (NS 10 ml) 10 ml PRN PRN IV FLUSH LINE; Start 05/10/19 at 19:00 Phenylephrine HCl 80 mg/Dextrose 250 ml @ 18.75 mls/ hr TITRATE IV Last administered on 05/16/19 01:36; Admin Dose 24.38 MLS/HR; Start 05/11/19 at 15:30 Haloperidol (Haldol) 2 mg Q4H PRN IM agitation Last administered on 05/14/19at 22:40; Admin Dose 2 MG; Start 05/11/19 at 19:30 Ferric Sodium Gluconate Complex 125 mg/Sodium Chloride 110 ml @ 110 mls/hr DAILY@1300 IVPB Last administered on 05/15/19 13:44; Admin Dose 110 MLS/HR; Start 05/14/19 at 13:00; Stop 05/18/19 at 13:59 Caspofungin 50 mg/ Sodium Chloride 250 ml @ 250 mls/hr Q24H IVPB Last administered on 05/15/19 18:06; Admin Dose 250 MLS/HR; Start 05/15/19 at 16:00 Dextrose/Sodium Chloride 1,000 ml @ 100 mls/hr Q10H IV Last administered on 05/16/19at 04:14; Admin Dose 100 MLS/HR; Start 05/15/19 at 08:00 Famotidine (Pepcid Iv) 20 mg BID IV Last administered on 05/16/19at 09:44; Admin Dose 20 MG; Start 05/15/19 at 10:00 Morphine Sulfate (morphine) 1 mg Q2H PRN IV SEVERE PAIN LEVEL 7-10 Last administered on 05/16/19at 09:51; Admin Dose 1 MG; Start 05/15/19 at 14:30 VTE Prophylaxis Risk score (from Ns)>0 risk: 12 SCD applied ([place] [facility] [place] Lines/Catheters IV Catheter Type: Sutton in Place: Yes Cont'd sutton catheter reason: terminal illness/intractable pain Assessment/Plan Hospital Course Subjective No acute changes, patient still on pressors, antibiotics, antifungals, still encephalopathic Objective Physical exam General: Patient is laying in bed laying down, not responsive except for not purposeful movements and agitation mentation: Patient is occasionally arousable however is not oriented, Head: Normocephalic atraumatic Eyes: EOMI, pupils reactive to light Neck: Supple, nontender, midline Respiratory: Coarse to auscultation bilaterally Cardiovascular: Regular rate, no obvious murmurs Gastrointestinal: non-tender to palpation, bowel sounds heard. Neurological: Moves all extremities spontaneously Skin: No new skin lesions Assessment/Plan Septic shock, secondary to pneumonia, bacteremia, and fungemia - Will wean off pressors as tolerated. - continue IV antibiotics, iv antifungals Acute respiratory failure secondary to pneumonia - Speech on board for evaluation of aspiration risk - continue neb tx and monitoring saturations. tolerating NC Acute on chronic toxic metabolic encephalopathy -Patient's baseline on admission was not being able to converse however was able to eat if being spoon fed -We will not be able to fully evaluate patient's mental status until bacteremia and fungemia and pneumonia has resolved -monitor closely -Patient extremely agitated at times causing to be tachycardic, tested a low dose of morphine and patient responded well with reduction in heart rate and moaning, patient's understands the risks of using morphine as needed with respiratory depression, patient's accepts these risks and wants patient to be comfortable. Unsustained V. tach -Cardiology on board -AICD interrogation -Monitor closely, cardiology recognitions appreciated Pneumonia, likely aspiration - Pulm on board and appreciate recommendations - continue on steroids and antibiotics - ID consulted and appreciate recommendations WONG on CKD-resolved - Nephrology consultation appreciated - most likely secondary to ATN from septic shock and cardiorenal Hypernatremia - IVF changed - Nephrology on board and assisting with fluid management Anemia - GI consultation appreciated -Transfuse as needed per GI recommendations - holding coumadin K. Pneumonia ESBL Bacteremia - ID on board and appreciate recommendations - Repeat blood cx noted - iv abx Atrial fibrillation - rate controlled - holding anticoagulation in setting of anemia and thrombocytopenia Thrombocytopenia -Persistently low -Patient at high risk of bleed, transfuse platelets as needed - hold warfarin HTN - holding home meds in setting of hypotension Acute on chronic systolic heart failure - will hold diuretics given low BP and resume when stable - ECHO noted with EF 40% Diabetes Mellitus - A1c noted - ISS and accuchecks Disposition - Continue monitoring in ICU and wean off pressors as tolerated. Patient not getting adequate nutrition, expressed concern with patient's family, patient unable to get NG tube or Dobbhoff secondary to patient will definitely pull it out, family will make decision whether or not they want to start TPN, family aware that starting TPN may further exacerbate the fungemia and bacteremia. -Overall patient has a very poor prognosis, palliative care physician on board. >40 minutes of critical care time spent with patient FELICIANO DE LUNA May 16, 2019 12:57
[2019-05-16] MEDS: SOD FERRIC GLUC COMPLX 125 MG in SOD CHLORIDE 0.9% 100 ML IVPB SCH (14:33)
--- NOTE | 2019-05-16 16:03 | PN ---
Date/Time of Note Date/Time of Note DATE: 05/16/19 TIME: 15:51 Assessment/Plan VTE Prophylaxis Risk score (from Ns)>0 risk: 9 SCD applied (from [facility] [place] No SCD contraindicated: other (scds) Pharmacological prophylaxis: other (scds) Lines/Catheters IV Catheter Type (from [facility]): Urinary Cath still in place: Yes Reason Cath still needed: other (indicate) (monitor output) Assessment/Plan Hospital Course Assessment/Plan Assessment: Septic shock -2/2 to PNA/bacteremia -Remains in ICU on pressors Pneumonia Bacteremia Acute on chronic anemia -Positive occult blood test Liver cirrhosis with a small to moderate amount of ascites. Thrombocytopenia Hyperbilirubinemia- likely 2/2 to hepatocellular disease -US- The common bile duct measures 3 mm in maximal dimension. Coagulopathy- improved Diabetes mellitus Congestive heart failure AICD Cholelithiasis Plan: Monitor H/H- will recheck in am Continue Pepcid BID No endoscopic interventions at this time- pt would not be able to tolerate prep or procedure- no overt signs of GI bleed - risks currently out-weight benefits- will maintain close observation. Unable to obtain MRCP as patient has a PM- abd US shows CBD WNL- Patient seen in collaboration Dr. Freedman Subjective: Patient remains in ICU, CODE STATUS changed to DNR. Family aware of very poor prognosis. Pt with poor PO intake. PHYSICAL EXAMINATION: GENERAL: Alert & confused, with some resp distress SKIN: No lesions, pallor, multiple areas of ecchymosis, no stigmata chronic liver disease, no evidence of bleeding diathesis EARS/NOSE AND THROAT: Ears normal, nose normal. NECK: Supple, no masses. CHEST: Inspection within normal limits. CARDIOVASCULAR: Heart: Regular rate and rhythm, RESPIRATORY: Coarse lung sounds GASTROINTESTINAL AND LIVER: Abdomen: Soft, questionable tenderness -patient screams with any stimuli, non-distended, no hernias, no masses, no organomegaly, no ascites, no guarding, no rebound tenderness, normoactive bowel sounds. Rectal: Deferred. GENITOURINARY: Patino in place Result Diagram: 05/16/19 0444 05/16/19 0444 Results 24hrs Laboratory Tests Test 05/15/19 18:10 05/15/19 20:23 05/16/19 01:28 05/16/19 04:44 Bedside Glucose 82 93 120 White Blood Count 7.3 Red Blood Count 2.49 L Hemoglobin 7.3 L Hematocrit 23.1 L Mean Corpuscular 92.8 Volume Mean Corpuscular 29.3 Hemoglobin Mean Corpuscular 31.6 L Hemoglobin Concen t Red Cell 23.4 H Distribution Width Platelet Count 31 #L Mean Platelet Volume Immature 1.100 H Granulocytes % Neutrophils % Segmented 78 H Neutrophils % (Manual) Band Neutrophils 10 H % (Manual) Lymphocytes % Lymphocytes % 7 L (Manual) Monocytes % Monocytes % 5 (Manual) Eosinophils % Basophils % Nucleated Red 2 H Blood Cells % Immature 0.080 H Granulocytes # Neutrophils # Neutrophils # 5.7 (Manual) Band Neutrophils 0.7 H # Lymphocytes 0.5 L (Manual) Lymphocytes # Monocytes # Monocytes # 0.3 (Manual) Eosinophils # Basophils # Nucleated Red Blood Cells # Platelet Estimate SIG DECREASED Polychromasia 1+ Poikilocytosis 3+ Anisocytosis 2+ Macrocytosis 2+ Sodium Level 141 Potassium Level 4.1 Chloride Level 115 H Carbon Dioxide 16 L Level Anion Gap 10 Blood Urea 33 H Nitrogen Creatinine 0.92 Est Glomerular > 60 Filtrat Rate mL/min Glucose Level 308 #H Calcium Level 7.3 L Phosphorus Level 3.2 Magnesium Level 2.0 Test 05/16/19 04:54 05/16/19 05:09 05/16/19 09:44 05/16/19 14:28 Lab Scanned BLOOD TRANSFUSIO Report N Bedside Glucose 118 143 128 Exam/Review of Systems Exam Vitals Vital Signs Date Temp Pulse Resp B/P (MAP) Pulse Ox O2 O2 Flow FiO2 Time Delivery Rate 05/16/19 88 30 98 Nasal 3.0 12:25 Cannula 05/16/19 87/57 (67) 07:00 05/16/19 98.5 04:00 05/15/19 36 16:55 Intake and Output 05/15/19 05/15/19 05/16/19 1515:00 23:00 07:00 IntakeIntake Total 948.00 ml 1323.46 ml 996.90 ml OutputOutput Total 240 ml 270 ml 140 ml BalanceBalance 708.00 ml 1053.46 ml 856.90 ml Results Results 24hrs Laboratory Tests Test 05/15/19 18:10 05/15/19 20:23 05/16/19 01:28 05/16/19 04:44 Bedside Glucose 82 93 120 White Blood Count 7.3 Red Blood Count 2.49 L Hemoglobin 7.3 L Hematocrit 23.1 L Mean Corpuscular 92.8 Volume Mean Corpuscular 29.3 Hemoglobin Mean Corpuscular 31.6 L Hemoglobin Concen t Red Cell 23.4 H Distribution Width Platelet Count 31 #L Mean Platelet Volume Immature 1.100 H Granulocytes % Neutrophils % Segmented 78 H Neutrophils % (Manual) Band Neutrophils 10 H % (Manual) Lymphocytes % Lymphocytes % 7 L (Manual) Monocytes % Monocytes % 5 (Manual) Eosinophils % Basophils % Nucleated Red 2 H Blood Cells % Immature 0.080 H Granulocytes # Neutrophils # Neutrophils # 5.7 (Manual) Band Neutrophils 0.7 H # Lymphocytes 0.5 L (Manual) Lymphocytes # Monocytes # Monocytes # 0.3 (Manual) Eosinophils # Basophils # Nucleated Red Blood Cells # Platelet Estimate SIG DECREASED Polychromasia 1+ Poikilocytosis 3+ Anisocytosis 2+ Macrocytosis 2+ Sodium Level 141 Potassium Level 4.1 Chloride Level 115 H Carbon Dioxide 16 L Level Anion Gap 10 Blood Urea 33 H Nitrogen Creatinine 0.92 Est Glomerular > 60 Filtrat Rate mL/min Glucose Level 308 #H Calcium Level 7.3 L Phosphorus Level 3.2 Magnesium Level 2.0 Test 05/16/19 04:54 05/16/19 05:09 05/16/19 09:44 05/16/19 14:28 Lab Scanned BLOOD TRANSFUSIO Report N Bedside Glucose 118 143 128 Medications Medication Current Medications Ondansetron HCl (Zofran Inj) 4 mg Q6H PRN IV NAUSEA AND/OR VOMITING; Start 05/10/19 at 14:30 Albuterol (Proventil 0.083% (Neb)) 2.5 mg Q4H RESP THERAPY NEB Last administered on 05/16/19at 12:25; Admin Dose 2.5 MG; Start 05/10/19 at 17:00 Albuterol (Proventil 0.083% (Neb)) 2.5 mg Q2H RESP THERAPY PRN NEB SHORTNESS OF BREATH; Start 05/10/19 at 14:30 Acetaminophen (Tylenol Liquid) 650 mg Q6H PRN PO PAIN LEVEL 1-3 OR FEVER; Start 05/10/19 at 14:30 Acetaminophen (Tylenol Supp) 650 mg Q4H PRN [place] PAIN LEVEL 1-3 OR FEVER; Start 05/10/19 at 14:30 Lorazepam (Ativan) 1 mg Q2H PRN IV ANXIETY Last administered on 05/14/19 23:48; Admin Dose 1 MG; Start 05/10/19 at 14:30 Docusate Sodium (Colace) 100 mg Q12H PRN PO CONSTIPATION; Start 05/10/19 at 14:30 Magnesium Hydroxide (Milk Of Mag) 30 ml DAILY PRN PO CONSTIPATION; Start 05/10/19 at 14:30 Meropenem/Sodium Chloride 50 ml @ 100 mls/hr Q12 IVPB Last administered on 05/16/19 09:44; Admin Dose 100 MLS/HR; Start 05/10/19 at 14:30 Citalopram Hydrobromide (Celexa) 40 mg DAILY PO ; Start 05/11/19 at 09:00 Insulin Aspart (Novolog Insulin Pen) NOVOLOG *MILD* ALGORI... Q4 SC Last administered on 05/16/19 09:47; Admin Dose 1 UNIT; Start 05/10/19 at 17:00 Miconazole Nitrate (Miconazole 2% Cr) 1 applic BID TOP Last administered on 05/16/19 09:44; Admin Dose 1 APPLIC; Start 05/10/19 at 21:00 Midodrine (Proamatine) 5 mg TID@09,13,17 GTB ; Start 05/10/19 at 17:00 Quetiapine Fumarate (Seroquel) 25 mg BID PO ; Start 05/10/19 at 21:00 Norepinephrine 250 ml @ 1.875 mls/ hr TITRATE IV Last administered on 05/13/19 09:49; Admin Dose 7.5 MLS/HR; Start 05/10/19 at 16:30 IV Flush (NS 10 ml) 10 ml PRN PRN IV FLUSH LINE; Start 05/10/19 at 19:00 Phenylephrine HCl 80 mg/Dextrose 250 ml @ 18.75 mls/ hr TITRATE IV Last administered on 05/16/19 14:32; Admin Dose 18.75 MLS/HR; Start 05/11/19 at 15:30 Haloperidol (Haldol) 2 mg Q4H PRN IM agitation Last administered on 05/14/19 22:40; Admin Dose 2 MG; Start 05/11/19 at 19:30 Ferric Sodium Gluconate Complex 125 mg/Sodium Chloride 110 ml @ 110 mls/hr DAILY@1300 IVPB Last administered on 05/16/19at 14:33; Admin Dose 110 MLS/HR; Start 05/14/19 at 13:00; Stop 05/18/19 at 13:59 Caspofungin 50 mg/ Sodium Chloride 250 ml @ 250 mls/hr Q24H IVPB Last administered on 05/15/19at 18:06; Admin Dose 250 MLS/HR; Start 05/15/19 at 16:00 Dextrose/Sodium Chloride 1,000 ml @ 100 mls/hr Q10H IV Last administered on 05/16/19at 04:14; Admin Dose 100 MLS/HR; Start 05/15/19 at 08:00 Famotidine (Pepcid Iv) 20 mg BID IV Last administered on 05/16/19at 09:44; Admin Dose 20 MG; Start 05/15/19 at 10:00 Morphine Sulfate (morphine) 1 mg Q2H PRN IV SEVERE PAIN LEVEL 7-10 Last administered on 05/16/19at 09:51; Admin Dose 1 MG; Start 05/15/19 at 14:30 GAY BUTT May 16, 2019 16:01
--- NOTE | 2019-05-16 16:59 | CONS ---
Assessment/Plan Assessment/Plan Assessment/Plan (Daily) Reviewed medical records and spoke with patient's critical care nurses. There are no family members at the bedside. Patient is in the intensive care unit [facility]. He sustained cardiac arrest sometimes prior to this hospitalization has been moribund and encephalopathic since that time. Patient is in the ICU from [facility] with septic shock on broad-spectrum IV antibiotic coverage, acute respiratory failure intubated undergoing trials of weaning. Pneumonia healthcare acquired versus aspiration receiving broad- spectrum IV antibiotic coverage and pulmonary toilet, acute kidney injury on hemodialysis, fluid and electrolyte abnormalities, type 2 diabetes, history of atrial fibrillation, status post a ICD placement, hyperbilirubinemia, hypertension, malnutrition, severe anoxic encephalopathy. Once again family members not available at patient's bedside and in reading no mariam from patient's primary care team overall prognosis is extremely poor vision is a DO NOT RESUSCITATE. Speaking with patient's nurses there are psychosocial issues which have been addressed by the staff however there is a family member who will be wed within the next few days and family members are not interested in comfort measures at this time as I have been told. I have seen family members in the room on occasion I will contact them through social work service and schedule a family conference. Consultation Date/Type/Reason Admit Date/Time May 10, 2019 at 13:20 Date/Time of Note DATE: 05/16/19 TIME: 16:58 Past Medical History Medical History: congestive heart failure, diabetes, hypertension, other (Diabetes, hypertension, paroxysmal atrial fibrillation, systolic congestive heart failure with AICD in place, and CAD with mechanical aortic valve 2002, and anoxic brain injury) Medications Current Medications Ondansetron HCl (Zofran Inj) 4 mg Q6H PRN IV NAUSEA AND/OR VOMITING; Start 05/10/19 at 14:30 Albuterol (Proventil 0.083% (Neb)) 2.5 mg Q4H RESP THERAPY NEB Last administered on 05/16/19at 12:25; Admin Dose 2.5 MG; Start 05/10/19 at 17:00 Albuterol (Proventil 0.083% (Neb)) 2.5 mg Q2H RESP THERAPY PRN NEB SHORTNESS OF BREATH; Start 05/10/19 at 14:30 Acetaminophen (Tylenol Liquid) 650 mg Q6H PRN PO PAIN LEVEL 1-3 OR FEVER; Start 05/10/19 at 14:30 Acetaminophen (Tylenol Supp) 650 mg Q4H PRN ID PAIN LEVEL 1-3 OR FEVER; Start 05/10/19 at 14:30 Lorazepam (Ativan) 1 mg Q2H PRN IV ANXIETY Last administered on 05/14/19at 23:48; Admin Dose 1 MG; Start 05/10/19 at 14:30 Docusate Sodium (Colace) 100 mg Q12H PRN PO CONSTIPATION; Start 05/10/19 at 14:30 Magnesium Hydroxide (Milk Of Mag) 30 ml DAILY PRN PO CONSTIPATION; Start 05/10/19 at 14:30 Meropenem/Sodium Chloride 50 ml @ 100 mls/hr Q12 IVPB Last administered on 05/16/19 09:44; Admin Dose 100 MLS/HR; Start 05/10/19 at 14:30 Citalopram Hydrobromide (Celexa) 40 mg DAILY PO ; Start 05/11/19 at 09:00 Insulin Aspart (Novolog Insulin Pen) NOVOLOG *MILD* ALGORI... Q4 SC Last administered on 05/16/19 09:47; Admin Dose 1 UNIT; Start 05/10/19 at 17:00 Miconazole Nitrate (Miconazole 2% Cr) 1 applic BID TOP Last administered on 05/16/19 09:44; Admin Dose 1 APPLIC; Start 05/10/19 at 21:00 Midodrine (Proamatine) 5 mg TID@09,13,17 GTB ; Start 05/10/19 at 17:00 Quetiapine Fumarate (Seroquel) 25 mg BID PO ; Start 05/10/19 at 21:00 Norepinephrine 250 ml @ 1.875 mls/ hr TITRATE IV Last administered on 05/13/19 09:49; Admin Dose 7.5 MLS/HR; Start 05/10/19 at 16:30 IV Flush (NS 10 ml) 10 ml PRN PRN IV FLUSH LINE; Start 05/10/19 at 19:00 Phenylephrine HCl 80 mg/Dextrose 250 ml @ 18.75 mls/ hr TITRATE IV Last administered on 05/16/19at 14:32; Admin Dose 18.75 MLS/HR; Start 05/11/19 at 15:30 Haloperidol (Haldol) 2 mg Q4H PRN IM agitation Last administered on 05/14/19 22:40; Admin Dose 2 MG; Start 05/11/19 at 19:30 Ferric Sodium Gluconate Complex 125 mg/Sodium Chloride 110 ml @ 110 mls/hr DAILY@1300 IVPB Last administered on 05/16/19 14:33; Admin Dose 110 MLS/HR; Start 05/14/19 at 13:00; Stop 05/18/19 at 13:59 Caspofungin 50 mg/ Sodium Chloride 250 ml @ 250 mls/hr Q24H IVPB Last administered on 05/15/19 18:06; Admin Dose 250 MLS/HR; Start 05/15/19 at 16:00 Dextrose/Sodium Chloride 1,000 ml @ 100 mls/hr Q10H IV Last administered on 05/16/19 04:14; Admin Dose 100 MLS/HR; Start 05/15/19 at 08:00 Famotidine (Pepcid Iv) 20 mg BID IV Last administered on 05/16/19 09:44; Admin Dose 20 MG; Start 05/15/19 at 10:00 Morphine Sulfate (morphine) 1 mg Q2H PRN IV SEVERE PAIN LEVEL 7-10 Last administered on 05/16/19 09:51; Admin Dose 1 MG; Start 05/15/19 at 14:30 Allergies: Coded Allergies: No Known Allergy (Unverified , 05/10/19) Past Surgical History Past Surgical Hx: other (aortic valve surgery ) Social History Alcohol Use: none Smoking Status: Never smoker Drug Use: none Exam/Review of Systems Exam Vitals Vital Signs Date Temp Pulse Resp B/P (MAP) Pulse Ox O2 O2 Flow FiO2 Time Delivery Rate 05/16/19 87 32 110/71 100 Nasal 12:30 (84) Cannula 05/16/19 3.0 12:25 05/16/19 97.9 12:00 05/15/19 36 16:55 Intake and Output 05/15/19 05/15/19 05/16/19 1515:00 23:00 07:00 IntakeIntake Total 948.00 ml 1323.46 ml 996.90 ml OutputOutput Total 240 ml 270 ml 140 ml BalanceBalance 708.00 ml 1053.46 ml 856.90 ml Constitutional: non-verbal, distress, frail Psych: other (Obtunded) Eyes: icteric Respiratory: congested cough, crackles/rales, labored breathing Cardiovascular: No regular rate and rhythm, No nl pulses, No bruits, No diastolic murmur, No edema, No gallop, No irregular rhythm, No jugular venous distention (JVD), No murmurs/extra sounds, No rub, No systolic murmur, No S3, No S4, No other Gastrointestinal: other (Grossly unremarkable) Neurological: other (Nonresponsive to any verbal or tactile stimulation, does not follow simple commands, overbreathing the ventilator sluggish oculocephalics.) Results Result Diagram: 05/16/19 0444 05/16/19 0444 Results 24hrs Laboratory Tests Test 05/15/19 18:10 05/15/19 20:23 05/16/19 01:28 05/16/19 04:44 Bedside Glucose 82 93 120 White Blood Count 7.3 Red Blood Count 2.49 L Hemoglobin 7.3 L Hematocrit 23.1 L Mean Corpuscular 92.8 Volume Mean Corpuscular 29.3 Hemoglobin Mean Corpuscular 31.6 L Hemoglobin Concen t Red Cell 23.4 H Distribution Width Platelet Count 31 #L Mean Platelet Volume Immature 1.100 H Granulocytes % Neutrophils % Segmented 78 H Neutrophils % (Manual) Band Neutrophils 10 H % (Manual) Lymphocytes % Lymphocytes % 7 L (Manual) Monocytes % Monocytes % 5 (Manual) Eosinophils % Basophils % Nucleated Red 2 H Blood Cells % Immature 0.080 H Granulocytes # Neutrophils # Neutrophils # 5.7 (Manual) Band Neutrophils 0.7 H # Lymphocytes 0.5 L (Manual) Lymphocytes # Monocytes # Monocytes # 0.3 (Manual) Eosinophils # Basophils # Nucleated Red Blood Cells # Platelet Estimate SIG DECREASED Polychromasia 1+ Poikilocytosis 3+ Anisocytosis 2+ Macrocytosis 2+ Sodium Level 141 Potassium Level 4.1 Chloride Level 115 H Carbon Dioxide 16 L Level Anion Gap 10 Blood Urea 33 H Nitrogen Creatinine 0.92 Est Glomerular > 60 Filtrat Rate mL/min Glucose Level 308 #H Calcium Level 7.3 L Phosphorus Level 3.2 Magnesium Level 2.0 Test 05/16/19 04:54 05/16/19 05:09 05/16/19 09:44 05/16/19 14:28 Lab Scanned BLOOD TRANSFUSIO Report N Bedside Glucose 118 143 128 Medications Medication Current Medications Ondansetron HCl (Zofran Inj) 4 mg Q6H PRN IV NAUSEA AND/OR VOMITING; Start 05/10/19 at 14:30 Albuterol (Proventil 0.083% (Neb)) 2.5 mg Q4H RESP THERAPY NEB Last administered on 05/16/19at 12:25; Admin Dose 2.5 MG; Start 05/10/19 at 17:00 Albuterol (Proventil 0.083% (Neb)) 2.5 mg Q2H RESP THERAPY PRN NEB SHORTNESS OF BREATH; Start 05/10/19 at 14:30 Acetaminophen (Tylenol Liquid) 650 mg Q6H PRN PO PAIN LEVEL 1-3 OR FEVER; Start 05/10/19 at 14:30 Acetaminophen (Tylenol Supp) 650 mg Q4H PRN ID PAIN LEVEL 1-3 OR FEVER; Start 05/10/19 at 14:30 Lorazepam (Ativan) 1 mg Q2H PRN IV ANXIETY Last administered on 05/14/19at 23:48; Admin Dose 1 MG; Start 05/10/19 at 14:30 Docusate Sodium (Colace) 100 mg Q12H PRN PO CONSTIPATION; Start 05/10/19 at 14:30 Magnesium Hydroxide (Milk Of Mag) 30 ml DAILY PRN PO CONSTIPATION; Start 05/10/19 at 14:30 Meropenem/Sodium Chloride 50 ml @ 100 mls/hr Q12 IVPB Last administered on 05/16/19at 09:44; Admin Dose 100 MLS/HR; Start 05/10/19 at 14:30 Citalopram Hydrobromide (Celexa) 40 mg DAILY PO ; Start 05/11/19 at 09:00 Insulin Aspart (Novolog Insulin Pen) NOVOLOG *MILD* ALGORI... Q4 SC Last ad ministered on 05/16/19at 09:47; Admin Dose 1 UNIT; Start 05/10/19 at 17:00 Miconazole Nitrate (Miconazole 2% Cr) 1 applic BID TOP Last administered on 05/16/19 09:44; Admin Dose 1 APPLIC; Start 05/10/19 at 21:00 Midodrine (Proamatine) 5 mg TID@09,13,17 GTB ; Start 05/10/19 at 17:00 Quetiapine Fumarate (Seroquel) 25 mg BID PO ; Start 05/10/19 at 21:00 Norepinephrine 250 ml @ 1.875 mls/ hr TITRATE IV Last administered on 05/13/19 09:49; Admin Dose 7.5 MLS/HR; Start 05/10/19 at 16:30 IV Flush (NS 10 ml) 10 ml PRN PRN IV FLUSH LINE; Start 05/10/19 at 19:00 Phenylephrine HCl 80 mg/Dextrose 250 ml @ 18.75 mls/ hr TITRATE IV Last administered on 05/16/19 14:32; Admin Dose 18.75 MLS/HR; Start 05/11/19 at 15:30 Haloperidol (Haldol) 2 mg Q4H PRN IM agitation Last administered on 05/14/19 22:40; Admin Dose 2 MG; Start 05/11/19 at 19:30 Ferric Sodium Gluconate Complex 125 mg/Sodium Chloride 110 ml @ 110 mls/hr DAILY@1300 IVPB Last administered on 05/16/19 14:33; Admin Dose 110 MLS/HR; Start 05/14/19 at 13:00; Stop 05/18/19 at 13:59 Caspofungin 50 mg/ Sodium Chloride 250 ml @ 250 mls/hr Q24H IVPB Last administered on 05/15/19 18:06; Admin Dose 250 MLS/HR; Start 05/15/19 at 16:00 Dextrose/Sodium Chloride 1,000 ml @ 100 mls/hr Q10H IV Last administered on 05/16/19 04:14; Admin Dose 100 MLS/HR; Start 05/15/19 at 08:00 Famotidine (Pepcid Iv) 20 mg BID IV Last administered on 05/16/19 09:44; Admin Dose 20 MG; Start 05/15/19 at 10:00 Morphine Sulfate (morphine) 1 mg Q2H PRN IV SEVERE PAIN LEVEL 7-10 Last administered on 05/16/19 09:51; Admin Dose 1 MG; Start 05/15/19 at 14:30 DUY DIAMOND May 16, 2019 16:58
[2019-05-16] MEDS: CASPOFUNGIN 50 MG in SOD CHLORIDE 0.9% 250 ML IVPB SCH (17:06)
[2019-05-17] VITALS (94 sets, daily range): BP systolic 72–121; BP diastolic 32–96; PULSE 65–115; RESP 10–43
[2019-05-17] MEDS: morphine 2 MG INJ IV PRN ×4 (01:00→17:37)
[2019-05-17] MEDS: INSULIN ASPART [NOVOLOG] 3 ML PEN SC SCH ×6 (01:00→20:35)
[2019-05-17] MEDS: PHENYLephrine 80 MG in DEXTROSE 5% 242 ML IV SCH ×3 (01:08→20:29)
[2019-05-17] MEDS: ALBUTEROL 0.083% (NEB) 2.5 MG/3 ML AMP NEB SCH ×6 (01:33→20:12)
[2019-05-17] MEDS: DEXTROSE 5%-0.45% NACL 1,000 ML IV SCH ×3 (04:19→20:25)
[2019-05-17] MEDS: MIDODRINE 5 MG TAB GTB SCH ×3 (07:54→13:50)
[2019-05-17] MEDS: CITALOPRAM 20 MG TAB PO SCH (07:56)
[2019-05-17] MEDS: QUETIAPINE 25 MG TAB PO SCH ×2 (07:56→20:37)
[2019-05-17] MEDS: MEROPENEM 1 GM/50ML(PMX) 50 ML IVPB SCH ×2 (08:10→20:24)
[2019-05-17] MEDS: FAMOTIDINE 20 MG INJ IV SCH ×2 (08:10→20:24)
[2019-05-17] MEDS: MICONAZOLE 2% 30 GM CR TOP SCH ×2 (08:14→20:36)
--- NOTE | 2019-05-17 08:16 | PN ---
DATE: 05/17/2019 SUBJECTIVE: The patient is currently on pressor support. Urinary output has been adequate. No othe r events noted. Patient continues to have respiratory distress. No hemoptysis, no hematemesis. OBJECTIVE: VITAL SIGNS: Blood pressure is 87/57, respiratory rate 22, pulse 67, temperature 98.6. HEENT: Head is normocephalic. NECK: Supple. HEART: Regular rate. LUNGS: Show diminished breath sounds at the base. ABDOMEN: Soft, nontender to palpation without rebound or guarding. EXTREMITIES: Negative for clubbing, cyanosis. Trace edema. DERMATOLOGIC: No rashes. MUSCULOSKELETAL: No joint effusion. NEUROLOGIC: No change in exam. MEDICATIONS: The patient's medications have been reviewed. LABORATORY DATA: Has been reviewed. IMAGING STUDIES: Have been reviewed. MICROBIOLOGY: Reviewed. ASSESSMENT AND PLAN: 1. Nonoliguric acute kidney injury on top of chronic kidney disease stage IIIB/IV with baseline crea tinine of 1.5 to 2.0 mg/dL. Etiology of acute kidney injury secondary to acute tubular necrosis due to sepsis and shock. The patient's renal function has significantly improved. At this point, contin ue current treatment plans, supportive care, renally dose all medication. 2. Hypernatremia, resolved. Continue current hypotonic fluids, monitor sodium levels closely. 3. Anemia. The patient's hemoglobin levels are low, less than 7 g/dL. Will repeat hemoglobin and h ematocrit levels. If it remains low, consider blood transfusion. 4. Septic shock secondary to pneumonia bacteremia, fungemia. Continue broad spectrum antibiotics, a ntifungal therapy, continue pressor support. Continue IV fluids. 5. Mixed acid base disorder. The patient had a respiratory alkalosis. Will continue to monitor. 6. Acute hypoxic respiratory failure secondary to pneumonia, sepsis. Continue current medical manag ement, nebulizers, supplemental oxygen. 7. Diabetes. Continue current insulin regimen. 8. Thrombocytopenia. Etiology is likely due to cirrhosis. Platelet levels were low this morning. Will repeat platelet count and monitor. 9. History of heart failure. Monitor closely on IV fluids. 10. Acute encephalopathy, etiology is toxic metabolic. 11. Cirrhosis. Continue medical management. 12. Mineral bone disorder. Dictated By: KENIA ESTES/MELISSA Conf#: [id number] [facility]#: [id number] CC: FLORINDA GONZALEZ MD; FELICIANO DE LUNA MD; JONY BALDWIN MD;*[facility]*
[2019-05-17] MEDS ORDERED: SOD CHLORIDE 0.9% 250 ML IV* ONE (08:27)
--- NOTE | 2019-05-17 09:15 | CONS ---
Assessment/Plan Assessment/Plan Hospital Course (Demo Recall) ID PROGRESS NOTE CURRENT ABX: DAY # =>MERREM + Cancidas 24H INTERVAL SUMMARY * Encephalopathic - does not respond to verbal commands, moves all extremities, * INVASIVES: PICC, FC, ICD DIAGNOSTIC IMAGING * 05/17/19 CXR:Cardiomegaly with calcified atherosclerosis in the aorta. Near complete opacification of the right hemithorax, possibly corresponding to near complete atelectasis/consolidation of the right lung, combined with pleural fluid. Central pulmonary vascular congestion and interstitial prominence in the left lung. Interval increase in extensive infiltrates throughout the left lung. MICRO * 05/15/19 BCx (-) * 05/12/19 BCx(+) YEAST 1/2 bottles * 05/10/19 Urine Cx (-) * 05/10/19 BCx (+) [id number] PHYSICAL EXAMINATION: GENERAL: Lethargic, encephalopathic HEENT: AT, NC, NECK: Supple, CHEST: Rise symmetrical without dyspnea HEART: Pulse RRR ABDOMEN: SOFT EXTREMITIES: Warm, dry SKIN: No rash, no diaphoresis ID ASSESSMENT 63 yo M admit with: 1. Sepsis with shock 2. Acute hypoxemic respiratory failure 3. Gram-negative bacteremia and fungemia ?SBE ?SBP vs pulmonary 3. Healthcare associated pneumonia possibly aspirated 4. Anemia 5. Thrombocytopenia 6. Diabetes 7. Atrial fibrillation 8. Liver cirrhosis with ascites, rule out SBP 9. Coronary artery disease, status post AVR (-)MRSA Nares ABX ALLERGIES: KNDA INVASIVES: PICC, FC, ICD CURRENT ABX: DAY # => Merrem + Cancidas ID RECOMMENDATIONS/PLAN: 1. Continue current ABX -- 2. He has 3-LUMEN PICC line RUEXT now with YEAST BCx and prior GNR -- HOW LONG HAS PICC BEEN IN? * Consider SBE at risk due to 3-lumen PICC, ICD and prosthetic AoVR * Please change PICC if not placed after YEAST BCX (+) Consultation Date/Type/Reason Admit Date/Time May 10, 2019 at 13:20 Initial Consult Date 05/11/19 Requesting Provider: NIXON MILLER MD Date/Time of Note DATE: 05/17/19 TIME: 09:14 Exam/Review of Systems Exam Vitals Vital Signs Date Temp Pulse Resp B/P (MAP) Pulse Ox O2 O2 Flow FiO2 Time Delivery Rate 05/17/19 98.4 94 28 91/67 (75) 95 Nasal 3.0 08:00 Cannula 05/15/19 36 16:55 Intake and Output 05/16/19 05/16/19 05/17/19 1515:00 23:00 07:00 IntakeIntake Total 894.99 ml 1230.31 ml 857.50 ml OutputOutput Total 240 ml 270 ml 280 ml BalanceBalance 654.99 ml 960.31 ml 577.50 ml Results Result Diagram: 05/17/19 0711 05/17/19 0530 Results 24hrs Laboratory Tests Test 05/16/19 09:44 05/16/19 14:28 05/16/19 17:16 05/17/19 01:21 Bedside Glucose 143 128 100 116 Test 05/17/19 05:30 05/17/19 07:11 05/17/19 08:10 White Blood Count 6.3 6.4 Red Blood Count 2.34 L 2.33 L Hemoglobin 6.9 *L 6.9 *L Hematocrit 22.0 L 22.0 L Mean Corpuscular Volume 94.0 94.4 Mean Corpuscular 29.5 29.6 Hemoglobin Mean Corpuscular 31.4 L 31.4 L Hemoglobin Concent Red Cell Distribution 24.5 H 24.7 H Width Platelet Count 29 *L 32 L Mean Platelet Volume Immature Granulocytes % 1.400 H 1.400 H Neutrophils % 80.2 H 80.5 H Lymphocytes % 9.9 L 9.6 L Monocytes % 8.2 8.0 Eosinophils % 0.3 0.5 Basophils % 0.0 0.0 Nucleated Red Blood 4.7 H 4.4 H Cells % Immature Granulocytes # 0.090 H 0.090 H Neutrophils # 5.1 5.1 Lymphocytes # 0.6 L 0.6 L Monocytes # 0.5 0.5 Eosinophils # 0.0 0.0 Basophils # 0.0 0.0 Nucleated Red Blood 0.3 H 0.3 H Cells # Sodium Level 143 Potassium Level 3.6 Chloride Level 115 H Carbon Dioxide Level 20 L Anion Gap 8 Blood Urea Nitrogen 32 H Creatinine 0.78 Est Glomerular Filtrat > 60 Rate mL/min Glucose Level 177 # Calcium Level 7.6 L Phosphorus Level 2.8 Magnesium Level 2.0 Bedside Glucose 120 Medications Medication Current Medications Ondansetron HCl (Zofran Inj) 4 mg Q6H PRN IV NAUSEA AND/OR VOMITING; Start 05/10/19 at 14:30 Albuterol (Proventil 0.083% (Neb)) 2.5 mg Q4H RESP THERAPY NEB Last administered on 05/17/19at 08:56; Admin Dose 2.5 MG; Start 05/10/19 at 17:00 Albuterol (Proventil 0.083% (Neb)) 2.5 mg Q2H RESP THERAPY PRN NEB SHORTNESS OF BREATH; Start 05/10/19 at 14:30 Acetaminophen (Tylenol Liquid) 650 mg Q6H PRN PO PAIN LEVEL 1-3 OR FEVER; Start 05/10/19 at 14:30 Acetaminophen (Tylenol Supp) 650 mg Q4H PRN OR PAIN LEVEL 1-3 OR FEVER; Start 05/10/19 at 14:30 Lorazepam (Ativan) 1 mg Q2H PRN IV ANXIETY Last administered on 05/14/19at 23:48; Admin Dose 1 MG; Start 05/10/19 at 14:30 Docusate Sodium (Colace) 100 mg Q12H PRN PO CONSTIPATION; Start 05/10/19 at 14:30 Magnesium Hydroxide (Milk Of Mag) 30 ml DAILY PRN PO CONSTIPATION; Start 05/10/19 at 14:30 Meropenem/Sodium Chloride 50 ml @ 100 mls/hr Q12 IVPB Last administered on 05/17/19at 08:10; Admin Dose 100 MLS/HR; Start 05/10/19 at 14:30 Citalopram Hydrobromide (Celexa) 40 mg DAILY PO ; Start 05/11/19 at 09:00 Insulin Aspart (Novolog Insulin Pen) NOVOLOG *MILD* ALGORI... Q4 SC Last administered on 05/16/19at 09:47; Admin Dose 1 UNIT; Start 05/10/19 at 17:00 Miconazole Nitrate (Miconazole 2% Cr) 1 applic BID TOP Last administered on 05/17/19at 08:14; Admin Dose 1 APPLIC; Start 05/10/19 at 21:00 Midodrine (Proamatine) 5 mg TID@09,13,17 GTB ; Start 05/10/19 at 17:00 Quetiapine Fumarate (Seroquel) 25 mg BID PO ; Start 05/10/19 at 21:00 Norepinephrine 250 ml @ 1.875 mls/ hr TITRATE IV Last administered on 05/13/19 09:49; Admin Dose 7.5 MLS/HR; Start 05/10/19 at 16:30 IV Flush (NS 10 ml) 10 ml PRN PRN IV FLUSH LINE; Start 05/10/19 at 19:00 Phenylephrine HCl 80 mg/Dextrose 250 ml @ 18.75 mls/ hr TITRATE IV Last administered on 05/17/19 01:08; Admin Dose 26.25 MLS/HR; Start 05/11/19 at 15:30 Haloperidol (Haldol) 2 mg Q4H PRN IM agitation Last administered on 05/14/19 22:40; Admin Dose 2 MG; Start 05/11/19 at 19:30 Ferric Sodium Gluconate Complex 125 mg/Sodium Chloride 110 ml @ 110 mls/hr DAILY@1300 IVPB Last administered on 05/16/19 14:33; Admin Dose 110 MLS/HR; Start 05/14/19 at 13:00; Stop 05/18/19 at 13:59 Caspofungin 50 mg/ Sodium Chloride 250 ml @ 250 mls/hr Q24H IVPB Last administered on 05/16/19 17:06; Admin Dose 250 MLS/HR; Start 05/15/19 at 16:00 Dextrose/Sodium Chloride 1,000 ml @ 100 mls/hr Q10H IV Last administered on 05/17/19 04:19; Admin Dose 100 MLS/HR; Start 05/15/19 at 08:00 Famotidine (Pepcid Iv) 20 mg BID IV Last administered on 05/17/19 08:10; Admin Dose 20 MG; Start 05/15/19 at 10:00 Morphine Sulfate (morphine) 1 mg Q2H PRN IV SEVERE PAIN LEVEL 7-10 Last administered on 05/17/19 01:00; Admin Dose 1 MG; Start 05/15/19 at 14:30 ANITA HUNTER NP May 17, 2019 09:15
--- NOTE | 2019-05-17 09:45 | PN ---
Date/Time of Note Date/Time of Note DATE: 05/17/19 TIME: 09:37 Objective Vitals Vital Signs Date Temp Pulse Resp B/P (MAP) Pulse Ox O2 O2 Flow FiO2 Time Delivery Rate 05/17/19 76 18 96 Nasal 3.0 08:55 Cannula 05/17/19 98.4 91/67 (75) 08:00 05/15/19 36 16:55 Intake and Output 05/16/19 05/16/19 05/17/19 1515:00 23:00 07:00 IntakeIntake Total 894.99 ml 1230.31 ml 857.50 ml OutputOutput Total 240 ml 270 ml 280 ml BalanceBalance 654.99 ml 960.31 ml 577.50 ml Results Result Diagram: 05/17/19 0711 05/17/19 0530 Medications Medications Current Medications Ondansetron HCl (Zofran Inj) 4 mg Q6H PRN IV NAUSEA AND/OR VOMITING; Start 05/10/19 at 14:30 Albuterol (Proventil 0.083% (Neb)) 2.5 mg Q4H RESP THERAPY NEB Last administered on 05/17/19at 08:56; Admin Dose 2.5 MG; Start 05/10/19 at 17:00 Albuterol (Proventil 0.083% (Neb)) 2.5 mg Q2H RESP THERAPY PRN NEB SHORTNESS OF BREATH; Start 05/10/19 at 14:30 Acetaminophen (Tylenol Liquid) 650 mg Q6H PRN PO PAIN LEVEL 1-3 OR FEVER; Start 05/10/19 at 14:30 Acetaminophen (Tylenol Supp) 650 mg Q4H PRN [place] PAIN LEVEL 1-3 OR FEVER; Start 05/10/19 at 14:30 Lorazepam (Ativan) 1 mg Q2H PRN IV ANXIETY Last administered on 05/14/19at 23:48; Admin Dose 1 MG; Start 05/10/19 at 14:30 Docusate Sodium (Colace) 100 mg Q12H PRN PO CONSTIPATION; Start 05/10/19 at 1 4:30 Magnesium Hydroxide (Milk Of Mag) 30 ml DAILY PRN PO CONSTIPATION; Start 05/10/19 at 14:30 Meropenem/Sodium Chloride 50 ml @ 100 mls/hr Q12 IVPB Last administered on 05/17/19at 08:10; Admin Dose 100 MLS/HR; Start 05/10/19 at 14:30 Citalopram Hydrobromide (Celexa) 40 mg DAILY PO ; Start 05/11/19 at 09:00 Insulin Aspart (Novolog Insulin Pen) NOVOLOG *MILD* ALGORI... Q4 SC Last administered on 05/16/19 09:47; Admin Dose 1 UNIT; Start 05/10/19 at 17:00 Miconazole Nitrate (Miconazole 2% Cr) 1 applic BID TOP Last administered on 05/17/19 08:14; Admin Dose 1 APPLIC; Start 05/10/19 at 21:00 Midodrine (Proamatine) 5 mg TID@09,13,17 GTB ; Start 05/10/19 at 17:00 Quetiapine Fumarate (Seroquel) 25 mg BID PO ; Start 05/10/19 at 21:00 Norepinephrine 250 ml @ 1.875 mls/ hr TITRATE IV Last administered on 05/13/19 09:49; Admin Dose 7.5 MLS/HR; Start 05/10/19 at 16:30 IV Flush (NS 10 ml) 10 ml PRN PRN IV FLUSH LINE; Start 05/10/19 at 19:00 Phenylephrine HCl 80 mg/Dextrose 250 ml @ 18.75 mls/ hr TITRATE IV Last administered on 05/17/19at 01:08; Admin Dose 26.25 MLS/HR; Start 05/11/19 at 15:30 Haloperidol (Haldol) 2 mg Q4H PRN IM agitation Last administered on 05/14/19at 22:40; Admin Dose 2 MG; Start 05/11/19 at 19:30 Ferric Sodium Gluconate Complex 125 mg/Sodium Chloride 110 ml @ 110 mls/hr DAILY@1300 IVPB Last administered on 05/16/19 14:33; Admin Dose 110 MLS/HR; Start 05/14/19 at 13:00; Stop 05/18/19 at 13:59 Caspofungin 50 mg/ Sodium Chloride 250 ml @ 250 mls/hr Q24H IVPB Last administered on 05/16/19 17:06; Admin Dose 250 MLS/HR; Start 05/15/19 at 16:00 Dextrose/Sodium Chloride 1,000 ml @ 100 mls/hr Q10H IV Last administered on 05/17/19at 04:19; Admin Dose 100 MLS/HR; Start 05/15/19 at 08:00 Famotidine (Pepcid Iv) 20 mg BID IV Last administered on 05/17/19at 08:10; Admin Dose 20 MG; Start 05/15/19 at 10:00 Morphine Sulfate (morphine) 1 mg Q2H PRN IV SEVERE PAIN LEVEL 7-10 Last administered on 05/17/19at 01:00; Admin Dose 1 MG; Start 05/15/19 at 14:30 VTE Prophylaxis Risk score (from Ns)>0 risk: 12 SCD applied (from [facility] [place] No SCD contraindication: other Lines/Catheters IV Catheter Type: Sutton in Place: Yes Cont'd sutton catheter reason: terminal illness/intractable pain Assessment/Plan Hospital Course Subjective No acute changes, patient still on pressors, antibiotics, antifungals, still encephalopathic. Despite attempts to keep patient on his back, patient moves around on his own and is currently back on his right side, however comfortable looking. Objective Physical exam General: Patient is laying in bed laying down, not responsive except for not purposeful movements and agitation mentation: Patient is occasionally arousable however is not oriented, Head: Normocephalic atraumatic Eyes: EOMI, pupils reactive to light Neck: Supple, nontender, midline Respiratory: Coarse to auscultation bilaterally Cardiovascular: Regular rate, no obvious murmurs Gastrointestinal: non-tender to palpation, bowel sounds heard. Neurological: Moves all extremities spontaneously Skin: No new skin lesions Assessment/Plan Septic shock, secondary to pneumonia, bacteremia, and fungemia - Will wean off pressors as tolerated. - continue IV antibiotics, iv antifungals Acute respiratory failure secondary to pneumonia - Speech on board for evaluation of aspiration risk - continue neb tx and monitoring saturations. tolerating NC Acute on chronic toxic metabolic encephalopathy -Patient's baseline on admission was not being able to converse however was able to eat if being spoon fed -We will not be able to fully evaluate patient's mental status until bacteremia and fungemia and pneumonia has resolved -monitor closely -Patient extremely agitated at times causing to be tachycardic, tested a low dose of morphine and patient responded well with reduction in heart rate and moaning, patient's understands the risks of using morphine as needed with respiratory depression, patient's accepts these risks and wants patient to be comfortable. Unsustained V. tach -Cardiology on board -AICD interrogation -Monitor closely, cardiology recognitions appreciated Pneumonia, likely aspiration - Pulm on board and appreciate recommendations - continue on steroids and antibiotics - ID consulted and appreciate recommendations WONG on CKD-resolved - Nephrology consultation appreciated - most likely secondary to ATN from septic shock and cardiorenal Hypernatremia - IVF changed - Nephrology on board and assisting with fluid management Anemia, -Likely a combination of factors, possible hemolysis secondary to hypersplenism due to patient's cirrhosis, may also be secondary to mild bleeding through the GI tract secondary to thrombocytopenia secondary to to DIC secondary to patient's overwhelming septic shock -Follow-up on labs, hemolysis labs taken -Hematology, Dr. Virk's covering physician has been attempted to be reached to be on board, however so far this is just been answering machine, message was left, will attempt again later - holding coumadin Bacteremia/fungemia - ID on board and appreciate recommendations - Repeat blood cx noted - iv abx, iv antifungal Atrial fibrillation - rate controlled - holding anticoagulation in setting of anemia and thrombocytopenia Thrombocytopenia, possible splenic sequestration versus DIC -Persistently low -Patient at high risk of bleed, transfuse platelets as needed, transfuse FFP as needed - hold warfarin HTN - holding home meds in setting of hypotension Acute on chronic systolic heart failure - will hold diuretics given low BP and resume when stable - ECHO noted with EF 40% Diabetes Mellitus - A1c noted - ISS and accuchecks Disposition - Continue monitoring in ICU and wean off pressors as tolerated. Patient not getting adequate nutrition, expressed concern with patient's family, patient unable to get NG tube or Dobbhoff secondary to patient will definitely pull it out, family will make decision whether or not they want to start TPN, family aware that starting TPN may further exacerbate the fungemia and bacteremia. -Patient's condition also seems to be exacerbated by persistent anemia versus DIC which is most likely caused by patient septic shock, very poor prognosis, -Overall patient has a very poor prognosis, palliative care physician on board. >40 minutes of critical care time spent with patient FELICIANO DE LUNA May 17, 2019 09:45
--- NOTE | 2019-05-17 09:58 | PN ---
Date/Time of Note Date/Time of Note DATE: 05/17/19 TIME: 09:52 Assessment/Plan VTE Prophylaxis Risk score (from Ns)>0 risk: 12 SCD applied (from [facility] [place] SCD contraindicated: other (scds) Pharmacological prophylaxis: NA/contraindicated Pharm contraindication: liver dx, thrombocytopenia Lines/Catheters [facility] Type ([facility] Urinary Cath still in place: Yes Reason Cath still needed: other (indicate) (monitor output) Assessment/Plan Hospital Course Assessment/Plan Assessment: Septic shock -2/2 to PNA/bacteremia -Remains in ICU on pressors Pneumonia Bacteremia Acute on chronic anemia -Positive occult blood test Liver cirrhosis with a small to moderate amount of ascites. Thrombocytopenia Hyperbilirubinemia- likely 2/2 to hepatocellular disease -US- The common bile duct measures 3 mm in maximal dimension. Coagulopathy- improved Diabetes mellitus Congestive heart failure AICD Cholelithiasis Encephalopathy -Recent ammonia- less than 9 Plan: Continue supportive care at this time. limited options in treatment Pt with no po intake- not candidate for PEG placement - per hospitalist notes TPN/PPN offered family aware that starting TPN may further exacerbate the fungemia and bacteremia. No endoscopic interventions at this time- pt would not be able to tolerate prep or procedure- no overt signs of GI bleed - risks currently out-weight benefits- will maintain close observation. Unable to obtain MRCP as patient has a PM- abd US shows CBD WNL- Packed cells/Plt have been ordered Monitor labs goal to keep hgb above 7.5 and plt above 50 Patient seen in collaboration Dr. Freedman Subjective: Patient remains in ICU, overall poor prognosis CODE STATUS changed to DNR. Family to speak with hospitalist tomorrow about further about goals for medical care. No overt sign of GI bleed. PHYSICAL EXAMINATION: GENERAL: Alert & confused, with some resp distress SKIN: No lesions, pallor, multiple areas of ecchymosis, no stigmata chronic liver disease, no evidence of bleeding diathesis EARS/NOSE AND THROAT: Ears normal, nose normal. NECK: Supple, no masses. CHEST: Inspection within normal limits. CARDIOVASCULAR: Heart: Regular rate and rhythm, RESPIRATORY: Coarse lung sounds GASTROINTESTINAL AND LIVER: Abdomen: Soft, questionable tenderness -patient screams with any stimuli, non-distended, no hernias, no masses, no organomegaly, no ascites, no guarding, no rebound tenderness, normoactive bowel sounds. Rectal: Deferred. GENITOURINARY: Patino in place Result Diagram: 05/17/19 0711 05/17/19 0530 Results 24hrs Laboratory Tests Test 05/16/19 14:28 05/16/19 17:16 05/17/19 01:21 05/17/19 05:30 Bedside Glucose 128 100 116 White Blood Count 6.3 Red Blood Count 2.34 L Hemoglobin 6.9 *L Hematocrit 22.0 L Mean Corpuscular Volume 94.0 Mean Corpuscular 29.5 Hemoglobin Mean Corpuscular 31.4 L Hemoglobin Concent Red Cell Distribution 24.5 H Width Platelet Count 29 *L Mean Platelet Volume Immature Granulocytes % 1.400 H Neutrophils % 80.2 H Lymphocytes % 9.9 L Monocytes % 8.2 Eosinophils % 0.3 Basophils % 0.0 Nucleated Red Blood 4.7 H Cells % Immature Granulocytes # 0.090 H Neutrophils # 5.1 Lymphocytes # 0.6 L Monocytes # 0.5 Eosinophils # 0.0 Basophils # 0.0 Nucleated Red Blood 0.3 H Cells # Sodium Level 143 Potassium Level 3.6 Chloride Level 115 H Carbon Dioxide Level 20 L Anion Gap 8 Blood Urea Nitrogen 32 H Creatinine 0.78 Est Glomerular Filtrat > 60 Rate mL/min Glucose Level 177 # Calcium Level 7.6 L Phosphorus Level 2.8 Magnesium Level 2.0 Test 05/17/19 07:11 05/17/19 08:10 White Blood Count 6.4 Red Blood Count 2.33 L Hemoglobin 6.9 *L Hematocrit 22.0 L Mean Corpuscular Volume 94.4 Mean Corpuscular 29.6 Hemoglobin Mean Corpuscular 31.4 L Hemoglobin Concent Red Cell Distribution 24.7 H Width Platelet Count 32 L Mean Platelet Volume Immature Granulocytes % 1.400 H Neutrophils % 80.5 H Lymphocytes % 9.6 L Monocytes % 8.0 Eosinophils % 0.5 Basophils % 0.0 Nucleated Red Blood 4.4 H Cells % Immature Granulocytes # 0.090 H Neutrophils # 5.1 Lymphocytes # 0.6 L Monocytes # 0.5 Eosinophils # 0.0 Basophils # 0.0 Nucleated Red Blood 0.3 H Cells # Bedside Glucose 120 Exam/Review of Systems Exam Vitals Vital Signs Date Temp Pulse Resp B/P (MAP) Pulse Ox O2 O2 Flow FiO2 Time Delivery Rate 05/17/19 76 18 96 Nasal 3.0 08:55 Cannula 05/17/19 98.4 91/67 (75) 08:00 05/15/19 36 16:55 Intake and Output 05/16/19 05/16/19 05/17/19 1515:00 23:00 07:00 IntakeIntake Total 894.99 ml 1230.31 ml 857.50 ml OutputOutput Total 240 ml 270 ml 280 ml BalanceBalance 654.99 ml 960.31 ml 577.50 ml Results Results 24hrs Laboratory Tests Test 05/16/19 14:28 05/16/19 17:16 05/17/19 01:21 05/17/19 05:30 Bedside Glucose 128 100 116 White Blood Count 6.3 Red Blood Count 2.34 L Hemoglobin 6.9 *L Hematocrit 22.0 L Mean Corpuscular Volume 94.0 Mean Corpuscular 29.5 Hemoglobin Mean Corpuscular 31.4 L Hemoglobin Concent Red Cell Distribution 24.5 H Width Platelet Count 29 *L Mean Platelet Volume Immature Granulocytes % 1.400 H Neutrophils % 80.2 H Lymphocytes % 9.9 L Monocytes % 8.2 Eosinophils % 0.3 Basophils % 0.0 Nucleated Red Blood 4.7 H Cells % Immature Granulocytes # 0.090 H Neutrophils # 5.1 Lymphocytes # 0.6 L Monocytes # 0.5 Eosinophils # 0.0 Basophils # 0.0 Nucleated Red Blood 0.3 H Cells # Sodium Level 143 Potassium Level 3.6 Chloride Level 115 H Carbon Dioxide Level 20 L Anion Gap 8 Blood Urea Nitrogen 32 H Creatinine 0.78 Est Glomerular Filtrat > 60 Rate mL/min Glucose Level 177 # Calcium Level 7.6 L Phosphorus Level 2.8 Magnesium Level 2.0 Test 05/17/19 07:11 05/17/19 08:10 White Blood Count 6.4 Red Blood Count 2.33 L Hemoglobin 6.9 *L Hematocrit 22.0 L Mean Corpuscular Volume 94.4 Mean Corpuscular 29.6 Hemoglobin Mean Corpuscular 31.4 L Hemoglobin Concent Red Cell Distribution 24.7 H Width Platelet Count 32 L Mean Platelet Volume Immature Granulocytes % 1.400 H Neutrophils % 80.5 H Lymphocytes % 9.6 L Monocytes % 8.0 Eosinophils % 0.5 Basophils % 0.0 Nucleated Red Blood 4.4 H Cells % Immature Granulocytes # 0.090 H Neutrophils # 5.1 Lymphocytes # 0.6 L Monocytes # 0.5 Eosinophils # 0.0 Basophils # 0.0 Nucleated Red Blood 0.3 H Cells # Bedside Glucose 120 Medications Medication Current Medications Ondansetron HCl (Zofran Inj) 4 mg Q6H PRN IV NAUSEA AND/OR VOMITING; Start 05/10/19 at 14:30 Albuterol (Proventil 0.083% (Neb)) 2.5 mg Q4H RESP THERAPY NEB Last administe red on 05/17/19at 08:56; Admin Dose 2.5 MG; Start 05/10/19 at 17:00 Albuterol (Proventil 0.083% (Neb)) 2.5 mg Q2H RESP THERAPY PRN NEB SHORTNESS OF BREATH; Start 05/10/19 at 14:30 Acetaminophen (Tylenol Liquid) 650 mg Q6H PRN PO PAIN LEVEL 1-3 OR FEVER; Start 05/10/19 at 14:30 Acetaminophen (Tylenol Supp) 650 mg Q4H PRN [place] PAIN LEVEL 1-3 OR FEVER; Start 05/10/19 at 14:30 Lorazepam (Ativan) 1 mg Q2H PRN IV ANXIETY Last administered on 05/14/19at 23:48; Admin Dose 1 MG; Start 05/10/19 at 14:30 Docusate Sodium (Colace) 100 mg Q12H PRN PO CONSTIPATION; Start 05/10/19 at 14:30 Magnesium Hydroxide (Milk Of Mag) 30 ml DAILY PRN PO CONSTIPATION; Start 05/10/19 at 14:30 Meropenem/Sodium Chloride 50 ml @ 100 mls/hr Q12 IVPB Last administered on 05/17/19at 08:10; Admin Dose 100 MLS/HR; Start 05/10/19 at 14:30 Citalopram Hydrobromide (Celexa) 40 mg DAILY PO ; Start 05/11/19 at 09:00 Insulin Aspart (Novolog Insulin Pen) NOVOLOG *MILD* ALGORI... Q4 SC Last administered on 05/16/19 09:47; Admin Dose 1 UNIT; Start 05/10/19 at 17:00 Miconazole Nitrate (Miconazole 2% Cr) 1 applic BID TOP Last administered on 05/17/19 08:14; Admin Dose 1 APPLIC; Start 05/10/19 at 21:00 Midodrine (Proamatine) 5 mg TID@09,13,17 GTB ; Start 05/10/19 at 17:00 Quetiapine Fumarate (Seroquel) 25 mg BID PO ; Start 05/10/19 at 21:00 Norepinephrine 250 ml @ 1.875 mls/ hr TITRATE IV Last administered on 05/13/19 09:49; Admin Dose 7.5 MLS/HR; Start 05/10/19 at 16:30 IV Flush (NS 10 ml) 10 ml PRN PRN IV FLUSH LINE; Start 05/10/19 at 19:00 Phenylephrine HCl 80 mg/Dextrose 250 ml @ 18.75 mls/ hr TITRATE IV Last ad ministered on 05/17/19 01:08; Admin Dose 26.25 MLS/HR; Start 05/11/19 at 15:30 Haloperidol (Haldol) 2 mg Q4H PRN IM agitation Last administered on 05/14/19at 22:40; Admin Dose 2 MG; Start 05/11/19 at 19:30 Ferric Sodium Gluconate Complex 125 mg/Sodium Chloride 110 ml @ 110 mls/hr DAILY@1300 IVPB Last administered on 05/16/19 14:33; Admin Dose 110 MLS/HR; Start 05/14/19 at 13:00; Stop 05/18/19 at 13:59 Caspofungin 50 mg/ Sodium Chloride 250 ml @ 250 mls/hr Q24H IVPB Last administered on 05/16/19 17:06; Admin Dose 250 MLS/HR; Start 05/15/19 at 16:00 Dextrose/Sodium Chloride 1,000 ml @ 100 mls/hr Q10H IV Last administered on 05/17/19 04:19; Admin Dose 100 MLS/HR; Start 05/15/19 at 08:00 Famotidine (Pepcid Iv) 20 mg BID IV Last administered on 05/17/19 08:10; Admin Dose 20 MG; Start 05/15/19 at 10:00 Morphine Sulfate (morphine) 1 mg Q2H PRN IV SEVERE PAIN LEVEL 7-10 Last administered on 05/17/19 01:00; Admin Dose 1 MG; Start 05/15/19 at 14:30 GAY BUTT May 17, 2019 09:58
--- NOTE | 2019-05-17 11:04 | CONS ---
Consult Date/Type/Reason Admit Date/Time May 10, 2019 at 13:20 Initial Consult Date 05/11/19 Type of Consultation: Pulm/CCM Requesting Provider: NIXON MILLER MD Date/Time of Note DATE: 05/17/19 TIME: 10:57 Subjective Remains altered and vasopressors. No able to follow commands. Objective Vitals Vital Signs Date Temp Pulse Resp B/P (MAP) Pulse Ox O2 O2 Flow FiO2 Time Delivery Rate 05/17/19 76 18 96 Nasal 3.0 08:55 Cannula 05/17/19 98.4 91/67 (75) 08:00 05/15/19 36 16:55 Intake and Output 05/16/19 05/16/19 05/17/19 1515:00 23:00 07:00 IntakeIntake Total 894.99 ml 1230.31 ml 857.50 ml OutputOutput Total 240 ml 270 ml 280 ml BalanceBalance 654.99 ml 960.31 ml 577.50 ml Exam HEENT: Neck supple; no JVD; no LAD; + scleral icterus CVS: RRR, S1 and S2 CHEST: Decreased BS right side and egophony ABD: Soft, NT, + BS EXT: No c/c/e NEURO: + moves all extremities; + DTRs Results/Medications Result Diagram: 05/17/19 0934 05/17/19 0530 Results 24 hrs Laboratory Tests Test 05/16/19 14:28 05/16/19 17:16 05/17/19 01:21 05/17/19 05:30 Bedside Glucose 128 100 116 White Blood Count 6.3 Red Blood Count 2.34 L Hemoglobin 6.9 *L Hematocrit 22.0 L Mean Corpuscular 94.0 Volume Mean Corpuscular 29.5 Hemoglobin Mean Corpuscular 31.4 L Hemoglobin Concent Red Cell 24.5 H Distribution Width Platelet Count 29 *L Mean Platelet Volume Immature 1.400 H Granulocytes % Neutrophils % 80.2 H Lymphocytes % 9.9 L Monocytes % 8.2 Eosinophils % 0.3 Basophils % 0.0 Nucleated Red 4.7 H Blood Cells % Immature 0.090 H Granulocytes # Neutrophils # 5.1 Lymphocytes # 0.6 L Monocytes # 0.5 Eosinophils # 0.0 Basophils # 0.0 Nucleated Red 0.3 H Blood Cells # Sodium Level 143 Potassium Level 3.6 Chloride Level 115 H Carbon Dioxide 20 L Level Anion Gap 8 Blood Urea 32 H Nitrogen Creatinine 0.78 Est Glomerular > 60 Filtrat Rate mL/min Glucose Level 177 # Calcium Level 7.6 L Phosphorus Level 2.8 Magnesium Level 2.0 Test 05/17/19 07:00 05/17/19 07:11 05/17/19 08:10 05/17/19 09:34 Blood Gas Specimen Blood arterial Source Arterial Blood 05/17/2019 9:52:10 Date Drawn AM Arterial Blood pH 7.367 (Temp corrected) Arterial Blood 33.4 L pCO2 (Temp correct) Arterial Blood pO2 56.2 L (Temp corrected) Arterial Blood 18.7 L HCO3 Arterial Blood -5.9 L Base Excess Arterial Blood 86.6 L Oxygen Saturation Barber Test ACCEPTAB Arterial Blood Gas Right Radial Puncture Site Arterial 2.2 Blood Carboxyhemog lobin Arterial Blood 0.3 Methemoglobin Blood Gas A-a O2 96.8 H Differential Oxyhemoglobin 84.4 L Percent Blood Gas 37.0 Temperature Blood Gas Modality NASAL CANNULA FiO2 27.0 Blood Gas Notified DT Whom Blood Gas Notified 05/17/2019 10:00:57 Time AM White Blood Count 6.4 Red Blood Count 2.33 L Hemoglobin 6.9 *L Hematocrit 22.0 L Mean Corpuscular 94.4 Volume Mean Corpuscular 29.6 Hemoglobin Mean Corpuscular 31.4 L Hemoglobin Concent Red Cell 24.7 H Distribution Width Platelet Count 32 L 40 L Mean Platelet Volume Immature 1.400 H Granulocytes % Neutrophils % 80.5 H Lymphocytes % 9.6 L Monocytes % 8.0 Eosinophils % 0.5 Basophils % 0.0 Nucleated Red 4.4 H Blood Cells % Immature 0.090 H Granulocytes # Neutrophils # 5.1 Lymphocytes # 0.6 L Monocytes # 0.5 Eosinophils # 0.0 Basophils # 0.0 Nucleated Red 0.3 H Blood Cells # Bedside Glucose 120 Absolute 0.188 H Reticulocyte Count Percent 7.8 H Reticulocyte Count Prothrombin Time 19.6 H Prothrombin Time 1.5 Ratio INR International 1.65 Normalized Ratio Activated 37.[address] Time Thrombin Time 15.9 Lactate 1398 H Dehydrogenase Test 05/17/19 09:40 Fibrinogen 198.0 L Medications Current Medications Ondansetron HCl (Zofran Inj) 4 mg Q6H PRN IV NAUSEA AND/OR VOMITING; Start 05/10/19 at 14:30 Albuterol (Proventil 0.083% (Neb)) 2.5 mg Q4H RESP THERAPY NEB Last admi nistered on 05/17/19 08:56; Admin Dose 2.5 MG; Start 05/10/19 at 17:00 Albuterol (Proventil 0.083% (Neb)) 2.5 mg Q2H RESP THERAPY PRN NEB SHORTNESS OF BREATH; Start 05/10/19 at 14:30 Acetaminophen (Tylenol Liquid) 650 mg Q6H PRN PO PAIN LEVEL 1-3 OR FEVER; Start 05/10/19 at 14:30 Acetaminophen (Tylenol Supp) 650 mg Q4H PRN [place] PAIN LEVEL 1-3 OR FEVER; Start 05/10/19 at 14:30 Lorazepam (Ativan) 1 mg Q2H PRN IV ANXIETY Last administered on 05/14/19at 23:48; Admin Dose 1 MG; Start 05/10/19 at 14:30 Docusate Sodium (Colace) 100 mg Q12H PRN PO CONSTIPATION; Start 05/10/19 at 14:30 Magnesium Hydroxide (Milk Of Mag) 30 ml DAILY PRN PO CONSTIPATION; Start 05/10/19 at 14:30 Meropenem/Sodium Chloride 50 ml @ 100 mls/hr Q12 IVPB Last administered on 05/17/19at 08:10; Admin Dose 100 MLS/HR; Start 05/10/19 at 14:30 Citalopram Hydrobromide (Celexa) 40 mg DAILY PO ; Start 05/11/19 at 09:00 Insulin Aspart (Novolog Insulin Pen) NOVOLOG *MILD* ALGORI... Q4 SC Last administered on 05/16/19 09:47; Admin Dose 1 UNIT; Start 05/10/19 at 17:00 Miconazole Nitrate (Miconazole 2% Cr) 1 applic BID TOP Last administered on 05/17/19 08:14; Admin Dose 1 APPLIC; Start 05/10/19 at 21:00 Midodrine (Proamatine) 5 mg TID@09,13,17 GTB ; Start 05/10/19 at 17:00 Quetiapine Fumarate (Seroquel) 25 mg BID PO ; Start 05/10/19 at 21:00 Norepinephrine 250 ml @ 1.875 mls/ hr TITRATE IV Last administered on 05/13/19 09:49; Admin Dose 7.5 MLS/HR; Start 05/10/19 at 16:30 IV Flush (NS 10 ml) 10 ml PRN PRN IV FLUSH LINE; Start 05/10/19 at 19:00 Phenylephrine HCl 80 mg/Dextrose 250 ml @ 18.75 mls/ hr TITRATE IV Last administered on 05/17/19 01:08; Admin Dose 26.25 MLS/HR; Start 05/11/19 at 15:30 Haloperidol (Haldol) 2 mg Q4H PRN IM agitation Last administered on 05/14/19 22:40; Admin Dose 2 MG; Start 05/11/19 at 19:30 Ferric Sodium Gluconate Complex 125 mg/Sodium Chloride 110 ml @ 110 mls/hr DAILY@1300 IVPB Last administered on 05/16/19 14:33; Admin Dose 110 MLS/HR; Start 05/14/19 at 13:00; Stop 05/18/19 at 13:59 Caspofungin 50 mg/ Sodium Chloride 250 ml @ 250 mls/hr Q24H IVPB Last administered on 05/16/19 17:06; Admin Dose 250 MLS/HR; Start 05/15/19 at 16:00 Dextrose/Sodium Chloride 1,000 ml @ 100 mls/hr Q10H IV Last administered on 05/17/19 04:19; Admin Dose 100 MLS/HR; Start 05/15/19 at 08:00 Famotidine (Pepcid Iv) 20 mg BID IV Last administered on 05/17/19 08:10; Admin Dose 20 MG; Start 05/15/19 at 10:00 Morphine Sulfate (morphine) 1 mg Q2H PRN IV SEVERE PAIN LEVEL 7-10 Last administered on 05/17/19 01:00; Admin Dose 1 MG; Start 05/15/19 at 14:30 Assessment/Plan Assessment/Plan (Daily) IMP: 1. Hypoxemic Respiratory Insufficiency 2/2 dense right-sided Klebsiella pneumonia. 2. Septic shock 2/2 klebsiella pneumonia and fungemia 3. Thrombocytopenia, possibly secondary to underlying sepsis vs. cirrhosis 4. Encephalopathy, toxic metabolic with prior history of CVA/ischemic encephalopathy. 5. History of mechanical aortic valve. 6. History of AICD placement with cardiopulmonary arrest. RECS: 1. Continue vasopressor support to MAP > 65 mm Hg 2. Broad-spectrum antibiotics as per ID 3. DIC panel 4. Follow ABG; mental status; low threshold for intubation 5. Remove PICC line/follow blood cultures 40 min cc time VALERI CEE MD May 17, 2019 11:04
[2019-05-17] MEDS: SOD FERRIC GLUC COMPLX 125 MG in SOD CHLORIDE 0.9% 100 ML IVPB SCH (12:31)
[2019-05-17] MEDS ORDERED: FUROSEMIDE 20 MG INJ IV ONE (14:00)
[2019-05-17] MEDS: CASPOFUNGIN 50 MG in SOD CHLORIDE 0.9% 250 ML IVPB SCH (15:54)
[2019-05-18] VITALS (63 sets, daily range): BP systolic 75–119; BP diastolic 42–75; PULSE 69–102; RESP 11–42
[2019-05-18] MEDS: INSULIN ASPART [NOVOLOG] 3 ML PEN SC SCH ×3 (01:00→08:33)
[2019-05-18] MEDS: ALBUTEROL 0.083% (NEB) 2.5 MG/3 ML AMP NEB SCH ×3 (04:07→08:44)
[2019-05-18] MEDS: morphine 2 MG INJ IV PRN ×9 (05:39→23:43)
[2019-05-18] MEDS: DEXTROSE 5%-0.45% NACL 1,000 ML IV SCH (06:30)
[2019-05-18] MEDS: PHENYLephrine 80 MG in DEXTROSE 5% 242 ML IV SCH (06:33)
[2019-05-18] MEDS: MIDODRINE 5 MG TAB GTB SCH ×2 (08:05→10:12)
[2019-05-18] MEDS: QUETIAPINE 25 MG TAB PO SCH (08:06)
[2019-05-18] MEDS: CITALOPRAM 20 MG TAB PO SCH (08:06)
[2019-05-18] MEDS: POTASSIUM CHLORIDE 100 ML IVPB SCH ×2 (08:20→10:12)
[2019-05-18] MEDS: FAMOTIDINE 20 MG INJ IV SCH (08:20)
[2019-05-18] MEDS: MEROPENEM 1 GM/50ML(PMX) 50 ML IVPB SCH (08:21)
--- NOTE | 2019-05-18 08:23 | PN ---
DATE: 05/18/2019 SUBJECTIVE: The patient remains critically ill on pressor support. The patient received a course of Lasix yesterday with good clinical response. No other events noted. No hemoptysis, hematemesis or hematochezia. OBJECTIVE: VITAL SIGNS: Blood pressure is 108/53, respiration 12, pulse 92, temperature 98.6. HEENT: Head is normocephalic. NECK: Supple. HEART: Regular rate. LUNGS: Show diminished breath sounds at the base, right greater than left. ABDOMEN: Soft, nontender to palpation without rebound or guarding. EXTREMITIES: Negative for clubbing, cyanosis. Positive edema. DERMATOLOGIC: No rashes. MUSCULOSKELETAL: No joint effusion. NEUROLOGIC: No change in exam. MEDICATIONS: The patient's medications have been reviewed. LABORATORY DATA: Has been reviewed. IMAGING: Has been reviewed. Microbiology was reviewed. ASSESSMENT AND PLAN: 1. Nonoliguric acute kidney injury on top of chronic kidney disease stage IIIB/IV with previous base line creatinine around 1.5 to 2.0 mg/dL. Etiology of acute kidney injury is secondary to acute tubul ar necrosis due to sepsis and shock. The patient's renal function has stabilized. At this point, co ntinue current treatment plans, supportive care, renally dose all meds. 2. Hypernatremia, improved. The patient remains on hypotonic fluid. We will continue to monitor. 3. Anemia. The patient is status post blood transfusion, monitor hemoglobin and hematocrit levels. 4. Septic shock secondary to pneumonia bacteremia, fungemia. Continue broad spectrum antibiotics, a ntifungal therapy, continue pressor support. 5. Volume overload. Etiology secondary to IV fluids, sepsis, capillary leak. The patient is status post Lasix x1 with good urinary output. Would monitor closely and cautiously and diuretics in the se tting of shock. 6. Acute hypoxic respiratory failure secondary to pneumonia, sepsis. Continue current medical manag ement. Continue nebulizer, supplemental oxygen. 7. Diabetes. Continue current insulin regimen. 8. Thrombocytopenia secondary to cirrhosis. Continue to monitor. 9. History of heart failure. The patient is currently decompensated. Will minimize IV fluids if po ssible. De-escalate. The patient received Lasix x1 and monitor. 10. Acute encephalopathy. The etiology is toxic metabolic. 11. Cirrhosis. Continue medical management. 12. Mineral bone disorder, monitor calcium and phosphorus levels. Please note, the patient has overall very poor prognosis. Dictated By: KENIA ESTES/MELISSA Conf#: [id number] DID#: [id number]
[2019-05-18] MEDS: MICONAZOLE 2% 30 GM CR TOP SCH (08:33)
--- NOTE | 2019-05-18 09:09 | CONS ---
Consult Date/Type/Reason Admit Date/Time May 10, 2019 at 13:20 Initial Consult Date 05/11/19 Type of Consult Pulmonary Requesting Provider: NIXON MILLER MD Date/Time of Note DATE: 05/18/19 TIME: 09:08 Subjective Continues to decline. Continues vasopressor support. Hospice meeting family today. Objective Vital Signs Date Temp Pulse Resp B/P (MAP) Pulse Ox O2 O2 Flow FiO2 Time Delivery Rate 05/18/19 88 20 100 Nasal 3.0 08:45 Cannula 05/18/19 101/70 08:30 (80) 05/18/19 98.7 08:00 05/15/19 36 16:55 Intake and Output 05/17/19 05/17/19 05/18/19 1414:59 22:59 06:59 IntakeIntake Total 1803.00 ml 2090.00 ml 1010.00 ml OutputOutput Total 240 ml 640 ml 460 ml BalanceBalance 1563.00 ml 1450.00 ml 550.00 ml Exam PHYSICAL EXAMINATION: GENERAL: Chronically ill-appearing gentleman nasal cannula O2 significant jaundice. VITAL SIGNS: NECK: Supple. No JVD or lymphadenopathy. CARDIAC: S1, S2, no added sounds or murmurs. CHEST: Diminished air entry bilaterally. ABDOMEN: Soft, nontender. No guarding or rebound. EXTREMITIES: No cyanosis, clubbing, edema. NEUROLOGIC: Generalized weakness. Vent Setting Fraction of Inspired Oxygen pe: 36 Results/Medications Result Diagram: 05/18/19 0613 05/18/19 0450 Results 24 hrs Laboratory Tests Test 05/17/19 09:34 05/17/19 09:40 05/17/19 13:47 05/17/19 17:36 Platelet Count 40 L Absolute 0.188 H Reticulocyte Count Percent 7.8 H Reticulocyte Count Prothrombin 19.6 H Time Prothrombin 1.5 Time Ratio INR 1.65 International Normalized Rati o Activated 37.9 H Partial Thrombo plast Time Thrombin Time 15.9 Lactate 1398 H Dehydrogenase Fibrinogen 198.0 L Bedside Glucose 128 135 Test 05/17/19 20:34 05/18/19 01:12 05/18/19 04:00 05/18/19 04:50 Bedside Glucose 127 106 Lactic Acid 1.4 Level Sodium Level 140 Potassium Level 3.4 L Chloride Level 113 H Carbon Dioxide 20 L Level Anion Gap 7 Blood Urea 28 H Nitrogen Creatinine 0.69 Est Glomerular > 60 Filtrat Rate mL/min Glucose Level 251 #H Calcium Level 7.2 L Phosphorus 2.7 Level Magnesium Level 1.8 Total Bilirubin 18.4 H Direct 14.10 H Bilirubin Indirect 4.3 H Bilirubin Aspartate Amino 47 H Transf (AST/SGO T) Alanine 50 Aminotransferas e (ALT/SGPT) Alkaline 54 Phosphatase Total Protein 5.4 L Albumin 2.2 L Globulin 3.20 Albumin/Globuli 0.68 n Ratio Test 05/18/19 04:53 05/18/19 05:00 05/18/19 06:13 05/18/19 08:25 Lab Scanned BLOOD TRANSFUSI Report ON Blood Gas Blood arterial Specimen Source Arterial Blood 05/18/2019 4:30:2 Date Drawn 6 AM Arterial Blood 7.397 pH (Temp corrected ) Arterial Blood 33.6 L pCO2 (Temp correct) Arterial Blood 54.4 *L pO2 (Temp corrected ) Arterial Blood 20.2 L HCO3 Arterial Blood -4.0 L Base Excess Arterial Blood 87.6 L Oxygen Saturati on Barber Test ACCEPTAB Arterial Blood Right Radial Gas Puncture Site Arterial 2.4 Blood Carboxyhe moglobin Arterial Blood 0.1 Methemoglobin Blood Gas A-a 105.6 H O2 Differential Oxyhemoglobin 85.4 L Percent Blood Gas 37.0 Temperature Blood Gas NASAL CANNULA Modality FiO2 28.0 Blood Gas CMEIKLE RN Critical Value Read Back Blood Gas MA Notified Whom Blood Gas 05/18/2019 4:55:0 Notified Time 6 AM White Blood 7.7 # Count Red Blood Count 3.14 #L Hemoglobin 9.4 #L Hematocrit 29.1 #L Mean 92.7 Corpuscular Volume Mean 29.9 Corpuscular Hemoglobin Mean 32.3 Corpuscular Hemoglobin Conc ent Red Cell 23.7 H Distribution Width Platelet Count 43 #L Mean Platelet Volume Immature 2.200 H Granulocytes % Neutrophils % 81.7 H Segmented 75 Neutrophils % (Manual) Band 14 H Neutrophils % (Manual) Lymphocytes % 8.0 L Lymphocytes % 3 L (Manual) Monocytes % 7.6 Monocytes % 6 (Manual) Eosinophils % 0.4 Basophils % 0.1 Myelocytes % 1 H (Manual) Promyelocytes % 1 H (Manual) Nucleated Red 7 H Blood Cells % Immature 0.170 H Granulocytes # Neutrophils # 6.3 Neutrophils # 5.9 (Manual) Band 1.0 H Neutrophils # Lymphocytes 0.2 L (Manual) Lymphocytes # 0.6 L Monocytes # 0.6 Monocytes # 0.4 (Manual) Eosinophils # 0.0 Basophils # 0.0 Myelocytes # 0.0 Promyelocytes # 0.0 Nucleated Red 0.5 H Blood Cells # Platelet SIG DECREASED Estimate Polychromasia 3+ Poikilocytosis 3+ Anisocytosis 2+ Microcytosis 1+ Macrocytosis 1+ Target Cells 1+ Bedside Glucose 114 Medications Current Medications Ondansetron HCl (Zofran Inj) 4 mg Q6H PRN IV NAUSEA AND/OR VOMITING; Start 05/10/19 at 14:30 Albuterol (Proventil 0.083% (Neb)) 2.5 mg Q4H RESP THERAPY NEB Last administered on 05/18/19at 08:44; Admin Dose 2.5 MG; Start 05/10/19 at 17:00 Albuterol (Proventil 0.083% (Neb)) 2.5 mg Q2H RESP THERAPY PRN NEB SHORTNESS OF BREATH; Start 05/10/19 at 14:30 Acetaminophen (Tylenol Liquid) 650 mg Q6H PRN PO PAIN LEVEL 1-3 OR FEVER; Start 05/10/19 at 14:30 Acetaminophen (Tylenol Supp) 650 mg Q4H PRN SD PAIN LEVEL 1-3 OR FEVER; Start 05/10/19 at 14:30 Lorazepam (Ativan) 1 mg Q2H PRN IV ANXIETY Last administered on 05/14/19at 23:48; Admin Dose 1 MG; Start 05/10/19 at 14:30 Docusate Sodium (Colace) 100 mg Q12H PRN PO CONSTIPATION; Start 05/10/19 at 14:30 Magnesium Hydroxide (Milk Of Mag) 30 ml DAILY PRN PO CONSTIPATION; Start 05/10/19 at 14:30 Meropenem/Sodium Chloride 50 ml @ 100 mls/hr Q12 IVPB Last administered on 05/18/19at 08:21; Admin Dose 100 MLS/HR; Start 05/10/19 at 14:30 Citalopram Hydrobromide (Celexa) 40 mg DAILY PO ; Start 05/11/19 at 09:00 Insulin Aspart (Novolog Insulin Pen) NOVOLOG *MILD* ALGORI... Q4 SC Last administered on 05/16/19 09:47; Admin Dose 1 UNIT; Start 05/10/19 at 17:00 Miconazole Nitrate (Miconazole 2% Cr) 1 applic BID TOP Last administered on 08:33; Admin Dose 1 APPLIC; Start 05/10/19 at 21:00 Midodrine (Proamatine) 5 mg TID@09,13,17 GTB ; Start 05/10/19 at 17:00 Quetiapine Fumarate (Seroquel) 25 mg BID PO ; Start 05/10/19 at 21:00 Norepinephrine 250 ml @ 1.875 mls/ hr TITRATE IV Last administered on 05/13/19 09:49; Admin Dose 7.5 MLS/HR; Start 05/10/19 at 16:30 IV Flush (NS 10 ml) 10 ml PRN PRN IV FLUSH LINE; Start 05/10/19 at 19:00 Phenylephrine HCl 80 mg/Dextrose 250 ml @ 18.75 mls/ hr TITRATE IV Last administered on 05/18/19 06:33; Admin Dose 26.25 MLS/HR; Start 05/11/19 at 15:30 Haloperidol (Haldol) 2 mg Q4H PRN IM agitation Last administered on 05/14/19 22:40; Admin Dose 2 MG; Start 05/11/19 at 19:30 Ferric Sodium Gluconate Complex 125 mg/Sodium Chloride 110 ml @ 110 mls/hr DAILY@1300 IVPB Last administered on 05/17/19 12:31; Admin Dose 110 MLS/HR; Start 05/14/19 at 13:00; Stop 05/18/19 at 13:59 Caspofungin 50 mg/ Sodium Chloride 250 ml @ 250 mls/hr Q24H IVPB Last administered on 05/17/19 15:54; Admin Dose 250 MLS/HR; Start 05/15/19 at 16:00 Dextrose/Sodium Chloride 1,000 ml @ 75 mls/hr [id number] IV Last administered on 05/18/19 06:30; Admin Dose 100 MLS/HR; Start 05/15/19 at 08:00 Famotidine (Pepcid Iv) 20 mg BID IV Last administered on 05/18/19 08:20; Admin Dose 20 MG; Start 05/15/19 at 10:00 Morphine Sulfate (morphine) 1 mg Q2H PRN IV SEVERE PAIN LEVEL 7-10 Last administered on 05/18/19at 08:20; Admin Dose 1 MG; Start 05/15/19 at 14:30 Potassium Chloride 100 ml @ 50 mls/hr Q2H IVPB Last administered on 05/18/19at 08:20; Admin Dose 50 MLS/HR; Start 05/18/19 at 07:30; Stop 05/18/19 at 11:29 Miscellaneous Information 1 ea NOTE XX ; Start 05/18/19 at 09:30 Glucose (Glutose) 15 gm Q15M PRN PO DECREASED GLUCOSE; Start 05/18/19 at 09:30 Glucose (Glutose) 22.5 gm Q15M PRN PO DECREASED GLUCOSE; Start 05/18/19 at 09:30 Dextrose (D50w Syringe) 25 ml Q15M PRN IV DECREASED GLUCOSE; Start 05/18/19 at 09:30 Dextrose (D50w Syringe) 50 ml Q15M PRN IV DECREASED GLUCOSE; Start 05/18/19 at 09:30 Glucagon (Glucagen) 1 mg Q15M PRN IM DECREASED GLUCOSE; Start 05/18/19 at 09:30 Glucose (Glutose) 15 gm Q15M PRN BUCCAL DECREASED GLUCOSE; Start 05/18/19 at 09:30 Assessment/Plan Hospital Course (Demo Recall) IMPRESSION AND PLAN: 1. Hypoxemic respiratory failure, likely secondary to aspiration pneumonia. Dense right sided pneumonia. 2. Septic shock secondary to above. 3. Thrombocytopenia, possibly secondary to underlying sepsis. 4. Encephalopathy, toxic metabolic with prior history of CVA. 5. History of mechanical aortic valve. 6. History of AICD placement with cardiopulmonary arrest. Plan 1. Continued vasopressor support. 2. Broad-spectrum antibiotics. 3. Aspiration precautions. Family considering transition to hospice. Critical care time 40 minutes. KAYLAN MIN MD, [facility] May 18, 2019 09:09
[2019-05-18] MEDS ORDERED: DEXTROSE 50% 50 ML SYRINGE IV PRN ×2 (09:30)
[2019-05-18] MEDS ORDERED: GLUCOSE GEL 15 GRAM TUBE BUCCAL PRN (09:30)
[2019-05-18] MEDS ORDERED: GLUCOSE GEL 15 GRAM TUBE PO PRN ×2 (09:30)
[2019-05-18] MEDS ORDERED: GLUCAGON 1 MG INJ IM PRN (09:30)
--- NOTE | 2019-05-18 09:40 | CONS ---
Assessment/Plan Assessment/Plan Hospital Course (Demo Recall) ID PROGRESS NOTE CURRENT ABX: DAY # =>MERREM + Cancidas 24H INTERVAL SUMMARY * Altered mental status continues - does not follow commands, restless at times moaning -- supplemental O2 5L NC * Restless -- moves all extremities, * INVASIVES: PICC, FC, ICD DIAGNOSTIC IMAGING * 05/17/19 CXR:Cardiomegaly with calcified atherosclerosis in the aorta. Near complete opacification of the right hemithorax, possibly corresponding to near complete atelectasis/consolidation of the right lung, combined with pleural fluid. Central pulmonary vascular congestion and interstitial prominence in the left lung. Interval increase in extensive infiltrates throughout the left lung. MICRO * 05/15/19 BCx (-) * 05/12/19 BCx(+) YEAST 1/2 bottles * 05/10/19 Urine Cx (-) * 05/10/19 BCx (+) [id number] PHYSICAL EXAMINATION: GENERAL: Lethargic, encephalopathic HEENT: AT, NC, NECK: Supple, CHEST: Rise symmetrical without dyspnea HEART: Pulse RRR ABDOMEN: SOFT EXTREMITIES: Warm, dry SKIN: No rash, no diaphoresis ID ASSESSMENT 63 yo M admit with: 1. Sepsis with shock 2. Acute hypoxemic respiratory failure 3. Gram-negative bacteremia and fungemia ?SBE ?SBP vs pulmonary 3. Healthcare associated pneumonia possibly aspirated 4. Anemia 5. Thrombocytopenia 6. Diabetes 7. Atrial fibrillation 8. Liver cirrhosis with ascites, rule out SBP 9. Coronary artery disease, status post AVR (-)MRSA Nares ABX ALLERGIES: KNDA INVASIVES: PICC, FC, ICD CURRENT ABX: DAY # => Merrem + Cancidas ID RECOMMENDATIONS/PLAN: 1. Continue current ABX --Per notes Hospice evaluation today w/family possible terminal extubation 2. He has 3-LUMEN PICC line RUEXT now with YEAST BCx -> Repeat BCx (-) * Line salvage at this time pending family decision Consultation Date/Type/Reason Admit Date/Time May 10, 2019 at 13:20 Initial Consult Date 05/11/19 Requesting Provider: NIXON MILLER MD Date/Time of Note DATE: 05/18/19 TIME: 09:37 Exam/Review of Systems Exam Vitals Vital Signs Date Temp Pulse Resp B/P (MAP) Pulse Ox O2 O2 Flow FiO2 Time Delivery Rate 05/18/19 78 20 82/58 (66) 99 09:30 05/18/19 Nasal 3.0 08:45 Cannula 05/18/19 98.7 08:00 05/15/19 36 16:55 Intake and Output 05/17/19 05/17/19 05/18/19 1414:59 22:59 06:59 IntakeIntake Total 1803.00 ml 2090.00 ml 1010.00 ml OutputOutput Total 240 ml 640 ml 460 ml BalanceBalance 1563.00 ml 1450.00 ml 550.00 ml Results Result Diagram: 05/18/19 0613 05/18/19 0450 Results 24hrs Laboratory Tests Test 05/17/19 09:40 05/17/19 13:47 05/17/19 17:36 05/17/19 20:34 Fibrinogen 198.0 L Bedside Glucose 128 135 127 Test 05/18/19 01:12 05/18/19 04:00 05/18/19 04:50 05/18/19 04:53 Bedside Glucose 106 Lactic Acid 1.4 Level Sodium Level 140 Potassium Level 3.4 L Chloride Level 113 H Carbon Dioxide 20 L Level Anion Gap 7 Blood Urea 28 H Nitrogen Creatinine 0.69 Est Glomerular > 60 Filtrat Rate mL/min Glucose Level 251 #H Calcium Level 7.2 L Phosphorus 2.7 Level Magnesium Level 1.8 Total Bilirubin 18.4 H Direct 14.10 H Bilirubin Indirect 4.3 H Bilirubin Aspartate Amino 47 H Transf (AST/SGO T) Alanine 50 Aminotransferas e (ALT/SGPT) Alkaline 54 Phosphatase Total Protein 5.4 L Albumin 2.2 L Globulin 3.20 Albumin/Globuli 0.68 n Ratio Lab Scanned BLOOD TRANSFUSI Report ON Test 05/18/19 05:00 05/18/19 06:13 05/18/19 08:25 Blood Gas Blood arterial Specimen Source Arterial Blood 05/18/2019 4:30:2 Date Drawn 6 AM Arterial Blood 7.397 pH (Temp corrected ) Arterial Blood 33.6 L pCO2 (Temp correct) Arterial Blood 54.4 *L pO2 (Temp corrected ) Arterial Blood 20.2 L HCO3 Arterial Blood -4.0 L Base Excess Arterial Blood 87.6 L Oxygen Saturati on Barber Test ACCEPTAB Arterial Blood Right Radial Gas Puncture Site Arterial 2.4 Blood Carboxyhe moglobin Arterial Blood 0.1 Methemoglobin Blood Gas A-a 105.6 H O2 Differential Oxyhemoglobin 85.4 L Percent Blood Gas 37.0 Temperature Blood Gas NASAL CANNULA Modality FiO2 28.0 Blood Gas CMEIKLE RN Critical Value Read Back Blood Gas LUIS DANIEL Notified Whom Blood Gas 05/18/2019 4:55:0 Notified Time 6 AM White Blood 7.7 # Count Red Blood Count 3.14 #L Hemoglobin 9.4 #L Hematocrit 29.1 #L Mean 92.7 Corpuscular Volume Mean 29.9 Corpuscular Hemoglobin Mean 32.3 Corpuscular Hemoglobin Conc ent Red Cell 23.7 H Distribution Width Platelet Count 43 #L Mean Platelet Volume Immature 2.200 H Granulocytes % Neutrophils % 81.7 H Segmented 75 Neutrophils % (Manual) Band 14 H Neutrophils % (Manual) Lymphocytes % 8.0 L Lymphocytes % 3 L (Manual) Monocytes % 7.6 Monocytes % 6 (Manual) Eosinophils % 0.4 Basophils % 0.1 Myelocytes % 1 H (Manual) Promyelocytes % 1 H (Manual) Nucleated Red 7 H Blood Cells % Immature 0.170 H Granulocytes # Neutrophils # 6.3 Neutrophils # 5.9 (Manual) Band 1.0 H Neutrophils # Lymphocytes 0.2 L (Manual) Lymphocytes # 0.6 L Monocytes # 0.6 Monocytes # 0.4 (Manual) Eosinophils # 0.0 Basophils # 0.0 Myelocytes # 0.0 Promyelocytes # 0.0 Nucleated Red 0.5 H Blood Cells # Platelet SIG DECREASED Estimate Polychromasia 3+ Poikilocytosis 3+ Anisocytosis 2+ Microcytosis 1+ Macrocytosis 1+ Target Cells 1+ Bedside Glucose 114 Medications Medication Current Medications Ondansetron HCl (Zofran Inj) 4 mg Q6H PRN IV NAUSEA AND/OR VOMITING; Start 05/10/19 at 14:30 Albuterol (Proventil 0.083% (Neb)) 2.5 mg Q4H RESP THERAPY NEB Last administered on 05/18/19at 08:44; Admin Dose 2.5 MG; Start 05/10/19 at 17:00 Albuterol (Proventil 0.083% (Neb)) 2.5 mg Q2H RESP THERAPY PRN NEB SHORTNESS OF BREATH; Start 05/10/19 at 14:30 Acetaminophen (Tylenol Liquid) 650 mg Q6H PRN PO PAIN LEVEL 1-3 OR FEVER; Start 05/10/19 at 14:30 Acetaminophen (Tylenol Supp) 650 mg Q4H PRN PA PAIN LEVEL 1-3 OR FEVER; Start 05/10/19 at 14:30 Lorazepam (Ativan) 1 mg Q2H PRN IV ANXIETY Last administered on 05/14/19at 23:48; Admin Dose 1 MG; Start 05/10/19 at 14:30 Docusate Sodium (Colace) 100 mg Q12H PRN PO CONSTIPATION; Start 05/10/19 at 14:30 Magnesium Hydroxide (Milk Of Mag) 30 ml DAILY PRN PO CONSTIPATION; Start 05/10/19 at 14:30 Meropenem/Sodium Chloride 50 ml @ 100 mls/hr Q12 IVPB Last administered on 05/18/19 08:21; Admin Dose 100 MLS/HR; Start 05/10/19 at 14:30 Citalopram Hydrobromide (Celexa) 40 mg DAILY PO ; Start 05/11/19 at 09:00 Insulin Aspart (Novolog Insulin Pen) NOVOLOG *MILD* ALGORI... Q4 SC Last administered on 05/16/19 09:47; Admin Dose 1 UNIT; Start 05/10/19 at 17:00 Miconazole Nitrate (Miconazole 2% Cr) 1 applic BID TOP Last administered on 05/18 08:33; Admin Dose 1 APPLIC; Start 05/10/19 at 21:00 Midodrine (Proamatine) 5 mg TID@09,13,17 GTB ; Start 05/10/19 at 17:00 Quetiapine Fumarate (Seroquel) 25 mg BID PO ; Start 05/10/19 at 21:00 Norepinephrine 250 ml @ 1.875 mls/ hr TITRATE IV Last administered on 05/13/19 09:49; Admin Dose 7.5 MLS/HR; Start 05/10/19 at 16:30 IV Flush (NS 10 ml) 10 ml PRN PRN IV FLUSH LINE; Start 05/10/19 at 19:00 Phenylephrine HCl 80 mg/Dextrose 250 ml @ 18.75 mls/ hr TITRATE IV Last administered on 05/18/19at 06:33; Admin Dose 26.25 MLS/HR; Start 05/11/19 at 15:30 Haloperidol (Haldol) 2 mg Q4H PRN IM agitation Last administered on 05/14/19at 22:40; Admin Dose 2 MG; Start 05/11/19 at 19:30 Ferric Sodium Gluconate Complex 125 mg/Sodium Chloride 110 ml @ 110 mls/hr DAILY@1300 IVPB Last administered on 05/17/19at 12:31; Admin Dose 110 MLS/HR; Start 05/14/19 at 13:00; Stop 05/18/19 at 13:59 Caspofungin 50 mg/ Sodium Chloride 250 ml @ 250 mls/hr Q24H IVPB Last administered on 05/17/19at 15:54; Admin Dose 250 MLS/HR; Start 05/15/19 at 16:00 Dextrose/Sodium Chloride 1,000 ml @ 75 mls/hr [id number] IV Last administered on 05/18/19at 06:30; Admin Dose 100 MLS/HR; Start 05/15/19 at 08:00 Famotidine (Pepcid Iv) 20 mg BID IV Last administered on 05/18/19at 08:20; Admin Dose 20 MG; Start 05/15/19 at 10:00 Morphine Sulfate (morphine) 1 mg Q2H PRN IV SEVERE PAIN LEVEL 7-10 Last administered on 05/18/19at 08:20; Admin Dose 1 MG; Start 05/15/19 at 14:30 Potassium Chloride 100 ml @ 50 mls/hr Q2H IVPB Last administered on 05/18/19at 08:20; Admin Dose 50 MLS/HR; Start 05/18/19 at 07:30; Stop 05/18/19 at 11:29 Miscellaneous Information 1 ea NOTE XX ; Start 05/18/19 at 09:30 Glucose (Glutose) 15 gm Q15M PRN PO DECREASED GLUCOSE; Start 05/18/19 at 09:30 Glucose (Glutose) 22.5 gm Q15M PRN PO DECREASED GLUCOSE; Start 05/18/19 at 09:30 Dextrose (D50w Syringe) 25 ml Q15M PRN IV DECREASED GLUCOSE; Start 05/18/19 at 09:30 Dextrose (D50w Syringe) 50 ml Q15M PRN IV DECREASED GLUCOSE; Start 05/18/19 at 09:30 Glucagon (Glucagen) 1 mg Q15M PRN IM DECREASED GLUCOSE; Start 05/18/19 at 09:30 Glucose (Glutose) 15 gm Q15M PRN BUCCAL DECREASED GLUCOSE; Start 05/18/19 at 09:30 ANITA HUNTER NP May 18, 2019 09:40
--- NOTE | 2019-05-18 10:32 | CONS ---
Consult Date/Type/Reason Admit Date/Time May 10, 2019 at 13:20 Initial Consult Date 05/11/19 Type of Consultation: cv Requesting Provider: NIXON MILLER MD Date/Time of Note DATE: 05/18/19 TIME: 10:29 Subjective Interventional cardiology follow-up progress note/ Subjective: Discussed with the staff. Telemetry was reviewed. Patient remains in atrial fibrillation with episodes of nonsustained V. tach. no ICD discharge noted Patient nonverbal does not answer questions. He continues to be hypotensive in shock requiring a Lon-Synephrine drip D/W physicians pt is agitated and confused and does not follow commands family is considering hospice care now and pending eval. O: General: Elderly gentleman appears to be agitated and confused HEENT: NC/AT. pupils are equal. round. NECK: . no stridor. CV: Irregularly irregular. Mechanical click heard.. PULM: + Diffuse right-sided rhonchi. GI: SOFT, NT, ND, no rebound or guarding Extremity: trace B/L LE edema. no clubbing. neuro: awake but does not answer question. Psych: Agitated rectal: deferred : normal Review of the old chart showed echocardiogram done 05/03/2019 which was personal ly reviewed as shown: There is severe enlargement of left atrium. There is severe enlargement of right atrium. Mild enlargement of right ventricle. Severe right ventricular hypokinesis. Linear artifact in right ventricle suggestive of catheter, pacer lead, or ICD lead. Moderate concentric left ventricular hypertrophy. Mild enlargement of left ventricle cavity. Moderate global left ventricular systolic dysfunction. Ejection fraction is visually estimated at 35 %. Tissue Doppler/M itral Doppler indices are indeterminate in this study due to the presence of mitral stenosis. Mild mitral leaflet calcification. Mild mitral annular calcification. Severe mitral valve regurgitation. The regurgitation jet is eccentrically directed which may underestimate the severity of mitral reg urgitation. Mild to moderate mitral stenosis. Mitral valve Max Velocity 1.78 m/sec. MaxPG 13.00 mmHg. MeanPG 6.00 mmHg. Normal appearance of the tricuspid valve. The estimated Peak RVSP is 74 mmHg. There is moderate tricuspid regurgitation. Aortic Valve Mechanical Prosthesis. Gradients normal for valve type and size. Aortic valve Max velocity 1.58 m/sec. Max PG 9.96 mmHg. Mean PG 5.00 mmHg. Mild to moderate aortic valve regurgitation. The regurgitation jet is eccentrically directed. Normal pericardium with no significant pericardial effusion. Left pleural effusion seen. Normal size with poor respiratory collapse consistent with elevated right atrial pressure. Chest x-ray done 05/10/2019 which was personally reviewed as well shows: Interval increase in consolidation in the mid to upper right lung concerning for pneumonia. Slight decrease in interstitial opacities of the left lung suggestive of decreased pulmonary edema. Interval decrease in small right pleural effusion. General: Elderly gentleman appears to be agitated and confused HEENT: NC/AT. pupils are equal. round. NECK: . no stridor. CV: Irregularly irregular. Mechanical click heard.. PULM: + Diffuse right-sided rhonchi. GI: SOFT, NT, ND, no rebound or guarding Extremity: trace B/L LE edema. no clubbing. neuro: awake but does not answer question. Psych: Agitated rectal: deferred : normal Review of the old chart showed echocardiogram done 05/03/2019 which was personally reviewed as shown: There is severe enlargement of left atrium. There is severe enlargement of right atrium. Mild enlargement of right ventricle. Severe right ventricular hypokinesis. Linear artifact in right ventricle suggestive of catheter, pacer lead, or ICD lead. Moderate concentric left ventricular hypertrophy. Mild enlargement of left ventricle cavity. Moderate global left ventricular systolic dysfunction. Ejection fraction is visually estimated at 35 %. Tissue Doppler/Mitral Doppler indices are indeterminate in this study due to the presence of mitral stenosis. Mild mitral leaflet calcification. Mild mitral annular calcification. Severe mitral valve regurgitation. The regurgitation jet is eccentrically directed which may underestimate the severity of mitral regurgitation. Mild to moderate mitral stenosis. Mitral valve Max Velocity 1.78 m/sec. MaxPG 13.00 mmHg. MeanPG 6.00 mmHg. Normal appearance of the tricuspid valve. The estimated Peak RVSP is 74 mmHg. There is moderate tricuspid regurgitation. Aortic Valve Mechanical Prosthesis. Gradients normal for valve type and size. Aortic valve Max velocity 1.58 m/sec. Max PG 9.96 mmHg. Mean PG 5.00 mmHg. Mild to moderate aortic valve regurgitation. The regurgitation jet is eccentrically directed. Normal pericardium with no significant pericardial effusion. Left pleural effusion seen. Normal size with poor respiratory collapse consistent with elevated right atrial pressure. Chest x-ray done 05/10/2019 which was personally reviewed as well shows: Interval increase in consolidation in the mid to upper right lung concerning for pneumonia. Slight decrease in interstitial opacities of the left lung suggestive of de creased pulmonary edema. Interval decrease in small right pleural effusion. CXR 05/18/19 Calcified atherosclerosis in the aorta. Stable near complete opacification of the right hemithorax, possibly corresponding to near complete atelectasis/consolidation of the right lung, combined with pleural fluid. Stable central pulmonary vascular congestion and interstitial prominence in the left lung. Stable patchy perihilar infiltrates throughout the left lung. Objective Vitals Vital Signs Date Temp Pulse Resp B/P (MAP) Pulse Ox O2 O2 Flow FiO2 Time Delivery Rate 05/18/19 74 21 90/65 (73) 100 10:00 05/18/19 Nasal 3.0 08:45 Cannula 05/18/19 98.7 08:00 05/15/19 36 16:55 Intake and Output 05/17/19 05/17/19 05/18/19 1515:00 23:00 07:00 IntakeIntake Total 1803.00 ml 2090.00 ml 1010.00 ml OutputOutput Total 285 ml 605 ml 420 ml BalanceBalance 1518.00 ml 1485.00 ml 590.00 ml Results/Medications Result Diagram: 05/18/19 0613 05/18/19 0450 Results 24 hrs Laboratory Tests Test 05/17/19 13:47 05/17/19 17:36 05/17/19 20:34 05/18/19 01:12 Bedside Glucose 128 135 127 106 Test 05/18/19 04:00 05/18/19 04:50 05/18/19 04:53 05/18/19 05:00 Lactic Acid 1.4 Level Sodium Level 140 Potassium Level 3.4 L Chloride Level 113 H Carbon Dioxide 20 L Level Anion Gap 7 Blood Urea 28 H Nitrogen Creatinine 0.69 Est Glomerular > 60 Filtrat Rate mL/min Glucose Level 251 #H Calcium Level 7.2 L Phosphorus 2.7 Level Magnesium Level 1.8 Total Bilirubin 18.4 H Direct 14.10 H Bilirubin Indirect 4.3 H Bilirubin Aspartate Amino 47 H Transf (AST/SGO T) Alanine 50 Aminotransferas e (ALT/SGPT) Alkaline 54 Phosphatase Total Protein 5.4 L Albumin 2.2 L Globulin 3.20 Albumin/Globuli 0.68 n Ratio Lab Scanned BLOOD TRANSFUSI Report ON Blood Gas Blood arterial Specimen Source Arterial Blood 05/18/2019 4:30:2 Date Drawn 6 AM Arterial Blood 7.397 pH (Temp corrected ) Arterial Blood 33.6 L pCO2 (Temp correct) Arterial Blood 54.4 *L pO2 (Temp corrected ) Arterial Blood 20.2 L HCO3 Arterial Blood -4.0 L Base Excess Arterial Blood 87.6 L Oxygen Saturati on Barber Test ACCEPTAB Arterial Blood Right Radial Gas Puncture Site Arterial 2.4 Blood Carboxyhe moglobin Arterial Blood 0.1 Methemoglobin Blood Gas A-a 105.6 H O2 Differential Oxyhemoglobin 85.4 L Percent Blood Gas 37.0 Temperature Blood Gas NASAL CANNULA Modality FiO2 28.0 Blood Gas CMEIKLE RN Critical Value Read Back Blood Gas MA Notified Whom Blood Gas 05/18/2019 4:55:0 Notified Time 6 AM Test 05/18/19 06:13 05/18/19 08:25 White Blood 7.7 # Count Red Blood Count 3.14 #L Hemoglobin 9.4 #L Hematocrit 29.1 #L Mean 92.7 Corpuscular Volume Mean 29.9 Corpuscular Hemoglobin Mean 32.3 Corpuscular Hemoglobin Conc ent Red Cell 23.7 H Distribution Width Platelet Count 43 #L Mean Platelet Volume Immature 2.200 H Granulocytes % Neutrophils % 81.7 H Segmented 75 Neutrophils % (Manual) Band 14 H Neutrophils % (Manual) Lymphocytes % 8.0 L Lymphocytes % 3 L (Manual) Monocytes % 7.6 Monocytes % 6 (Manual) Eosinophils % 0.4 Basophils % 0.1 Myelocytes % 1 H (Manual) Promyelocytes % 1 H (Manual) Nucleated Red 7 H Blood Cells % Immature 0.170 H Granulocytes # Neutrophils # 6.3 Neutrophils # 5.9 (Manual) Band 1.0 H Neutrophils # Lymphocytes 0.2 L (Manual) Lymphocytes # 0.6 L Monocytes # 0.6 Monocytes # 0.4 (Manual) Eosinophils # 0.0 Basophils # 0.0 Myelocytes # 0.0 Promyelocytes # 0.0 Nucleated Red 0.5 H Blood Cells # Platelet SIG DECREASED Estimate Polychromasia 3+ Poikilocytosis 3+ Anisocytosis 2+ Microcytosis 1+ Macrocytosis 1+ Target Cells 1+ Bedside Glucose 114 Medications Current Medications Ondansetron HCl (Zofran Inj) 4 mg Q6H PRN IV NAUSEA AND/OR VOMITING; Start 05/10/19 at 14:30 Albuterol (Proventil 0.083% (Neb)) 2.5 mg Q4H RESP THERAPY NEB Last administered on 05/18/19at 08:44; Admin Dose 2.5 MG; Start 05/10/19 at 17:00 Albuterol (Proventil 0.083% (Neb)) 2.5 mg Q2H RESP THERAPY PRN NEB SHORTNESS OF BREATH; Start 05/10/19 at 14:30 Acetaminophen (Tylenol Liquid) 650 mg Q6H PRN PO PAIN LEVEL 1-3 OR FEVER; Start 05/10/19 at 14:30 Acetaminophen (Tylenol Supp) 650 mg Q4H PRN [place] PAIN LEVEL 1-3 OR FEVER; Start 05/10/19 at 14:30 Lorazepam (Ativan) 1 mg Q2H PRN IV ANXIETY Last administered on 05/14/19 23:48; Admin Dose 1 MG; Start 05/10/19 at 14:30 Docusate Sodium (Colace) 100 mg Q12H PRN PO CONSTIPATION; Start 05/10/19 at 14:30 Magnesium Hydroxide (Milk Of Mag) 30 ml DAILY PRN PO CONSTIPATION; Start 05/10/19 at 14:30 Meropenem/Sodium Chloride 50 ml @ 100 mls/hr Q12 IVPB Last administered on 05/18/19at 08:21; Admin Dose 100 MLS/HR; Start 05/10/19 at 14:30 Citalopram Hydrobromide (Celexa) 40 mg DAILY PO ; Start 05/11/19 at 09:00 Insulin Aspart (Novolog Insulin Pen) NOVOLOG *MILD* ALGORI... Q4 SC Last admi nistered on 05/16/19 09:47; Admin Dose 1 UNIT; Start 05/10/19 at 17:00 Miconazole Nitrate (Miconazole 2% Cr) 1 applic BID TOP Last administered on 05/18/19 08:33; Admin Dose 1 APPLIC; Start 05/10/19 at 21:00 Midodrine (Proamatine) 5 mg TID@09,13,17 GTB ; Start 05/10/19 at 17:00 Quetiapine Fumarate (Seroquel) 25 mg BID PO ; Start 05/10/19 at 21:00 Norepinephrine 250 ml @ 1.875 mls/ hr TITRATE IV Last administered on 05/13/19 09:49; Admin Dose 7.5 MLS/HR; Start 05/10/19 at 16:30 IV Flush (NS 10 ml) 10 ml PRN PRN IV FLUSH LINE; Start 05/10/19 at 19:00 Phenylephrine HCl 80 mg/Dextrose 250 ml @ 18.75 mls/ hr TITRATE IV Last administered on 05/18/19 06:33; Admin Dose 26.25 MLS/HR; Start 05/11/19 at 15:30 Haloperidol (Haldol) 2 mg Q4H PRN IM agitation Last administered on 05/14/19 22:40; Admin Dose 2 MG; Start 05/11/19 at 19:30 Ferric Sodium Gluconate Complex 125 mg/Sodium Chloride 110 ml @ 110 mls/hr DAILY@1300 IVPB Last administered on 05/17/19 12:31; Admin Dose 110 MLS/HR; Start 05/14/19 at 13:00; Stop 05/18/19 at 13:59 Caspofungin 50 mg/ Sodium Chloride 250 ml @ 250 mls/hr Q24H IVPB Last administered on 05/17/19 15:54; Admin Dose 250 MLS/HR; Start 05/15/19 at 16:00 Dextrose/Sodium Chloride 1,000 ml @ 75 mls/hr [id number] IV Last administered on 05/18/19 06:30; Admin Dose 100 MLS/HR; Start 05/15/19 at 08:00 Famotidine (Pepcid Iv) 20 mg BID IV Last administered on 05/18/19 08:20; Admin Dose 20 MG; Start 05/15/19 at 10:00 Morphine Sulfate (morphine) 1 mg Q2H PRN IV SEVERE PAIN LEVEL 7-10 Last administered on 05/18/19 08:20; Admin Dose 1 MG; Start 05/15/19 at 14:30 Potassium Chloride 100 ml @ 50 mls/hr Q2H IVPB Last administered on 05/18/19 10:12; Admin Dose 50 MLS/HR; Start 05/18/19 at 07:30; Stop 05/18/19 at 11:29 Miscellaneous Information 1 ea NOTE XX ; Start 05/18/19 at 09:30 Glucose (Glutose) 15 gm Q15M PRN PO DECREASED GLUCOSE; Start 05/18/19 at 09:30 Glucose (Glutose) 22.5 gm Q15M PRN PO DECREASED GLUCOSE; Start 05/18/19 at 09:30 Dextrose (D50w Syringe) 25 ml Q15M PRN IV DECREASED GLUCOSE; Start 05/18/19 at 09:30 Dextrose (D50w Syringe) 50 ml Q15M PRN IV DECREASED GLUCOSE; Start 05/18/19 at 09:30 Glucagon (Glucagen) 1 mg Q15M PRN IM DECREASED GLUCOSE; Start 05/18/19 at 09:30 Glucose (Glutose) 15 gm Q15M PRN BUCCAL DECREASED GLUCOSE; Start 05/18/19 at 09: 30 Assessment/Plan Hospital Course (Demo Recall) 1. Septic shock/ESBL K pneumonia bacteremia 2. hx of ventricular tachycardia: Status post ICD placement ( [employer] ICD per family report ) 3. Congestive heart failure chronic secondary systolic and probably diastolic heart failure as well as valvular heart disease 4. Valvular heart disease status post mechanical aortic valve replacement and with severe mitral regurgitation 5. Severe cardiomyopathy ejection fracture 35% at the top of severe MR 6. Pulmonary hypertension 7. Encephalopathy and anoxic brain injury 8. Pneumonia most likely aspiration pneumonia 9. Acute renal failure 10. Hypernatremia 11. Respiratory failure hypoxemia 12. Diabetes 13. History of hypertension currently hypotensive and in shock 14. Reported history of endocarditis in the past 15. Severe anemia 16. Severe thrombocytopenia 17. FUNGEMIA Recommendations: ICD was turned off per family request. cont current care for now until hospice eval. prognosis is poor. Thank you for his referral. We will continue to follow along with you as needed only FLORINDA GONZALEZ MD [facility] FLORINDA GONZALEZ MD May 18, 2019 10:32
[2019-05-18] MEDS ORDERED: morphine 2 MG INJ IV PRN ×2 (11:30→12:30)
[2019-05-18] MEDS ORDERED: SCOPOLAMINE 1.5 MG PATCH TRANSDERM SCH (13:00)
[2019-05-18] MEDS ORDERED: ACETAMINOPHEN 650 MG SUPP PR PRN (13:00)
[2019-05-18] MEDS ORDERED: ATROPINE 1% 5 ML OPH SL PRN (13:00)
[2019-05-18] MEDS: LORAZEPAM 2 MG INJ IV PRN ×2 (13:08→16:53)
--- NOTE | 2019-05-18 13:10 | PN ---
Date/Time of Note Date/Time of Note DATE: 05/18/19 TIME: 13:09 Objective Vitals Vital Signs Date Temp Pulse Resp B/P (MAP) Pulse Ox O2 O2 Flow FiO2 Time Delivery Rate 05/18/19 69 19 90/56 (67) 98 12:50 05/18/19 98.8 Nasal 5.0 12:00 Cannula 05/15/19 36 16:55 Intake and Output 05/17/19 05/17/19 05/18/19 1515:00 23:00 07:00 IntakeIntake Total 1803.00 ml 2090.00 ml 1010.00 ml OutputOutput Total 285 ml 605 ml 480 ml BalanceBalance 1518.00 ml 1485.00 ml 530.00 ml Results Result Diagram: 05/18/19 0605/18/19 0450 Medications Medications Current Medications Morphine Sulfate (morphine) 2 mg Q1H PRN IV PAIN/DYSPNEA Last administered on 05/18/19at 13:02; Admin Dose 2 MG; Start 05/18/19 at 13:00 Lorazepam (Ativan) 1 mg Q4H PRN IV ANXIETY/SEIZURES Last administered on 05/18/19at 13:08; Admin Dose 1 MG; Start 05/18/19 at 13:00 Scopolamine (Transderm-Scop) 1 patch Q72H TRANSDERM ; Start 05/18/19 at 13:00 Atropine Sulfate (Atropine 1% Oph) 2 drop Q4H PRN SL TERMINAL CONGESTION; Start 05/18/19 at 13:00 Acetaminophen (Tylenol Supp) 650 mg Q6H PRN [place] FEVER; Start 05/18/19 at 13:00 VTE Prophylaxis Risk score (from Nsg)>0 risk: 10 SCD applied (from Nsg): No SCD contraindication: other Lines/Catheters IV Catheter Type: Patino in Place: No Assessment/Plan Hospital Course Subjective Will transition over to inpatient hospice care today Objective Physical exam General: Patient is laying in bed laying down, not responsive except for not purposeful movements and agitation mentation: Patient is occasionally arousable however is not oriented, Head: Normocephalic atraumatic Eyes: EOMI, pupils reactive to light Neck: Supple, nontender, midline Respiratory: Coarse to auscultation bilaterally Cardiovascular: Regular rate, no obvious murmurs Gastrointestinal: non-tender to palpation, bowel sounds heard. Neurological: Moves all extremities spontaneously Skin: No new skin lesions Assessment/Plan Septic shock, secondary to pneumonia, bacteremia, and fungemia - Will wean off pressors as tolerated. - continue IV antibiotics, iv antifungals Acute respiratory failure secondary to pneumonia - Speech on board for evaluation of aspiration risk - continue neb tx and monitoring saturations. tolerating NC Acute on chronic toxic metabolic encephalopathy -Patient's baseline on admission was not being able to converse however was able to eat if being spoon fed -We will not be able to fully evaluate patient's mental status until bacteremia and fungemia and pneumonia has resolved -monitor closely -Patient extremely agitated at times causing to be tachycardic, tested a low dose of morphine and patient responded well with reduction in heart rate and moaning, patient's understands the risks of using morphine as needed with respiratory depression, patient's accepts these risks and wants patient to be comfortable. Unsustained V. tach -Cardiology on board -AICD interrogation -Monitor closely, cardiology recognitions appreciated Pneumonia, likely aspiration - Pulm on board and appreciate recommendations - continue on steroids and antibiotics - ID consulted and appreciate recommendations WONG on CKD-resolved - Nephrology consultation appreciated - most likely secondary to ATN from septic shock and cardiorenal Hypernatremia - IVF changed - Nephrology on board and assisting with fluid management Anemia, -Likely a combination of factors, possible hemolysis secondary to hypersplenism due to patient's cirrhosis, may also be secondary to mild bleeding through the GI tract secondary to thrombocytopenia secondary to to DIC secondary to patient's overwhelming septic shock -Follow-up on labs, hemolysis labs taken -Hematology, Dr. Virk's covering physician has been attempted to be reached to be on board, however so far this is just been answering machine, message was left, will attempt again later - holding coumadin Bacteremia/fungemia - ID on board and appreciate recommendations - Repeat blood cx noted - iv abx, iv antifungal Atrial fibrillation - rate controlled - holding anticoagulation in setting of anemia and thrombocytopenia Thrombocytopenia, possible splenic sequestration versus DIC -Persistently low -Patient at high risk of bleed, transfuse platelets as needed, transfuse FFP as needed - hold warfarin HTN - holding home meds in setting of hypotension Acute on chronic systolic heart failure - will hold diuretics given low BP and resume when stable - ECHO noted with EF 40% Diabetes Mellitus - A1c noted - ISS and accuchecks Disposition Will transition over to inpatient hospice care today. >40 minutes of critical care time spent with patient FELICIANO DE LUNA May 18, 2019 13:10
--- NOTE | 2019-05-18 14:47 | PN ---
Date/Time of Note Date/Time of Note DATE: 05/18/19 TIME: 14:45 Assessment/Plan VTE Prophylaxis Risk score (from N[facility])>0 risk: 10 SCD applied (from [place]): Yes Pharmacological prophylaxis: NA/contraindicated Pharm contraindication: other Lines/Catheters IV Catheter Type (from [facility]): Urinary Cath still in place: No Assessment/Plan Assessment/Plan Assessment: Septic shock -2/2 to PNA/bacteremia -Remains in ICU on pressors Pneumonia Bacteremia Acute on chronic anemia -Positive occult blood test Liver cirrhosis with a small to moderate amount of ascites. Thrombocytopenia Hyperbilirubinemia- likely 2/2 to hepatocellular disease -US- The common bile duct measures 3 mm in maximal dimension. Coagulopathy- improved Diabetes mellitus Congestive heart failure AICD Cholelithiasis Encephalopathy -Recent ammonia- less than 9 Plan: Hospice care GI will sign off at this time Patient seen in collaboration Dr. Freedman Subjective: Patient has transitioned to hospice. With no further recommendations GI will sign off and will be available to reconsult upon request. PHYSICAL EXAMINATION: GENERAL: Alert & confused, with some resp distress SKIN: No lesions, pallor, multiple areas of ecchymosis, no stigmata chronic liver disease, no evidence of bleeding diathesis EARS/NOSE AND THROAT: Ears normal, nose normal. NECK: Supple, no masses. CHEST: Inspection within normal limits. CARDIOVASCULAR: Heart: Regular rate and rhythm, RESPIRATORY: Coarse lung sounds GASTROINTESTINAL AND LIVER: Abdomen: Soft, questionable tenderness -patient screams with any stimuli, non-distended, no hernias, no masses, no organomegaly, no ascites, no guarding, no rebound tenderness, normoactive bowel sounds. Rectal: Deferred. GENITOURINARY: Patino in place Result Diagram: 05/18/19 0613 05/18/19 0450 Results 24hrs Laboratory Tests Test 05/17/19 17:36 05/17/19 20:34 05/18/19 01:12 05/18/19 04:00 Bedside Glucose 135 127 106 Lactic Acid 1.4 Level Test 05/18/19 04:50 05/18/19 04:53 05/18/19 05:00 05/18/19 06:13 Sodium Level 140 Potassium Level 3.4 L Chloride Level 113 H Carbon Dioxide 20 L Level Anion Gap 7 Blood Urea 28 H Nitrogen Creatinine 0.69 Est Glomerular > 60 Filtrat Rate mL/min Glucose Level 251 #H Calcium Level 7.2 L Phosphorus 2.7 Level Magnesium Level 1.8 Total Bilirubin 18.4 H Direct 14.10 H Bilirubin Indirect 4.3 H Bilirubin Aspartate Amino 47 H Transf (AST/SGO T) Alanine 50 Aminotransferas e (ALT/SGPT) Alkaline 54 Phosphatase Total Protein 5.4 L Albumin 2.2 L Globulin 3.20 Albumin/Globuli 0.68 n Ratio Lab Scanned BLOOD TRANSFUSI Report ON Blood Gas Blood arterial Specimen Source Arterial Blood 05/18/2019 4:30:2 Date Drawn 6 AM Arterial Blood 7.397 pH (Temp corrected ) Arterial Blood 33.6 L pCO2 (Temp correct) Arterial Blood 54.4 *L pO2 (Temp corrected ) Arterial Blood 20.2 L HCO3 Arterial Blood -4.0 L Base Excess Arterial Blood 87.6 L Oxygen Saturati on Barber Test ACCEPTAB Arterial Blood Right Radial Gas Puncture Site Arterial 2.4 Blood Carboxyhe moglobin Arterial Blood 0.1 Methemoglobin Blood Gas A-a 105.6 H O2 Differential Oxyhemoglobin 85.4 L Percent Blood Gas 37.0 Temperature Blood Gas NASAL CANNULA Modality FiO2 28.0 Blood Gas CMEIKLE RN Critical Value Read Back Blood Gas MA Notified Whom Blood Gas 05/18/2019 4:55:0 Notified Time 6 AM White Blood 7.7 # Count Red Blood Count 3.14 #L Hemoglobin 9.4 #L Hematocrit 29.1 #L Mean 92.7 Corpuscular Volume Mean 29.9 Corpuscular Hemoglobin Mean 32.3 Corpuscular Hemoglobin Conc ent Red Cell 23.7 H Distribution Width Platelet Count 43 #L Mean Platelet Volume Immature 2.200 H Granulocytes % Neutrophils % 81.7 H Segmented 75 Neutrophils % (Manual) Band 14 H Neutrophils % (Manual) Lymphocytes % 8.0 L Lymphocytes % 3 L (Manual) Monocytes % 7.6 Monocytes % 6 (Manual) Eosinophils % 0.4 Basophils % 0.1 Myelocytes % 1 H (Manual) Promyelocytes % 1 H (Manual) Nucleated Red 7 H Blood Cells % Immature 0.170 H Granulocytes # Neutrophils # 6.3 Neutrophils # 5.9 (Manual) Band 1.0 H Neutrophils # Lymphocytes 0.2 L (Manual) Lymphocytes # 0.6 L Monocytes # 0.6 Monocytes # 0.4 (Manual) Eosinophils # 0.0 Basophils # 0.0 Myelocytes # 0.0 Promyelocytes # 0.0 Nucleated Red 0.5 H Blood Cells # Platelet SIG DECREASED Estimate Polychromasia 3+ Poikilocytosis 3+ Anisocytosis 2+ Microcytosis 1+ Macrocytosis 1+ Target Cells 1+ Test 05/18/19 08:25 Bedside Glucose 114 CC: ERIN FREEDMAN MD ; Exam/Review of Systems Exam Vitals Vital Signs Date Temp Pulse Resp B/P (MAP) Pulse Ox O2 O2 Flow FiO2 Time Delivery Rate 05/18/19 99.1 83 18 85/42 (56) 96 14:00 05/18/19 Nasal 5.0 12:00 Cannula 05/15/19 36 16:55 Intake and Output 05/17/19 05/17/19 05/18/19 1515:00 23:00 07:00 IntakeIntake Total 1803.00 ml 2090.00 ml 1010.00 ml OutputOutput Total 285 ml 605 ml 480 ml BalanceBalance 1518.00 ml 1485.00 ml 530.00 ml Results Results 24hrs Laboratory Tests Test 05/17/19 17:36 05/17/19 20:34 05/18/19 01:12 05/18/19 04:00 Bedside Glucose 135 127 106 Lactic Acid 1.4 Level Test 05/18/19 04:50 05/18/19 04:53 05/18/19 05:00 05/18/19 06:13 Sodium Level 140 Potassium Level 3.4 L Chloride Level 113 H Carbon Dioxide 20 L Level Anion Gap 7 Blood Urea 28 H Nitrogen Creatinine 0.69 Est Glomerular > 60 Filtrat Rate mL/min Glucose Level 251 #H Calcium Level 7.2 L Phosphorus 2.7 Level Magnesium Level 1.8 Total Bilirubin 18.4 H Direct 14.10 H Bilirubin Indirect 4.3 H Bilirubin Aspartate Amino 47 H Transf (AST/SGO T) Alanine 50 Aminotransferas e (ALT/SGPT) Alkaline 54 Phosphatase Total Protein 5.4 L Albumin 2.2 L Globulin 3.20 Albumin/Globuli 0.68 n Ratio Lab Scanned BLOOD TRANSFUSI Report ON Blood Gas Blood arterial Specimen Source Arterial Blood 05/18/2019 4:30:2 Date Drawn 6 AM Arterial Blood 7.397 pH (Temp corrected ) Arterial Blood 33.6 L pCO2 (Temp correct) Arterial Blood 54.4 *L pO2 (Temp corrected ) Arterial Blood 20.2 L HCO3 Arterial Blood -4.0 L Base Excess Arterial Blood 87.6 L Oxygen Saturati on Barber Test ACCEPTAB Arterial Blood Right Radial Gas Puncture Site Arterial 2.4 Blood Carboxyhe moglobin Arterial Blood 0.1 Methemoglobin Blood Gas A-a 105.6 H O2 Differential Oxyhemoglobin 85.4 L Percent Blood Gas 37.0 Temperature Blood Gas NASAL CANNULA Modality FiO2 28.0 Blood Gas CMEIKLE RN Critical Value Read Back Blood Gas MA Notified Whom Blood Gas 05/18/2019 4:55:0 Notified Time 6 AM White Blood 7.7 # Count Red Blood Count 3.14 #L Hemoglobin 9.4 #L Hematocrit 29.1 #L Mean 92.7 Corpuscular Volume Mean 29.9 Corpuscular Hemoglobin Mean 32.3 Corpuscular Hemoglobin Conc ent Red Cell 23.7 H Distribution Width Platelet Count 43 #L Mean Platelet Volume Immature 2.200 H Granulocytes % Neutrophils % 81.7 H Segmented 75 Neutrophils % (Manual) Band 14 H Neutrophils % (Manual) Lymphocytes % 8.0 L Lymphocytes % 3 L (Manual) Monocytes % 7.6 Monocytes % 6 (Manual) Eosinophils % 0.4 Basophils % 0.1 Myelocytes % 1 H (Manual) Promyelocytes % 1 H (Manual) Nucleated Red 7 H Blood Cells % Immature 0.170 H Granulocytes # Neutrophils # 6.3 Neutrophils # 5.9 (Manual) Band 1.0 H Neutrophils # Lymphocytes 0.2 L (Manual) Lymphocytes # 0.6 L Monocytes # 0.6 Monocytes # 0.4 (Manual) Eosinophils # 0.0 Basophils # 0.0 Myelocytes # 0.0 Promyelocytes # 0.0 Nucleated Red 0.5 H Blood Cells # Platelet SIG DECREASED Estimate Polychromasia 3+ Poikilocytosis 3+ Anisocytosis 2+ Microcytosis 1+ Macrocytosis 1+ Target Cells 1+ Test 05/18/19 08:25 Bedside Glucose 114 Medications Medication Current Medications Morphine Sulfate (morphine) 2 mg Q1H PRN IV PAIN/DYSPNEA Last administered on 05/18/19at 14:12; Admin Dose 2 MG; Start 05/18/19 at 13:00 Lorazepam (Ativan) 1 mg Q4H PRN IV ANXIETY/SEIZURES Last administered on 05/18/19at 13:08; Admin Dose 1 MG; Start 05/18/19 at 13:00 Scopolamine (Transderm-Scop) 1 patch Q72H TRANSDERM Last administered on 05/18/19at 13:24; Admin Dose 1 PATCH; Start 05/18/19 at 13:00 Atropine Sulfate (Atropine 1% Oph) 2 drop Q4H PRN SL TERMINAL CONGESTION; Sta rt 05/18/19 at 13:00 Acetaminophen (Tylenol Supp) 650 mg Q6H PRN [place] FEVER; Start 05/18/19 at 13:00 JENNIFER SEGURA NP May 18, 2019 14:47
--- NOTE | 2019-05-18 20:29 | HP ---
DATE OF ADMISSION: 05/10/2019 PRIMARY HOSPITAL DIAGNOSES: Anoxic encephalopathy due to cardiac arrest, comorbid cardiomyopathy wit h EF of 40%, atrial fibrillation, anemia, acute on chronic kidney disease, recent pneumonia. CHIEF COMPLAINT AND HISTORY: The history is obtained from medical record as the patient is noncommun icative. The patient is a 63-year-old gentleman with a history of hypertension, diabetes, atrial fib rillation, systolic heart failure, with AICD. The patient also has history of CAD and mechanical aor tic valve replacement in 2002. The patient also has history of anoxic brain injury. The patient was transferred to [facility] ICU from [place] due to hypertension and respiratory dist ress on 05/10/2019. The patient's BP was 70s at that time. The patient was also in respiratory dist ress and was put on BiPAP. Chest x-ray revealed pneumonia. The patient was diagnosed with sepsis. The patient continued to decline and was referred to palliative care and was seen by allan Orlando subsequently patient was transitioned to hospice care. The patient was on pressors this morning an d was nonverbal. The patient did not have any fever or chills. No reported vomiting, no reported se izures, no reported temperature spike. REVIEW OF SYSTEMS: Limited. PAST MEDICAL HISTORY: As stated above. ALLERGIES: NO KNOWN DRUG ALLERGIES. PAST SURGICAL HISTORY: The patient is status post mechanical aortic valve and AICD placement. SOCIAL HISTORY: No smoking. FAMILY HISTORY: Noncontributory for patient's condition. PHYSICAL EXAMINATION: GENERAL: The patient is noncommunicative. VITAL SIGNS: Temperature 99.1, pulse 82, respiration 18, blood pressure 85/42, O2 saturation 97% on 5 liters nasal cannula. HEENT: Normocephalic, atraumatic head. Eyes: No discharge or redness. NECK: Supple. No mass. Nontender. CHEST: Coarse breath sounds. CARDIOVASCULAR: S1, S2 normal, no murmur. ABDOMEN: Soft, nondistended, nontender. EXTREMITIES: Nontender, no cyanosis. NEUROLOGIC: The patient is noncommunicative. SKIN: Without acute rash. RECENT LABORATORY DATA: WBC 7.7, hemoglobin 9.4, platelet 43. Sodium 140, potassium 3.4, BUN 20, cr eatinine 0.6, glucose 104. Bilirubin 18.4, albumin 2.2. IMPRESSION: 1. Septic shock secondary to pneumonia, cancer. 2. Acute respiratory failure. 3. Acute on chronic toxic metabolic encephalopathy. 4. Anemia. 5. Thrombocytopenia. 6. Bacteremia/fungemia. 7. Atrial fibrillation 8. Cardiomyopathy with ejection fraction of 40%. 9. Diabetes. PLAN: 1. The patient will be admitted under [facility] level of care and will be started on morphine 2 mg q.1 cassie r p.r.n., Ativan 1 mg IV q.4h. p.r.n. 2. We will also place scopolamine patch and atropine drops for chest congestion and secretions, and the patient was also started on Tylenol suppository q.6h. p.r.n. Plan of care discussed with the desk nurseSarah. Will continue to optimize comfort care. Dictated By: FRANSICO BARAJAS MD AB/NTS Conf#: [id number] DID#: [id number] CC: FLORINDA GONZALEZ MD;*EndCC*
[2019-05-19] VITALS: PULSE 85
[2019-05-19] MEDS: morphine 2 MG INJ IV PRN (03:46)
[2019-05-19 08:00] VITALS: RESP 22
--- NOTE | 2019-05-19 08:37 | PN ---
DATE: 05/19/2019 SUBJECTIVE: The patient has been placed on hospice care. Currently, the patient is receiving interm ittent morphine, is comfortable. No other events noted. OBJECTIVE: VITAL SIGNS: Blood pressure is 85/61, respiration 15, pulse 83, temperature 98.6. HEENT: Head is normocephalic. NECK: Supple. HEART: Regular rate. LUNGS: Show diminished breath sounds at the base. ABDOMEN: Soft, nontender to palpation without rebound or guarding. EXTREMITIES: Negative for clubbing, cyanosis, no edema. DERMATOLOGIC: No rashes. MUSCULOSKELETAL: No joint effusion. NEUROLOGIC: No change in exam. ASSESSMENT AND PLAN: 1. Nonoliguric acute kidney injury. 2. Hypernatremia. 3. Anemia. 4. Sepsis. 5. Volume overload. 6. Respiratory failure. 7. Diabetes. 8. Heart failure. 9. Encephalopathy. 10. Cirrhosis. PLAN: The patient is currently in hospice care. Will sign off. Dictated By: KENIA HAMM DO NR/NTS Conf#: [id number] DID#: [id number] CC: FLORINDA GONZALEZ MD;*EndCC*
[2019-05-19 10:00] VITALS: RESP 20
[2019-05-19 11:01] VITALS: BP 100/61; PULSE 83; RESP 20
[2019-05-19] MEDS: ATROPINE 1% 5 ML OPH SL PRN ×5 (11:16→22:14)
--- NOTE | 2019-05-19 11:17 | PN ---
DATE: 05/19/2019 SUBJECTIVE: Follow up on respiratory failure, septic shock, coronary artery disease, cardiomyopathy. The patient since yesterday has continued to decline and is now completely unresponsive and also wa s noted to have increased secretions. The patient did not have any bleeding from any site. No repor nehemiah temperature spike. Blood pressure is below 90 on multiple occasions. The patient did not have a ny vomiting. The patient has been nonverbal. VITAL SIGNS: Pulse 82, respirations 15, blood pressure 85/61, O2 saturation 97% on 5 liters nasal ca nnula. HEENT: No eye discharge or redness. The patient is jaundiced. NECK: No mass. CHEST: Coarse breath sounds bilaterally. CARDIOVASCULAR: Irregular rhythm. ABDOMEN: Soft, nondistended. EXTREMITIES: Trace edema. NEUROLOGICAL: The patient is nonverbal. Skin is jaundiced. Conjunctivae and lids are cardiac. SKIN: Without acute rash. Again, deeply jaundiced skin. IMPRESSION: 1. Septic shock. 2. Cardiomyopathy. 3. Coronary artery disease. 4. Atrial fibrillation. 5. History of cardiac arrest with anoxic encephalopathy. PLAN: The patient will be started on morphine drip at 1 mg an hour which will be titrated up for com fort care. We will also increase atropine drops to 2 drops q.12h. p.r.n. We will continue scopolamin e patch. Continue IV Ativan 1 mg q.4 hours p.r.n. for terminal anxiety. Plan of care discussed with the patient's nurse Susan, nurse Jaiden and the patient's , Ale Villa. The patient remains appropriate for hospice care. Dictated By: FRANSICO CABRERA/NTS Conf#: [id number] DID#: [id number] CC: KAYLAN MIN MD; FLORINDA GONZALEZ MD;*EndCC*
[2019-05-19] MEDS: morphine (DRIP) 100 MG/100 ML 100 ML IV SCH ×2 (12:46→16:38)
[2019-05-19 14:00] VITALS: RESP 19
--- NOTE | 2019-05-19 14:32 | CONS ---
Assessment/Plan Assessment/Plan Hospital Course (Demo Recall) ID PROGRESS NOTE CURRENT ABX: DAY # =>ABX DCD' MERREM + Cancidas 24H INTERVAL SUMMARY * Altered mental status continues -- OBTUNDED transferred to HOSPICE care on Morphine Gtt DIAGNOSTIC IMAGING * 05/17/19 CXR:Cardiomegaly with calcified atherosclerosis in the aorta. Near complete opacification of the right hemithorax, possibly corresponding to near complete atelectasis/consolidation of the right lung, combined with pleural fluid. Central pulmonary vascular congestion and interstitial prominence in the left lung. Interval increase in extensive infiltrates throughout the left lung. MICRO * 05/15/19 BCx (-) * 05/12/19 BCx(+) YEAST 1/2 bottles * 05/10/19 Urine Cx (-) * 05/10/19 BCx (+) [id number] PHYSICAL EXAMINATION: GENERAL: Lethargic, encephalopathic HEENT: AT, NC, NECK: Supple, CHEST: Rise symmetrical without dyspnea HEART: Pulse RRR ABDOMEN: SOFT EXTREMITIES: Warm, dry SKIN: No rash, no diaphoresis ID ASSESSMENT 63 yo M admit with: 1. Sepsis with shock 2. Acute hypoxemic respiratory failure 3. Gram-negative bacteremia and fungemia ?SBE ?SBP vs pulmonary 3. Healthcare associated pneumonia possibly aspirated 4. Anemia 5. Thrombocytopenia 6. Diabetes 7. Atrial fibrillation 8. Liver cirrhosis with ascites, rule out SBP 9. Coronary artery disease, status post AVR (-)MRSA Nares ABX ALLERGIES: KNDA INVASIVES: PICC, FC, ICD CURRENT ABX: DAY # => ABX DCD' MERREM + Cancidas ID RECOMMENDATIONS/PLAN: 1. Patient is transferred to comfort care measures and is hospice appropriate due to terminal prognosis Thank you for allowing ID team consultants to participate in the care of this gentleman, will sign off. . Consultation Date/Type/Reason Admit Date/Time May 10, 2019 at 13:20 Initial Consult Date 05/11/19 Requesting Provider: NIXON MILLER MD Date/Time of Note DATE: 05/19/19 TIME: 14:30 Exam/Review of Systems Exam Vitals Vital Signs Date Temp Pulse Resp B/P (MAP) Pulse Ox O2 O2 Flow FiO2 Time Delivery Rate 05/19/19 97.9 83 20 100/61 98 6.0 11:01 (74) 05/19/19 Nasal 10:00 Cannula 05/15/19 36 16:55 Intake and Output 05/18/19 05/18/19 05/19/19 1515:00 23:00 07:00 IntakeIntake Total 756.25 ml 0 ml OutputOutput Total 335 ml 235 ml 350 ml BalanceBalance 421.25 ml -235 ml -350 ml Results Result Diagram: 05/18/19 0613 05/18/19 0450 Medications Medication Current Medications Lorazepam (Ativan) 1 mg Q4H PRN IV ANXIETY/SEIZURES Last administered on 05/18/19at 16:53; Admin Dose 1 MG; Start 05/18/19 at 13:00 Scopolamine (Transderm-Scop) 1 patch Q72H TRANSDERM Last administered on 05/18/19at 13:24; Admin Dose 1 PATCH; Start 05/18/19 at 13:00 Acetaminophen (Tylenol Supp) 650 mg Q6H PRN [place] FEVER; Start 05/18/19 at 13:00 Atropine Sulfate (Atropine 1% Oph) 2 drop Q2H PRN SL TERMINAL CONGESTION Last administered on 05/19/19at 13:40; Admin Dose 2 DROP; Start 05/19/19 at 11:00 Morphine Sulfate/ Sodium Chloride 100 ml @ 1 mls/hr TITRATE IV Last administered on 05/19/19at 12:46; Admin Dose 1 MLS/HR; Start 05/19/19 at 11:00 ANITA HUNTER NP May 19, 2019 14:32
[2019-05-20] MEDS: ATROPINE 1% 5 ML OPH SL PRN ×6 (05:53→20:00)
[2019-05-20] MEDS: LORAZEPAM 2 MG INJ IV PRN ×2 (09:35→18:14)
[2019-05-20] MEDS ORDERED: FUROSEMIDE 40 MG INJ IV ONE (11:00)
--- NOTE | 2019-05-20 11:17 | PN ---
DATE: 05/20/2019 SUBJECTIVE AND INTERVAL HISTORY: The patient since yesterday has declined further. Due to shortness of breath, morphine dose has been increased up to 3 mg an hour. The patient also appears to have inc reasing generalized edema with local nasopharyngeal bleeding. The patient remains unresponsive. PHYSICAL EXAMINATION: GENERAL: The patient is nonverbal. VITAL SIGNS: Temperature 97.9, pulse 83, respirations 20, blood pressure 100/61, O2 saturation 96% o n 4 liters. HEENT: No eye discharge or redness. Conjunctivae are icteric. Nose and ears normal externally. NECK: No mass. CHEST: Coarse breath sounds with diminished air entry at bases. CARDIOVASCULAR: S1, S2 normal. ABDOMEN: Soft. EXTREMITIES: Edematous. SKIN: Without acute rash but deeply jaundiced. NEUROLOGIC: The patient is noncommunicative. IMPRESSION: 1. Septic shock. 2. Coronary artery disease and cardiomyopathy. 3. Atrial fibrillation. 4. History of cardiac arrest with anoxic encephalopathy. PLAN: As described above. The patient's morphine dose has been increased up to 3 mg per hour. Will give 1 dose of Lasix. Will stop IV fluids completely and will continue morphine drip. The patient had received 7 doses of atropine drops since yesterday in addition to scopolamine patch. Patient did have a coagulopathy before admission with INR of 1.6 and also has thrombocytopenia due to recent sep sis plus liver dysfunction. Last platelet count was only 43 on 05/18/2019. The patient remains appr opriate for [facility] level of care. Plan of care discussed with the patient's nurse, Maribell and nurseJaiden. Dictated By: FRANSICO BARAJAS MD AB/NTS Conf#: [id number] DID#: [id number] CC: FLORINDA GONZALEZ MD; KAYLAN MIN MD;*EndCC*
[2019-05-20] MEDS: morphine (DRIP) 100 MG/100 ML 100 ML IV SCH (20:03)
== END 2019-05-21 04:40 | disposition expired | DRG 871 ==
LOC: ICU 13:20 → MS1 05-19 01:00
PROVIDERS: ADMIT Internal Medicine Interventional Cardiology; ATTEND Internal Medicine
PROC: 02HV33Z Insertion of Infusion Device into Superior Vena Cava, Percutaneous Approach (ICD-10-PCS; principal; 2019-05-10)
PROC: 30233N1 Transfusion of Nonautologous Red Blood Cells into Peripheral Vein, Percutaneous Approach (ICD-10-PCS; 2019-05-10)
PROC: 30233R1 Transfusion of Nonautologous Platelets into Peripheral Vein, Percutaneous Approach (ICD-10-PCS; 2019-05-12)
PROC: 30233K1 Transfusion of Nonautologous Frozen Plasma into Peripheral Vein, Percutaneous Approach (ICD-10-PCS; 2019-05-17)
DX: A41.9 Sepsis, unspecified organism (principal); R65.21 Severe sepsis with septic shock; J69.0 Pneumonitis due to inhalation of food and vomit; G92 Toxic encephalopathy; N17.0 Acute kidney failure with tubular necrosis; I50.23 Acute on chronic systolic (congestive) heart failure; J96.01 Acute respiratory failure with hypoxia; G93.1 Anoxic brain damage, not elsewhere classified; D62 Acute posthemorrhagic anemia; I42.9 Cardiomyopathy, unspecified; R04.89 Hemorrhage from other sites in respiratory passages; E87.0 Hyperosmolality and hypernatremia; I13.0 Hypertensive heart and chronic kidney disease with heart failure and stage 1 through stage 4 chronic kidney disease, or unspecified chronic kidney disease; I47.2 Ventricular tachycardia; E87.2 Acidosis; R18.8 Other ascites; D68.9 Coagulation defect, unspecified; B49 Unspecified mycosis; D69.6 Thrombocytopenia, unspecified; I25.10 Atherosclerotic heart disease of native coronary artery without angina pectoris; N18.3 Chronic kidney disease, stage 3 (moderate); E11.22 Type 2 diabetes mellitus with diabetic chronic kidney disease; I48.0 Paroxysmal atrial fibrillation; K74.60 Unspecified cirrhosis of liver; R19.5 Other fecal abnormalities; Z95.810 Presence of automatic (implantable) cardiac defibrillator; Z95.2 Presence of prosthetic heart valve; Z86.74 Personal history of sudden cardiac arrest; Z66 Do not resuscitate
CPT/HCPCS: 36430; 36569; 36600; 70450; 71045; 76705; 76775; 76937; 80048; 80053; 80076; 80162; 81001; 81003; 82043; 82140; 82270; 82533; 82803; 82962; 83010; 83036; 83540; 83605; 83615; 83735; 84100; 84145; 84155; 84300; 84439; 84443; 85025; 85045; 85049; 85302; 85384; 85610; 85670; 85730; 86644; 86704; 86803; 86850; 86900; 86901; 86920; 86945; 87081; 87086; 87340; 92526; 92610; 94640; 94664; J0131; J1630; J1815; J1940; J2060; J2185; J2270; J2370; J2916; J3370; J3480; J7040; J7042; J7050; J7070; P9016; P9035; P9047; P9059